=== PATIENT | female | born 1940 | race Two or more races ===

== ENCOUNTER 2018-12-12 18:49 | Inpatient (IN) | payer OTHER ==
[~2018-12-12] VITALS: Ht 165.1 cm; Wt 77.6 kg
--- NOTE | 2018-12-12 18:52 | NUR ---
ED Nurse Note: Pt BIBA from home due to dyspnea since this morning. Pt was placed in a cipap by EMS. Arrived in the ER sating at 100% on RA. Pt denies pain. Pt is arousable and able to communicate. Pt noted to have bilateral lower leg edema. Skin warm to touch.
[2018-12-12 18:54] VITALS: BP 161/107
--- NOTE | 2018-12-12 19:03 | NUR ---
HAND-OFF: Report given to ADRYAN Davis.
[2018-12-12 19:26] LABS: HEMATOCRIT 22.1 % (37.0-47.0); HEMOGLOBIN 7.5 G/DL (12.0-16.0); MEAN CORPUSCULAR VOLUME 91 FL (80-99); PLATELET COUNT 257 K/UL (150-450); RED BLOOD COUNT 2.43 M/UL (4.20-5.40); WHITE BLOOD COUNT 10.1 K/UL (4.8-10.8)
[2018-12-12] MEDS ORDERED: LORATADINE10 M2 PO (19:33)
[2018-12-12] MEDS ORDERED: NIFEDIPINE ER60 M2 ORAL (19:33)
[2018-12-12] MEDS ORDERED: CARVEDILOL12.5 MG ORAL (19:33)
[2018-12-12] MEDS ORDERED: SYNTHROID25 MCG ORAL (19:33)
[2018-12-12] MEDS ORDERED: POTASSIUM CHLO10 ME3 ORAL (19:33)
[2018-12-12] MEDS ORDERED: FUROSEMIDE40 MG ORAL (19:33)
[2018-12-12] MEDS ORDERED: CLOPIDOGREL75 MG ORAL (19:33)
[2018-12-12] MEDS ORDERED: OMEPRAZOLE20 M2 ORAL (19:33)
[2018-12-12 19:50] LABS: ANION GAP 8 mmol/L (5-15); BLOOD UREA NITROGEN 33 mg/dL (7-18); CALCIUM 8.5 MG/DL (8.5-10.1); CARBON DIOXIDE 24 MMOL/L (21-32); CHLORIDE 94 MMOL/L (98-107); CREATININE 1.7 MG/DL (0.55-1.30); SODIUM 126 MMOL/L (136-145)
[2018-12-12] MEDS ORDERED: FAMOTIDINE20 MG ORAL (19:57)
[2018-12-12] MEDS ORDERED: NOVOLIN 70100 UNIT/2 SQ (19:57)
[2018-12-12] MEDS ORDERED: LOSARTAN POTASS50 MG ORAL (19:57)
[2018-12-12] MEDS ORDERED: ATORVASTATIN CA20 MG ORAL (19:57)
[2018-12-12] MEDS ORDERED: DIPHENHYDRAMINE25 M1 ORAL (19:57)
[2018-12-12 20:05] LABS: ALANINE AMINOTRANSFERASE 19 U/L (12-78); ALBUMIN 3.2 G/DL (3.4-5.0); ALBUMIN/GLOBULIN RATIO 0.9 (1.0-2.7); ALKALINE PHOSPHATASE 116 U/L (46-116); ASPARTATE AMINO TRANSFERASE 17 U/L (15-37); BILIRUBIN,TOTAL 0.4 MG/DL (0.2-1.0); CKMB 1.9 NG/ML (0.0-3.6); CREATINE KINASE 99 U/L (26-308)
--- NOTE | 2018-12-12 20:41 | Emergency Room Report ---
History of Present Illness General Chief Complaint: Dyspnea/Respdistress Source: Patient Present Illness HPI This patient presents with difficulty breathing. The patient was recently admitted to [facility] for congestive heart failure, hyponatremia and anemia. This patient presents today because she has had shortness of breath all day today. She denies cough or congestion. She denies fever or chills. She denies nausea or vomiting. She denies chest pain or abdominal pain. She has no other complaints. Allergies: Coded Allergies: No Known Allergies (Unverified , 12/12/18) Patient History Past Medical History: see triage record, DM, HTN, CAD, CHF Social History: Denies: smoking, alcohol use, drug use Reviewed Nursing Documentation: PMH: Agreed; PSxH: Agreed Nursing Documentation-PMH Hx Cardiac Problems: Yes - chf Hx Hypertension: Yes Hx Diabetes: Yes Review of Systems All Other Systems: negative except mentioned in HPI Physical Exam Vital Signs Date Time Temp Pulse Resp B/P (MAP) Pulse Ox O2 Delivery O2 Flow Rate FiO2 12/12/18 18:42 97.3 80 24 177/67 100 Bi-pap 12/12/18 18:54 100 Sp02 EP Interpretation: reviewed, normal General Appearance: no apparent distress, alert, GCS 15, non-toxic, other - On CPAP Head: normocephalic, atraumatic Eyes: bilateral eye normal inspection, bilateral eye PERRL ENT: hearing grossly normal, normal pharynx, no angioedema, normal voice Neck: full range of motion, supple/symm/no masses Respiratory: chest non-tender, lungs clear, normal breath sounds, no respiratory distress, no retraction, no accessory muscle use Cardiovascular #1: regular rate, rhythm, no edema Gastrointestinal: normal bowel sounds, non tender, soft, non-distended, no guarding, no rebound Rectal: deferred Musculoskeletal: back normal, gait/station normal, normal range of motion, non- tender Neurologic: alert, oriented x3, responsive, motor strength/tone normal, sensory intact, speech normal Psychiatric: judgement/insight normal, memory normal, mood/affect normal, no suicidal/homicidal ideation Skin: normal color, no rash, warm/dry, well hydrated Medical Decision Making Diagnostic Impression: Primary Impression: CHF exacerbation Additional Impressions: Anemia Hyponatremia Dyspnea ER Course This patient presented with dyspnea. When she was brought in by EMS she was on Cipro. Her SPO2 was 100%. He took the patient off BiPAP and she was maintaining her O2 saturation in the high 90s to 100% on room air and nasal cannula. The patient's laboratory workup was pertinent for hyponatremia and anemia. I'm unsure of the patient's baseline labs. Apparently, the patient has undergone evaluation for her anemia to include colonoscopy. She also has had profound itching all over her body that bothers her intensely. She has had this previously and was diagnosed with a dermatitis by a skilled nursing facility counselor about 3 years ago. I did go ahead and treat her with permethrin cream as a precaution. This patient will be admitted for her CHF, hyponatremia and anemia. Laboratory Tests Test 12/12/18 19:00 White Blood Count 10.1 K/UL (4.8-10.8) Red Blood Count 2.43 M/UL (4.20-5.40) L Hemoglobin 7.5 G/DL (12.0-16.0) L Hematocrit 22.1 % (37.0-47.0) L Mean Corpuscular Volume 91 FL (80-99) Mean Corpuscular Hemoglobin 30.7 PG (27.0-31.0) Mean Corpuscular Hemoglobin Concent 33.7 G/DL (32.0-36.0) Red Cell Distribution Width 12.0 % (11.6-14.8) Platelet Count 257 K/UL (150-450) Mean Platelet Volume 5.9 FL (6.5-10.1) L Neutrophils (%) (Auto) % (45.0-75.0) Lymphocytes (%) (Auto) % (20.0-45.0) Monocytes (%) (Auto) % (1.0-10.0) Eosinophils (%) (Auto) % (0.0-3.0) Basophils (%) (Auto) % (0.0-2.0) Differential Total Cells Counted 100 Neutrophils % (Manual) 83 % (45-75) H Lymphocytes % (Manual) 8 % (20-45) L Monocytes % (Manual) 3 % (1-10) Eosinophils % (Manual) 6 % (0-3) H Basophils % (Manual) 0 % (0-2) Band Neutrophils 0 % (0-8) Platelet Estimate Adequate Platelet Morphology Normal Red Blood Cell Morphology Normal Sodium Level 126 MMOL/L (136-145) L Potassium Level 4.0 MMOL/L (3.5-5.1) Chloride Level 94 MMOL/L (98-107) L Carbon Dioxide Level 24 MMOL/L (21-32) Anion Gap 8 mmol/L (5-15) Blood Urea Nitrogen 33 mg/dL (7-18) H Creatinine 1.7 MG/DL (0.55-1.30) H Estimate Glomerular Filtration Rate mL/min (>60) Glucose Level 84 MG/DL (74-106) Calcium Level 8.5 MG/DL (8.5-10.1) Total Bilirubin 0.4 MG/DL (0.2-1.0) Aspartate Amino Transferase (AST) 17 U/L (15-37) Alanine Aminotransferase (ALT) 19 U/L (12-78) Alkaline Phosphatase 116 U/L (46-116) Total Creatine Kinase 99 U/L (26-308) Creatine Kinase MB 1.9 NG/ML (0.0-3.6) Creatine Kinase MB Relative Index 1.9 Troponin I 0.000 ng/mL (0.000-0.056) Pro-B-Type Natriuretic Peptide 2133 pg/mL (0-125) H Total Protein 6.8 G/DL (6.4-8.2) Albumin 3.2 G/DL (3.4-5.0) L Globulin 3.6 g/dL Albumin/Globulin Ratio 0.9 (1.0-2.7) L Microbiology Date/Time Source Procedure Growth Status 12/12/18 20:20 Nasal Nares Influenza Types A,B Antigen (CLAU) - Final Complete EKG Diagnostic Results Rate: normal Rhythm: NSR ST Segments: no acute changes Rhythm Strip Diag. Results EP Interpretation: yes Rate: 70's Rhythm: NSR, no PVC's, no ectopy Chest X-Ray Diagnostic Results Chest X-Ray Diagnostic Results : Chest X-Ray Ordered: Yes # of Views/Limited/Complete: 1 View Indication: Shortness of Breath Interpretation: no consolidation, no pneumothorax, other - cardiomegaly, diffusely patchy opacities, bilateral small pleural effusions Last Vital Signs Date Time Temp Pulse Resp B/P (MAP) Pulse Ox O2 Delivery O2 Flow Rate FiO2 12/12/18 20:31 170/50 12/12/18 18:54 80 27 Room Air 100 12/12/18 18:54 97.3 100 Disposition: ADMITTED INPATIENT Condition: Serious Referrals: [facility],REFERRING (PCP) Jacki Troy DO Dec 12, 2018 20:41
[2018-12-12 21:01] VITALS: BP 160/62
--- NOTE | 2018-12-12 21:02 | NUR ---
ER Nurse Note: Pt a&ox4, VSS, no signs of distress. ERMD aware of blood pressure; meds ordered and given. BS checked, 73, juice given, pt stated she feels better and will recheck BS. Family at bedside; will continue to montior.
[2018-12-12 22:06] VITALS: BP 134/71
[2018-12-12] MEDS ORDERED: Miralax 17gm pkt ORAL PRN (22:15)
[2018-12-12 23:05] VITALS: BP 151/51
--- NOTE | 2018-12-12 23:05 | NUR ---
ER Nurse Note: Report given to ADRYAN Dick in tele for continuity of care. Pt a&ox4, VSS, no signs of distress. All orders completed per ERMD orders. All belongings taken with pt and family.
[2018-12-12 23:09] LABS: APPEARANCE,URINE CLEAR; BILIRUBIN, URINE NEGATIVE (NEGATIVE); COLOR,URINE PALE YELLOW; GLUCOSE, URINE (UA) NEGATIVE (NEGATIVE); KETONES,URINE NEGATIVE (NEGATIVE); LEUKOCYTE ESTERASE ,URINE 2+ (NEGATIVE); NITRITE,URINE NEGATIVE (NEGATIVE); PH,URINE 6 (4.5-8.0); PROTEIN,URINE 3+ (NEGATIVE); UROBILINOGEN,URINE NORMAL MG/DL (0.0-1.0)
[2018-12-12 23:15] VITALS: BP 156/60
--- NOTE | 2018-12-12 23:15 | NUR ---
NURSE NOTES: Received pt from ED via gurney. Pt is awake, AOx4. Pt is being admitted for CHF exacerbation. VS stable. Placed on quality assurance monitor chassis showing NSR. Oriented pt to room and unit. Admission orders noted and carried out. Bed in lowest position. Call light within reach.
[2018-12-12 23:30] VITALS: BP 156/60
[2018-12-13] MEDS: Albuterol/Ipratropium 3ml neb HHN PRN (01:33)
[2018-12-13 05:00] VITALS: BP 167/63
[2018-12-13 06:22] LABS: HEMATOCRIT 20.3 % (37.0-47.0); MEAN CORPUSCULAR VOLUME 92 FL (80-99); PLATELET COUNT 230 K/UL (150-450); RED BLOOD COUNT 2.21 M/UL (4.20-5.40); WHITE BLOOD COUNT 8.6 K/UL (4.8-10.8)
[2018-12-13] MEDS: NovoLOG Insulin Flexpen SUBQ SCH ×4 (06:25→22:10)
[2018-12-13] MEDS ORDERED: Levothyroxine 25mcg tab ORAL SCH (06:30)
[2018-12-13 06:37] LABS: HEMOGLOBIN 6.7 G/DL (12.0-16.0)
--- NOTE | 2018-12-13 06:52 | NUR ---
CASE MANAGEMENT:REVIEW 78YR OLD FEMALE BIBA FROM HOME CC: WORSENING SOB SI: CHF EXACERBATION. ANEMIA. HYPONATREMIA 97.4 80 24 177/67 100% ON BIPAP H/H-7.5/22.1 NA-126 BUN+33 CR+1.7 IS: ALBUTEROL HHN IN FIELD IV HYDRALAZINE CHEST XRAY : TO TELEMETRY IS: IV LASIX Q8HRS INTERQUAL CRITERIA MET
[2018-12-13 07:01] LABS: ANION GAP 10 mmol/L (5-15); BLOOD UREA NITROGEN 30 mg/dL (7-18); CALCIUM 8.3 MG/DL (8.5-10.1); CARBON DIOXIDE 23 MMOL/L (21-32); CHLORIDE 94 MMOL/L (98-107); CREATININE 1.6 MG/DL (0.55-1.30); POTASSIUM 3.9 MMOL/L (3.5-5.1); SODIUM 127 MMOL/L (136-145)
[2018-12-13] MEDS ORDERED: DiphenhydrAMINE 50mg/ml Inj IVP PRN (07:15)
--- NOTE | 2018-12-13 07:45 | NUR ---
HAND-OFF: Report given to ADRYAN Gomes.
[2018-12-13 08:00] VITALS: BP 165/59
--- NOTE | 2018-12-13 08:10 | NUR ---
NURSE NOTES: Received report from ADRYAN Liu. Pt is sitting up in bed. Bed is in lowest position, side rails up X2 and call light is within reach. Will continue to monitor.
--- NOTE | 2018-12-13 08:12 | NUR ---
NURSE NOTES: Consent for transfusion is not signed. Pt and family would like to explore other options as they do not feel comfortable performing blood transfusion as her age. THey would like to speak with the MD. WIll notify MD
--- NOTE | 2018-12-13 08:19 | NUR ---
NURSE NOTES: notified Dr. Cordova of pts concerns regarding blood transfusion.
[2018-12-13] MEDS: Heparin 5000 units/ml inj SUBQ SCH ×2 (09:00→21:00)
[2018-12-13] MEDS: Carvedilol 12.5mg tab ORAL SCH ×2 (09:11→22:06)
[2018-12-13] MEDS ORDERED: Promethazine/Codeine 5ml UD ORAL PRN (10:15)
--- NOTE | 2018-12-13 10:26 | Consultation ---
History of Present Illness General Date patient seen: Dec 13, 2018 Chief Complaint: Dyspnea/Respdistress Present Illness HPI 78 year old female with hx of DM, HTN, CAD, CHF presented to ER with CC of difficulty breathing. The patient was recently admitted to [facility] for congestive heart failure, hyponatremia and anemia. She denies cough or congestion. She denies fever or chills. She denies nausea or vomiting. She denies chest pain or abdominal pain. She was found to be severely anemic and with severe hyponatremia and admitted for further work up. Allergies: Coded Allergies: No Known Allergies (Unverified , 12/12/18) Medication History Scheduled Atorvastatin Calcium* (Atorvastatin Calcium*), 20 MG ORAL BEDTIME, (Reported) Carvedilol* (Carvedilol*), 12.5 MG ORAL EVERY 12 HOURS, (Reported) Clopidogrel* (Clopidogrel*), 75 MG ORAL DAILY, (Reported) Famotidine (Famotidine), 20 MG ORAL DAILY, (Reported) Furosemide* (Lasix*), 40 MG ORAL DAILY, (Reported) Insulin NPH Hum/Reg Insulin Hm (Novolin 70-30 Flexpen), 15 UNIT SQ ACBREAKFAST, (Reported) Levothyroxine Sodium* (Synthroid*), 25 MCG ORAL DAILY, (Reported) Losartan Potassium* (Losartan Potassium*), 100 MG ORAL DAILY, (Reported) Nifedipine* (Nifedipine Er*), 60 MG ORAL DAILY, (Reported) Omeprazole (Omeprazole), 20 MG ORAL DAILY, (Reported) Potassium Chloride (Potassium Chloride), 10 MEQ ORAL TWICE A DAY, (Reported) Scheduled PRN Diphenhydramine Hcl* (Diphenhydramine Hcl*), 25 MG ORAL Q6H PRN for Itching, ( Reported) Loratadine (Loratadine), 10 MG PO DAILY PRN for ALLERGIES, (Reported) Patient History Healthcare decision maker Resuscitation status Full Code Advanced Directive on File Past Medical/Surgical History Past Medical/Surgical History: (1) Hypothyroidism (2) Diabetes mellitus (3) CHF (congestive heart failure) Review of Systems Respiratory: Reports: shortness of breath Cardiovascular: Reports: no symptoms Gastrointestinal: Reports: no symptoms Physical Exam General Appearance: WD/WN Lines, tubes and drains: peripheral HEENT: normocephalic, atraumatic Neck: non-tender, normal alignment Respiratory/Chest: chest wall non-tender, lungs clear, decreased breath sounds - at left Cardiovascular/Chest: normal peripheral pulses, normal rate Abdomen: non tender, no organomegaly Genitourinary/Rectal: normal genital exam Last 24 Hour Vital Signs Date Time Temp Pulse Resp B/P (MAP) Pulse Ox O2 Delivery O2 Flow Rate FiO2 12/13/18 09:12 74 165/59 12/13/18 09:11 74 138/67 12/13/18 08:00 98.8 74 20 165/59 (94) 98 12/13/18 07:46 74 15 Nasal Cannula 2.0 28 12/13/18 07:46 Nasal Cannula 2.0 28 12/13/18 07:46 98 Nasal Cannula 2.0 28 12/13/18 05:00 99.1 71 18 167/63 (97) 98 12/13/18 04:00 71 12/13/18 01:39 Nasal Cannula 2.0 28 12/13/18 01:39 98 Nasal Cannula 2.0 12/13/18 01:38 88 18 Nasal Cannula 2.0 12/13/18 01:36 88 18 99 Nasal Cannula 2.0 28 12/13/18 01:25 84 18 98 Nasal Cannula 2.0 28 12/12/18 23:43 82 12/12/18 23:30 Nasal Cannula 2.0 12/12/18 23:15 98.3 82 17 156/60 (92) 97 12/12/18 23:05 98.1 72 18 151/51 98 Nasal Cannula 12/12/18 23:05 98.2 72 18 151/51 98 Nasal Cannula 12/12/18 22:06 97.6 108 22 134/71 100 Nasal Cannula 3.0 12/12/18 21:01 97.4 78 20 160/62 100 Room Air 100 12/12/18 20:31 170/50 12/12/18 18:54 80 27 Room Air 100 12/12/18 18:54 97.3 80 27 161/107 100 Room Air 12/12/18 18:42 97.3 80 24 177/67 100 Bi-pap Intake and Output 12/12/18 12/13/18 19:00 07:00 Intake Total 180 ml Balance 180 ml Intake Other 180 ml # Voids 4 # Bowel Movements 1 Laboratory Tests Test 12/12/18 19:00 12/12/18 22:45 12/13/18 05:05 White Blood Count 10.1 K/UL (4.8-10.8) 8.6 K/UL (4.8-10.8) Red Blood Count 2.43 M/UL (4.20-5.40) L 2.21 M/UL (4.20-5.40) L Hemoglobin 7.5 G/DL (12.0-16.0) L 6.7 G/DL (12.0-16.0) *L Hematocrit 22.1 % (37.0-47.0) L 20.3 % (37.0-47.0) L Mean Corpuscular Volume 91 FL (80-99) 92 FL (80-99) Mean Corpuscular Hemoglobin 30.7 PG (27.0-31.0) 30.3 PG (27.0-31.0) Mean Corpuscular Hemoglobin Concent 33.7 G/DL (32.0-36.0) 32.8 G/DL (32.0-36.0) Red Cell Distribution Width 12.0 % (11.6-14.8) 12.0 % (11.6-14.8) Platelet Count 257 K/UL (150-450) 230 K/UL (150-450) Mean Platelet Volume 5.9 FL (6.5-10.1) L 5.9 FL (6.5-10.1) L Neutrophils (%) (Auto) % (45.0-75.0) % (45.0-75.0) Lymphocytes (%) (Auto) % (20.0-45.0) % (20.0-45.0) Monocytes (%) (Auto) % (1.0-10.0) % (1.0-10.0) Eosinophils (%) (Auto) % (0.0-3.0) % (0.0-3.0) Basophils (%) (Auto) % (0.0-2.0) % (0.0-2.0) Differential Total Cells Counted 100 100 Neutrophils % (Manual) 83 % (45-75) H 83 % (45-75) H Lymphocytes % (Manual) 8 % (20-45) L 10 % (20-45) L Monocytes % (Manual) 3 % (1-10) 3 % (1-10) Eosinophils % (Manual) 6 % (0-3) H 3 % (0-3) Basophils % (Manual) 0 % (0-2) 0 % (0-2) Band Neutrophils 0 % (0-8) 1 % (0-8) Platelet Estimate Adequate Adequate Platelet Morphology Normal Normal Red Blood Cell Morphology Normal Sodium Level 126 MMOL/L (136-145) L 127 MMOL/L (136-145) L Potassium Level 4.0 MMOL/L (3.5-5.1) 3.9 MMOL/L (3.5-5.1) Chloride Level 94 MMOL/L (98-107) L 94 MMOL/L (98-107) L Carbon Dioxide Level 24 MMOL/L (21-32) 23 MMOL/L (21-32) Anion Gap 8 mmol/L (5-15) 10 mmol/L (5-15) Blood Urea Nitrogen 33 mg/dL (7-18) H 30 mg/dL (7-18) H Creatinine 1.7 MG/DL (0.55-1.30) H 1.6 MG/DL (0.55-1.30) H Estimat Glomerular Filtration Rate mL/min (>60) mL/min (>60) Glucose Level 84 MG/DL (74-106) 133 MG/DL (74-106) H Calcium Level 8.5 MG/DL (8.5-10.1) 8.3 MG/DL (8.5-10.1) L Total Bilirubin 0.4 MG/DL (0.2-1.0) Aspartate Amino Transf (AST/SGOT) 17 U/L (15-37) Alanine Aminotransferase (ALT/SGPT) 19 U/L (12-78) Alkaline Phosphatase 116 U/L (46-116) Total Creatine Kinase 99 U/L (26-308) Creatine Kinase MB 1.9 NG/ML (0.0-3.6) Creatine Kinase MB Relative Index 1.9 Troponin I 0.000 ng/mL (0.000-0.056) 0.013 ng/mL (0.000-0.056) Pro-B-Type Natriuretic Peptide 2133 pg/mL (0-125) H Total Protein 6.8 G/DL (6.4-8.2) Albumin 3.2 G/DL (3.4-5.0) L Globulin 3.6 g/dL Albumin/Globulin Ratio 0.9 (1.0-2.7) L Urine Color Pale yellow Urine Appearance Clear Urine pH 6 (4.5-8.0) Urine Specific [place] 1.005 (1.005-1.035) Urine Protein 3+ (NEGATIVE) H Urine Glucose (UA) Negative (NEGATIVE) Urine Ketones Negative (NEGATIVE) Urine Blood Negative (NEGATIVE) Urine Nitrite Negative (NEGATIVE) Urine Bilirubin Negative (NEGATIVE) Urine Urobilinogen Normal MG/DL (0.0-1.0) Urine Leukocyte Esterase 2+ (NEGATIVE) H Urine RBC 0-2 /HPF (0 - 2) Urine WBC 2-4 /HPF (0 - 2) Urine Squamous Epithelial Cells Few /LPF (NONE/OCC) Urine Bacteria Few /HPF (NONE) Hypochromasia 1+ Iron Level Pending Unsaturated Iron Binding Pending Lactate Dehydrogenase Pending Carcinoembryonic Antigen Pending Vitamin B12 Level Pending Folate Pending Microbiology Date/Time Source Procedure Growth Status 12/12/18 20:20 Nasal Nares Influenza Types A,B Antigen (CLAU) - Final Complete Height (Feet): 5 Height (Inches): 2.00 Weight (Pounds): 172 Medications Current Medications Medications (Trade) Dose Ordered Sig/Bipin Route PRN Reason Start Time Stop Time Status Last Admin Dose Admin Acetaminophen (Tylenol) 650 mg Q4H PRN ORAL Fever 12/12/18 22:15 01/11/19 22:14 Albuterol/ Ipratropium (Albuterol/ Ipratropium) 3 ml EVERY 4 HOURS PRN HHN Shortness of Breath 12/12/18 22:15 12/17/18 22:14 12/13/18 01:33 Atorvastatin Calcium (Lipitor) 20 mg BEDTIME ORAL 12/13/18 21:00 01/12/19 20:59 Carvedilol (Coreg) 12.5 mg EVERY 12 HOURS ORAL 12/13/18 09:00 01/12/19 08:59 12/13/18 09:11 Clopidogrel Bisulfate (Plavix) 75 mg DAILY ORAL 12/13/18 09:00 01/12/19 08:59 12/13/18 09:10 Dextrose (Dextrose 50%) 25 ml Q30M PRN IV Hypoglycemia 12/12/18 22:15 01/11/19 22:14 Dextrose (Dextrose 50%) 50 ml Q30M PRN IV Hypoglycemia 12/12/18 22:15 01/11/19 22:14 Diphenhydramine HCl (Benadryl) 25 mg Q6H PRN IVP Itching 12/13/18 07:15 01/12/19 07:14 Furosemide (Lasix) 40 mg EVERY 8 HOURS IV 12/13/18 06:00 01/12/19 05:59 12/13/18 06:26 Heparin Sodium (Porcine) (Heparin 5000 units/ml) 5,000 units EVERY 12 HOURS SUBQ 12/13/18 09:00 01/12/19 08:59 Insulin Aspart (NovoLOG) BEFORE MEALS AND HS SUBQ 12/13/18 06:30 01/12/19 06:29 12/13/18 06:25 Levothyroxine Sodium (Synthroid) 25 mcg ACBREAKFAST ORAL 12/13/18 06:30 01/12/19 06:29 12/13/18 06:26 Nifedipine (Procardia XL) 60 mg DAILY ORAL 12/13/18 09:00 01/12/19 08:59 12/13/18 09:12 Ondansetron HCl (Zofran) 4 mg Q6H PRN IVP Nausea & Vomiting 12/12/18 22:15 01/11/19 22:14 Polyethylene Glycol (Miralax) 17 gm DAILYPRN PRN ORAL Constipation 12/12/18 22:15 01/11/19 22:14 Promethazine HCl/ Codeine (Phenergan with Codeine) 5 ml Q4H PRN ORAL For Cough 12/13/18 10:15 01/12/19 10:14 Temazepam (Restoril) 15 mg HSPRN PRN ORAL Insomnia 12/12/18 22:15 12/19/18 22:14 Assessment/Plan Problem List: (1) Collapse of left lung ICD Codes: J98.11 - Atelectasis SNOMED: 69858908 (2) Symptomatic anemia ICD Codes: D64.9 - Anemia, unspecified SNOMED: 806765903 (3) ATN (acute tubular necrosis) ICD Codes: N17.0 - Acute kidney failure with tubular necrosis SNOMED: 88859440 (4) Anemia ICD Codes: D64.9 - Anemia, unspecified SNOMED: 137380245 (5) Hyponatremia ICD Codes: E87.1 - Hypo-osmolality and hyponatremia SNOMED: 61239393 (6) Diabetes mellitus ICD Codes: E11.9 - Type 2 diabetes mellitus without complications SNOMED: 81427538 (7) Hypothyroidism ICD Codes: E03.9 - Hypothyroidism, unspecified SNOMED: 16477288 Assessment/Plan chest PT, respiratory treatment, incentive spirometry check TSh, t3, t4 echo, cardiac w/u renal w/u hyponatremia w/u. anemia w/u PRBC prn Velma Cordova MD Dec 13, 2018 10:26
[2018-12-13 10:45] LABS: LACTATE DEHYDROGENASE 276 U/L (81-234)
[2018-12-13 10:47] LABS: CREATINE KINASE 98 U/L (26-308)
[2018-12-13 11:13] LABS: % IRON SATURATION 8 % (15-50); IRON 20 ug/dL (50-175); TOTAL IRON BINDING CAPACITY 254 ug/dL (250-450)
--- NOTE | 2018-12-13 11:15 | Diagnostic Imaging Report ---
Indication: Dyspnea Technique: One view of the chest Comparison: 12/12/2018 Findings: Interim complete opacification of the left hemithorax. Right lung and pleural space remain clear except for minimal interstitial congestion which appears similar to the previous exam. Impression: Complete opacification of the left hemithorax, presumably on the basis of complete left lung atelectasis Dr. Cordova notified at the time of interpretation
--- NOTE | 2018-12-13 11:44 | Diagnostic Imaging Report ---
Indication: Shortness of breath Technique: One view of the chest Comparison: none Findings: The heart is enlarged. There is bilateral interstitial edema. There are small bilateral pleural effusions. Impression: Cardiomegaly, without evidence of congestive heart failure and bilateral pleural effusion
--- NOTE | 2018-12-13 11:55 | Diagnostic Imaging Report ---
APPROVED REPORT CPT Code: 35344 Present Symptoms Shortness of breath BILATERAL: Imaging reveals a patent deep venous system bilaterally. There is no evidence of thrombus within the common femoral, superficial femoral, popliteal or tibial segments. The greater saphenous veins are within normal limits. Doppler indicates normal spontaneous flow within these segments.
[2018-12-13 12:00] VITALS: BP 174/71
--- NOTE | 2018-12-13 14:20 | NUR ---
*-* INSURANCE *-* CLINICALS, REVIEWS AND INTERQUAL HAVE BEEN FAXED TO: [facility] BYRD:TITA P;[phone] F:[phone]
--- NOTE | 2018-12-13 15:52 | GI Initial Consult Note ---
History of Present Illness General Date patient seen: Dec 13, 2018 Time patient seen: 15:46 Reason for Hospitalization: Dyspnea/Respdistress Referring physician: DARLEEN PETERSON Reason for Consultation: ANEMIA Present Illness HPI This patient presents with difficulty breathing. The patient was recently admitted to [facility] for congestive heart failure, hyponatremia and anemia. This patient presents today because she has had shortness of breath all day today. She denies cough or congestion. She denies fever or chills. She denies nausea or vomiting. She denies chest pain or abdominal pain. She has no other complaints. GI consulted for severe anemia. Patient seen, awake alert oriented x4 no apparent distress, ambulatory, no active signs or symptoms of nausea vomiting or diarrhea. The patient presents due to shortness of breath, bilateral lower extremity trace edema. Patient is noted to have a history of congestive heart failure, currently on Plavix. She states her last endoscopic colonoscopy was greater than 6 years ago. The patient reports occasional melena. labs reviewed ; hemoglobin 6.7, no leukocytosis, no transaminitis, noted iron deficiency. Home Meds Reported Medications Insulin NPH Hum/Reg Insulin Hm (Novolin 70-30 Flexpen) 100 Unit/1 Ml Insuln.pen , 15 UNIT SQ ACBREAKFAST 12/12/18 Atorvastatin Calcium* (ATORVASTATIN CALCIUM*) 20 Mg Tablet, 20 MG ORAL BEDTIME 12/12/18 Diphenhydramine Hcl* (DIPHENHYDRAMINE HCL*) 25 Mg Capsule, 25 MG ORAL Q6H PRN for Itching 12/12/18 Famotidine (FAMOTIDINE) 20 Mg Tablet, 20 MG ORAL DAILY 12/12/18 Losartan Potassium* (LOSARTAN POTASSIUM*) 50 Mg Tablet, 100 MG ORAL DAILY 12/12/18 Potassium Chloride (POTASSIUM CHLORIDE) 10 Meq Tablet.er, 10 MEQ ORAL TWICE A DAY 12/12/18 Omeprazole (OMEPRAZOLE) 20 Mg Capsule.dr, 20 MG ORAL DAILY 12/12/18 Nifedipine* (NIFEDIPINE ER*) 60 Mg Tablet.er, 60 MG ORAL DAILY 12/12/18 Loratadine (LORATADINE) 10 Mg Tablet, 10 MG PO DAILY PRN for ALLERGIES 12/12/18 Levothyroxine Sodium* (SYNTHROID*) 25 Mcg Tablet, 25 MCG ORAL DAILY Take in the morning on an empty stomach, at least 30 minutes before food. 12/12/18 Furosemide* (LASIX*) 40 Mg Tablet, 40 MG ORAL DAILY 12/12/18 Clopidogrel* (CLOPIDOGREL*) 75 Mg Tablet, 75 MG ORAL DAILY 12/12/18 Carvedilol* (CARVEDILOL*) 12.5 Mg Tablet, 12.5 MG ORAL EVERY 12 HOURS 12/12/18 Med list reviewed/reconciled: Yes Allergies: Coded Allergies: No Known Allergies (Unverified , 12/12/18) Patient History History Provided By: Patient, Medical Record PMH Narrative Past Medical History: see triage record, DM, HTN, CAD, CHF Social History: Denies: smoking, alcohol use, drug use Reviewed Nursing Documentation: PMH: Agreed; PSxH: Agreed Nursing Documentation-PMH Hx Cardiac Problems: Yes - chf Hx Hypertension: Yes Hx Diabetes: Yes Social History: Denies: smoking, alcohol use, drug use, other Review of Systems All Other Systems: negative except mentioned in HPI Physical Exam Vital Signs Date Time Temp Pulse Resp B/P (MAP) Pulse Ox O2 Delivery O2 Flow Rate FiO2 12/12/18 18:42 97.3 80 24 177/67 100 Bi-pap 12/12/18 18:54 100 12/12/18 22:06 3.0 Sp02 EP Interpretation: reviewed, normal Labs Laboratory Tests Test 12/12/18 19:00 12/12/18 22:45 12/13/18 05:05 12/13/18 10:30 White Blood Count 10.1 K/UL (4.8-10.8) 8.6 K/UL (4.8-10.8) Red Blood Count 2.43 M/UL (4.20-5.40) L 2.21 M/UL (4.20-5.40) L Hemoglobin 7.5 G/DL (12.0-16.0) L 6.7 G/DL (12.0-16.0) *L Hematocrit 22.1 % (37.0-47.0) L 20.3 % (37.0-47.0) L Mean Corpuscular Volume 91 FL (80-99) 92 FL (80-99) Mean Corpuscular Hemoglobin 30.7 PG (27.0-31.0) 30.3 PG (27.0-31.0) Mean Corpuscular Hemoglobin Concent 33.7 G/DL (32.0-36.0) 32.8 G/DL (32.0-36.0) Red Cell Distribution Width 12.0 % (11.6-14.8) 12.0 % (11.6-14.8) Platelet Count 257 K/UL (150-450) 230 K/UL (150-450) Mean Platelet Volume 5.9 FL (6.5-10.1) L 5.9 FL (6.5-10.1) L Neutrophils (%) (Auto) % (45.0-75.0) % (45.0-75.0) Lymphocytes (%) (Auto) % (20.0-45.0) % (20.0-45.0) Monocytes (%) (Auto) % (1.0-10.0) % (1.0-10.0) Eosinophils (%) (Auto) % (0.0-3.0) % (0.0-3.0) Basophils (%) (Auto) % (0.0-2.0) % (0.0-2.0) Differential Total Cells Counted 100 100 Neutrophils % (Manual) 83 % (45-75) H 83 % (45-75) H Lymphocytes % (Manual) 8 % (20-45) L 10 % (20-45) L Monocytes % (Manual) 3 % (1-10) 3 % (1-10) Eosinophils % (Manual) 6 % (0-3) H 3 % (0-3) Basophils % (Manual) 0 % (0-2) 0 % (0-2) Band Neutrophils 0 % (0-8) 1 % (0-8) Platelet Estimate Adequate Adequate Platelet Morphology Normal Normal Red Blood Cell Morphology Normal Sodium Level 126 MMOL/L (136-145) L 127 MMOL/L (136-145) L Potassium Level 4.0 MMOL/L (3.5-5.1) 3.9 MMOL/L (3.5-5.1) Chloride Level 94 MMOL/L (98-107) L 94 MMOL/L (98-107) L Carbon Dioxide Level 24 MMOL/L (21-32) 23 MMOL/L (21-32) Anion Gap 8 mmol/L (5-15) 10 mmol/L (5-15) Blood Urea Nitrogen 33 mg/dL (7-18) H 30 mg/dL (7-18) H Creatinine 1.7 MG/DL (0.55-1.30) H 1.6 MG/DL (0.55-1.30) H Estimat Glomerular Filtration Rate mL/min (>60) mL/min (>60) Glucose Level 84 MG/DL (74-106) 133 MG/DL (74-106) H Calcium Level 8.5 MG/DL (8.5-10.1) 8.3 MG/DL (8.5-10.1) L Total Bilirubin 0.4 MG/DL (0.2-1.0) Aspartate Amino Transf (AST/SGOT) 17 U/L (15-37) Alanine Aminotransferase (ALT/SGPT) 19 U/L (12-78) Alkaline Phosphatase 116 U/L (46-116) Total Creatine Kinase 99 U/L (26-308) 98 U/L (26-308) Creatine Kinase MB 1.9 NG/ML (0.0-3.6) Creatine Kinase MB Relative Index 1.9 Troponin I 0.000 ng/mL (0.000-0.056) 0.013 ng/mL (0.000-0.056) Pro-B-Type Natriuretic Peptide 2133 pg/mL (0-125) H Total Protein 6.8 G/DL (6.4-8.2) Albumin 3.2 G/DL (3.4-5.0) L Globulin 3.6 g/dL Albumin/Globulin Ratio 0.9 (1.0-2.7) L Urine Color Pale yellow Urine Appearance Clear Urine pH 6 (4.5-8.0) Urine Specific [place] 1.005 (1.005-1.035) Urine Protein 3+ (NEGATIVE) H Urine Glucose (UA) Negative (NEGATIVE) Urine Ketones Negative (NEGATIVE) Urine Blood Negative (NEGATIVE) Urine Nitrite Negative (NEGATIVE) Urine Bilirubin Negative (NEGATIVE) Urine Urobilinogen Normal MG/DL (0.0-1.0) Urine Leukocyte Esterase 2+ (NEGATIVE) H Urine RBC 0-2 /HPF (0 - 2) Urine WBC 2-4 /HPF (0 - 2) Urine Squamous Epithelial Cells Few /LPF (NONE/OCC) Urine Bacteria Few /HPF (NONE) Hypochromasia 1+ Osmolality 267 mOsm/kg (297-317) L Uric Acid 5.2 MG/DL (2.6-7.2) Iron Level 20 ug/dL (50-175) L Total Iron Binding Capacity 254 ug/dL (250-450) Percent Iron Saturation 8 % (15-50) L Unsaturated Iron Binding 234 ug/dL (112-346) Lactate Dehydrogenase 276 U/L (81-234) H Carcinoembryonic Antigen Pending Vitamin B12 Level 672 PG/ML (193-986) Folate 24.4 NG/ML (8.6-58.9) Thyroid Stimulating Hormone (TSH) 5.560 uiU/mL (0.358-3.740) Free Thyroxine 1.13 NG/DL (0.76-1.46) Free Triiodothyronine 2.2 pg/mL (2.3-4.2) L Cortisol Pending Erythrocyte Sedimentation Rate 103 MM/HR (0-30) H Reticulocyte Count 1.0 % (0.0-2.0) Prothrombin Time 10.5 SEC (9.30-11.50) Prothromb Time International Ratio 1.0 (0.9-1.1) Activated Partial Thromboplast Time 29 SEC (23-33) General Appearance: well appearing, no apparent distress, alert Head: normocephalic EENT: PERRL/EOMI, normal ENT inspection Neck: supple Respiratory: normal breath sounds, no respiratory distress Cardiovascular: normal rate Gastrointestinal: normal inspection, non tender, soft, normal bowel sounds, non -distended Rectal: deferred Genitourinary: no CVA tenderness Musculoskeletal: normal inspection, back normal Neurologic: normal inspection, alert, oriented x3, responsive Psychiatric: normal inspection, judgement/insight normal, memory normal Skin: normal inspection, normal color, no rash, warm/dry, palpation normal, well hydrated Lymphatic: normal inspection, no adenopathy Current Medications Current Medications Medications (Trade) Dose Ordered Sig/Bipin Route PRN Reason Start Time Stop Time Status Last Admin Dose Admin Acetaminophen (Tylenol) 650 mg Q4H PRN ORAL Fever 12/12/18 22:15 01/11/19 22:14 Albuterol/ Ipratropium (Albuterol/ Ipratropium) 3 ml EVERY 4 HOURS PRN HHN Shortness of Breath 2/27/19 22:15 12/17/18 22:14 12/13/18 01:33 Atorvastatin Calcium (Lipitor) 20 mg BEDTIME ORAL 12/13/18 21:00 01/12/19 20:59 Carvedilol (Coreg) 12.5 mg EVERY 12 HOURS ORAL 12/13/18 09:00 01/12/19 08:59 12/13/18 09:11 Clopidogrel Bisulfate (Plavix) 75 mg DAILY ORAL 12/13/18 09:00 01/12/19 08:59 12/13/18 09:10 Dextrose (Dextrose 50%) 25 ml Q30M PRN IV Hypoglycemia 12/12/18 22:15 01/11/19 22:14 Dextrose (Dextrose 50%) 50 ml Q30M PRN IV Hypoglycemia 12/12/18 22:15 01/11/19 22:14 Diphenhydramine HCl (Benadryl) 25 mg Q6H PRN IVP Itching 12/13/18 07:15 01/12/19 07:14 Heparin Sodium (Porcine) (Heparin 5000 units/ml) 5,000 units EVERY 12 HOURS SUBQ 12/13/18 09:00 01/12/19 08:59 Insulin Aspart (NovoLOG) BEFORE MEALS AND HS SUBQ 12/13/18 06:30 01/12/19 06:29 12/13/18 06:25 Levothyroxine Sodium (Synthroid) 25 mcg ACBREAKFAST ORAL 12/13/18 06:30 01/12/19 06:29 12/13/18 06:26 Nifedipine (Procardia XL) 60 mg DAILY ORAL 12/13/18 09:00 01/12/19 08:59 12/13/18 09:12 Ondansetron HCl (Zofran) 4 mg Q6H PRN IVP Nausea & Vomiting 12/12/18 22:15 01/11/19 22:14 Polyethylene Glycol (Miralax) 17 gm DAILYPRN PRN ORAL Constipation 12/12/18 22:15 01/11/19 22:14 Promethazine HCl/ Codeine (Phenergan with Codeine) 5 ml Q4H PRN ORAL For Cough 12/13/18 10:15 01/12/19 10:14 Temazepam (Restoril) 15 mg HSPRN PRN ORAL Insomnia 12/12/18 22:15 12/19/18 22:14 GI: Plan Problems: (1) PUD (peptic ulcer disease) (2) Gastritis (3) Anemia (4) Diabetes mellitus (5) CHF (congestive heart failure) Plan EGD scheduled for tomorrow. -Regular diet, n.p.o. at midnight. -Hold Plavix Monitor H&H, PRN transfusions PPI twice daily venofer Follow labs We will follow with additional recommendations post procedure Will consider colonoscopy Discussed with Dr. Hernandez. Thank you for this patient referral, we will follow. The patient was seen and examined at bedside and all new and available data was reviewed in the patients chart. I agree with the above findings, impression and plan. (Patient seen earlier today. Signature stamp does not reflect patient encounter time.). - MD Nuvia BabbAbrazo Central CampusBrendon YEE Dec 13, 2018 15:52
[2018-12-13 16:00] VITALS: BP 116/64
--- NOTE | 2018-12-13 16:36 | Consultation ---
History of Present Illness General Date patient seen: Dec 13, 2018 Chief Complaint: Dyspnea/Respdistress Referring physician: DARLEEN PETERSON Reason for Consultation: ANEMIA Present Illness HPI 78 y/o F with hx of DM2, HTN, CAD, CHF presents to ED on 12/12 with SOB. She was found to have severe anemia and hyponatremia. Of note she was recently admitted to [facility] for CHF, hyponatremia and anemia. Denied cough, congestion, f/c, n/v, CP, abd pain. Allergies: Coded Allergies: No Known Allergies (Unverified , 12/12/18) Medication History Scheduled Atorvastatin Calcium* (Atorvastatin Calcium*), 20 MG ORAL BEDTIME, (Reported) Carvedilol* (Carvedilol*), 12.5 MG ORAL EVERY 12 HOURS, (Reported) Clopidogrel* (Clopidogrel*), 75 MG ORAL DAILY, (Reported) Famotidine (Famotidine), 20 MG ORAL DAILY, (Reported) Furosemide* (Lasix*), 40 MG ORAL DAILY, (Reported) Insulin NPH Hum/Reg Insulin Hm (Novolin 70-30 Flexpen), 15 UNIT SQ ACBREAKFAST, (Reported) Levothyroxine Sodium* (Synthroid*), 25 MCG ORAL DAILY, (Reported) Losartan Potassium* (Losartan Potassium*), 100 MG ORAL DAILY, (Reported) Nifedipine* (Nifedipine Er*), 60 MG ORAL DAILY, (Reported) Omeprazole (Omeprazole), 20 MG ORAL DAILY, (Reported) Potassium Chloride (Potassium Chloride), 10 MEQ ORAL TWICE A DAY, (Reported) Scheduled PRN Diphenhydramine Hcl* (Diphenhydramine Hcl*), 25 MG ORAL Q6H PRN for Itching, ( Reported) Loratadine (Loratadine), 10 MG PO DAILY PRN for ALLERGIES, (Reported) Patient History Healthcare decision maker Resuscitation status Full Code Advanced Directive on File Patient History Narrative Pmhx: as above Shx: Denies: smoking, alcohol use, drug use Fhx: non contributory Review of Systems All Other Systems: negative except mentioned in HPI Physical Exam Physical Exam Narrative General Appearance: WD/WN Lines, tubes and drains: peripheral HEENT: normocephalic, atraumatic Neck: non-tender, normal alignment Respiratory/Chest: chest wall non-tender, lungs clear, decreased breath sounds - at left Cardiovascular/Chest: normal peripheral pulses, normal rate Abdomen: non tender, no organomegaly Genitourinary/Rectal: normal genital exam Last 24 Hour Vital Signs Date Time Temp Pulse Resp B/P (MAP) Pulse Ox O2 Delivery O2 Flow Rate FiO2 12/13/18 15:24 76 19 100 Nasal Cannula 2.0 28 12/13/18 15:20 72 18 99 Nasal Cannula 2.0 28 12/13/18 12:00 69 12/13/18 12:00 98.4 69 21 174/71 (105) 98 12/13/18 11:28 68 18 100 Nasal Cannula 2.0 12/13/18 11:25 67 19 99 Nasal Cannula 2.0 28 12/13/18 09:12 74 165/59 12/13/18 09:11 74 138/67 12/13/18 09:00 Nasal Cannula 2.0 12/13/18 08:00 98.8 74 20 165/59 (94) 98 12/13/18 08:00 73 12/13/18 07:46 74 15 Nasal Cannula 2.0 12/13/18 07:46 Nasal Cannula 2.0 28 12/13/18 07:46 98 Nasal Cannula 2.0 28 12/13/18 05:00 99.1 71 18 167/63 (97) 98 12/13/18 04:00 71 12/13/18 01:39 Nasal Cannula 2.0 12/13/18 01:39 98 Nasal Cannula 2.0 12/13/18 01:38 88 18 Nasal Cannula 2.0 12/13/18 01:36 88 18 99 Nasal Cannula 2.0 12/13/18 01:25 84 18 98 Nasal Cannula 2.0 28 12/12/18 23:43 82 12/12/18 23:30 Nasal Cannula 2.0 12/12/18 23:15 98.3 82 17 156/60 (92) 97 12/12/18 23:05 98.1 72 18 151/51 98 Nasal Cannula 12/12/18 23:05 98.2 72 18 151/51 98 Nasal Cannula 12/12/18 22:06 97.6 108 22 134/71 100 Nasal Cannula 3.0 12/12/18 21:01 97.4 78 20 160/62 100 Room Air 100 2/27/19 20:31 170/50 12/12/18 18:54 80 27 Room Air 100 12/12/18 18:54 97.3 80 27 161/107 100 Room Air 12/12/18 18:42 97.3 80 24 177/67 100 Bi-pap Intake and Output 12/12/18 12/13/18 19:00 07:00 Intake Total 180 ml Balance 180 ml Intake Other 180 ml # Voids 4 # Bowel Movements 1 Laboratory Tests Test 12/12/18 19:00 12/12/18 22:45 12/13/18 05:05 12/13/18 10:30 White Blood Count 10.1 K/UL (4.8-10.8) 8.6 K/UL (4.8-10.8) Red Blood Count 2.43 M/UL (4.20-5.40) L 2.21 M/UL (4.20-5.40) L Hemoglobin 7.5 G/DL (12.0-16.0) L 6.7 G/DL (12.0-16.0) *L Hematocrit 22.1 % (37.0-47.0) L 20.3 % (37.0-47.0) L Mean Corpuscular Volume 91 FL (80-99) 92 FL (80-99) Mean Corpuscular Hemoglobin 30.7 PG (27.0-31.0) 30.3 PG (27.0-31.0) Mean Corpuscular Hemoglobin Concent 33.7 G/DL (32.0-36.0) 32.8 G/DL (32.0-36.0) Red Cell Distribution Width 12.0 % (11.6-14.8) 12.0 % (11.6-14.8) Platelet Count 257 K/UL (150-450) 230 K/UL (150-450) Mean Platelet Volume 5.9 FL (6.5-10.1) L 5.9 FL (6.5-10.1) L Neutrophils (%) (Auto) % (45.0-75.0) % (45.0-75.0) Lymphocytes (%) (Auto) % (20.0-45.0) % (20.0-45.0) Monocytes (%) (Auto) % (1.0-10.0) % (1.0-10.0) Eosinophils (%) (Auto) % (0.0-3.0) % (0.0-3.0) Basophils (%) (Auto) % (0.0-2.0) % (0.0-2.0) Differential Total Cells Counted 100 100 Neutrophils % (Manual) 83 % (45-75) H 83 % (45-75) H Lymphocytes % (Manual) 8 % (20-45) L 10 % (20-45) L Monocytes % (Manual) 3 % (1-10) 3 % (1-10) Eosinophils % (Manual) 6 % (0-3) H 3 % (0-3) Basophils % (Manual) 0 % (0-2) 0 % (0-2) Band Neutrophils 0 % (0-8) 1 % (0-8) Platelet Estimate Adequate Adequate Platelet Morphology Normal Normal Red Blood Cell Morphology Normal Sodium Level 126 MMOL/L (136-145) L 127 MMOL/L (136-145) L Potassium Level 4.0 MMOL/L (3.5-5.1) 3.9 MMOL/L (3.5-5.1) Chloride Level 94 MMOL/L (98-107) L 94 MMOL/L (98-107) L Carbon Dioxide Level 24 MMOL/L (21-32) 23 MMOL/L (21-32) Anion Gap 8 mmol/L (5-15) 10 mmol/L (5-15) Blood Urea Nitrogen 33 mg/dL (7-18) H 30 mg/dL (7-18) H Creatinine 1.7 MG/DL (0.55-1.30) H 1.6 MG/DL (0.55-1.30) H Estimat Glomerular Filtration Rate mL/min (>60) mL/min (>60) Glucose Level 84 MG/DL (74-106) 133 MG/DL (74-106) H Calcium Level 8.5 MG/DL (8.5-10.1) 8.3 MG/DL (8.5-10.1) L Total Bilirubin 0.4 MG/DL (0.2-1.0) Aspartate Amino Transf (AST/SGOT) 17 U/L (15-37) Alanine Aminotransferase (ALT/SGPT) 19 U/L (12-78) Alkaline Phosphatase 116 U/L (46-116) Total Creatine Kinase 99 U/L (26-308) 98 U/L (26-308) Creatine Kinase MB 1.9 NG/ML (0.0-3.6) Creatine Kinase MB Relative Index 1.9 Troponin I 0.000 ng/mL (0.000-0.056) 0.013 ng/mL (0.000-0.056) Pro-B-Type Natriuretic Peptide 2133 pg/mL (0-125) H Total Protein 6.8 G/DL (6.4-8.2) Albumin 3.2 G/DL (3.4-5.0) L Globulin 3.6 g/dL Albumin/Globulin Ratio 0.9 (1.0-2.7) L Urine Color Pale yellow Urine Appearance Clear Urine pH 6 (4.5-8.0) Urine Specific [place] 1.005 (1.005-1.035) Urine Protein 3+ (NEGATIVE) H Urine Glucose (UA) Negative (NEGATIVE) Urine Ketones Negative (NEGATIVE) Urine Blood Negative (NEGATIVE) Urine Nitrite Negative (NEGATIVE) Urine Bilirubin Negative (NEGATIVE) Urine Urobilinogen Normal MG/DL (0.0-1.0) Urine Leukocyte Esterase 2+ (NEGATIVE) H Urine RBC 0-2 /HPF (0 - 2) Urine WBC 2-4 /HPF (0 - 2) Urine Squamous Epithelial Cells Few /LPF (NONE/OCC) Urine Bacteria Few /HPF (NONE) Hypochromasia 1+ Osmolality 267 mOsm/kg (297-317) L Uric Acid 5.2 MG/DL (2.6-7.2) Iron Level 20 ug/dL (50-175) L Total Iron Binding Capacity 254 ug/dL (250-450) Percent Iron Saturation 8 % (15-50) L Unsaturated Iron Binding 234 ug/dL (112-346) Lactate Dehydrogenase 276 U/L (81-234) H Carcinoembryonic Antigen Pending Vitamin B12 Level 672 PG/ML (193-986) Folate 24.4 NG/ML (8.6-58.9) Thyroid Stimulating Hormone (TSH) 5.560 uiU/mL (0.358-3.740) Free Thyroxine 1.13 NG/DL (0.76-1.46) Free Triiodothyronine 2.2 pg/mL (2.3-4.2) L Cortisol Pending Erythrocyte Sedimentation Rate 103 MM/HR (0-30) H Reticulocyte Count 1.0 % (0.0-2.0) Prothrombin Time 10.5 SEC (9.30-11.50) Prothromb Time International Ratio 1.0 (0.9-1.1) Activated Partial Thromboplast Time 29 SEC (23-33) Microbiology Date/Time Source Procedure Growth Status 12/12/18 20:20 Nasal Nares Influenza Types A,B Antigen (CLAU) - Final Complete Height (Feet): 5 Height (Inches): 2.00 Weight (Pounds): 172 Medications Current Medications Medications (Trade) Dose Ordered Sig/Bipin Route PRN Reason Start Time Stop Time Status Last Admin Dose Admin Acetaminophen (Tylenol) 650 mg Q4H PRN ORAL Fever 12/12/18 22:15 01/11/19 22:14 Albuterol/ Ipratropium (Albuterol/ Ipratropium) 3 ml EVERY 4 HOURS PRN HHN Shortness of Breath 12/12/18 22:15 12/17/18 22:14 12/13/18 01:33 Atorvastatin Calcium (Lipitor) 20 mg BEDTIME ORAL 12/13/18 21:00 01/12/19 20:59 Carvedilol (Coreg) 12.5 mg EVERY 12 HOURS ORAL 12/13/18 09:00 01/12/19 08:59 12/13/18 09:11 Clopidogrel Bisulfate (Plavix) 75 mg DAILY ORAL 12/13/18 09:00 01/12/19 08:59 12/13/18 09:10 Dextrose (Dextrose 50%) 25 ml Q30M PRN IV Hypoglycemia 12/12/18 22:15 01/11/19 22:14 Dextrose (Dextrose 50%) 50 ml Q30M PRN IV Hypoglycemia 12/12/18 22:15 01/11/19 22:14 Diphenhydramine HCl (Benadryl) 25 mg Q6H PRN IVP Itching 12/13/18 07:15 01/12/19 07:14 Heparin Sodium (Porcine) (Heparin 5000 units/ml) 5,000 units EVERY 12 HOURS SUBQ 12/13/18 09:00 01/12/19 08:59 Insulin Aspart (NovoLOG) BEFORE MEALS AND HS SUBQ 12/13/18 06:30 01/12/19 06:29 12/13/18 06:25 Iron Sucrose 100 mg/Sodium Chloride 60 ml @ 240 mls/hr BEDTIME IV 12/13/18 21:00 12/15/18 21:14 Levothyroxine Sodium (Synthroid) 25 mcg ACBREAKFAST ORAL 12/13/18 06:30 01/12/19 06:29 12/13/18 06:26 Nifedipine (Procardia XL) 60 mg DAILY ORAL 12/13/18 09:00 01/12/19 08:59 12/13/18 09:12 Ondansetron HCl (Zofran) 4 mg Q6H PRN IVP Nausea & Vomiting 12/12/18 22:15 01/11/19 22:14 Polyethylene Glycol (Miralax) 17 gm DAILYPRN PRN ORAL Constipation 12/12/18 22:15 01/11/19 22:14 Promethazine HCl/ Codeine (Phenergan with Codeine) 5 ml Q4H PRN ORAL For Cough 12/13/18 10:15 01/12/19 10:14 Temazepam (Restoril) 15 mg HSPRN PRN ORAL Insomnia 12/12/18 22:15 12/19/18 22:14 Assessment/Plan Assessment/Plan Abx: None Assessment: Dyspnea- no obvious PNA on CXR -CXR: Complete opacification of the left hemithorax, presumably on the basis of complete left lung atelectasis Afebrile No leukocytosis -u.a no pyuria L lung collapse Anemia Hyponatremia DM2 HTN CAD CHF Plan: -Continue to monitor off abx unless febrile, leukocytosis and/or evidence of pNA on CXR -f/u cx -Monitor CBC/CMP, temperatures -aspiration precautions -pulm f/u -GI f/u: EGD tomorrow -CXR am Thank you for this consultation. Will continue to follow along with you. Discussed with Yadira Fragoso M.D. Dec 13, 2018 16:36
--- NOTE | 2018-12-13 17:05 | Cardiac Electrophysiology PN ---
Subjective Subjective [id number] Objective Last 24 Hour Vital Signs Date Time Temp Pulse Resp B/P (MAP) Pulse Ox O2 Delivery O2 Flow Rate FiO2 12/13/18 15:24 76 19 100 Nasal Cannula 2.0 12/13/18 15:20 72 18 99 Nasal Cannula 2.0 28 12/13/18 12:00 69 12/13/18 12:00 98.4 69 21 174/71 (105) 98 12/13/18 11:28 68 18 100 Nasal Cannula 2.0 12/13/18 11:25 67 19 99 Nasal Cannula 2.0 28 12/13/18 09:12 74 165/59 12/13/18 09:11 74 138/67 12/13/18 09:00 Nasal Cannula 2.0 12/13/18 08:00 98.8 74 20 165/59 (94) 98 12/13/18 08:00 73 12/13/18 07:46 74 15 Nasal Cannula 2.0 12/13/18 07:46 Nasal Cannula 2.0 12/13/18 07:46 98 Nasal Cannula 2.0 12/13/18 05:00 99.1 71 18 167/63 (97) 98 12/13/18 04:00 71 12/13/18 01:39 Nasal Cannula 2.0 12/13/18 01:39 98 Nasal Cannula 2.0 12/13/18 01:38 88 18 Nasal Cannula 2.0 12/13/18 01:36 88 18 99 Nasal Cannula 2.0 12/13/18 01:25 84 18 98 Nasal Cannula 2.0 12/12/18 23:43 82 12/12/18 23:30 Nasal Cannula 2.0 12/12/18 23:15 98.3 82 17 156/60 (92) 97 12/12/18 23:05 98.1 72 18 151/51 98 Nasal Cannula 12/12/18 23:05 98.2 72 18 151/51 98 Nasal Cannula 12/12/18 22:06 97.6 108 22 134/71 100 Nasal Cannula 3.0 12/12/18 21:01 97.4 78 20 160/62 100 Room Air 100 12/12/18 20:31 170/50 12/12/18 18:54 80 27 Room Air 100 12/12/18 18:54 97.3 80 27 161/107 100 Room Air 12/12/18 18:42 97.3 80 24 177/67 100 Bi-pap Intake and Output 12/12/18 12/13/18 19:00 07:00 Intake Total 180 ml Balance 180 ml Intake Other 180 ml # Voids 4 # Bowel Movements 1 Laboratory Tests Test 12/12/18 19:00 12/12/18 22:45 12/13/18 05:05 12/13/18 10:30 White Blood Count 10.1 K/UL (4.8-10.8) 8.6 K/UL (4.8-10.8) Red Blood Count 2.43 M/UL (4.20-5.40) L 2.21 M/UL (4.20-5.40) L Hemoglobin 7.5 G/DL (12.0-16.0) L 6.7 G/DL (12.0-16.0) *L Hematocrit 22.1 % (37.0-47.0) L 20.3 % (37.0-47.0) L Mean Corpuscular Volume 91 FL (80-99) 92 FL (80-99) Mean Corpuscular Hemoglobin 30.7 PG (27.0-31.0) 30.3 PG (27.0-31.0) Mean Corpuscular Hemoglobin Concent 33.7 G/DL (32.0-36.0) 32.8 G/DL (32.0-36.0) Red Cell Distribution Width 12.0 % (11.6-14.8) 12.0 % (11.6-14.8) Platelet Count 257 K/UL (150-450) 230 K/UL (150-450) Mean Platelet Volume 5.9 FL (6.5-10.1) L 5.9 FL (6.5-10.1) L Neutrophils (%) (Auto) % (45.0-75.0) % (45.0-75.0) Lymphocytes (%) (Auto) % (20.0-45.0) % (20.0-45.0) Monocytes (%) (Auto) % (1.0-10.0) % (1.0-10.0) Eosinophils (%) (Auto) % (0.0-3.0) % (0.0-3.0) Basophils (%) (Auto) % (0.0-2.0) % (0.0-2.0) Differential Total Cells Counted 100 100 Neutrophils % (Manual) 83 % (45-75) H 83 % (45-75) H Lymphocytes % (Manual) 8 % (20-45) L 10 % (20-45) L Monocytes % (Manual) 3 % (1-10) 3 % (1-10) Eosinophils % (Manual) 6 % (0-3) H 3 % (0-3) Basophils % (Manual) 0 % (0-2) 0 % (0-2) Band Neutrophils 0 % (0-8) 1 % (0-8) Platelet Estimate Adequate Adequate Platelet Morphology Normal Normal Red Blood Cell Morphology Normal Sodium Level 126 MMOL/L (136-145) L 127 MMOL/L (136-145) L Potassium Level 4.0 MMOL/L (3.5-5.1) 3.9 MMOL/L (3.5-5.1) Chloride Level 94 MMOL/L (98-107) L 94 MMOL/L (98-107) L Carbon Dioxide Level 24 MMOL/L (21-32) 23 MMOL/L (21-32) Anion Gap 8 mmol/L (5-15) 10 mmol/L (5-15) Blood Urea Nitrogen 33 mg/dL (7-18) H 30 mg/dL (7-18) H Creatinine 1.7 MG/DL (0.55-1.30) H 1.6 MG/DL (0.55-1.30) H Estimat Glomerular Filtration Rate mL/min (>60) mL/min (>60) Glucose Level 84 MG/DL (74-106) 133 MG/DL (74-106) H Calcium Level 8.5 MG/DL (8.5-10.1) 8.3 MG/DL (8.5-10.1) L Total Bilirubin 0.4 MG/DL (0.2-1.0) Aspartate Amino Transf (AST/SGOT) 17 U/L (15-37) Alanine Aminotransferase (ALT/SGPT) 19 U/L (12-78) Alkaline Phosphatase 116 U/L (46-116) Total Creatine Kinase 99 U/L (26-308) 98 U/L (26-308) Creatine Kinase MB 1.9 NG/ML (0.0-3.6) Creatine Kinase MB Relative Index 1.9 Troponin I 0.000 ng/mL (0.000-0.056) 0.013 ng/mL (0.000-0.056) Pro-B-Type Natriuretic Peptide 2133 pg/mL (0-125) H Total Protein 6.8 G/DL (6.4-8.2) Albumin 3.2 G/DL (3.4-5.0) L Globulin 3.6 g/dL Albumin/Globulin Ratio 0.9 (1.0-2.7) L Urine Color Pale yellow Urine Appearance Clear Urine pH 6 (4.5-8.0) Urine Specific [place] 1.005 (1.005-1.035) Urine Protein 3+ (NEGATIVE) H Urine Glucose (UA) Negative (NEGATIVE) Urine Ketones Negative (NEGATIVE) Urine Blood Negative (NEGATIVE) Urine Nitrite Negative (NEGATIVE) Urine Bilirubin Negative (NEGATIVE) Urine Urobilinogen Normal MG/DL (0.0-1.0) Urine Leukocyte Esterase 2+ (NEGATIVE) H Urine RBC 0-2 /HPF (0 - 2) Urine WBC 2-4 /HPF (0 - 2) Urine Squamous Epithelial Cells Few /LPF (NONE/OCC) Urine Bacteria Few /HPF (NONE) Hypochromasia 1+ Osmolality 267 mOsm/kg (297-317) L Uric Acid 5.2 MG/DL (2.6-7.2) Iron Level 20 ug/dL (50-175) L Total Iron Binding Capacity 254 ug/dL (250-450) Percent Iron Saturation 8 % (15-50) L Unsaturated Iron Binding 234 ug/dL (112-346) Lactate Dehydrogenase 276 U/L (81-234) H Carcinoembryonic Antigen Pending Vitamin B12 Level 672 PG/ML (193-986) Folate 24.4 NG/ML (8.6-58.9) Thyroid Stimulating Hormone (TSH) 5.560 uiU/mL (0.358-3.740) Free Thyroxine 1.13 NG/DL (0.76-1.46) Free Triiodothyronine 2.2 pg/mL (2.3-4.2) L Cortisol Pending Erythrocyte Sedimentation Rate 103 MM/HR (0-30) H Reticulocyte Count 1.0 % (0.0-2.0) Prothrombin Time 10.5 SEC (9.30-11.50) Prothromb Time International Ratio 1.0 (0.9-1.1) Activated Partial Thromboplast Time 29 SEC (23-33) Microbiology Date/Time Source Procedure Growth Status 12/12/18 20:20 Nasal Nares Influenza Types A,B Antigen (CLAU) - Final Complete Oscar Rivera MD Dec 13, 2018 17:05
--- NOTE | 2018-12-13 18:00 | History and Physical Report ---
DATE OF ADMISSION: 12/12/2018 TIME SEEN: On 12/13/2018 on 2 p.m. CONSULTANTS: 1. Oscar Rivera M.D. 2. Velma Cordova M.D. 3. Elio Gillespie M.D. CHIEF COMPLAINT: Shortness of breath, CHF, hyponatremia, and anemia. BRIEF HISTORY: This is an 78-year-old female, who lives at home, presented with increased shortness of breath for about a week now to a point where she was unable to catch her breath. She came to [place], diagnosed with CHF exacerbation and shortness of breath, and admitted to telemetry for further care. Currently, O2 NC, slight short of breath in bed. No complaint. REVIEW OF SYSTEMS: No chest pain. Slight short of breath. No nausea, vomiting, or diarrhea. PAST MEDICAL HISTORY: Includes CHF, anemia, diabetes, and hypertension. PAST SURGICAL HISTORY: None. ALLERGIES: Denies. MEDICATION: Include Lipitor, Phenergan With Codeine, Coreg, Plavix, Procardia, Benadryl, NovoLog, temazepam, Zofran, albuterol, and dextrose. SOCIAL HISTORY: No smoking. No alcohol. No intravenous drug abuse. FAMILY HISTORY: Noncontributory. PHYSICAL EXAMINATION: GENERAL: Calm in bed. Oriented x3, in slight short of breath. VITAL SIGNS: Temperature is not given, pulse 69, respiratory rate 18, and blood pressure 165/59. CARDIOVASCULAR: No murmur. LUNGS: Distant and clear. ABDOMEN: Bowel sounds positive. Nontender. Nondistended. EXTREMITIES: No cyanosis, clubbing, or edema. NEUROLOGIC: The patient moves all extremities, slightly weak. LABORATORY AND DIAGNOSTIC DATA: Hemoglobin initial 7.5, now 6.7, otherwise CBC is normal. BMP shows glucose 267 and TSH is 5.56, otherwise they are pending. INR 1.0. PTT is 29. Urinalysis, 2+ leukocyte esterase. ASSESSMENT: 1. CHF exacerbation. 2. Hyponatremia. 3. UTI. 4. Anemia. 5. Diabetes. 6. Hypertension. 7. Hypothyroidism. PLAN: 1. Antibiotics per Infectious Disease. 2. O2 and pulmonary treatment. 3. Blood pressure and blood sugar control. 4. Dietary followup. 5. Transfuse p.r.n. 6. We will add Hematology, GI, Endocrinology, and ID to follow. 7. We will continue to follow the patient. Andrei Campuzano D.O. DR: GERBER JOB#: [id number] CC:
--- NOTE | 2018-12-13 19:03 | NUR ---
NURSE NOTES: NURSE NOTES: Signed consent for procedure is in patients chart.
--- NOTE | 2018-12-13 19:30 | NUR ---
NURSE NOTES: Report received from Mireya CORNELIUS. Pt is resting in bed in stable condition. Pt is awake, alert, and oriented x4. Pt is on room air and breathing is even and unlabored. No acute distress noted. IV site is asymptomatic, patent, and intact. 1st unit of PRBCs is running. No s/sx of adverse reactions noted. Afebrile, VSS. Bed placed in lowest position with brake engaged and side rails up x2. Call light and side table placed within reach. Family is at bedside. Will continue to monitor.
--- NOTE | 2018-12-13 19:42 | NUR ---
HAND-OFF: Report given to ADRYAN Cabrera. Plan of care endorsed.+
[2018-12-13 20:00] VITALS: BP 139/56
--- NOTE | 2018-12-13 20:15 | NUR ---
NURSE NOTES: 1st unit PRBCs out of 2 units finished transfusing. Pt is in stable condition. No s/sx of adverse reaction noted. VSS. Temp: 99.6F, P: 69, Resp: 20, BPO: 139/56, O2 sat: 99%. Blood bag and tubing transferred to biohazard bag per protocol for transport to lab. Blood bank called to request 2nd unit of PRBCs be ready for pickup.
[2018-12-13] MEDS ORDERED: Iron Sucrose 100 MG in NS 55 ML IV SCH (21:00)
--- NOTE | 2018-12-13 21:15 | Consultation ---
DATE OF CONSULTATION: 12/13/2018 CARDIOLOGY CONSULTATION CONSULTING PHYSICIAN: Oscar Rivera M.D. REFERRING PHYSICIAN: Andrei Campuzano D.O. REASON FOR CONSULTATION: Management of hypertension and congestive heart failure. HISTORY OF PRESENT ILLNESS: The patient is an 78-year-old lady with history of hypertension, type 2 diabetes, coronary artery disease, and congestive heart failure, who presented to the emergency room at [facility] for increasing shortness of breath. The patient was also found to have severe anemia and hyponatremia. The patient was recently admitted to the [facility] for hyponatremia, congestive heart failure, and anemia as well. The patient underwent an echocardiogram, which showed ejection fraction 55% to 60%. Her lower extremity duplex showed no evidence of DVT. EKG showed normal sinus rhythm with poor R-wave progression, but no acute ST-T wave abnormalities. REVIEW OF SYSTEMS: Negative other than what was mentioned in the history of present illness. PAST MEDICAL HISTORY: As mentioned above. FAMILY HISTORY: Noncontributory. MEDICATIONS: Include Plavix, Coreg, Lipitor, Lasix, insulin, losartan, nifedipine, potassium, Coreg, and omeprazole. PHYSICAL EXAMINATION: VITAL SIGNS: Blood pressure 174/71, pulse 70, respirations 18, and temperature 98.4. HEAD AND NECK: Showed no JVD. LUNGS: Clear. CARDIOVASCULAR: Shows regular S1 and S2 with no gallop. ABDOMEN: Soft. EXTREMITIES: 1+ pitting edema. LABORATORY DATA: White count 8.3, hemoglobin 6.7, hematocrit 20, and platelet count 230. Sodium is 127, potassium 3.9, BUN 30, and creatinine 1.6. Glucose 132. Troponin negative x2. ASSESSMENT AND PLAN: 1. Congestive heart failure. BNP is more than 2100. This is likely due to combination of diastolic dysfunction with ejection fraction of 55% to 60% as well as severe anemia. Put the patient on Lasix 40 mg IV daily and follow the patient clinically. 2. Coronary artery disease with history of prior stent placement. Etiology is not very clear, but the patient remains on Coreg 12.5 mg twice a day, Plavix 75 mg daily, and Lipitor 20 mg at bedtime. 3. Hypertension. We will increase the Coreg to 25 mg twice a day. The patient is also on Procardia XL 60 mg daily. 4. Hypothyroidism, on Synthroid. 5. Severe anemia with hemoglobin around 6. The patient was evaluated by Dr. Hernandez. May need esophagogastroduodenoscopy and colonoscopy further evaluation. Plavix will also be on hold. Thank you very much for allowing me to participate in the care of this patient. Please do not hesitate to contact me for any questions regarding my evaluation. Oscar Rivera M.D. DR: FABIO JOB#: [id number] CC:
--- NOTE | 2018-12-13 21:17 | NUR ---
NURSE NOTES: 2nd unit PRBCs picked up from blood bank. Blood verified with Jose De Jesus garcia upon pickup.
--- NOTE | 2018-12-13 21:23 | NUR ---
NURSE NOTES: Pre-transfusion VSS. Temp: 98.4F, P: 69, BP: 143/54. Blood verified at bedside with Candie Rose RN. Blood hung and started. RN to remain with patient for 15 minutes to monitor.
--- NOTE | 2018-12-13 21:45 | NUR ---
NURSE NOTES: 15 minutes after starting 2nd unit PRBC. No s/sx of adverse reactions noted. Afebrile, VSS. Temp: 99.1F, P: 68, BP: 147/53. Rate increased to infuse over 4 hours. Will continue to monitor patient. Family at bedside.
[2018-12-14] VITALS (10 sets, daily range): BP systolic 140–154; BP diastolic 51–76
--- NOTE | 2018-12-14 01:05 | NUR ---
NURSE NOTES: 2nd unit PRBCs complete. No s/sx of adverse reaction noted or reported by patient. VSS at this time. T: 98.6, P: 60, O2 sat: 98%, BP: 146/52. Blood bag and tubing placed in biohazard bag and taken to lab per protocol.
[2018-12-14] MEDS: Albuterol/Ipratropium 3ml neb HHN PRN (04:53)
[2018-12-14] MEDS: NovoLOG Insulin Flexpen SUBQ SCH ×4 (06:30→21:34)
--- NOTE | 2018-12-14 07:20 | NUR ---
HAND-OFF: Report given to Mireya CORNELIUS. Pt is resting in bed in stable condition. No acute distress noted. Endorsed plan of care.
[2018-12-14 07:25] LABS: BASOPHILS % (AUTO) 1.1 % (0.0-2.0); HEMATOCRIT 28.9 % (37.0-47.0); HEMOGLOBIN 9.5 G/DL (12.0-16.0); LYMPHOCYTES % (AUTO) 14.7 % (20.0-45.0); MEAN CORPUSCULAR VOLUME 91 FL (80-99); MONOCYTES % (AUTO) 10.2 % (1.0-10.0); NEUTROPHILS % (AUTO) 62.9 % (45.0-75.0); PLATELET COUNT 254 K/UL (150-450); RED BLOOD COUNT 3.18 M/UL (4.20-5.40); RED CELL DISTRIBUTION WIDTH 12.8 % (11.6-14.8); WHITE BLOOD COUNT 6.6 K/UL (4.8-10.8)
--- NOTE | 2018-12-14 07:31 | NUR ---
NURSE NOTES: Received report from ADRYAN Cabrrea. Bed is in lowest position, side rails up X2, and call light is within reach. Will continue to monitor.
[2018-12-14 07:34] LABS: ALANINE AMINOTRANSFERASE 19 U/L (12-78); ALBUMIN 3.1 G/DL (3.4-5.0); ALBUMIN/GLOBULIN RATIO 0.7 (1.0-2.7); ALKALINE PHOSPHATASE 100 U/L (46-116); ANION GAP 11 mmol/L (5-15); ASPARTATE AMINO TRANSFERASE 17 U/L (15-37); BILIRUBIN,TOTAL 0.7 MG/DL (0.2-1.0); BLOOD UREA NITROGEN 26 mg/dL (7-18); CALCIUM 8.7 MG/DL (8.5-10.1); CARBON DIOXIDE 22 MMOL/L (21-32); CHLORIDE 96 MMOL/L (98-107); CREATININE 1.7 MG/DL (0.55-1.30); PHOSPHORUS 4.5 MG/DL (2.5-4.9); POTASSIUM 3.7 MMOL/L (3.5-5.1); SODIUM 129 MMOL/L (136-145)
[2018-12-14 08:06] LABS: LACTATE DEHYDROGENASE 279 U/L (81-234)
[2018-12-14] MEDS: Carvedilol 12.5mg tab ORAL SCH ×2 (08:15→21:29)
[2018-12-14] MEDS: Heparin 5000 units/ml inj SUBQ SCH ×2 (08:15→21:36)
[2018-12-14 08:55] LABS: % IRON SATURATION 44 % (15-50); IRON 118 ug/dL (50-175); TOTAL IRON BINDING CAPACITY 269 ug/dL (250-450)
[2018-12-14 10:15] LABS: APPEARANCE,URINE CLEAR; BILIRUBIN, URINE NEGATIVE (NEGATIVE); COLOR,URINE PALE YELLOW; GLUCOSE, URINE (UA) NEGATIVE (NEGATIVE); KETONES,URINE NEGATIVE (NEGATIVE); LEUKOCYTE ESTERASE ,URINE 1+ (NEGATIVE); NITRITE,URINE NEGATIVE (NEGATIVE); PH,URINE 5 (4.5-8.0); PROTEIN,URINE 3+ (NEGATIVE); UROBILINOGEN,URINE NORMAL MG/DL (0.0-1.0)
--- NOTE | 2018-12-14 11:31 | NUR ---
P.T Note: late entry 0935 P.T evaluation completed and treatment initiated. Please refer to P. T evaluation for current functional status. . Grandchildren present during P.T evaluation. Pt is alert, O x 4 , pleasant and cooperative, no c/o pain. Pt presented with generalized weakness and decreased activity tolerance as evidenced by SOB with exertion. O2 sat 90-94 % at room air. Pt currently require SBA x 1 for bed mobility , transfers and gait/ambulation activities using her SPC. Pt would benefit from skilled P.T service to improve strength and activity tolerance to increase safety and independence in functional mobilities during stay. Thank you for this referral.
--- NOTE | 2018-12-14 11:41 | NUR ---
CASE MANAGEMENT:REVIEW 12/14/18 SI: CHF. HYPONATREMIA. ANEMIA. UTI 98.2 66 23 154/53 97% ON 2L/NC H/H-9.5/28.9 NA-129 BUN+26 CR+1.7 BNP+3543 IS: SYNTHROID PO QAM IV VENOFER QHS LIPITOR PO QHS COREG PO Q12 PLAVIX PO QD HEPARIN SQ Q12 : TELEMETRY STATUS DCP: PATIENT IS FROM HOME
--- NOTE | 2018-12-14 11:51 | NUR ---
POSSIBLE TRANSFER RECEIVED CALL FROM [facility] STATING THIS MEMBER IS OUT OF NETWORK. PROVIDED DR PETERSON'S NUMBER FOR MD TO MD BAEZA
[2018-12-14] MEDS ORDERED: fentaNYL 100 mcg/2 mL IV ONE (12:40)
[2018-12-14] MEDS ORDERED: Propofol 200mg/20ml IV ONE (12:40)
[2018-12-14] MEDS ORDERED: NS 500ML IVPB ONE (12:40)
--- NOTE | 2018-12-14 12:45 | Pre-Procedure Note/Attestation ---
Pre-Procedure Note/Attestation Complete Prior to Procedure Planned Procedure: not applicable Procedure Narrative: egd Indications for Procedure Pre-Operative Diagnosis: anemia Attestation I attest that I discussed the nature of the procedure; its benefits; risks and complications; and alternatives (and the risks and benefits of such alternatives ), prior to the procedure, with the patient (or the patient's legal life assurance representative). I attest that, if there was a reasonable possibility of needing a blood transfusion, the patient (or the patient's legal life assurance representative) was given the [facility] standardized written summary, pursuant to the Dex Candel[employer] [place] Blood Safety Act ([place] Health and Safety Code # 1645, as amended). I attest that I re-evaluated the patient just prior to the surgery and that there has been no change in the patient's H&P, except as documented below: Bernardo Hernandez MD Dec 14, 2018 12:45
--- NOTE | 2018-12-14 12:47 | GI Progress Note ---
Assessment/Plan Problems: (1) CHF (congestive heart failure) ICD Codes: I50.9 - Heart failure, unspecified SNOMED: 40573672 (2) Diabetes mellitus ICD Codes: E11.9 - Type 2 diabetes mellitus without complications SNOMED: 10326578 (3) Hypothyroidism ICD Codes: E03.9 - Hypothyroidism, unspecified SNOMED: 32790450 (4) Anemia ICD Codes: D64.9 - Anemia, unspecified SNOMED: 305431977 (5) PUD (peptic ulcer disease) ICD Codes: K27.9 - Peptic ulcer, site unspecified, unspecified as acute or chronic, without hemorrhage or perforation SNOMED: 36364097 (6) Gastritis ICD Codes: K29.70 - Gastritis, unspecified, without bleeding SNOMED: 1706141 Assessment/Plan plan EGD for today Subjective Gastrointestinal/Abdominal: Reports: abdominal pain Objective Last 24 Hour Vital Signs Date Time Temp Pulse Resp B/P (MAP) Pulse Ox O2 Delivery O2 Flow Rate FiO2 12/14/18 11:32 57 20 97 Nasal Cannula 2.0 28 12/14/18 11:32 59 20 97 Nasal Cannula 2.0 28 12/14/18 11:31 Nasal Cannula 2.0 28 12/14/18 11:31 97 Nasal Cannula 2.0 28 12/14/18 09:00 Nasal Cannula 2.0 12/14/18 08:15 66 154/53 12/14/18 08:15 66 154/53 12/14/18 08:05 98.2 66 23 154/53 (86) 99 12/14/18 04:39 65 20 100 Nasal Cannula 2.0 28 12/14/18 04:38 65 20 100 Nasal Cannula 2.0 28 12/14/18 04:35 67 20 98 Nasal Cannula 2.0 28 12/14/18 04:34 67 20 98 Nasal Cannula 2.0 28 12/14/18 04:00 64 12/14/18 04:00 98.6 78 20 150/76 (100) 95 12/14/18 00:00 98.6 63 20 147/52 (83) 99 12/14/18 00:00 61 12/13/18 23:50 70 20 99 Nasal Cannula 2.0 28 12/13/18 23:50 71 20 99 Nasal Cannula 2.0 28 12/13/18 22:06 69 143/54 12/13/18 21:00 Nasal Cannula 2.0 12/13/18 20:28 62 20 99 Nasal Cannula 2.0 28 12/13/18 20:21 69 20 99 Nasal Cannula 2.0 28 12/13/18 20:21 99 Nasal Cannula 2.0 28 12/13/18 20:21 Nasal Cannula 2.0 28 12/13/18 20:00 99.6 69 20 139/56 (83) 99 12/13/18 20:00 69 12/13/18 16:00 79 12/13/18 16:00 99.9 102 22 116/64 (81) 98 12/13/18 15:24 76 19 100 Nasal Cannula 2.0 28 12/13/18 15:20 72 18 99 Nasal Cannula 2.0 28 Intake and Output 12/13/18 12/14/18 19:00 07:00 Intake Total 240 ml Balance 240 ml Intake Oral 240 ml # Voids 2 # Bowel Movements 1 Laboratory Tests Test 12/14/18 05:10 12/14/18 06:45 12/14/18 07:00 White Blood Count 6.6 K/UL (4.8-10.8) Red Blood Count 3.18 M/UL (4.20-5.40) L Hemoglobin 9.5 G/DL (12.0-16.0) #L Hematocrit 28.9 % (37.0-47.0) #L Mean Corpuscular Volume 91 FL (80-99) Mean Corpuscular Hemoglobin 29.9 PG (27.0-31.0) Mean Corpuscular Hemoglobin Concent 33.0 G/DL (32.0-36.0) Red Cell Distribution Width 12.8 % (11.6-14.8) Platelet Count 254 K/UL (150-450) Mean Platelet Volume 6.3 FL (6.5-10.1) L Neutrophils (%) (Auto) 62.9 % (45.0-75.0) Lymphocytes (%) (Auto) 14.7 % (20.0-45.0) L Monocytes (%) (Auto) 10.2 % (1.0-10.0) H Eosinophils (%) (Auto) 11.0 % (0.0-3.0) H Basophils (%) (Auto) 1.1 % (0.0-2.0) Differential Total Cells Counted 100 Neutrophils % (Manual) 62 % (45-75) Lymphocytes % (Manual) 16 % (20-45) L Monocytes % (Manual) 7 % (1-10) Eosinophils % (Manual) 15 % (0-3) H Basophils % (Manual) 0 % (0-2) Band Neutrophils 0 % (0-8) Platelet Estimate Adequate Platelet Morphology Normal Hypochromasia 1+ Erythrocyte Sedimentation Rate 80 MM/HR (0-30) H Reticulocyte Count 0.8 % (0.0-2.0) Prothrombin Time 10.7 SEC (9.30-11.50) Prothromb Time International Ratio 1.0 (0.9-1.1) Activated Partial Thromboplast Time 29 SEC (23-33) Sodium Level 129 MMOL/L (136-145) L Potassium Level 3.7 MMOL/L (3.5-5.1) Chloride Level 96 MMOL/L (98-107) L Carbon Dioxide Level 22 MMOL/L (21-32) Anion Gap 11 mmol/L (5-15) Blood Urea Nitrogen 26 mg/dL (7-18) H Creatinine 1.7 MG/DL (0.55-1.30) H Estimat Glomerular Filtration Rate mL/min (>60) Glucose Level 123 MG/DL (74-106) H Calcium Level 8.7 MG/DL (8.5-10.1) Phosphorus Level 4.5 MG/DL (2.5-4.9) Magnesium Level 1.9 MG/DL (1.8-2.4) Iron Level 118 ug/dL (50-175) Total Iron Binding Capacity 269 ug/dL (250-450) Percent Iron Saturation 44 % (15-50) Unsaturated Iron Binding 151 ug/dL (112-346) Total Bilirubin 0.7 MG/DL (0.2-1.0) Aspartate Amino Transf (AST/SGOT) 17 U/L (15-37) Alanine Aminotransferase (ALT/SGPT) 19 U/L (12-78) Alkaline Phosphatase 100 U/L (46-116) Lactate Dehydrogenase 279 U/L (81-234) H C-Reactive Protein, Quantitative 5.6 mg/dL (0.00-0.90) H Pro-B-Type Natriuretic Peptide 3543 pg/mL (0-125) H Total Protein 7.3 G/DL (6.4-8.2) Albumin 3.1 G/DL (3.4-5.0) L Globulin 4.2 g/dL Albumin/Globulin Ratio 0.7 (1.0-2.7) L Carcinoembryonic Antigen Pending Vitamin B12 Level 731 PG/ML (193-986) Folate 24.1 NG/ML (8.6-58.9) Urine Color Pale yellow Urine Appearance Clear Urine pH 5 (4.5-8.0) Urine Specific [place] 1.015 (1.005-1.035) Urine Protein 3+ (NEGATIVE) H Urine Glucose (UA) Negative (NEGATIVE) Urine Ketones Negative (NEGATIVE) Urine Blood Negative (NEGATIVE) Urine Nitrite Negative (NEGATIVE) Urine Bilirubin Negative (NEGATIVE) Urine Urobilinogen Normal MG/DL (0.0-1.0) Urine Leukocyte Esterase 1+ (NEGATIVE) H Urine RBC 0-2 /HPF (0 - 2) Urine WBC 2-4 /HPF (0 - 2) Urine Squamous Epithelial Cells Few /LPF (NONE/OCC) Urine Bacteria Few /HPF (NONE) Urine Eosinophils None seen (NONE SEEN) Urine Osmolality 264 mOsm/kg (429-449) L Urine Random Sodium 21 mmol/L (20-110) Urine Potassium Timed 17 mmol/L (12-62) Troponin I 0.000 ng/mL (0.000-0.056) Height (Feet): 5 Height (Inches): 2.00 Weight (Pounds): 165 General Appearance: alert Cardiovascular: normal rate Respiratory/Chest: lungs clear Abdominal Exam: normal bowel sounds, non tender, soft Extremities: non-tender Bernardo Hernandez MD Dec 14, 2018 12:47
--- NOTE | 2018-12-14 12:57 | Endoscopy Procedure Note ---
Endoscopy Procedure Note General Indication for Procedure: anemia Procedures Performed: EGD Operative Findings/Diagnosis: gastritis Specimen: yes Pt Tolerated Procedure Well: Yes Estimated Blood Loss: none Anesthesia Anesthesiologist: ramirez Anesthesia: MAC Inserted Devices Implant(s) used?: No GI Core Measures 50 yrs or older w/o bx or poly: Not Applicable 10yrs. F/U not recommended: Not Applicable Bernardo Hernandez MD Dec 14, 2018 12:57
--- NOTE | 2018-12-14 13:07 | Immediate Post-Op Evaluation ---
Immediate Post-Op Evalulation Immediate Post-Op Evalulation Procedure: EGD with Bx Date of Evaluation: Dec 14, 2018 Time of Evaluation: 13:06 IV Fluids: 300 Blood Products: none Estimated Blood Loss: none Urinary Output: none Blood Pressure Systolic: 145 Blood Pressure Diastolic: 84 Pulse Rate: 72 Respiratory Rate: 20 O2 Sat by Pulse Oximetry: 98 Temperature (Fahrenheit): 97.6 Pain Score (1-10): 1 Nausea: No Vomiting: No Complications none Patient Status: awake, patent, none Hydration Status: adequate Jl Juan MD Dec 14, 2018 13:07
--- NOTE | 2018-12-14 13:10 | Anethesia Preoperative Eval ---
Anesthesia Pre-op PMH/ROS General Date of Evaluation: Dec 14, 2018 Time of Evaluation: 12:39 Anesthesiologist: Jaleel ASA Score: ASA 3 Mallampati Score Class I : Soft palate, uvula, fauces, pillars visible Class II: Soft palate, uvula, fauces visible Class III: Soft palate, base of uvula visible Class IV: Only hard plate visible Mallampati Classification: Class II Surgeon: Mary Diagnosis: Anemia Surgical Procedure: EGD Anesthesia History: none Family History: no anesthesia problems Allergies: Coded Allergies: No Known Allergies (Unverified , 12/12/18) Medications: see eMAR Patient NPO?: Yes Past Medical History Cardiovascular: Reports: HTN, other - CHF; Denies: CAD, OR, valve dz, arrhythmia Pulmonary: Denies: asthma, COPD, ELLYN, other Gastrointestinal/Genitourinary: Reports: GERD, other - GI bleed; Denies: CRI, ESRD Neurologic/Psychiatric: Reports: depression/anxiety; Denies: dementia, CVA, TIA, other Endocrine: Reports: DM, hypothyroidism; Denies: steroids, other HEENT: Reports: cataract (L), cataract (R) Hematology/Immune: Reports: anemia; Denies: DVT, bleeding disorder, other Musculoskeletal/Integumentary: Reports: DJD Other: other - overweight PMH Narrative: as above PSxH Narrative: see H&P Anesthesia Pre-op Phys. Exam Physician Exam Last Vital Signs Date Time Temp Pulse Resp B/P (MAP) Pulse Ox O2 Delivery O2 Flow Rate FiO2 12/14/18 11:32 57 20 97 Nasal Cannula 2.0 28 12/14/18 08:15 154/53 12/14/18 08:05 98.2 Constitutional: NAD Neurologic: CN 2-12 intact Cardiovascular: RRR, no M/R/G Respiratory: CTA Gastrointestinal: S/NT/ND Airway Exam Mallampati Score: Class II MO: limited Neck: stiff ROM: full Teeth: missing Dentures: upper Anesthesia Pre-op A/P Labs Hematology Test 12/14/18 05:10 White Blood Count 6.6 K/UL (4.8-10.8) Red Blood Count 3.18 M/UL (4.20-5.40) L Hemoglobin 9.5 G/DL (12.0-16.0) #L Hematocrit 28.9 % (37.0-47.0) #L Mean Corpuscular Volume 91 FL (80-99) Mean Corpuscular Hemoglobin 29.9 PG (27.0-31.0) Mean Corpuscular Hemoglobin Concent 33.0 G/DL (32.0-36.0) Red Cell Distribution Width 12.8 % (11.6-14.8) Platelet Count 254 K/UL (150-450) Mean Platelet Volume 6.3 FL (6.5-10.1) L Neutrophils (%) (Auto) 62.9 % (45.0-75.0) Lymphocytes (%) (Auto) 14.7 % (20.0-45.0) L Monocytes (%) (Auto) 10.2 % (1.0-10.0) H Eosinophils (%) (Auto) 11.0 % (0.0-3.0) H Basophils (%) (Auto) 1.1 % (0.0-2.0) Differential Total Cells Counted 100 Neutrophils % (Manual) 62 % (45-75) Lymphocytes % (Manual) 16 % (20-45) L Monocytes % (Manual) 7 % (1-10) Eosinophils % (Manual) 15 % (0-3) H Basophils % (Manual) 0 % (0-2) Band Neutrophils 0 % (0-8) Platelet Estimate Adequate Platelet Morphology Normal Hypochromasia 1+ Erythrocyte Sedimentation Rate 80 MM/HR (0-30) H Reticulocyte Count 0.8 % (0.0-2.0) Coagulation Test 12/14/18 05:10 Prothrombin Time 10.7 SEC (9.30-11.50) Prothromb Time International Ratio 1.0 (0.9-1.1) Activated Partial Thromboplast Time 29 SEC (23-33) Chemistry Test 12/14/18 05:10 12/14/18 07:00 Sodium Level 129 MMOL/L (136-145) L Potassium Level 3.7 MMOL/L (3.5-5.1) Chloride Level 96 MMOL/L (98-107) L Carbon Dioxide Level 22 MMOL/L (21-32) Anion Gap 11 mmol/L (5-15) Blood Urea Nitrogen 26 mg/dL (7-18) H Creatinine 1.7 MG/DL (0.55-1.30) H Estimat Glomerular Filtration Rate mL/min (>60) Glucose Level 123 MG/DL (74-106) H Calcium Level 8.7 MG/DL (8.5-10.1) Phosphorus Level 4.5 MG/DL (2.5-4.9) Magnesium Level 1.9 MG/DL (1.8-2.4) Iron Level 118 ug/dL (50-175) Total Iron Binding Capacity 269 ug/dL (250-450) Percent Iron Saturation 44 % (15-50) Unsaturated Iron Binding 151 ug/dL (112-346) Total Bilirubin 0.7 MG/DL (0.2-1.0) Aspartate Amino Transf (AST/SGOT) 17 U/L (15-37) Alanine Aminotransferase (ALT/SGPT) 19 U/L (12-78) Alkaline Phosphatase 100 U/L (46-116) Lactate Dehydrogenase 279 U/L (81-234) H C-Reactive Protein, Quantitative 5.6 mg/dL (0.00-0.90) H Pro-B-Type Natriuretic Peptide 3543 pg/mL (0-125) H Total Protein 7.3 G/DL (6.4-8.2) Albumin 3.1 G/DL (3.4-5.0) L Globulin 4.2 g/dL Albumin/Globulin Ratio 0.7 (1.0-2.7) L Carcinoembryonic Antigen Pending Vitamin B12 Level 731 PG/ML (193-986) Folate 24.1 NG/ML (8.6-58.9) Troponin I 0.000 ng/mL (0.000-0.056) Risk Assessment & Plan Assessment: ASA 3 Plan: Jl Lizarraga MD Dec 14, 2018 13:10
--- NOTE | 2018-12-14 13:12 | Diagnostic Imaging Report ---
Indication: Reason For Exam: DYSPNEA Technique: One view of the chest Comparison: 12/13/2018 Findings: Interim reexpansion of the left lung. There is minimal interstitial congestion appears very slight bilateral costophrenic angle blunting suggests small bilateral pleural effusions. The heart is enlarged. Impression: Interim apparently complete reexpansion of previously atelectatic left lung Cardiomegaly. Suspect mild interstitial congestion and small bilateral pleural effusions
--- NOTE | 2018-12-14 13:21 | General Progress Note ---
Assessment/Plan Problem List: (1) UTI (urinary tract infection) ICD Codes: N39.0 - Urinary tract infection, site not specified SNOMED: 46112517 (2) HTN (hypertension) ICD Codes: I10 - Essential (primary) hypertension SNOMED: 53788827 (3) CHF exacerbation ICD Codes: I50.9 - Heart failure, unspecified SNOMED: 87093980 (4) Hyponatremia ICD Codes: E87.1 - Hypo-osmolality and hyponatremia SNOMED: 17465719 (5) Diabetes mellitus ICD Codes: E11.9 - Type 2 diabetes mellitus without complications SNOMED: 05938357 (6) Anemia ICD Codes: D64.9 - Anemia, unspecified SNOMED: 770547430 Status: unchanged Assessment/Plan o2 pulm tx abx pt diet transfuse prn cbc bmp am Subjective Constitutional: Reports: weakness Allergies: Coded Allergies: No Known Allergies (Unverified , 12/12/18) All Systems: reviewed and negative except above Subjective calm in bed awaiting gi lab Objective Last 24 Hour Vital Signs Date Time Temp Pulse Resp B/P (MAP) Pulse Ox O2 Delivery O2 Flow Rate FiO2 12/14/18 13:10 71 19 144/54 96 Nasal Cannula 3 12/14/18 13:07 98.3 74 20 148/71 98 Nasal Cannula 3 12/14/18 13:07 72 20 98 12/14/18 11:32 57 20 97 Nasal Cannula 2.0 28 12/14/18 11:32 59 20 97 Nasal Cannula 2.0 28 12/14/18 11:31 Nasal Cannula 2.0 28 12/14/18 11:31 97 Nasal Cannula 2.0 28 12/14/18 09:00 Nasal Cannula 2.0 12/14/18 08:15 66 154/53 12/14/18 08:15 66 154/53 12/14/18 08:05 98.2 66 23 154/53 (86) 99 12/14/18 04:39 65 20 100 Nasal Cannula 2.0 28 12/14/18 04:38 65 20 100 Nasal Cannula 2.0 28 12/14/18 04:35 67 20 98 Nasal Cannula 2.0 28 12/14/18 04:34 67 20 98 Nasal Cannula 2.0 28 12/14/18 04:00 64 12/14/18 04:00 98.6 78 20 150/76 (100) 95 12/14/18 00:00 98.6 63 20 147/52 (83) 99 12/14/18 00:00 61 12/13/18 23:50 70 20 99 Nasal Cannula 2.0 28 12/13/18 23:50 71 20 99 Nasal Cannula 2.0 28 12/13/18 22:06 69 143/54 12/13/18 21:00 Nasal Cannula 2.0 12/13/18 20:28 62 20 99 Nasal Cannula 2.0 28 12/13/18 20:21 69 20 99 Nasal Cannula 2.0 28 12/13/18 20:21 99 Nasal Cannula 2.0 28 12/13/18 20:21 Nasal Cannula 2.0 28 12/13/18 20:00 99.6 69 20 139/56 (83) 99 12/13/18 20:00 69 12/13/18 16:00 79 12/13/18 16:00 99.9 102 22 116/64 (81) 98 12/13/18 15:24 76 19 100 Nasal Cannula 2.0 28 12/13/18 15:20 72 18 99 Nasal Cannula 2.0 28 Intake and Output 12/13/18 12/14/18 19:00 07:00 Intake Total 240 ml Balance 240 ml Intake Oral 240 ml # Voids 2 # Bowel Movements 1 Laboratory Tests 12/14/18 05:10: White Blood Count 6.6, Red Blood Count 3.18L, Hemoglobin 9.5#L, Hematocrit 28.9# L, Mean Corpuscular Volume 91, Mean Corpuscular Hemoglobin 29.9, Mean Corpuscular Hemoglobin Concent 33.0, Red Cell Distribution Width 12.8, Platelet Count 254, Mean Platelet Volume 6.3L, Neutrophils (%) (Auto) 62.9, Lymphocytes ( %) (Auto) 14.7L, Monocytes (%) (Auto) 10.2H, Eosinophils (%) (Auto) 11.0H, Basophils (%) (Auto) 1.1, Differential Total Cells Counted 100, Neutrophils % ( Manual) 62, Lymphocytes % (Manual) 16L, Monocytes % (Manual) 7, Eosinophils % ( Manual) 15H, Basophils % (Manual) 0, Band Neutrophils 0, Platelet Estimate Adequate, Platelet Morphology Normal, Hypochromasia 1+, Erythrocyte Sedimentation Rate 80H, Reticulocyte Count 0.8, Prothrombin Time 10.7, Prothromb Time International Ratio 1.0, Activated Partial Thromboplast Time 29, Sodium Level 129L, Potassium Level 3.7, Chloride Level 96L, Carbon Dioxide Level 22, Anion Gap 11, Blood Urea Nitrogen 26H, Creatinine 1.7H, Estimat Glomerular Filtration Rate , Glucose Level 123H, Calcium Level 8.7, Phosphorus Level 4.5, Magnesium Level 1.9, Iron Level 118, Total Iron Binding Capacity 269 , Percent Iron Saturation 44, Unsaturated Iron Binding 151, Total Bilirubin 0.7 , Aspartate Amino Transf (AST/SGOT) 17, Alanine Aminotransferase (ALT/SGPT) 19, Alkaline Phosphatase 100, Lactate Dehydrogenase 279H, C-Reactive Protein, Quantitative 5.6H, Pro-B-Type Natriuretic Peptide 3543H, Total Protein 7.3, Albumin 3.1L, Globulin 4.2, Albumin/Globulin Ratio 0.7L, Carcinoembryonic Antigen [Pending], Vitamin B12 Level 731, Folate 24.1 12/14/18 06:45: Urine Color Pale yellow, Urine Appearance Clear, Urine pH 5, Urine Specific [place] 1.015, Urine Protein 3+H, Urine Glucose (UA) Negative, Urine Ketones Negative, Urine Blood Negative, Urine Nitrite Negative, Urine Bilirubin Negative , Urine Urobilinogen Normal, Urine Leukocyte Esterase 1+H, Urine RBC 0-2, Urine WBC 2-4, Urine Squamous Epithelial Cells Few, Urine Bacteria Few, Urine Eosinophils None seen, Urine Osmolality 264L, Urine Random Sodium 21, Urine Potassium Timed 17 12/14/18 07:00: Troponin I 0.000 Height (Feet): 5 Height (Inches): 2.00 Weight (Pounds): 165 General Appearance: lethargic EENT: normal ENT inspection Neck: normal alignment Cardiovascular: normal peripheral pulses, normal rate, regular rhythm Respiratory/Chest: chest wall non-tender, lungs clear, normal breath sounds Abdomen: normal bowel sounds, non tender, soft Extremities: normal inspection Edema: no edema noted Arm (L), no edema noted Arm (R), no edema noted Leg (L), no edema noted Leg (R), no edema noted Pedal (L), no edema noted Pedal (R), no edema noted Generalized Neurologic: motor weakness Skin: normal pigmentation, warm/dry Campuzano,Andrei Chi-Sheyla DO Dec 14, 2018 13:20
--- NOTE | 2018-12-14 13:54 | Cardiac Electrophysiology PN ---
Assessment/Plan Assessment/Plan 1. Congestive heart failure with BNP is more than 2100. Likely due to combination of diastolic dysfunction with EF 55% to 60% as well as severe anemia. On Lasix 40 mg IV daily 2. Coronary artery disease with history of prior stent placement. Etiology is not very clear, on Coreg 12.5 mg twice a day and Lipitor 20 mg at bedtime. 3. Hypertension. On Coreg 12.5 mg twice a day and Procardia XL 60 mg daily. 4. Hypothyroidism, on Synthroid. 5. Severe anemia with hemoglobin around 6. S/P EGD by Dr. Hernandez. Subjective Subjective Just had EGD today. No CP or SOB Objective Last 24 Hour Vital Signs Date Time Temp Pulse Resp B/P (MAP) Pulse Ox O2 Delivery O2 Flow Rate FiO2 12/14/18 13:10 71 19 144/54 96 Nasal Cannula 3 12/14/18 13:07 98.3 74 20 148/71 98 Nasal Cannula 3 12/14/18 13:07 72 20 98 12/14/18 11:32 57 20 97 Nasal Cannula 2.0 28 12/14/18 11:32 59 20 97 Nasal Cannula 2.0 28 12/14/18 11:31 Nasal Cannula 2.0 28 12/14/18 11:31 97 Nasal Cannula 2.0 28 12/14/18 09:00 Nasal Cannula 2.0 12/14/18 08:15 66 154/53 12/14/18 08:15 66 154/53 12/14/18 08:05 98.2 66 23 154/53 (86) 99 12/14/18 04:39 65 20 100 Nasal Cannula 2.0 28 12/14/18 04:38 65 20 100 Nasal Cannula 2.0 28 12/14/18 04:35 67 20 98 Nasal Cannula 2.0 28 12/14/18 04:34 67 20 98 Nasal Cannula 2.0 28 12/14/18 04:00 64 12/14/18 04:00 98.6 78 20 150/76 (100) 95 12/14/18 00:00 98.6 63 20 147/52 (83) 99 12/14/18 00:00 61 12/13/18 23:50 70 20 99 Nasal Cannula 2.0 28 12/13/18 23:50 71 20 99 Nasal Cannula 2.0 28 12/13/18 22:06 69 143/54 12/13/18 21:00 Nasal Cannula 2.0 12/13/18 20:28 62 20 99 Nasal Cannula 2.0 28 12/13/18 20:21 69 20 99 Nasal Cannula 2.0 28 12/13/18 20:21 99 Nasal Cannula 2.0 28 12/13/18 20:21 Nasal Cannula 2.0 28 12/13/18 20:00 99.6 69 20 139/56 (83) 99 12/13/18 20:00 69 12/13/18 16:00 79 12/13/18 16:00 99.9 102 22 116/64 (81) 98 12/13/18 15:24 76 19 100 Nasal Cannula 2.0 28 12/13/18 15:20 72 18 99 Nasal Cannula 2.0 28 Intake and Output 12/13/18 12/14/18 19:00 07:00 Intake Total 240 ml Balance 240 ml Intake Oral 240 ml # Voids 2 # Bowel Movements 1 Laboratory Tests Test 12/14/18 05:10 12/14/18 06:45 12/14/18 07:00 White Blood Count 6.6 K/UL (4.8-10.8) Red Blood Count 3.18 M/UL (4.20-5.40) L Hemoglobin 9.5 G/DL (12.0-16.0) #L Hematocrit 28.9 % (37.0-47.0) #L Mean Corpuscular Volume 91 FL (80-99) Mean Corpuscular Hemoglobin 29.9 PG (27.0-31.0) Mean Corpuscular Hemoglobin Concent 33.0 G/DL (32.0-36.0) Red Cell Distribution Width 12.8 % (11.6-14.8) Platelet Count 254 K/UL (150-450) Mean Platelet Volume 6.3 FL (6.5-10.1) L Neutrophils (%) (Auto) 62.9 % (45.0-75.0) Lymphocytes (%) (Auto) 14.7 % (20.0-45.0) L Monocytes (%) (Auto) 10.2 % (1.0-10.0) H Eosinophils (%) (Auto) 11.0 % (0.0-3.0) H Basophils (%) (Auto) 1.1 % (0.0-2.0) Differential Total Cells Counted 100 Neutrophils % (Manual) 62 % (45-75) Lymphocytes % (Manual) 16 % (20-45) L Monocytes % (Manual) 7 % (1-10) Eosinophils % (Manual) 15 % (0-3) H Basophils % (Manual) 0 % (0-2) Band Neutrophils 0 % (0-8) Platelet Estimate Adequate Platelet Morphology Normal Hypochromasia 1+ Erythrocyte Sedimentation Rate 80 MM/HR (0-30) H Reticulocyte Count 0.8 % (0.0-2.0) Prothrombin Time 10.7 SEC (9.30-11.50) Prothromb Time International Ratio 1.0 (0.9-1.1) Activated Partial Thromboplast Time 29 SEC (23-33) Sodium Level 129 MMOL/L (136-145) L Potassium Level 3.7 MMOL/L (3.5-5.1) Chloride Level 96 MMOL/L (98-107) L Carbon Dioxide Level 22 MMOL/L (21-32) Anion Gap 11 mmol/L (5-15) Blood Urea Nitrogen 26 mg/dL (7-18) H Creatinine 1.7 MG/DL (0.55-1.30) H Estimat Glomerular Filtration Rate mL/min (>60) Glucose Level 123 MG/DL (74-106) H Calcium Level 8.7 MG/DL (8.5-10.1) Phosphorus Level 4.5 MG/DL (2.5-4.9) Magnesium Level 1.9 MG/DL (1.8-2.4) Iron Level 118 ug/dL (50-175) Total Iron Binding Capacity 269 ug/dL (250-450) Percent Iron Saturation 44 % (15-50) Unsaturated Iron Binding 151 ug/dL (112-346) Total Bilirubin 0.7 MG/DL (0.2-1.0) Aspartate Amino Transf (AST/SGOT) 17 U/L (15-37) Alanine Aminotransferase (ALT/SGPT) 19 U/L (12-78) Alkaline Phosphatase 100 U/L (46-116) Lactate Dehydrogenase 279 U/L (81-234) H C-Reactive Protein, Quantitative 5.6 mg/dL (0.00-0.90) H Pro-B-Type Natriuretic Peptide 3543 pg/mL (0-125) H Total Protein 7.3 G/DL (6.4-8.2) Albumin 3.1 G/DL (3.4-5.0) L Globulin 4.2 g/dL Albumin/Globulin Ratio 0.7 (1.0-2.7) L Carcinoembryonic Antigen Pending Vitamin B12 Level 731 PG/ML (193-986) Folate 24.1 NG/ML (8.6-58.9) Urine Color Pale yellow Urine Appearance Clear Urine pH 5 (4.5-8.0) Urine Specific [place] 1.015 (1.005-1.035) Urine Protein 3+ (NEGATIVE) H Urine Glucose (UA) Negative (NEGATIVE) Urine Ketones Negative (NEGATIVE) Urine Blood Negative (NEGATIVE) Urine Nitrite Negative (NEGATIVE) Urine Bilirubin Negative (NEGATIVE) Urine Urobilinogen Normal MG/DL (0.0-1.0) Urine Leukocyte Esterase 1+ (NEGATIVE) H Urine RBC 0-2 /HPF (0 - 2) Urine WBC 2-4 /HPF (0 - 2) Urine Squamous Epithelial Cells Few /LPF (NONE/OCC) Urine Bacteria Few /HPF (NONE) Urine Eosinophils None seen (NONE SEEN) Urine Osmolality 264 mOsm/kg (429-449) L Urine Random Sodium 21 mmol/L (20-110) Urine Potassium Timed 17 mmol/L (12-62) Troponin I 0.000 ng/mL (0.000-0.056) Microbiology Date/Time Source Procedure Growth Status 12/12/18 20:20 Nasal Nares Influenza Types A,B Antigen (CLAU) - Final Complete Objective HEAD AND NECK: No JVD. LUNGS: Clear. CARDIOVASCULAR: Regular S1 and S2 with no gallop. ABDOMEN: Soft. EXTREMITIES: 1+ pitting edema. Oscar Rivera MD Dec 14, 2018 13:54
--- NOTE | 2018-12-14 14:17 | Pulmonology Progress Note ---
Assessment/Plan Problems: (1) Collapse of left lung (2) Symptomatic anemia (3) ATN (acute tubular necrosis) (4) Anemia (5) Hyponatremia (6) Diabetes mellitus (7) Hypothyroidism Assessment/Plan left lung opened up continue diuretics EGD done anemia w/u in progress f/u electrolytes Subjective Interval Events: feeling better Allergies: Coded Allergies: No Known Allergies (Unverified , 12/12/18) Objective Last 24 Hour Vital Signs Date Time Temp Pulse Resp B/P (MAP) Pulse Ox O2 Delivery O2 Flow Rate FiO2 12/14/18 13:35 98.0 71 16 144/55 98 Nasal Cannula 3 12/14/18 13:30 70 17 140/53 97 Nasal Cannula 3 12/14/18 13:15 72 18 143/57 97 Nasal Cannula 3 12/14/18 13:10 71 19 144/54 96 Nasal Cannula 3 12/14/18 13:07 98.3 74 20 148/71 98 Nasal Cannula 3 12/14/18 13:07 72 20 98 12/14/18 11:32 57 20 97 Nasal Cannula 2.0 28 12/14/18 11:32 59 20 97 Nasal Cannula 2.0 28 12/14/18 11:31 Nasal Cannula 2.0 28 12/14/18 11:31 97 Nasal Cannula 2.0 28 12/14/18 09:00 Nasal Cannula 2.0 12/14/18 08:15 66 154/53 12/14/18 08:15 66 154/53 12/14/18 08:05 98.2 66 23 154/53 (86) 99 12/14/18 04:39 65 20 100 Nasal Cannula 2.0 28 12/14/18 04:38 65 20 100 Nasal Cannula 2.0 28 12/14/18 04:35 67 20 98 Nasal Cannula 2.0 28 12/14/18 04:34 67 20 98 Nasal Cannula 2.0 28 12/14/18 04:00 64 12/14/18 04:00 98.6 78 20 150/76 (100) 95 12/14/18 00:00 98.6 63 20 147/52 (83) 99 12/14/18 00:00 61 12/13/18 23:50 70 20 99 Nasal Cannula 2.0 28 12/13/18 23:50 71 20 99 Nasal Cannula 2.0 28 12/13/18 22:06 69 143/54 12/13/18 21:00 Nasal Cannula 2.0 12/13/18 20:28 62 20 99 Nasal Cannula 2.0 28 12/13/18 20:21 69 20 99 Nasal Cannula 2.0 28 12/13/18 20:21 99 Nasal Cannula 2.0 28 12/13/18 20:21 Nasal Cannula 2.0 28 12/13/18 20:00 99.6 69 20 139/56 (83) 99 12/13/18 20:00 69 12/13/18 16:00 79 12/13/18 16:00 99.9 102 22 116/64 (81) 98 12/13/18 15:24 76 19 100 Nasal Cannula 2.0 28 12/13/18 15:20 72 18 99 Nasal Cannula 2.0 Intake and Output 12/13/18 12/14/18 19:00 07:00 Intake Total 240 ml Balance 240 ml Intake Oral 240 ml # Voids 2 # Bowel Movements 1 General Appearance: WD/WN HEENT: normocephalic, atraumatic Respiratory/Chest: chest wall non-tender, lungs clear Breasts: no masses Cardiovascular: normal rate Abdomen: normal bowel sounds, soft, non tender Neurologic/Psychiatric: senior oracle dba II-XII grossly normal Microbiology Date/Time Source Procedure Growth Status 12/12/18 20:20 Nasal Nares Influenza Types A,B Antigen (CLAU) - Final Complete Laboratory Tests 12/14/18 05:10: White Blood Count 6.6, Red Blood Count 3.18L, Hemoglobin 9.5#L, Hematocrit 28.9# L, Mean Corpuscular Volume 91, Mean Corpuscular Hemoglobin 29.9, Mean Corpuscular Hemoglobin Concent 33.0, Red Cell Distribution Width 12.8, Platelet Count 254, Mean Platelet Volume 6.3L, Neutrophils (%) (Auto) 62.9, Lymphocytes ( %) (Auto) 14.7L, Monocytes (%) (Auto) 10.2H, Eosinophils (%) (Auto) 11.0H, Basophils (%) (Auto) 1.1, Differential Total Cells Counted 100, Neutrophils % ( Manual) 62, Lymphocytes % (Manual) 16L, Monocytes % (Manual) 7, Eosinophils % ( Manual) 15H, Basophils % (Manual) 0, Band Neutrophils 0, Platelet Estimate Adequate, Platelet Morphology Normal, Hypochromasia 1+, Erythrocyte Sedimentation Rate 80H, Reticulocyte Count 0.8, Prothrombin Time 10.7, Prothromb Time International Ratio 1.0, Activated Partial Thromboplast Time 29, Sodium Level 129L, Potassium Level 3.7, Chloride Level 96L, Carbon Dioxide Level 22, Anion Gap 11, Blood Urea Nitrogen 26H, Creatinine 1.7H, Estimat Glomerular Filtration Rate , Glucose Level 123H, Calcium Level 8.7, Phosphorus Level 4.5, Magnesium Level 1.9, Iron Level 118, Total Iron Binding Capacity 269 , Percent Iron Saturation 44, Unsaturated Iron Binding 151, Total Bilirubin 0.7 , Aspartate Amino Transf (AST/SGOT) 17, Alanine Aminotransferase (ALT/SGPT) 19, Alkaline Phosphatase 100, Lactate Dehydrogenase 279H, C-Reactive Protein, Quantitative 5.6H, Pro-B-Type Natriuretic Peptide 3543H, Total Protein 7.3, Albumin 3.1L, Globulin 4.2, Albumin/Globulin Ratio 0.7L, Carcinoembryonic Antigen [Pending], Vitamin B12 Level 731, Folate 24.1 12/14/18 06:45: Urine Color Pale yellow, Urine Appearance Clear, Urine pH 5, Urine Specific [place] 1.015, Urine Protein 3+H, Urine Glucose (UA) Negative, Urine Ketones Negative, Urine Blood Negative, Urine Nitrite Negative, Urine Bilirubin Negative , Urine Urobilinogen Normal, Urine Leukocyte Esterase 1+H, Urine RBC 0-2, Urine WBC 2-4, Urine Squamous Epithelial Cells Few, Urine Bacteria Few, Urine Eosinophils None seen, Urine Osmolality 264L, Urine Random Sodium 21, Urine Potassium Timed 17 12/14/18 07:00: Troponin I 0.000 Current Medications Medications (Trade) Dose Ordered Sig/Bipin Route PRN Reason Start Time Stop Time Status Last Admin Dose Admin Acetaminophen (Tylenol) 650 mg Q4H PRN ORAL Fever 12/12/18 22:15 01/11/19 22:14 Albuterol/ Ipratropium (Albuterol/ Ipratropium) 3 ml EVERY 4 HOURS PRN HHN Shortness of Breath 12/12/18 22:15 12/17/18 22:14 12/14/18 04:53 Atorvastatin Calcium (Lipitor) 20 mg BEDTIME ORAL 12/13/18 21:00 01/12/19 20:59 12/13/18 22:05 Carvedilol (Coreg) 12.5 mg EVERY 12 HOURS ORAL 12/13/18 09:00 01/12/19 08:59 12/14/18 08:15 Clopidogrel Bisulfate (Plavix) 75 mg DAILY ORAL 12/13/18 09:00 01/12/19 08:59 12/13/18 09:10 Dextrose (Dextrose 50%) 25 ml Q30M PRN IV Hypoglycemia 12/12/18 22:15 01/11/19 22:14 Dextrose (Dextrose 50%) 50 ml Q30M PRN IV Hypoglycemia 12/12/18 22:15 01/11/19 22:14 Diphenhydramine HCl (Benadryl) 25 mg Q6H PRN IVP Itching 12/13/18 07:15 01/12/19 07:14 Heparin Sodium (Porcine) (Heparin 5000 units/ml) 5,000 units EVERY 12 HOURS SUBQ 12/13/18 09:00 01/12/19 08:59 Insulin Aspart (NovoLOG) BEFORE MEALS AND HS SUBQ 12/13/18 06:30 01/12/19 06:29 12/13/18 22:10 Iron Sucrose 100 mg/Sodium Chloride 60 ml @ 240 mls/hr BEDTIME IV 12/14/18 21:00 12/16/18 21:14 Levothyroxine Sodium (Synthroid) 50 mcg ACBREAKFAST ORAL 12/15/18 06:30 01/14/19 06:29 Nifedipine (Procardia XL) 60 mg DAILY ORAL 12/13/18 09:00 01/12/19 08:59 12/14/18 08:15 Ondansetron HCl (Zofran) 4 mg Q6H PRN IVP Nausea & Vomiting 12/12/18 22:15 01/11/19 22:14 Polyethylene Glycol (Miralax) 17 gm DAILYPRN PRN ORAL Constipation 12/12/18 22:15 01/11/19 22:14 Promethazine HCl/ Codeine (Phenergan with Codeine) 5 ml Q4H PRN ORAL For Cough 12/13/18 10:15 01/12/19 10:14 Temazepam (Restoril) 15 mg HSPRN PRN ORAL Insomnia 12/12/18 22:15 12/19/18 22:14 Velma Cordova MD Dec 14, 2018 14:17
--- NOTE | 2018-12-14 14:17 | 48 Hour Post Anesthesia Eval ---
Post Anesthesia Evaluation Procedure: EGD with Bx Date of Evaluation: Dec 14, 2018 Time of Evaluation: 14:16 Blood Pressure Systolic: 148 0: 72 Pulse Rate: 82 Respiratory Rate: 20 Temperature (Fahrenheit): 97.5 O2 Sat by Pulse Oximetry: 98 Airway: patent Nausea: No Vomiting: No Pain Intensity: 1 Hydration Status: adequate Cardiopulmonary Status: stable Mental Status/LOC: patient returned to baseline Follow-up Care/Observations: n/a Post-Anesthesia Complications: none Follow-up care needed: N/A Jl Juan MD Dec 14, 2018 14:17
--- NOTE | 2018-12-14 14:44 | Infectious Diseases Prog Note ---
Assessment/Plan Assessment/Plan Abx: None Assessment: Dyspnea- no obvious PNA on CXR -CXR: Complete opacification of the left hemithorax, presumably on the basis of complete left lung atelectasis Afebrile No leukocytosis -u.a no pyuria L lung collapse; SP -12/14 CXR: Interim apparently complete reexpansion of previously atelectatic left lung. Cardiomegaly. Suspect mild interstitial congestion and small bilateral pleural effusion Anemia -12/14 SP EGD: gastritis Hyponatremia DM2 HTN CAD CHF Plan: -Continue to monitor off abx unless febrile, leukocytosis and/or evidence of pNA on CXR -f/u cx -Monitor CBC/CMP, temperatures -aspiration precautions -pulm f/u -GI f/u: Thank you for this consultation. Will continue to follow along with you. Discussed with RN. Subjective Allergies: Coded Allergies: No Known Allergies (Unverified , 12/12/18) Subjective afebrile no leukocytosis off abx Objective Vital Signs Last 24 Hour Vital Signs Date Time Temp Pulse Resp B/P (MAP) Pulse Ox O2 Delivery O2 Flow Rate FiO2 12/14/18 14:17 82 20 98 12/14/18 13:35 98.0 71 16 144/55 98 Nasal Cannula 3 12/14/18 13:30 70 17 140/53 97 Nasal Cannula 3 12/14/18 13:15 72 18 143/57 97 Nasal Cannula 3 12/14/18 13:10 71 19 144/54 96 Nasal Cannula 3 12/14/18 13:07 98.3 74 20 148/71 98 Nasal Cannula 3 12/14/18 13:07 72 20 98 12/14/18 11:32 57 20 97 Nasal Cannula 2.0 28 12/14/18 11:32 59 20 97 Nasal Cannula 2.0 28 12/14/18 11:31 Nasal Cannula 2.0 28 12/14/18 11:31 97 Nasal Cannula 2.0 28 12/14/18 09:00 Nasal Cannula 2.0 12/14/18 08:15 66 154/53 12/14/18 08:15 66 154/53 12/14/18 08:05 98.2 66 23 154/53 (86) 99 12/14/18 04:39 65 20 100 Nasal Cannula 2.0 28 12/14/18 04:38 65 20 100 Nasal Cannula 2.0 28 12/14/18 04:35 67 20 98 Nasal Cannula 2.0 28 12/14/18 04:34 67 20 98 Nasal Cannula 2.0 28 12/14/18 04:00 64 12/14/18 04:00 98.6 78 20 150/76 (100) 95 12/14/18 00:00 98.6 63 20 147/52 (83) 99 12/14/18 00:00 61 12/13/18 23:50 70 20 99 Nasal Cannula 2.0 28 12/13/18 23:50 71 20 99 Nasal Cannula 2.0 28 12/13/18 22:06 69 143/54 12/13/18 21:00 Nasal Cannula 2.0 12/13/18 20:28 62 20 99 Nasal Cannula 2.0 28 12/13/18 20:21 69 20 99 Nasal Cannula 2.0 28 12/13/18 20:21 99 Nasal Cannula 2.0 28 12/13/18 20:21 Nasal Cannula 2.0 28 12/13/18 20:00 99.6 69 20 139/56 (83) 99 12/13/18 20:00 69 12/13/18 16:00 79 12/13/18 16:00 99.9 102 22 116/64 (81) 98 12/13/18 15:24 76 19 100 Nasal Cannula 2.0 28 12/13/18 15:20 72 18 99 Nasal Cannula 2.0 28 Height (Feet): 5 Height (Inches): 2.00 Weight (Pounds): 165 Objective General Appearance: WD/WN Lines, tubes and drains: peripheral HEENT: normocephalic, atraumatic Neck: non-tender, normal alignment Respiratory/Chest: chest wall non-tender, lungs clear, decreased breath sounds - at left Cardiovascular/Chest: normal peripheral pulses, normal rate Abdomen: non tender, no organomegaly Genitourinary/Rectal: normal genital exam Microbiology Date/Time Source Procedure Growth Status 12/12/18 20:20 Nasal Nares Influenza Types A,B Antigen (CLAU) - Final Complete Laboratory Tests Test 12/14/18 05:10 12/14/18 06:45 12/14/18 07:00 White Blood Count 6.6 K/UL (4.8-10.8) Red Blood Count 3.18 M/UL (4.20-5.40) L Hemoglobin 9.5 G/DL (12.0-16.0) #L Hematocrit 28.9 % (37.0-47.0) #L Mean Corpuscular Volume 91 FL (80-99) Mean Corpuscular Hemoglobin 29.9 PG (27.0-31.0) Mean Corpuscular Hemoglobin Concent 33.0 G/DL (32.0-36.0) Red Cell Distribution Width 12.8 % (11.6-14.8) Platelet Count 254 K/UL (150-450) Mean Platelet Volume 6.3 FL (6.5-10.1) L Neutrophils (%) (Auto) 62.9 % (45.0-75.0) Lymphocytes (%) (Auto) 14.7 % (20.0-45.0) L Monocytes (%) (Auto) 10.2 % (1.0-10.0) H Eosinophils (%) (Auto) 11.0 % (0.0-3.0) H Basophils (%) (Auto) 1.1 % (0.0-2.0) Differential Total Cells Counted 100 Neutrophils % (Manual) 62 % (45-75) Lymphocytes % (Manual) 16 % (20-45) L Monocytes % (Manual) 7 % (1-10) Eosinophils % (Manual) 15 % (0-3) H Basophils % (Manual) 0 % (0-2) Band Neutrophils 0 % (0-8) Platelet Estimate Adequate Platelet Morphology Normal Hypochromasia 1+ Erythrocyte Sedimentation Rate 80 MM/HR (0-30) H Reticulocyte Count 0.8 % (0.0-2.0) Prothrombin Time 10.7 SEC (9.30-11.50) Prothromb Time International Ratio 1.0 (0.9-1.1) Activated Partial Thromboplast Time 29 SEC (23-33) Sodium Level 129 MMOL/L (136-145) L Potassium Level 3.7 MMOL/L (3.5-5.1) Chloride Level 96 MMOL/L (98-107) L Carbon Dioxide Level 22 MMOL/L (21-32) Anion Gap 11 mmol/L (5-15) Blood Urea Nitrogen 26 mg/dL (7-18) H Creatinine 1.7 MG/DL (0.55-1.30) H Estimat Glomerular Filtration Rate mL/min (>60) Glucose Level 123 MG/DL (74-106) H Calcium Level 8.7 MG/DL (8.5-10.1) Phosphorus Level 4.5 MG/DL (2.5-4.9) Magnesium Level 1.9 MG/DL (1.8-2.4) Iron Level 118 ug/dL (50-175) Total Iron Binding Capacity 269 ug/dL (250-450) Percent Iron Saturation 44 % (15-50) Unsaturated Iron Binding 151 ug/dL (112-346) Total Bilirubin 0.7 MG/DL (0.2-1.0) Aspartate Amino Transf (AST/SGOT) 17 U/L (15-37) Alanine Aminotransferase (ALT/SGPT) 19 U/L (12-78) Alkaline Phosphatase 100 U/L (46-116) Lactate Dehydrogenase 279 U/L (81-234) H C-Reactive Protein, Quantitative 5.6 mg/dL (0.00-0.90) H Pro-B-Type Natriuretic Peptide 3543 pg/mL (0-125) H Total Protein 7.3 G/DL (6.4-8.2) Albumin 3.1 G/DL (3.4-5.0) L Globulin 4.2 g/dL Albumin/Globulin Ratio 0.7 (1.0-2.7) L Carcinoembryonic Antigen Pending Vitamin B12 Level 731 PG/ML (193-986) Folate 24.1 NG/ML (8.6-58.9) Urine Color Pale yellow Urine Appearance Clear Urine pH 5 (4.5-8.0) Urine Specific [place] 1.015 (1.005-1.035) Urine Protein 3+ (NEGATIVE) H Urine Glucose (UA) Negative (NEGATIVE) Urine Ketones Negative (NEGATIVE) Urine Blood Negative (NEGATIVE) Urine Nitrite Negative (NEGATIVE) Urine Bilirubin Negative (NEGATIVE) Urine Urobilinogen Normal MG/DL (0.0-1.0) Urine Leukocyte Esterase 1+ (NEGATIVE) H Urine RBC 0-2 /HPF (0 - 2) Urine WBC 2-4 /HPF (0 - 2) Urine Squamous Epithelial Cells Few /LPF (NONE/OCC) Urine Bacteria Few /HPF (NONE) Urine Eosinophils None seen (NONE SEEN) Urine Osmolality 264 mOsm/kg (429-449) L Urine Random Sodium 21 mmol/L (20-110) Urine Potassium Timed 17 mmol/L (12-62) Troponin I 0.000 ng/mL (0.000-0.056) Current Medications Medications (Trade) Dose Ordered Sig/Bipin Route PRN Reason Start Time Stop Time Status Last Admin Dose Admin Acetaminophen (Tylenol) 650 mg Q4H PRN ORAL Fever 12/12/18 22:15 01/11/19 22:14 Albuterol/ Ipratropium (Albuterol/ Ipratropium) 3 ml EVERY 4 HOURS PRN HHN Shortness of Breath 12/12/18 22:15 12/17/18 22:14 12/14/18 04:53 Atorvastatin Calcium (Lipitor) 20 mg BEDTIME ORAL 12/13/18 21:00 01/12/19 20:59 12/13/18 22:05 Carvedilol (Coreg) 12.5 mg EVERY 12 HOURS ORAL 12/13/18 09:00 01/12/19 08:59 12/14/18 08:15 Clopidogrel Bisulfate (Plavix) 75 mg DAILY ORAL 12/13/18 09:00 01/12/19 08:59 12/13/18 09:10 Dextrose (Dextrose 50%) 25 ml Q30M PRN IV Hypoglycemia 12/12/18 22:15 01/11/19 22:14 Dextrose (Dextrose 50%) 50 ml Q30M PRN IV Hypoglycemia 12/12/18 22:15 01/11/19 22:14 Diphenhydramine HCl (Benadryl) 25 mg Q6H PRN IVP Itching 12/13/18 07:15 01/12/19 07:14 Heparin Sodium (Porcine) (Heparin 5000 units/ml) 5,000 units EVERY 12 HOURS SUBQ 12/13/18 09:00 01/12/19 08:59 Insulin Aspart (NovoLOG) BEFORE MEALS AND HS SUBQ 12/13/18 06:30 01/12/19 06:29 12/13/18 22:10 Iron Sucrose 100 mg/Sodium Chloride 60 ml @ 240 mls/hr BEDTIME IV 12/14/18 21:00 12/16/18 21:14 Levothyroxine Sodium (Synthroid) 50 mcg ACBREAKFAST ORAL 3/2/19 06:30 01/14/19 06:29 Nifedipine (Procardia XL) 60 mg DAILY ORAL 12/13/18 09:00 01/12/19 08:59 12/14/18 08:15 Ondansetron HCl (Zofran) 4 mg Q6H PRN IVP Nausea & Vomiting 12/12/18 22:15 01/11/19 22:14 Polyethylene Glycol (Miralax) 17 gm DAILYPRN PRN ORAL Constipation 12/12/18 22:15 01/11/19 22:14 Promethazine HCl/ Codeine (Phenergan with Codeine) 5 ml Q4H PRN ORAL For Cough 12/13/18 10:15 01/12/19 10:14 Temazepam (Restoril) 15 mg HSPRN PRN ORAL Insomnia 12/12/18 22:15 12/19/18 22:14 Yadira Brunson M.D. Dec 14, 2018 14:44
--- NOTE | 2018-12-14 15:02 | Consultation ---
History of Present Illness General Chief Complaint: Dyspnea/Respdistress Referring physician: DARLEEN PETERSON Reason for Consultation: ANEMIA Present Illness Allergies: Coded Allergies: No Known Allergies (Unverified , 12/12/18) Medication History Scheduled Atorvastatin Calcium* (Atorvastatin Calcium*), 20 MG ORAL BEDTIME, (Reported) Carvedilol* (Carvedilol*), 12.5 MG ORAL EVERY 12 HOURS, (Reported) Clopidogrel* (Clopidogrel*), 75 MG ORAL DAILY, (Reported) Famotidine (Famotidine), 20 MG ORAL DAILY, (Reported) Furosemide* (Lasix*), 40 MG ORAL DAILY, (Reported) Insulin NPH Hum/Reg Insulin Hm (Novolin 70-30 Flexpen), 15 UNIT SQ ACBREAKFAST, (Reported) Levothyroxine Sodium* (Synthroid*), 25 MCG ORAL DAILY, (Reported) Losartan Potassium* (Losartan Potassium*), 100 MG ORAL DAILY, (Reported) Nifedipine* (Nifedipine Er*), 60 MG ORAL DAILY, (Reported) Omeprazole (Omeprazole), 20 MG ORAL DAILY, (Reported) Potassium Chloride (Potassium Chloride), 10 MEQ ORAL TWICE A DAY, (Reported) Scheduled PRN Diphenhydramine Hcl* (Diphenhydramine Hcl*), 25 MG ORAL Q6H PRN for Itching, ( Reported) Loratadine (Loratadine), 10 MG PO DAILY PRN for ALLERGIES, (Reported) Patient History Healthcare decision maker Resuscitation status Full Code Advanced Directive on File Physical Exam Last 24 Hour Vital Signs Date Time Temp Pulse Resp B/P (MAP) Pulse Ox O2 Delivery O2 Flow Rate FiO2 12/14/18 14:17 82 20 98 12/14/18 13:35 98.0 71 16 144/55 98 Nasal Cannula 3 12/14/18 13:30 70 17 140/53 97 Nasal Cannula 3 12/14/18 13:15 72 18 143/57 97 Nasal Cannula 3 12/14/18 13:10 71 19 144/54 96 Nasal Cannula 3 12/14/18 13:07 98.3 74 20 148/71 98 Nasal Cannula 3 12/14/18 13:07 72 20 98 12/14/18 12:00 64 12/14/18 11:32 57 20 97 Nasal Cannula 2.0 28 12/14/18 11:32 59 20 97 Nasal Cannula 2.0 28 12/14/18 11:31 Nasal Cannula 2.0 28 12/14/18 11:31 97 Nasal Cannula 2.0 28 12/14/18 09:00 Nasal Cannula 2.0 12/14/18 08:15 66 154/53 12/14/18 08:15 66 154/53 12/14/18 08:05 98.2 66 23 154/53 (86) 99 12/14/18 08:00 67 12/14/18 04:39 65 20 100 Nasal Cannula 2.0 28 12/14/18 04:38 65 20 100 Nasal Cannula 2.0 28 12/14/18 04:35 67 20 98 Nasal Cannula 2.0 28 12/14/18 04:34 67 20 98 Nasal Cannula 2.0 28 12/14/18 04:00 64 12/14/18 04:00 98.6 78 20 150/76 (100) 95 12/14/18 00:00 98.6 63 20 147/52 (83) 99 12/14/18 00:00 61 12/13/18 23:50 70 20 99 Nasal Cannula 2.0 28 12/13/18 23:50 71 20 99 Nasal Cannula 2.0 28 12/13/18 22:06 69 143/54 12/13/18 21:00 Nasal Cannula 2.0 12/13/18 20:28 62 20 99 Nasal Cannula 2.0 28 12/13/18 20:21 69 20 99 Nasal Cannula 2.0 28 12/13/18 20:21 99 Nasal Cannula 2.0 28 12/13/18 20:21 Nasal Cannula 2.0 28 12/13/18 20:00 99.6 69 20 139/56 (83) 99 12/13/18 20:00 69 12/13/18 16:00 79 12/13/18 16:00 99.9 102 22 116/64 (81) 98 12/13/18 15:24 76 19 100 Nasal Cannula 2.0 28 12/13/18 15:20 72 18 99 Nasal Cannula 2.0 28 Intake and Output 12/13/18 12/14/18 19:00 07:00 Intake Total 240 ml Balance 240 ml Intake Oral 240 ml # Voids 2 # Bowel Movements 1 Laboratory Tests Test 12/14/18 05:10 12/14/18 06:45 12/14/18 07:00 White Blood Count 6.6 K/UL (4.8-10.8) Red Blood Count 3.18 M/UL (4.20-5.40) L Hemoglobin 9.5 G/DL (12.0-16.0) #L Hematocrit 28.9 % (37.0-47.0) #L Mean Corpuscular Volume 91 FL (80-99) Mean Corpuscular Hemoglobin 29.9 PG (27.0-31.0) Mean Corpuscular Hemoglobin Concent 33.0 G/DL (32.0-36.0) Red Cell Distribution Width 12.8 % (11.6-14.8) Platelet Count 254 K/UL (150-450) Mean Platelet Volume 6.3 FL (6.5-10.1) L Neutrophils (%) (Auto) 62.9 % (45.0-75.0) Lymphocytes (%) (Auto) 14.7 % (20.0-45.0) L Monocytes (%) (Auto) 10.2 % (1.0-10.0) H Eosinophils (%) (Auto) 11.0 % (0.0-3.0) H Basophils (%) (Auto) 1.1 % (0.0-2.0) Differential Total Cells Counted 100 Neutrophils % (Manual) 62 % (45-75) Lymphocytes % (Manual) 16 % (20-45) L Monocytes % (Manual) 7 % (1-10) Eosinophils % (Manual) 15 % (0-3) H Basophils % (Manual) 0 % (0-2) Band Neutrophils 0 % (0-8) Platelet Estimate Adequate Platelet Morphology Normal Hypochromasia 1+ Erythrocyte Sedimentation Rate 80 MM/HR (0-30) H Reticulocyte Count 0.8 % (0.0-2.0) Prothrombin Time 10.7 SEC (9.30-11.50) Prothromb Time International Ratio 1.0 (0.9-1.1) Activated Partial Thromboplast Time 29 SEC (23-33) Sodium Level 129 MMOL/L (136-145) L Potassium Level 3.7 MMOL/L (3.5-5.1) Chloride Level 96 MMOL/L (98-107) L Carbon Dioxide Level 22 MMOL/L (21-32) Anion Gap 11 mmol/L (5-15) Blood Urea Nitrogen 26 mg/dL (7-18) H Creatinine 1.7 MG/DL (0.55-1.30) H Estimat Glomerular Filtration Rate mL/min (>60) Glucose Level 123 MG/DL (74-106) H Calcium Level 8.7 MG/DL (8.5-10.1) Phosphorus Level 4.5 MG/DL (2.5-4.9) Magnesium Level 1.9 MG/DL (1.8-2.4) Iron Level 118 ug/dL (50-175) Total Iron Binding Capacity 269 ug/dL (250-450) Percent Iron Saturation 44 % (15-50) Unsaturated Iron Binding 151 ug/dL (112-346) Total Bilirubin 0.7 MG/DL (0.2-1.0) Aspartate Amino Transf (AST/SGOT) 17 U/L (15-37) Alanine Aminotransferase (ALT/SGPT) 19 U/L (12-78) Alkaline Phosphatase 100 U/L (46-116) Lactate Dehydrogenase 279 U/L (81-234) H C-Reactive Protein, Quantitative 5.6 mg/dL (0.00-0.90) H Pro-B-Type Natriuretic Peptide 3543 pg/mL (0-125) H Total Protein 7.3 G/DL (6.4-8.2) Albumin 3.1 G/DL (3.4-5.0) L Globulin 4.2 g/dL Albumin/Globulin Ratio 0.7 (1.0-2.7) L Carcinoembryonic Antigen Pending Vitamin B12 Level 731 PG/ML (193-986) Folate 24.1 NG/ML (8.6-58.9) Urine Color Pale yellow Urine Appearance Clear Urine pH 5 (4.5-8.0) Urine Specific Home 1.015 (1.005-1.035) Urine Protein 3+ (NEGATIVE) H Urine Glucose (UA) Negative (NEGATIVE) Urine Ketones Negative (NEGATIVE) Urine Blood Negative (NEGATIVE) Urine Nitrite Negative (NEGATIVE) Urine Bilirubin Negative (NEGATIVE) Urine Urobilinogen Normal MG/DL (0.0-1.0) Urine Leukocyte Esterase 1+ (NEGATIVE) H Urine RBC 0-2 /HPF (0 - 2) Urine WBC 2-4 /HPF (0 - 2) Urine Squamous Epithelial Cells Few /LPF (NONE/OCC) Urine Bacteria Few /HPF (NONE) Urine Eosinophils None seen (NONE SEEN) Urine Osmolality 264 mOsm/kg (429-449) L Urine Random Sodium 21 mmol/L (20-110) Urine Potassium Timed 17 mmol/L (12-62) Troponin I 0.000 ng/mL (0.000-0.056) Height (Feet): 5 Height (Inches): 2.00 Weight (Pounds): 165 Medications Current Medications Medications (Trade) Dose Ordered Sig/Bipin Route PRN Reason Start Time Stop Time Status Last Admin Dose Admin Acetaminophen (Tylenol) 650 mg Q4H PRN ORAL Fever 12/12/18 22:15 01/11/19 22:14 Albuterol/ Ipratropium (Albuterol/ Ipratropium) 3 ml EVERY 4 HOURS PRN HHN Shortness of Breath 12/12/18 22:15 12/17/18 22:14 12/14/18 04:53 Atorvastatin Calcium (Lipitor) 20 mg BEDTIME ORAL 12/13/18 21:00 01/12/19 20:59 12/13/18 22:05 Carvedilol (Coreg) 12.5 mg EVERY 12 HOURS ORAL 12/13/18 09:00 01/12/19 08:59 12/14/18 08:15 Clopidogrel Bisulfate (Plavix) 75 mg DAILY ORAL 12/13/18 09:00 01/12/19 08:59 12/13/18 09:10 Dextrose (Dextrose 50%) 25 ml Q30M PRN IV Hypoglycemia 12/12/18 22:15 01/11/19 22:14 Dextrose (Dextrose 50%) 50 ml Q30M PRN IV Hypoglycemia 12/12/18 22:15 01/11/19 22:14 Diphenhydramine HCl (Benadryl) 25 mg Q6H PRN IVP Itching 12/13/18 07:15 01/12/19 07:14 Heparin Sodium (Porcine) (Heparin 5000 units/ml) 5,000 units EVERY 12 HOURS SUBQ 12/13/18 09:00 01/12/19 08:59 Insulin Aspart (NovoLOG) BEFORE MEALS AND HS SUBQ 12/13/18 06:30 01/12/19 06:29 12/13/18 22:10 Iron Sucrose 100 mg/Sodium Chloride 60 ml @ 240 mls/hr BEDTIME IV 12/14/18 21:00 12/16/18 21:14 Levothyroxine Sodium (Synthroid) 50 mcg ACBREAKFAST ORAL 12/15/18 06:30 01/14/19 06:29 Nifedipine (Procardia XL) 60 mg DAILY ORAL 12/13/18 09:00 01/12/19 08:59 12/14/18 08:15 Ondansetron HCl (Zofran) 4 mg Q6H PRN IVP Nausea & Vomiting 12/12/18 22:15 01/11/19 22:14 Polyethylene Glycol (Miralax) 17 gm DAILYPRN PRN ORAL Constipation 12/12/18 22:15 01/11/19 22:14 Promethazine HCl/ Codeine (Phenergan with Codeine) 5 ml Q4H PRN ORAL For Cough 12/13/18 10:15 01/12/19 10:14 Temazepam (Restoril) 15 mg HSPRN PRN ORAL Insomnia 12/12/18 22:15 12/19/18 22:14 Assessment/Plan Assessment/Plan Hematology Consultation Date patient seen: 12/14/18 Chief Complaint: Dyspnea/Respdistress Referring physician: DARLEEN PETERSON Reason for Consultation: ANEMIA Present Illness HPI 78 y/o F with hx of DM2, HTN, CAD, CHF presents to ED on 12/12 with SOB. She was found to have severe anemia and hyponatremia. Of note she was recently admitted to [facility] for CHF, hyponatremia and anemia. Denied cough, congestion, f/c, n/v, CP, abd pain. Allergies: Coded Allergies: No Known Allergies (Unverified , 12/12/18) Medication History Scheduled Atorvastatin Calcium* (Atorvastatin Calcium*), 20 MG ORAL BEDTIME, (Reported) Carvedilol* (Carvedilol*), 12.5 MG ORAL EVERY 12 HOURS, (Reported) Clopidogrel* (Clopidogrel*), 75 MG ORAL DAILY, (Reported) Famotidine (Famotidine), 20 MG ORAL DAILY, (Reported) Furosemide* (Lasix*), 40 MG ORAL DAILY, (Reported) Insulin NPH Hum/Reg Insulin Hm (Novolin 70-30 Flexpen), 15 UNIT SQ ACBREAKFAST, (Reported) Levothyroxine Sodium* (Synthroid*), 25 MCG ORAL DAILY, (Reported) Losartan Potassium* (Losartan Potassium*), 100 MG ORAL DAILY, (Reported) Nifedipine* (Nifedipine Er*), 60 MG ORAL DAILY, (Reported) Omeprazole (Omeprazole), 20 MG ORAL DAILY, (Reported) Potassium Chloride (Potassium Chloride), 10 MEQ ORAL TWICE A DAY, (Reported) Scheduled PRN Diphenhydramine Hcl* (Diphenhydramine Hcl*), 25 MG ORAL Q6H PRN for Itching, ( Reported) Loratadine (Loratadine), 10 MG PO DAILY PRN for ALLERGIES, (Reported) Patient History Healthcare decision maker Resuscitation status Full Code Advanced Directive on File Patient History Narrative Pmhx: as above Shx: Denies: smoking, alcohol use, drug use Fhx: non contributory Review of Systems All Other Systems: negative except mentioned in HPI Physical Exam Physical Exam Narrative General Appearance: WD/WN Lines, tubes and drains: peripheral HEENT: normocephalic, atraumatic Neck: non-tender, normal alignment Respiratory/Chest: chest wall non-tender, lungs clear, decreased breath sounds - at left Cardiovascular/Chest: normal peripheral pulses, normal rate Abdomen: non tender, no organomegaly Genitourinary/Rectal: normal genital exam Last 24 Hour Vital Signs Date Time Temp Pulse Resp B/P (MAP) Pulse Ox O2 Delivery O2 Flow Rate FiO2 12/13/18 15:24 76 19 100 Nasal Cannula 2.0 12/13/18 15:20 72 18 99 Nasal Cannula 2.0 12/13/18 12:00 69 12/13/18 12:00 98.4 69 21 174/71 (105) 98 12/13/18 11:28 68 18 100 Nasal Cannula 2.0 28 12/13/18 11:25 67 19 99 Nasal Cannula 2.0 28 12/13/18 09:12 74 165/59 12/13/18 09:11 74 138/67 12/13/18 09:00 Nasal Cannula 2.0 12/13/18 08:00 98.8 74 20 165/59 (94) 98 12/13/18 08:00 73 12/13/18 07:46 74 15 Nasal Cannula 2.0 28 12/13/18 07:46 Nasal Cannula 2.0 28 12/13/18 07:46 98 Nasal Cannula 2.0 28 12/13/18 05:00 99.1 71 18 167/63 (97) 98 12/13/18 04:00 71 12/13/18 01:39 Nasal Cannula 2.0 28 12/13/18 01:39 98 Nasal Cannula 2.0 28 12/13/18 01:38 88 18 Nasal Cannula 2.0 28 12/13/18 01:36 88 18 99 Nasal Cannula 2.0 28 12/13/18 01:25 84 18 98 Nasal Cannula 2.0 28 12/12/18 23:43 82 12/12/18 23:30 Nasal Cannula 2.0 12/12/18 23:15 98.3 82 17 156/60 (92) 97 12/12/18 23:05 98.1 72 18 151/51 98 Nasal Cannula 12/12/18 23:05 98.2 72 18 151/51 98 Nasal Cannula 12/12/18 22:06 97.6 108 22 134/71 100 Nasal Cannula 3.0 12/12/18 21:01 97.4 78 20 160/62 100 Room Air 100 12/12/18 20:31 170/50 12/12/18 18:54 80 27 Room Air 100 12/12/18 18:54 97.3 80 27 161/107 100 Room Air 12/12/18 18:42 97.3 80 24 177/67 100 Bi-pap Intake and Output 12/12/18 12/13/18 19:00 07:00 Intake Total 180 ml Balance 180 ml Intake Other 180 ml # Voids 4 # Bowel Movements 1 Laboratory Tests Test 12/12/18 19:00 12/12/18 22:45 12/13/18 05:05 12/13/18 10:30 White Blood Count 10.1 K/UL (4.8-10.8) 8.6 K/UL (4.8-10.8) Red Blood Count 2.43 M/UL (4.20-5.40) L 2.21 M/UL (4.20-5.40) L Hemoglobin 7.5 G/DL (12.0-16.0) L 6.7 G/DL (12.0-16.0) *L Hematocrit 22.1 % (37.0-47.0) L 20.3 % (37.0-47.0) L Mean Corpuscular Volume 91 FL (80-99) 92 FL (80-99) Mean Corpuscular Hemoglobin 30.7 PG (27.0-31.0) 30.3 PG (27.0-31.0) Mean Corpuscular Hemoglobin Concent 33.7 G/DL (32.0-36.0) 32.8 G/DL (32.0-36.0) Red Cell Distribution Width 12.0 % (11.6-14.8) 12.0 % (11.6-14.8) Platelet Count 257 K/UL (150-450) 230 K/UL (150-450) Mean Platelet Volume 5.9 FL (6.5-10.1) L 5.9 FL (6.5-10.1) L Neutrophils (%) (Auto) % (45.0-75.0) % (45.0-75.0) Lymphocytes (%) (Auto) % (20.0-45.0) % (20.0-45.0) Monocytes (%) (Auto) % (1.0-10.0) % (1.0-10.0) Eosinophils (%) (Auto) % (0.0-3.0) % (0.0-3.0) Basophils (%) (Auto) % (0.0-2.0) % (0.0-2.0) Differential Total Cells Counted 100 100 Neutrophils % (Manual) 83 % (45-75) H 83 % (45-75) H Lymphocytes % (Manual) 8 % (20-45) L 10 % (20-45) L Monocytes % (Manual) 3 % (1-10) 3 % (1-10) Eosinophils % (Manual) 6 % (0-3) H 3 % (0-3) Basophils % (Manual) 0 % (0-2) 0 % (0-2) Band Neutrophils 0 % (0-8) 1 % (0-8) Platelet Estimate Adequate Adequate Platelet Morphology Normal Normal Red Blood Cell Morphology Normal Sodium Level 126 MMOL/L (136-145) L 127 MMOL/L (136-145) L Potassium Level 4.0 MMOL/L (3.5-5.1) 3.9 MMOL/L (3.5-5.1) Chloride Level 94 MMOL/L (98-107) L 94 MMOL/L (98-107) L Carbon Dioxide Level 24 MMOL/L (21-32) 23 MMOL/L (21-32) Anion Gap 8 mmol/L (5-15) 10 mmol/L (5-15) Blood Urea Nitrogen 33 mg/dL (7-18) H 30 mg/dL (7-18) H Creatinine 1.7 MG/DL (0.55-1.30) H 1.6 MG/DL (0.55-1.30) H Estimat Glomerular Filtration Rate mL/min (>60) mL/min (>60) Glucose Level 84 MG/DL (74-106) 133 MG/DL (74-106) H Calcium Level 8.5 MG/DL (8.5-10.1) 8.3 MG/DL (8.5-10.1) L Total Bilirubin 0.4 MG/DL (0.2-1.0) Aspartate Amino Transf (AST/SGOT) 17 U/L (15-37) Alanine Aminotransferase (ALT/SGPT) 19 U/L (12-78) Alkaline Phosphatase 116 U/L (46-116) Total Creatine Kinase 99 U/L (26-308) 98 U/L (26-308) Creatine Kinase MB 1.9 NG/ML (0.0-3.6) Creatine Kinase MB Relative Index 1.9 Troponin I 0.000 ng/mL (0.000-0.056) 0.013 ng/mL (0.000-0.056) Pro-B-Type Natriuretic Peptide 2133 pg/mL (0-125) H Total Protein 6.8 G/DL (6.4-8.2) Albumin 3.2 G/DL (3.4-5.0) L Globulin 3.6 g/dL Albumin/Globulin Ratio 0.9 (1.0-2.7) L Urine Color Pale yellow Urine Appearance Clear Urine pH 6 (4.5-8.0) Urine Specific Home 1.005 (1.005-1.035) Urine Protein 3+ (NEGATIVE) H Urine Glucose (UA) Negative (NEGATIVE) Urine Ketones Negative (NEGATIVE) Urine Blood Negative (NEGATIVE) Urine Nitrite Negative (NEGATIVE) Urine Bilirubin Negative (NEGATIVE) Urine Urobilinogen Normal MG/DL (0.0-1.0) Urine Leukocyte Esterase 2+ (NEGATIVE) H Urine RBC 0-2 /HPF (0 - 2) Urine WBC 2-4 /HPF (0 - 2) Urine Squamous Epithelial Cells Few /LPF (NONE/OCC) Urine Bacteria Few /HPF (NONE) Hypochromasia 1+ Osmolality 267 mOsm/kg (297-317) L Uric Acid 5.2 MG/DL (2.6-7.2) Iron Level 20 ug/dL (50-175) L Total Iron Binding Capacity 254 ug/dL (250-450) Percent Iron Saturation 8 % (15-50) L Unsaturated Iron Binding 234 ug/dL (112-346) Lactate Dehydrogenase 276 U/L (81-234) H Carcinoembryonic Antigen Pending Vitamin B12 Level 672 PG/ML (193-986) Folate 24.4 NG/ML (8.6-58.9) Thyroid Stimulating Hormone (TSH) 5.560 uiU/mL (0.358-3.740) Free Thyroxine 1.13 NG/DL (0.76-1.46) Free Triiodothyronine 2.2 pg/mL (2.3-4.2) L Cortisol Pending Erythrocyte Sedimentation Rate 103 MM/HR (0-30) H Reticulocyte Count 1.0 % (0.0-2.0) Prothrombin Time 10.5 SEC (9.30-11.50) Prothromb Time International Ratio 1.0 (0.9-1.1) Activated Partial Thromboplast Time 29 SEC (23-33) Microbiology Date/Time Source Procedure Growth Status 12/12/18 20:20 Nasal Nares Influenza Types A,B Antigen (CLAU) - Final Complete Height (Feet): 5 Height (Inches): 2.00 Weight (Pounds): 172 Medications Current Medications Medications (Trade) Dose Ordered Sig/Bipin Route PRN Reason Start Time Stop Time Status Last Admin Dose Admin Acetaminophen (Tylenol) 650 mg Q4H PRN ORAL Fever 12/12/18 22:15 01/11/19 22:14 Albuterol/ Ipratropium (Albuterol/ Ipratropium) 3 ml EVERY 4 HOURS PRN HHN Shortness of Breath 12/12/18 22:15 12/17/18 22:14 12/13/18 01:33 Atorvastatin Calcium (Lipitor) 20 mg BEDTIME ORAL 12/13/18 21:00 01/12/19 20:59 Carvedilol (Coreg) 12.5 mg EVERY 12 HOURS ORAL 12/13/18 09:00 01/12/19 08:59 12/13/18 09:11 Clopidogrel Bisulfate (Plavix) 75 mg DAILY ORAL 12/13/18 09:00 01/12/19 08:59 12/13/18 09:10 Dextrose (Dextrose 50%) 25 ml Q30M PRN IV Hypoglycemia 12/12/18 22:15 01/11/19 22:14 Dextrose (Dextrose 50%) 50 ml Q30M PRN IV Hypoglycemia 12/12/18 22:15 01/11/19 22:14 Diphenhydramine HCl (Benadryl) 25 mg Q6H PRN IVP Itching 12/13/18 07:15 01/12/19 07:14 Heparin Sodium (Porcine) (Heparin 5000 units/ml) 5,000 units EVERY 12 HOURS SUBQ 12/13/18 09:00 01/12/19 08:59 Insulin Aspart (NovoLOG) BEFORE MEALS AND HS SUBQ 12/13/18 06:30 01/12/19 06:29 12/13/18 06:25 Iron Sucrose 100 mg/Sodium Chloride 60 ml @ 240 mls/hr BEDTIME IV 12/13/18 21:00 12/15/18 21:14 Levothyroxine Sodium (Synthroid) 25 mcg ACBREAKFAST ORAL 12/13/18 06:30 01/12/19 06:29 12/13/18 06:26 Nifedipine (Procardia XL) 60 mg DAILY ORAL 12/13/18 09:00 01/12/19 08:59 12/13/18 09:12 Ondansetron HCl (Zofran) 4 mg Q6H PRN IVP Nausea & Vomiting 12/12/18 22:15 01/11/19 22:14 Polyethylene Glycol (Miralax) 17 gm DAILYPRN PRN ORAL Constipation 12/12/18 22:15 01/11/19 22:14 Promethazine HCl/ Codeine (Phenergan with Codeine) 5 ml Q4H PRN ORAL For Cough 12/13/18 10:15 01/12/19 10:14 Temazepam (Restoril) 15 mg HSPRN PRN ORAL Insomnia 12/12/18 22:15 12/19/18 22:14 Assessment/Plan # Anemia of iron deficiency due to potential gastritis as noted on egd and/or gi bleed --> Anemia workup has been ordered/reviewed --> No evidence of hemolysis is noted, peripheral smear has been reviewed. --> Hgb goal >7. Transfuse prn. --> IRON x 5 days iv started --> Medications have been reviewed --> egd reviewed, final report pending # Dyspnea- no obvious PNA on CXR --> CXR: Complete opacification of the left hemithorax, presumably on the basis of complete left lung atelectasis # Lung collapse --> per pulm # Hyponatremia # DM2 # HTN # CAD # CHF as per Dr. Miguel rubio The timing of this note does not necessarily reflect the time of the patient was seen. Greatly appreciate consultation! Clyde Christine MD Dec 14, 2018 15:02
--- NOTE | 2018-12-14 18:00 | Consultation ---
DATE OF CONSULTATION: 12/14/2018 ENDOCRINOLOGY CONSULTATION CONSULTING PHYSICIAN: Shaji Garcia M.D. REFERRING PHYSICIAN: Andrei Campuzano D.O. REASON FOR CONSULTATION: Hypothyroidism and diabetes. HISTORY OF PRESENT ILLNESS: The patient is an 78-year-old lady with past medical history of hypertension, diabetes, hypothyroidism, CHF, and coronary artery disease, presented to the emergency department at [facility] for increased shortness of breath. Also, she was found to be profoundly anemic and hyponatremic. The DVT was ruled out. Ejection fraction by the echocardiogram was 55% to 60%. Endocrinology was consulted. REVIEW OF SYSTEMS: A 12-point review of systems was performed and the pertinent positive and negative are mentioned in the present illness. PAST MEDICAL HISTORY: 1. Diabetes. 2. Hypertension. 3. Coronary artery disease. 4. CHF. 5. Hypothyroidism. FAMILY HISTORY: Noncontributory. MEDICATIONS: As an outpatient reviewed and reconciled. SOCIAL HISTORY: No smoking, alcohol, or drug use. ALLERGIES TO MEDICATIONS: None. LABORATORY VALUES: Sodium 127, potassium 3.9, chloride 94, bicarb 22, BUN 30, creatinine 1.6, glucose 133. BNP of 1244. TSH of 5.5, free T4 1.1, free T3 PHYSICAL EXAMINATION: VITAL SIGNS: Blood pressure 156/100, respiratory rate of 20, temperature of 98.6, and pulse of 44. HEENT: Pupils are equal and reactive to light. Sclerae anicteric. NECK: No JVD. HEART: Regular. LUNGS: Crackles. ABDOMEN: Positive bowel sounds. EXTREMITIES: Trace edema. DIAGNOSES: 1. CHF. 2. Hyponatremia. 3. Diabetes, out of control. 4. Hypothyroidism. PLAN: 1. Increase levothyroxine to 50 mcg daily. 2. NovoLog sliding scale before meals and at bedtime. 3. We add basal bolus insulin regimen once glucose started to rise. Thank you, Dr. Campuzano, for the courtesy of this consultation. Shaji Garcia M.D. DR: ADRYAN/KRISTEN JOB#: [id number] CC: MEGAN
--- NOTE | 2018-12-14 18:15 | Procedure Note ---
DATE OF PROCEDURE: 12/14/2018 SURGEON: Bernardo Hernandez M.D. PROCEDURE: Upper endoscopy with biopsy. ANESTHESIA: Per Dr. Juan. INSTRUMENT: Olympus adult flexible upper endoscope. INDICATION: Anemia. REASON FOR PROCEDURE: The procedure, risks, benefits, and possible consequences, including hemorrhage, aspiration, perforation and infection, and alternative treatments, were explained to the patient/legal guardian by Dr. Bernardo Hernandez and the patient/legal guardian understood and accepted these risks. PROCEDURE IN DETAIL: After informed consent was obtained and the patient was adequately sedated, Olympus upper endoscope was advanced from the mouth into the second portion of duodenum and retroflexion was performed in the stomach. The patient has multiple polyps in the stomach, most probably fundic gland polyps, one of them was biopsied for diagnosis. The patient also has evidence of diffuse gastritis. Random biopsy from antrum was obtained to rule out H. pylori infection. Otherwise, the rest of the upper endoscopic examination was grossly within normal limits. The patient tolerated the procedure very well without any complication. SUMMARY OF FINDINGS: 1. Gastritis. 2. Multiple gastric polyps. RECOMMENDATIONS: 1. Follow up biopsy results and treat accordingly. 2. The patient most probably will benefit from colonoscopy to evaluate for source of anemia, possibly on Monday. 3. The patient as an outpatient. I want to thank, Dr. Andrei Campuzano for this kind referral. Bernardo Hernandez M.D. DR: REBECA JOB#: [id number] CC: Andrei Campuzano D.O.
--- NOTE | 2018-12-14 19:30 | NUR ---
NURSE NOTES: Report received from Mireya CORNELIUS. Pt is resting in bed in stable condition. Pt is awake, alert, and oriented x4. Pt is on 2L O2 via nasal cannula and breathing is even and unlabored. No acute distress noted. IV site noted to be asymptomatic, patent and intact. Bed placed in lowest position with brake engaged, side rails up x2. Family is at bedside. Will continue to monitor.
--- NOTE | 2018-12-14 19:46 | NUR ---
HAND-OFF: Report given to Evin Cabrera. Plan of care endorsed.
--- NOTE | 2018-12-14 20:30 | NUR ---
NURSE NOTES: Communicated with MD Rivera regarding restarting patient on lasix as previous order was discontinued. Per MD Rivera, order Lasix 40mg IVP DAILY. Orders noted and carried out.
[2018-12-14] MEDS ORDERED: Iron Sucrose 100 MG in NS 55 ML IV SCH (21:00)
[2018-12-15] VITALS: BP 145/54
[2018-12-15 04:00] VITALS: BP 154/53
[2018-12-15] MEDS: NovoLOG Insulin Flexpen SUBQ SCH ×4 (06:13→21:33)
--- NOTE | 2018-12-15 07:29 | NUR ---
HAND-OFF: Report given to Ty Pearson RN. Pt is resting in bed in stable condition. No acute distress noted. Endorsed plan of care. Family is at bedside.
--- NOTE | 2018-12-15 07:32 | General Progress Note ---
Assessment/Plan Problem List: (1) CHF (congestive heart failure) ICD Codes: I50.9 - Heart failure, unspecified SNOMED: 37821442 (2) Diabetes mellitus ICD Codes: E11.9 - Type 2 diabetes mellitus without complications SNOMED: 59982930 (3) Hypothyroidism ICD Codes: E03.9 - Hypothyroidism, unspecified SNOMED: 36071096 (4) Anemia ICD Codes: D64.9 - Anemia, unspecified SNOMED: 472820729 (5) PUD (peptic ulcer disease) ICD Codes: K27.9 - Peptic ulcer, site unspecified, unspecified as acute or chronic, without hemorrhage or perforation SNOMED: 29924321 (6) Gastritis ICD Codes: K29.70 - Gastritis, unspecified, without bleeding SNOMED: 7109372 Assessment/Plan neg EGD yesterday for source of GIB last colonoscopy per patient over 10 years plan hold plavix and do colonoscopy on Monday patient and family agreed fu stool ob fu cbc iv iron Subjective ROS Limited/Unobtainable: Yes Allergies: Coded Allergies: No Known Allergies (Unverified , 12/12/18) Subjective no event over night Objective Last 24 Hour Vital Signs Date Time Temp Pulse Resp B/P (MAP) Pulse Ox O2 Delivery O2 Flow Rate FiO2 12/15/18 04:00 98.8 65 20 154/53 (86) 98 12/15/18 04:00 59 12/15/18 02:50 Nasal Cannula 1.0 24 12/15/18 02:50 Nasal Cannula 1.0 24 12/15/18 00:00 61 12/15/18 00:00 98.7 61 20 145/54 (84) 97 12/14/18 22:55 61 20 98 Nasal Cannula 1.0 24 12/14/18 22:55 62 18 99 Nasal Cannula 1.0 24 12/14/18 21:29 67 147/51 12/14/18 21:00 Nasal Cannula 2.0 12/14/18 20:30 99.1 67 20 147/51 (83) 99 12/14/18 20:00 64 12/14/18 19:42 65 18 99 Nasal Cannula 2.0 28 12/14/18 19:39 Nasal Cannula 2.0 28 12/14/18 19:39 99 Nasal Cannula 2.0 28 12/14/18 19:39 63 20 99 Nasal Cannula 2.0 28 12/14/18 16:00 97.5 70 19 154/61 (92) 100 12/14/18 16:00 68 12/14/18 15:00 Nasal Cannula 2.0 28 12/14/18 15:00 Nasal Cannula 2.0 28 12/14/18 14:17 82 20 98 12/14/18 13:35 98.0 71 16 144/55 98 Nasal Cannula 3 12/14/18 13:30 70 17 140/53 97 Nasal Cannula 3 12/14/18 13:15 72 18 143/57 97 Nasal Cannula 3 12/14/18 13:10 71 19 144/54 96 Nasal Cannula 3 12/14/18 13:07 98.3 74 20 148/71 98 Nasal Cannula 3 12/14/18 13:07 72 20 98 12/14/18 12:00 64 12/14/18 11:32 57 20 97 Nasal Cannula 2.0 28 12/14/18 11:32 59 20 97 Nasal Cannula 2.0 28 12/14/18 11:31 Nasal Cannula 2.0 28 12/14/18 11:31 97 Nasal Cannula 2.0 28 12/14/18 09:00 Nasal Cannula 2.0 12/14/18 08:15 66 154/53 12/14/18 08:15 66 154/53 12/14/18 08:05 98.2 66 23 154/53 (86) 99 12/14/18 08:00 67 Intake and Output 12/14/18 12/15/18 18:59 06:59 Intake Total 250 ml 240 ml Output Total 0 ml Balance 250 ml 240 ml Intake Oral 240 ml IV Total 250 ml Output Estimated Blood Loss 0 ml # Voids 2 Laboratory Tests 12/14/18 21:51: Troponin I 0.004 Height (Feet): 5 Height (Inches): 2.00 Weight (Pounds): 168 General Appearance: alert EENT: normal ENT inspection Neck: supple Cardiovascular: normal peripheral pulses Respiratory/Chest: lungs clear Abdomen: normal bowel sounds, non tender, soft Extremities: non-tender Bernardo Hernandez MD Dec 15, 2018 07:32
[2018-12-15 08:00] VITALS: BP 159/57
--- NOTE | 2018-12-15 08:02 | General Progress Note ---
Assessment/Plan Problem List: (1) Diabetes mellitus ICD Codes: E11.9 - Type 2 diabetes mellitus without complications SNOMED: 12119363 (2) Hypothyroidism ICD Codes: E03.9 - Hypothyroidism, unspecified SNOMED: 44389894 (3) CHF exacerbation ICD Codes: I50.9 - Heart failure, unspecified SNOMED: 82288920 Assessment/Plan add Starlix 60 mg ac tid continue NISS ac / hs continue LT4 50 mcg daily Subjective Allergies: Coded Allergies: No Known Allergies (Unverified , 12/12/18) All Systems: reviewed and negative except above Subjective events noted Item Value Date Time Bedside Blood Glucose 185 mg/dl H 12/15/18 0630 Bedside Blood Glucose 198 mg/dl H 12/14/18 2134 Bedside Blood Glucose 288 mg/dl H 12/14/18 1717 Objective Last 24 Hour Vital Signs Date Time Temp Pulse Resp B/P (MAP) Pulse Ox O2 Delivery O2 Flow Rate FiO2 12/15/18 07:40 74 18 94 Room Air 12/15/18 07:39 75 20 94 Room Air 21 12/15/18 07:30 94 Room Air 21 12/15/18 07:30 Room Air 21 12/15/18 04:00 98.8 65 20 154/53 (86) 98 12/15/18 04:00 59 12/15/18 02:50 Nasal Cannula 1.0 24 12/15/18 02:50 Nasal Cannula 1.0 24 12/15/18 00:00 61 12/15/18 00:00 98.7 61 20 145/54 (84) 97 12/14/18 22:55 61 20 98 Nasal Cannula 1.0 24 12/14/18 22:55 62 18 99 Nasal Cannula 1.0 24 12/14/18 21:29 67 147/51 12/14/18 21:00 Nasal Cannula 2.0 12/14/18 20:30 99.1 67 20 147/51 (83) 99 12/14/18 20:00 64 12/14/18 19:42 65 18 99 Nasal Cannula 2.0 28 12/14/18 19:39 Nasal Cannula 2.0 28 12/14/18 19:39 99 Nasal Cannula 2.0 28 12/14/18 19:39 63 20 99 Nasal Cannula 2.0 28 12/14/18 16:00 97.5 70 19 154/61 (92) 100 12/14/18 16:00 68 12/14/18 15:00 Nasal Cannula 2.0 28 12/14/18 15:00 Nasal Cannula 2.0 28 12/14/18 14:17 82 20 98 12/14/18 13:35 98.0 71 16 144/55 98 Nasal Cannula 3 12/14/18 13:30 70 17 140/53 97 Nasal Cannula 3 12/14/18 13:15 72 18 143/57 97 Nasal Cannula 3 12/14/18 13:10 71 19 144/54 96 Nasal Cannula 3 12/14/18 13:07 98.3 74 20 148/71 98 Nasal Cannula 3 12/14/18 13:07 72 20 98 12/14/18 12:00 64 12/14/18 11:32 57 20 97 Nasal Cannula 2.0 28 12/14/18 11:32 59 20 97 Nasal Cannula 2.0 28 12/14/18 11:31 Nasal Cannula 2.0 28 12/14/18 11:31 97 Nasal Cannula 2.0 28 12/14/18 09:00 Nasal Cannula 2.0 12/14/18 08:15 66 154/53 12/14/18 08:15 66 154/53 12/14/18 08:05 98.2 66 23 154/53 (86) 99 Intake and Output 12/14/18 12/15/18 18:59 06:59 Intake Total 250 ml 240 ml Output Total 0 ml Balance 250 ml 240 ml Intake Oral 240 ml IV Total 250 ml Output Estimated Blood Loss 0 ml # Voids 2 Laboratory Tests 12/14/18 21:51: Troponin I 0.004 Height (Feet): 5 Height (Inches): 2.00 Weight (Pounds): 168 Neck: normal alignment Cardiovascular: normal rate Respiratory/Chest: lungs clear Objective Current Medications Medications (Trade) Dose Ordered Sig/Bipin Route PRN Reason Start Time Stop Time Status Last Admin Dose Admin Acetaminophen (Tylenol) 650 mg Q4H PRN ORAL Fever 12/12/18 22:15 01/11/19 22:14 Albuterol/ Ipratropium (Albuterol/ Ipratropium) 3 ml EVERY 4 HOURS PRN HHN Shortness of Breath 12/12/18 22:15 12/17/18 22:14 12/14/18 04:53 Atorvastatin Calcium (Lipitor) 20 mg BEDTIME ORAL 12/13/18 21:00 01/12/19 20:59 12/14/18 21:29 Carvedilol (Coreg) 12.5 mg EVERY 12 HOURS ORAL 12/13/18 09:00 01/12/19 08:59 12/14/18 21:29 Dextrose (Dextrose 50%) 25 ml Q30M PRN IV Hypoglycemia 12/12/18 22:15 01/11/19 22:14 Dextrose (Dextrose 50%) 50 ml Q30M PRN IV Hypoglycemia 12/12/18 22:15 01/11/19 22:14 Diphenhydramine HCl (Benadryl) 25 mg Q6H PRN IVP Itching 12/13/18 07:15 01/12/19 07:14 Furosemide (Lasix) 40 mg DAILY IV 12/15/18 09:00 01/14/19 08:59 Heparin Sodium (Porcine) (Heparin 5000 units/ml) 5,000 units EVERY 12 HOURS SUBQ 12/13/18 09:00 01/12/19 08:59 12/14/18 21:36 Insulin Aspart (NovoLOG) BEFORE MEALS AND HS SUBQ 12/13/18 06:30 01/12/19 06:29 12/15/18 06:13 Iron Sucrose 100 mg/Sodium Chloride 60 ml @ 240 mls/hr BEDTIME IV 12/14/18 21:00 12/16/18 21:14 12/14/18 22:18 Levothyroxine Sodium (Synthroid) 50 mcg ACBREAKFAST ORAL 12/15/18 06:30 01/14/19 06:29 12/15/18 06:12 Nifedipine (Procardia XL) 60 mg DAILY ORAL 12/13/18 09:00 01/12/19 08:59 12/14/18 08:15 Ondansetron HCl (Zofran) 4 mg Q6H PRN IVP Nausea & Vomiting 12/12/18 22:15 01/11/19 22:14 Polyethylene Glycol (Miralax) 17 gm DAILYPRN PRN ORAL Constipation 12/12/18 22:15 01/11/19 22:14 Promethazine HCl/ Codeine (Phenergan with Codeine) 5 ml Q4H PRN ORAL For Cough 12/13/18 10:15 01/12/19 10:14 Temazepam (Restoril) 15 mg HSPRN PRN ORAL Insomnia 12/12/18 22:15 12/19/18 22:14 Shaji Garcia MD Dec 15, 2018 08:02
--- NOTE | 2018-12-15 08:09 | NUR ---
NURSE NOTES: Patient sitting up in bed, awake and alert, on 2 liters nasal cannula, bed in lowest position, call light within reach, in no apparent distress, granddaughter at bedside.
[2018-12-15 08:35] LABS: BASOPHILS % (AUTO) 1.2 % (0.0-2.0); HEMATOCRIT 27.7 % (37.0-47.0); LYMPHOCYTES % (AUTO) 12.2 % (20.0-45.0); MEAN CORPUSCULAR VOLUME 91 FL (80-99); MONOCYTES % (AUTO) 10.7 % (1.0-10.0); NEUTROPHILS % (AUTO) 65.9 % (45.0-75.0); PLATELET COUNT 242 K/UL (150-450); RED BLOOD COUNT 3.03 M/UL (4.20-5.40); RED CELL DISTRIBUTION WIDTH 13.1 % (11.6-14.8); WHITE BLOOD COUNT 7.2 K/UL (4.8-10.8)
[2018-12-15 09:05] LABS: ANION GAP 12 mmol/L (5-15); BLOOD UREA NITROGEN 30 mg/dL (7-18); CALCIUM 8.9 MG/DL (8.5-10.1); CARBON DIOXIDE 21 MMOL/L (21-32); CHLORIDE 99 MMOL/L (98-107); CREATININE 1.7 MG/DL (0.55-1.30); POTASSIUM 3.9 MMOL/L (3.5-5.1); SODIUM 132 MMOL/L (136-145)
[2018-12-15] MEDS: Carvedilol 12.5mg tab ORAL SCH ×2 (09:14→21:31)
[2018-12-15] MEDS: Heparin 5000 units/ml inj SUBQ SCH ×2 (09:15→21:34)
--- NOTE | 2018-12-15 09:15 | General Progress Note ---
Assessment/Plan Problem List: (1) UTI (urinary tract infection) ICD Codes: N39.0 - Urinary tract infection, site not specified SNOMED: 70235187 (2) HTN (hypertension) ICD Codes: I10 - Essential (primary) hypertension SNOMED: 71971389 (3) CHF exacerbation ICD Codes: I50.9 - Heart failure, unspecified SNOMED: 27032104 (4) Hyponatremia ICD Codes: E87.1 - Hypo-osmolality and hyponatremia SNOMED: 28939880 (5) Diabetes mellitus ICD Codes: E11.9 - Type 2 diabetes mellitus without complications SNOMED: 44817999 (6) Anemia ICD Codes: D64.9 - Anemia, unspecified SNOMED: 883402418 Status: unchanged Assessment/Plan o2 pulm tx abx pt diet transfuse prn cbc bmp am Subjective Constitutional: Reports: weakness Allergies: Coded Allergies: No Known Allergies (Unverified , 12/12/18) All Systems: reviewed and negative except above Subjective o2nc sl sob Objective Last 24 Hour Vital Signs Date Time Temp Pulse Resp B/P (MAP) Pulse Ox O2 Delivery O2 Flow Rate FiO2 12/15/18 08:00 97.8 71 18 159/57 (91) 95 12/15/18 07:40 74 18 94 Room Air 21 12/15/18 07:39 75 20 94 Room Air 21 12/15/18 07:30 94 Room Air 21 12/15/18 07:30 Room Air 21 12/15/18 04:00 98.8 65 20 154/53 (86) 98 12/15/18 04:00 59 12/15/18 02:50 Nasal Cannula 1.0 12/15/18 02:50 Nasal Cannula 1.0 24 12/15/18 00:00 61 12/15/18 00:00 98.7 61 20 145/54 (84) 97 12/14/18 22:55 61 20 98 Nasal Cannula 1.0 24 12/14/18 22:55 62 18 99 Nasal Cannula 1.0 24 12/14/18 21:29 67 147/51 12/14/18 21:00 Nasal Cannula 2.0 12/14/18 20:30 99.1 67 20 147/51 (83) 99 12/14/18 20:00 64 12/14/18 19:42 65 18 99 Nasal Cannula 2.0 28 12/14/18 19:39 Nasal Cannula 2.0 28 12/14/18 19:39 99 Nasal Cannula 2.0 28 12/14/18 19:39 63 20 99 Nasal Cannula 2.0 28 12/14/18 16:00 97.5 70 19 154/61 (92) 100 12/14/18 16:00 68 12/14/18 15:00 Nasal Cannula 2.0 28 12/14/18 15:00 Nasal Cannula 2.0 28 12/14/18 14:17 82 20 98 12/14/18 13:35 98.0 71 16 144/55 98 Nasal Cannula 3 12/14/18 13:30 70 17 140/53 97 Nasal Cannula 3 12/14/18 13:15 72 18 143/57 97 Nasal Cannula 3 12/14/18 13:10 71 19 144/54 96 Nasal Cannula 3 12/14/18 13:07 98.3 74 20 148/71 98 Nasal Cannula 3 12/14/18 13:07 72 20 98 12/14/18 12:00 64 12/14/18 11:32 57 20 97 Nasal Cannula 2.0 28 12/14/18 11:32 59 20 97 Nasal Cannula 2.0 28 12/14/18 11:31 Nasal Cannula 2.0 28 12/14/18 11:31 97 Nasal Cannula 2.0 28 Intake and Output 12/14/18 12/15/18 19:00 07:00 Intake Total 250 ml 240 ml Output Total 0 ml Balance 250 ml 240 ml Intake Oral 240 ml IV Total 250 ml Output Estimated Blood Loss 0 ml # Voids 2 Laboratory Tests 12/14/18 21:51: Troponin I 0.004 12/15/18 06:31: White Blood Count 7.2, Red Blood Count 3.03L, Hemoglobin 9.0L, Hematocrit 27.7L , Mean Corpuscular Volume 91, Mean Corpuscular Hemoglobin 29.7, Mean Corpuscular Hemoglobin Concent 32.6, Red Cell Distribution Width 13.1, Platelet Count 242, Mean Platelet Volume 6.4L, Neutrophils (%) (Auto) 65.9, Lymphocytes ( %) (Auto) 12.2L, Monocytes (%) (Auto) 10.7H, Eosinophils (%) (Auto) 10.0H, Basophils (%) (Auto) 1.2, Sodium Level 132L, Potassium Level 3.9, Chloride Level 99, Carbon Dioxide Level 21, Anion Gap 12, Blood Urea Nitrogen 30H, Creatinine 1.7H, Estimat Glomerular Filtration Rate , Glucose Level 142H, Calcium Level 8.9 Height (Feet): 5 Height (Inches): 2.00 Weight (Pounds): 168 General Appearance: lethargic EENT: normal ENT inspection Neck: normal alignment Cardiovascular: normal peripheral pulses, normal rate, regular rhythm Respiratory/Chest: chest wall non-tender, lungs clear, decreased breath sounds Abdomen: normal bowel sounds, non tender, soft Extremities: normal inspection Edema: no edema noted Arm (L), no edema noted Arm (R), no edema noted Leg (L), no edema noted Leg (R), no edema noted Pedal (L), no edema noted Pedal (R), no edema noted Generalized Neurologic: responsive, motor weakness Skin: normal pigmentation, warm/dry Andrei Campuzano DO Dec 15, 2018 09:15
--- NOTE | 2018-12-15 10:10 | Infectious Diseases Prog Note ---
Assessment/Plan Assessment/Plan Assessment: Dyspnea- no obvious PNA on CXR -CXR: Complete opacification of the left hemithorax, presumably on the basis of complete left lung atelectasis Afebrile No leukocytosis -u.a no pyuria L lung collapse; SP -12/14 CXR: Interim apparently complete reexpansion of previously atelectatic left lung. Cardiomegaly. Suspect mild interstitial congestion and small bilateral pleural effusion Negatives : Flu Sc , C Diff Anemia -12/14 SP EGD: gastritis Hyponatremia DM2 HTN CAD CHF Plan:\ -Continue to monitor off abx unless febrile, leukocytosis and/or evidence of pNA on CXR -f/u cx -Monitor CBC/CMP, temperatures -aspiration precautions -pulm f/u -GI f/u: Subjective Allergies: Coded Allergies: No Known Allergies (Unverified , 12/12/18) Subjective comfortable Objective Vital Signs Last 24 Hour Vital Signs Date Time Temp Pulse Resp B/P (MAP) Pulse Ox O2 Delivery O2 Flow Rate FiO2 12/15/18 09:14 71 159/57 12/15/18 09:14 71 159/57 12/15/18 08:00 97.8 71 18 159/57 (91) 95 12/15/18 07:40 74 18 94 Room Air 21 12/15/18 07:39 75 20 94 Room Air 21 12/15/18 07:30 94 Room Air 21 12/15/18 07:30 Room Air 21 12/15/18 04:00 98.8 65 20 154/53 (86) 98 12/15/18 04:00 59 12/15/18 02:50 Nasal Cannula 1.0 24 12/15/18 02:50 Nasal Cannula 1.0 24 12/15/18 00:00 61 12/15/18 00:00 98.7 61 20 145/54 (84) 97 12/14/18 22:55 61 20 98 Nasal Cannula 1.0 24 12/14/18 22:55 62 18 99 Nasal Cannula 1.0 24 12/14/18 21:29 67 147/51 12/14/18 21:00 Nasal Cannula 2.0 12/14/18 20:30 99.1 67 20 147/51 (83) 99 12/14/18 20:00 64 12/14/18 19:42 65 18 99 Nasal Cannula 2.0 28 12/14/18 19:39 Nasal Cannula 2.0 28 12/14/18 19:39 99 Nasal Cannula 2.0 28 12/14/18 19:39 63 20 99 Nasal Cannula 2.0 28 12/14/18 16:00 97.5 70 19 154/61 (92) 100 12/14/18 16:00 68 12/14/18 15:00 Nasal Cannula 2.0 28 12/14/18 15:00 Nasal Cannula 2.0 28 12/14/18 14:17 82 20 98 12/14/18 13:35 98.0 71 16 144/55 98 Nasal Cannula 3 12/14/18 13:30 70 17 140/53 97 Nasal Cannula 3 12/14/18 13:15 72 18 143/57 97 Nasal Cannula 3 12/14/18 13:10 71 19 144/54 96 Nasal Cannula 3 12/14/18 13:07 98.3 74 20 148/71 98 Nasal Cannula 3 12/14/18 13:07 72 20 98 12/14/18 12:00 64 12/14/18 11:32 57 20 97 Nasal Cannula 2.0 28 12/14/18 11:32 59 20 97 Nasal Cannula 2.0 28 12/14/18 11:31 Nasal Cannula 2.0 28 12/14/18 11:31 97 Nasal Cannula 2.0 28 Height (Feet): 5 Height (Inches): 2.00 Weight (Pounds): 168 HEENT: anicteric Respiratory/Chest: normal breath sounds Cardiovascular: normal rate Abdomen: soft, non tender, no organomegaly Microbiology Date/Time Source Procedure Growth Status 12/12/18 20:20 Nasal Nares Influenza Types A,B Antigen (CLAU) - Final Complete 12/13/18 05:50 Stool Clostridium difficile Toxin Assay - Final Complete Laboratory Tests Test 12/14/18 21:51 12/15/18 06:31 Troponin I 0.004 ng/mL (0.000-0.056) White Blood Count 7.2 K/UL (4.8-10.8) Red Blood Count 3.03 M/UL (4.20-5.40) L Hemoglobin 9.0 G/DL (12.0-16.0) L Hematocrit 27.7 % (37.0-47.0) L Mean Corpuscular Volume 91 FL (80-99) Mean Corpuscular Hemoglobin 29.7 PG (27.0-31.0) Mean Corpuscular Hemoglobin Concent 32.6 G/DL (32.0-36.0) Red Cell Distribution Width 13.1 % (11.6-14.8) Platelet Count 242 K/UL (150-450) Mean Platelet Volume 6.4 FL (6.5-10.1) L Neutrophils (%) (Auto) 65.9 % (45.0-75.0) Lymphocytes (%) (Auto) 12.2 % (20.0-45.0) L Monocytes (%) (Auto) 10.7 % (1.0-10.0) H Eosinophils (%) (Auto) 10.0 % (0.0-3.0) H Basophils (%) (Auto) 1.2 % (0.0-2.0) Sodium Level 132 MMOL/L (136-145) L Potassium Level 3.9 MMOL/L (3.5-5.1) Chloride Level 99 MMOL/L (98-107) Carbon Dioxide Level 21 MMOL/L (21-32) Anion Gap 12 mmol/L (5-15) Blood Urea Nitrogen 30 mg/dL (7-18) H Creatinine 1.7 MG/DL (0.55-1.30) H Estimat Glomerular Filtration Rate mL/min (>60) Glucose Level 142 MG/DL (74-106) H Calcium Level 8.9 MG/DL (8.5-10.1) Current Medications Medications (Trade) Dose Ordered Sig/Bipin Route PRN Reason Start Time Stop Time Status Last Admin Dose Admin Acetaminophen (Tylenol) 650 mg Q4H PRN ORAL Fever 12/12/18 22:15 01/11/19 22:14 Albuterol/ Ipratropium (Albuterol/ Ipratropium) 3 ml EVERY 4 HOURS PRN HHN Shortness of Breath 12/12/18 22:15 12/17/18 22:14 12/14/18 04:53 Atorvastatin Calcium (Lipitor) 20 mg BEDTIME ORAL 12/13/18 21:00 01/12/19 20:59 12/14/18 21:29 Carvedilol (Coreg) 12.5 mg EVERY 12 HOURS ORAL 12/13/18 09:00 01/12/19 08:59 12/15/18 09:14 Dextrose (Dextrose 50%) 25 ml Q30M PRN IV Hypoglycemia 12/12/18 22:15 01/11/19 22:14 Dextrose (Dextrose 50%) 50 ml Q30M PRN IV Hypoglycemia 12/12/18 22:15 01/11/19 22:14 Diphenhydramine HCl (Benadryl) 25 mg Q6H PRN IVP Itching 12/13/18 07:15 01/12/19 07:14 Furosemide (Lasix) 40 mg DAILY IV 12/15/18 09:00 01/14/19 08:59 12/15/18 09:14 Heparin Sodium (Porcine) (Heparin 5000 units/ml) 5,000 units EVERY 12 HOURS SUBQ 12/13/18 09:00 01/12/19 08:59 12/15/18 09:15 Insulin Aspart (NovoLOG) BEFORE MEALS AND HS SUBQ 12/13/18 06:30 01/12/19 06:29 12/15/18 06:13 Iron Sucrose 100 mg/Sodium Chloride 60 ml @ 240 mls/hr BEDTIME IV 12/14/18 21:00 12/16/18 21:14 12/14/18 22:18 Levothyroxine Sodium (Synthroid) 50 mcg ACBREAKFAST ORAL 12/15/18 06:30 01/14/19 06:29 12/15/18 06:12 Nifedipine (Procardia XL) 60 mg DAILY ORAL 12/13/18 09:00 01/12/19 08:59 12/15/18 09:14 Ondansetron HCl (Zofran) 4 mg Q6H PRN IVP Nausea & Vomiting 12/12/18 22:15 01/11/19 22:14 Polyethylene Glycol (Miralax) 17 gm DAILYPRN PRN ORAL Constipation 12/12/18 22:15 01/11/19 22:14 Promethazine HCl/ Codeine (Phenergan with Codeine) 5 ml Q4H PRN ORAL For Cough 12/13/18 10:15 01/12/19 10:14 Temazepam (Restoril) 15 mg HSPRN PRN ORAL Insomnia 12/12/18 22:15 12/19/18 22:14 Gerardo Ocampo MD Dec 15, 2018 10:10
--- NOTE | 2018-12-15 10:42 | Pulmonology Progress Note ---
Assessment/Plan Problems: (1) Collapse of left lung (2) Symptomatic anemia (3) ATN (acute tubular necrosis) (4) Anemia (5) Hyponatremia (6) Diabetes mellitus (7) Hypothyroidism Assessment/Plan left lung opened up on lasix QD continue diuretics output is not being measured, watch bun/creatinine EGD done, Colonoscopy on monday anemia w/u in progress f/u electrolytes Subjective ROS Limited/Unobtainable: No Interval Events: dong better Constitutional: Reports: no symptoms HEENT: Repors: no symptoms Respiratory: Reports: no symptoms Allergies: Coded Allergies: No Known Allergies (Unverified , 12/12/18) Objective Last 24 Hour Vital Signs Date Time Temp Pulse Resp B/P (MAP) Pulse Ox O2 Delivery O2 Flow Rate FiO2 12/15/18 09:14 71 159/57 12/15/18 09:14 71 159/57 12/15/18 08:00 97.8 71 18 159/57 (91) 95 12/15/18 08:00 70 12/15/18 07:40 74 18 94 Room Air 21 12/15/18 07:39 75 20 94 Room Air 21 12/15/18 07:30 94 Room Air 21 12/15/18 07:30 Room Air 21 12/15/18 04:00 98.8 65 20 154/53 (86) 98 12/15/18 04:00 59 12/15/18 02:50 Nasal Cannula 1.0 24 12/15/18 02:50 Nasal Cannula 1.0 24 12/15/18 00:00 61 12/15/18 00:00 98.7 61 20 145/54 (84) 97 12/14/18 22:55 61 20 98 Nasal Cannula 1.0 24 12/14/18 22:55 62 18 99 Nasal Cannula 1.0 24 12/14/18 21:29 67 147/51 12/14/18 21:00 Nasal Cannula 2.0 12/14/18 20:30 99.1 67 20 147/51 (83) 99 12/14/18 20:00 64 12/14/18 19:42 65 18 99 Nasal Cannula 2.0 28 12/14/18 19:39 Nasal Cannula 2.0 28 12/14/18 19:39 99 Nasal Cannula 2.0 28 12/14/18 19:39 63 20 99 Nasal Cannula 2.0 28 12/14/18 16:00 97.5 70 19 154/61 (92) 100 12/14/18 16:00 68 12/14/18 15:00 Nasal Cannula 2.0 28 12/14/18 15:00 Nasal Cannula 2.0 28 12/14/18 14:17 82 20 98 12/14/18 13:35 98.0 71 16 144/55 98 Nasal Cannula 3 12/14/18 13:30 70 17 140/53 97 Nasal Cannula 3 12/14/18 13:15 72 18 143/57 97 Nasal Cannula 3 12/14/18 13:10 71 19 144/54 96 Nasal Cannula 3 12/14/18 13:07 98.3 74 20 148/71 98 Nasal Cannula 3 12/14/18 13:07 72 20 98 12/14/18 12:00 64 12/14/18 11:32 57 20 97 Nasal Cannula 2.0 28 12/14/18 11:32 59 20 97 Nasal Cannula 2.0 28 12/14/18 11:31 Nasal Cannula 2.0 28 12/14/18 11:31 97 Nasal Cannula 2.0 28 Intake and Output 12/14/18 12/15/18 19:00 07:00 Intake Total 250 ml 240 ml Output Total 0 ml Balance 250 ml 240 ml Intake Oral 240 ml IV Total 250 ml Output Estimated Blood Loss 0 ml # Voids 2 Objective General Appearance: WD/WN HEENT: normocephalic, atraumatic Respiratory/Chest: chest wall non-tender, lungs clear Breasts: no masses Cardiovascular: normal rate Abdomen: normal bowel sounds, soft, non tender 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 Microbiology Date/Time Source Procedure Growth Status 12/12/18 20:20 Nasal Nares Influenza Types A,B Antigen (CLAU) - Final Complete 12/13/18 05:50 Stool Clostridium difficile Toxin Assay - Final Complete Laboratory Tests 12/14/18 21:51: Troponin I 0.004 12/15/18 06:31: White Blood Count 7.2, Red Blood Count 3.03L, Hemoglobin 9.0L, Hematocrit 27.7L , Mean Corpuscular Volume 91, Mean Corpuscular Hemoglobin 29.7, Mean Corpuscular Hemoglobin Concent 32.6, Red Cell Distribution Width 13.1, Platelet Count 242, Mean Platelet Volume 6.4L, Neutrophils (%) (Auto) 65.9, Lymphocytes ( %) (Auto) 12.2L, Monocytes (%) (Auto) 10.7H, Eosinophils (%) (Auto) 10.0H, Basophils (%) (Auto) 1.2, Sodium Level 132L, Potassium Level 3.9, Chloride Level 99, Carbon Dioxide Level 21, Anion Gap 12, Blood Urea Nitrogen 30H, Creatinine 1.7H, Estimat Glomerular Filtration Rate , Glucose Level 142H, Calcium Level 8.9 Current Medications Medications (Trade) Dose Ordered Sig/Bipin Route PRN Reason Start Time Stop Time Status Last Admin Dose Admin Acetaminophen (Tylenol) 650 mg Q4H PRN ORAL Fever 12/12/18 22:15 01/11/19 22:14 Albuterol/ Ipratropium (Albuterol/ Ipratropium) 3 ml EVERY 4 HOURS PRN HHN Shortness of Breath 12/12/18 22:15 12/17/18 22:14 12/14/18 04:53 Atorvastatin Calcium (Lipitor) 20 mg BEDTIME ORAL 12/13/18 21:00 01/12/19 20:59 12/14/18 21:29 Carvedilol (Coreg) 12.5 mg EVERY 12 HOURS ORAL 12/13/18 09:00 01/12/19 08:59 12/15/18 09:14 Dextrose (Dextrose 50%) 25 ml Q30M PRN IV Hypoglycemia 12/12/18 22:15 01/11/19 22:14 Dextrose (Dextrose 50%) 50 ml Q30M PRN IV Hypoglycemia 12/12/18 22:15 01/11/19 22:14 Diphenhydramine HCl (Benadryl) 25 mg Q6H PRN IVP Itching 12/13/18 07:15 01/12/19 07:14 Furosemide (Lasix) 40 mg DAILY IV 12/15/18 09:00 01/14/19 08:59 12/15/18 09:14 Heparin Sodium (Porcine) (Heparin 5000 units/ml) 5,000 units EVERY 12 HOURS SUBQ 12/13/18 09:00 01/12/19 08:59 12/15/18 09:15 Insulin Aspart (NovoLOG) BEFORE MEALS AND HS SUBQ 12/13/18 06:30 01/12/19 06:29 12/15/18 06:13 Iron Sucrose 100 mg/Sodium Chloride 60 ml @ 240 mls/hr BEDTIME IV 12/14/18 21:00 12/16/18 21:14 12/14/18 22:18 Levothyroxine Sodium (Synthroid) 50 mcg ACBREAKFAST ORAL 12/15/18 06:30 01/14/19 06:29 12/15/18 06:12 Nifedipine (Procardia XL) 60 mg DAILY ORAL 12/13/18 09:00 01/12/19 08:59 12/15/18 09:14 Ondansetron HCl (Zofran) 4 mg Q6H PRN IVP Nausea & Vomiting 12/12/18 22:15 01/11/19 22:14 Polyethylene Glycol (Miralax) 17 gm DAILYPRN PRN ORAL Constipation 12/12/18 22:15 01/11/19 22:14 Promethazine HCl/ Codeine (Phenergan with Codeine) 5 ml Q4H PRN ORAL For Cough 12/13/18 10:15 01/12/19 10:14 Temazepam (Restoril) 15 mg HSPRN PRN ORAL Insomnia 12/12/18 22:15 12/19/18 22:14 Velma Cordova MD Dec 15, 2018 10:42
[2018-12-15] MEDS ORDERED: Albuterol/Ipratropium 3ml neb HHN PRN (11:00)
[2018-12-15 12:00] VITALS: BP 142/65
--- NOTE | 2018-12-15 15:10 | Cardiac Electrophysiology PN ---
Assessment/Plan Assessment/Plan 1. Congestive heart failure with BNP is more than 2100. Likely due to combination of diastolic dysfunction with EF 55% to 60% as well as severe anemia. Change Lasix to 40 po daily 2. Coronary artery disease with history of prior stent placement. Etiology is not very clear, on Coreg 12.5 mg twice a day and Lipitor 20 mg at bedtime. 3. Hypertension. On Coreg 12.5 mg twice a day and Procardia XL 60 mg daily. 4. Hypothyroidism, on Synthroid. 5. Severe anemia with hemoglobin around 6. S/P EGD by Dr. Hernandez. DC tele. Subjective Subjective Had EGD yesterday. No CP or SOB or arrhythmias. Objective Last 24 Hour Vital Signs Date Time Temp Pulse Resp B/P (MAP) Pulse Ox O2 Delivery O2 Flow Rate FiO2 12/15/18 12:00 97.7 63 18 142/65 (90) 100 12/15/18 11:30 63 20 100 Nasal Cannula 2.0 28 12/15/18 11:17 64 18 96 Nasal Cannula 28 12/15/18 11:17 64 20 96 Nasal Cannula 2.0 28 12/15/18 11:12 64 20 96 Nasal Cannula 28 12/15/18 09:14 71 159/57 12/15/18 09:14 71 159/57 12/15/18 09:00 Nasal Cannula 2.0 12/15/18 08:00 97.8 71 18 159/57 (91) 95 12/15/18 08:00 70 12/15/18 07:40 74 18 94 Room Air 21 12/15/18 07:39 75 20 94 Room Air 21 12/15/18 07:30 94 Room Air 21 12/15/18 07:30 Room Air 21 12/15/18 04:00 98.8 65 20 154/53 (86) 98 12/15/18 04:00 59 12/15/18 02:50 Nasal Cannula 1.0 24 12/15/18 02:50 Nasal Cannula 1.0 24 12/15/18 00:00 61 12/15/18 00:00 98.7 61 20 145/54 (84) 97 12/14/18 22:55 61 20 98 Nasal Cannula 1.0 24 12/14/18 22:55 62 18 99 Nasal Cannula 1.0 24 12/14/18 21:29 67 147/51 12/14/18 21:00 Nasal Cannula 2.0 12/14/18 20:30 99.1 67 20 147/51 (83) 99 12/14/18 20:00 64 12/14/18 19:42 65 18 99 Nasal Cannula 2.0 28 12/14/18 19:39 Nasal Cannula 2.0 28 12/14/18 19:39 99 Nasal Cannula 2.0 28 12/14/18 19:39 63 20 99 Nasal Cannula 2.0 28 12/14/18 16:00 97.5 70 19 154/61 (92) 100 12/14/18 16:00 68 Intake and Output 12/14/18 12/15/18 19:00 07:00 Intake Total 250 ml 240 ml Output Total 0 ml Balance 250 ml 240 ml Intake Oral 240 ml IV Total 250 ml Output Estimated Blood Loss 0 ml # Voids 2 Laboratory Tests Test 12/14/18 21:51 12/15/18 06:31 Troponin I 0.004 ng/mL (0.000-0.056) White Blood Count 7.2 K/UL (4.8-10.8) Red Blood Count 3.03 M/UL (4.20-5.40) L Hemoglobin 9.0 G/DL (12.0-16.0) L Hematocrit 27.7 % (37.0-47.0) L Mean Corpuscular Volume 91 FL (80-99) Mean Corpuscular Hemoglobin 29.7 PG (27.0-31.0) Mean Corpuscular Hemoglobin Concent 32.6 G/DL (32.0-36.0) Red Cell Distribution Width 13.1 % (11.6-14.8) Platelet Count 242 K/UL (150-450) Mean Platelet Volume 6.4 FL (6.5-10.1) L Neutrophils (%) (Auto) 65.9 % (45.0-75.0) Lymphocytes (%) (Auto) 12.2 % (20.0-45.0) L Monocytes (%) (Auto) 10.7 % (1.0-10.0) H Eosinophils (%) (Auto) 10.0 % (0.0-3.0) H Basophils (%) (Auto) 1.2 % (0.0-2.0) Sodium Level 132 MMOL/L (136-145) L Potassium Level 3.9 MMOL/L (3.5-5.1) Chloride Level 99 MMOL/L (98-107) Carbon Dioxide Level 21 MMOL/L (21-32) Anion Gap 12 mmol/L (5-15) Blood Urea Nitrogen 30 mg/dL (7-18) H Creatinine 1.7 MG/DL (0.55-1.30) H Estimat Glomerular Filtration Rate mL/min (>60) Glucose Level 142 MG/DL (74-106) H Calcium Level 8.9 MG/DL (8.5-10.1) Microbiology Date/Time Source Procedure Growth Status 12/12/18 20:20 Nasal Nares Influenza Types A,B Antigen (CLAU) - Final Complete 12/13/18 05:50 Stool Clostridium difficile Toxin Assay - Final Complete Objective HEAD AND NECK: No JVD. LUNGS: Clear. CARDIOVASCULAR: Regular S1 and S2 with no gallop. ABDOMEN: Soft. EXTREMITIES: 1+ pitting edema. Oscar Rivera MD Dec 15, 2018 15:10
[2018-12-15 16:00] VITALS: BP 137/50
[2018-12-15] MEDS ORDERED: Miralax 17gm pkt ORAL PRN (17:30)
[2018-12-15] MEDS ORDERED: Promethazine/Codeine 5ml UD ORAL PRN (17:30)
[2018-12-15] MEDS ORDERED: DiphenhydrAMINE 50mg/ml Inj IVP PRN (17:30)
--- NOTE | 2018-12-15 18:04 | NUR ---
TRANSFER TO FLOOR: Patient transferred to [facility], per MD. Report given to Alexa Pereira RN. Belongings and medications given to Alexa Jade RN. Family and or S/O informed of transfer. Family at bedside.
--- NOTE | 2018-12-15 18:09 | NUR ---
NURSE NOTES: No belonging list found in chart. Prepared Belongings List during transfer with Alexa Pereira RN.
--- NOTE | 2018-12-15 18:10 | NUR ---
NURSE NOTES: Patient arrived on unit via hospital bed. Patient is stable with no s/s acute distress. Denies pain at this time. Patient oriented to room and call light. Skin is clean, dry, and intact. Family is at bedside. New inventory list made for patient. Patient refused blood sugar checks prior to transfer, will check blood sugar. Patient on 2L oxygen via NC. Patient in bed with call light within reach. Will continue to monitor.
--- NOTE | 2018-12-15 20:03 | NUR ---
HAND-OFF: Report given to Brandi CORNELIUS. Patient is stable.
[2018-12-15 20:19] VITALS: BP 130/55
--- NOTE | 2018-12-15 20:30 | NUR ---
NURSE NOTES: PATIENT IN BED, AWAKE, ALERT. FAMILY AT BEDSIDE. IV IN PLACE, PATENT. BED IN LOWEST POSITION, CALL LIGHT WITHIN REACH. NO S/S RESPIRATORY DISTRESS NOTED. NO COMPLAINTS OF PAIN AT THIS TIME.
[2018-12-15] MEDS ORDERED: Iron Sucrose 100 MG in NS 55 ML IV SCH (21:00)
[2018-12-15] MEDS: Atorvastatin 20mg tab ORAL SCH (21:31)
[2018-12-16] VITALS (7 sets, daily range): BP systolic 120–176; BP diastolic 48–90
--- NOTE | 2018-12-16 06:11 | NUR ---
NURSE NOTES: UNABLE TO COLLECT OB STOOL PATIENT HAS NOT HAD A BOWEL MOVEMENT, REQUESTED MIRALAX IN THE MORNING.
[2018-12-16] MEDS: NovoLOG Insulin Flexpen SUBQ SCH ×4 (06:19→20:38)
--- NOTE | 2018-12-16 07:40 | NUR ---
HAND-OFF: Report given to JASWINDER Butler RN.
[2018-12-16 07:46] LABS: BASOPHILS % (AUTO) 0.9 % (0.0-2.0); EOSINOPHILS % (AUTO) 10.3 % (0.0-3.0); HEMOGLOBIN 8.9 G/DL (12.0-16.0); LYMPHOCYTES % (AUTO) 14.8 % (20.0-45.0); MEAN CORPUSCULAR VOLUME 91 FL (80-99); PLATELET COUNT 247 K/UL (150-450); RED BLOOD COUNT 2.97 M/UL (4.20-5.40); RED CELL DISTRIBUTION WIDTH 13.2 % (11.6-14.8); WHITE BLOOD COUNT 7.7 K/UL (4.8-10.8)
--- NOTE | 2018-12-16 07:52 | NUR ---
NURSE NOTES: AWAKE/ALERT. NO C/O PAIN. IN NO DISTRESS.
[2018-12-16 08:06] LABS: ANION GAP 12 mmol/L (5-15); BLOOD UREA NITROGEN 36 mg/dL (7-18); CALCIUM 8.8 MG/DL (8.5-10.1); CARBON DIOXIDE 22 MMOL/L (21-32); CHLORIDE 100 MMOL/L (98-107); POTASSIUM 3.9 MMOL/L (3.5-5.1); SODIUM 134 MMOL/L (136-145)
--- NOTE | 2018-12-16 08:33 | General Progress Note ---
Assessment/Plan Problem List: (1) Diabetes mellitus ICD Codes: E11.9 - Type 2 diabetes mellitus without complications SNOMED: 37458165 (2) Hypothyroidism ICD Codes: E03.9 - Hypothyroidism, unspecified SNOMED: 86015927 (3) CHF exacerbation ICD Codes: I50.9 - Heart failure, unspecified SNOMED: 39473929 Assessment/Plan add Starlix 60 mg ac tid continue NISS ac / hs continue LT4 50 mcg daily Subjective Allergies: Coded Allergies: No Known Allergies (Unverified , 12/12/18) All Systems: reviewed and negative except above Subjective events noted she is feeling better Item Value Date Time Bedside Blood Glucose 177 mg/dl H 12/16/18 0622 Bedside Blood Glucose 131 mg/dl H 12/15/18 2133 Bedside Blood Glucose 270 mg/dl H 12/15/18 1826 Bedside Blood Glucose 169 mg/dl H 12/15/18 1241 Objective Last 24 Hour Vital Signs Date Time Temp Pulse Resp B/P (MAP) Pulse Ox O2 Delivery O2 Flow Rate FiO2 12/16/18 07:50 Room Air 21 12/16/18 07:50 95 Room Air 21 12/16/18 04:27 98.4 66 20 144/58 (86) 95 12/16/18 00:34 99.0 60 18 138/48 (78) 96 12/15/18 22:26 Nasal Cannula 2.0 12/15/18 21:31 64 130/55 12/15/18 20:52 96 Nasal Cannula 2.0 28 12/15/18 20:52 Nasal Cannula 2.0 28 12/15/18 20:19 98.1 64 18 130/55 (80) 97 12/15/18 16:00 98.2 59 18 137/50 (79) 97 12/15/18 15:59 63 18 98 Nasal Cannula 28 12/15/18 15:58 63 20 98 Nasal Cannula 28 12/15/18 12:00 97.7 63 18 142/65 (90) 100 12/15/18 12:00 63 12/15/18 11:30 63 20 100 Nasal Cannula 2.0 28 12/15/18 11:17 64 18 96 Nasal Cannula 28 12/15/18 11:17 64 20 96 Nasal Cannula 2.0 28 12/15/18 11:12 64 20 96 Nasal Cannula 28 12/15/18 09:14 71 159/57 12/15/18 09:14 71 159/57 12/15/18 09:00 Nasal Cannula 2.0 Intake and Output 12/15/18 12/16/18 18:59 06:59 Intake Total 480 ml 300 ml Balance 480 ml 300 ml Intake Oral 480 ml 240 ml IV Total 60 ml # Voids 4 2 Laboratory Tests 12/16/18 05:30: White Blood Count 7.7, Red Blood Count 2.97L, Hemoglobin 8.9L, Hematocrit 27.0L , Mean Corpuscular Volume 91, Mean Corpuscular Hemoglobin 29.9, Mean Corpuscular Hemoglobin Concent 32.9, Red Cell Distribution Width 13.2, Platelet Count 247, Mean Platelet Volume 6.4L, Neutrophils (%) (Auto) 64.0, Lymphocytes ( %) (Auto) 14.8L, Monocytes (%) (Auto) 10.0, Eosinophils (%) (Auto) 10.3H, Basophils (%) (Auto) 0.9, Sodium Level 134L, Potassium Level 3.9, Chloride Level 100, Carbon Dioxide Level 22, Anion Gap 12, Blood Urea Nitrogen 36H, Creatinine 2.0H, Estimat Glomerular Filtration Rate , Glucose Level 150H, Calcium Level 8.8 Height (Feet): 5 Height (Inches): 2.00 Weight (Pounds): 164 General Appearance: no apparent distress Neck: normal alignment Cardiovascular: normal rate Respiratory/Chest: normal breath sounds Abdomen: normal bowel sounds Objective Current Medications Medications (Trade) Dose Ordered Sig/Bipin Route PRN Reason Start Time Stop Time Status Last Admin Dose Admin Acetaminophen (Tylenol) 650 mg Q4H PRN ORAL Fever 12/15/18 17:30 01/11/19 17:29 Albuterol/ Ipratropium (Albuterol/ Ipratropium) 3 ml Q4H PRN HHN Shortness of Breath 12/15/18 17:30 12/20/18 17:29 Atorvastatin Calcium (Lipitor) 20 mg BEDTIME ORAL 12/15/18 21:00 01/12/19 20:59 12/15/18 21:31 Carvedilol (Coreg) 12.5 mg EVERY 12 HOURS ORAL 12/15/18 21:00 01/12/19 08:59 12/15/18 21:31 Dextrose (Dextrose 50%) 25 ml Q30M PRN IV Hypoglycemia 12/15/18 17:45 01/11/19 22:14 Dextrose (Dextrose 50%) 50 ml Q30M PRN IV Hypoglycemia 12/15/18 17:45 01/11/19 22:14 Diphenhydramine HCl (Benadryl) 25 mg Q6H PRN IVP Itching 12/15/18 17:30 01/12/19 17:29 Furosemide (Lasix) 40 mg DAILY ORAL 12/16/18 09:00 01/15/19 08:59 Heparin Sodium (Porcine) (Heparin 5000 units/ml) 5,000 units EVERY 12 HOURS SUBQ 12/15/18 21:00 01/12/19 08:59 12/15/18 21:34 Insulin Aspart (NovoLOG) BEFORE MEALS AND HS SUBQ 12/15/18 21:00 01/12/19 06:29 12/16/18 06:19 Iron Sucrose 100 mg/Sodium Chloride 60 ml @ 240 mls/hr BEDTIME IV 12/15/18 21:00 12/16/18 21:14 12/15/18 21:57 Levothyroxine Sodium (Synthroid) 50 mcg ACBREAKFAST ORAL 12/16/18 06:30 01/14/19 06:29 12/16/18 06:18 Nifedipine (Procardia XL) 60 mg DAILY ORAL 12/16/18 09:00 01/12/19 08:59 Ondansetron HCl (Zofran) 4 mg Q6H PRN IVP Nausea & Vomiting 12/15/18 17:30 01/11/19 17:29 Polyethylene Glycol (Miralax) 17 gm DAILYPRN PRN ORAL Constipation 12/15/18 17:30 01/11/19 17:29 Promethazine HCl/ Codeine (Phenergan with Codeine) 5 ml Q4H PRN ORAL For Cough 12/15/18 17:30 01/12/19 17:29 Temazepam (Restoril) 15 mg HSPRN PRN ORAL Insomnia 12/15/18 17:30 12/19/18 17:29 Shaji Garcia MD Dec 16, 2018 08:33
--- NOTE | 2018-12-16 08:45 | General Progress Note ---
Assessment/Plan Problem List: (1) UTI (urinary tract infection) ICD Codes: N39.0 - Urinary tract infection, site not specified SNOMED: 40436302 (2) HTN (hypertension) ICD Codes: I10 - Essential (primary) hypertension SNOMED: 34660545 (3) CHF exacerbation ICD Codes: I50.9 - Heart failure, unspecified SNOMED: 60582635 (4) Hyponatremia ICD Codes: E87.1 - Hypo-osmolality and hyponatremia SNOMED: 23781295 (5) Diabetes mellitus ICD Codes: E11.9 - Type 2 diabetes mellitus without complications SNOMED: 13371128 (6) Anemia ICD Codes: D64.9 - Anemia, unspecified SNOMED: 749186605 Status: stable, progressing Assessment/Plan o2 pulm tx abx pt diet pending colonscopy cbc bmp am Subjective Constitutional: Reports: weakness Allergies: Coded Allergies: No Known Allergies (Unverified , 12/12/18) All Systems: reviewed and negative except above Subjective sl sob Objective Last 24 Hour Vital Signs Date Time Temp Pulse Resp B/P (MAP) Pulse Ox O2 Delivery O2 Flow Rate FiO2 12/16/18 07:50 Room Air 21 12/16/18 07:50 95 Room Air 21 12/16/18 04:27 98.4 66 20 144/58 (86) 95 12/16/18 00:34 99.0 60 18 138/48 (78) 96 12/15/18 22:26 Nasal Cannula 2.0 12/15/18 21:31 64 130/55 12/15/18 20:52 96 Nasal Cannula 2.0 28 12/15/18 20:52 Nasal Cannula 2.0 28 12/15/18 20:19 98.1 64 18 130/55 (80) 97 12/15/18 16:00 98.2 59 18 137/50 (79) 97 12/15/18 15:59 63 18 98 Nasal Cannula 28 12/15/18 15:58 63 20 98 Nasal Cannula 28 12/15/18 12:00 97.7 63 18 142/65 (90) 100 12/15/18 12:00 63 12/15/18 11:30 63 20 100 Nasal Cannula 2.0 28 12/15/18 11:17 64 18 96 Nasal Cannula 28 12/15/18 11:17 64 20 96 Nasal Cannula 2.0 28 12/15/18 11:12 64 20 96 Nasal Cannula 28 12/15/18 09:14 71 159/57 12/15/18 09:14 71 159/57 12/15/18 09:00 Nasal Cannula 2.0 Intake and Output 12/15/18 12/16/18 18:59 06:59 Intake Total 480 ml 300 ml Balance 480 ml 300 ml Intake Oral 480 ml 240 ml IV Total 60 ml # Voids 4 2 Laboratory Tests 12/16/18 05:30: White Blood Count 7.7, Red Blood Count 2.97L, Hemoglobin 8.9L, Hematocrit 27.0L , Mean Corpuscular Volume 91, Mean Corpuscular Hemoglobin 29.9, Mean Corpuscular Hemoglobin Concent 32.9, Red Cell Distribution Width 13.2, Platelet Count 247, Mean Platelet Volume 6.4L, Neutrophils (%) (Auto) 64.0, Lymphocytes ( %) (Auto) 14.8L, Monocytes (%) (Auto) 10.0, Eosinophils (%) (Auto) 10.3H, Basophils (%) (Auto) 0.9, Sodium Level 134L, Potassium Level 3.9, Chloride Level 100, Carbon Dioxide Level 22, Anion Gap 12, Blood Urea Nitrogen 36H, Creatinine 2.0H, Estimat Glomerular Filtration Rate , Glucose Level 150H, Calcium Level 8.8 Height (Feet): 5 Height (Inches): 2.00 Weight (Pounds): 164 General Appearance: lethargic EENT: normal ENT inspection Neck: normal alignment Cardiovascular: normal peripheral pulses, normal rate, regular rhythm Respiratory/Chest: chest wall non-tender, lungs clear, normal breath sounds Abdomen: normal bowel sounds, non tender, soft Extremities: normal inspection Edema: no edema noted Arm (L), no edema noted Arm (R), no edema noted Leg (L), no edema noted Leg (R), no edema noted Pedal (L), no edema noted Pedal (R), no edema noted Generalized Neurologic: responsive, motor weakness Skin: normal pigmentation, warm/dry Andrei Campuzano DO Dec 16, 2018 08:45
[2018-12-16] MEDS ORDERED: Furosemide 40mg tab ORAL SCH (09:00)
[2018-12-16] MEDS: Carvedilol 12.5mg tab ORAL SCH ×2 (09:06→22:17)
[2018-12-16] MEDS: Furosemide 40mg tab ORAL SCH (09:06)
[2018-12-16] MEDS: Heparin 5000 units/ml inj SUBQ SCH ×2 (09:11→19:48)
--- NOTE | 2018-12-16 10:08 | General Progress Note ---
Assessment/Plan Problem List: (1) CHF (congestive heart failure) ICD Codes: I50.9 - Heart failure, unspecified SNOMED: 52226683 (2) Diabetes mellitus ICD Codes: E11.9 - Type 2 diabetes mellitus without complications SNOMED: 51925726 (3) Hypothyroidism ICD Codes: E03.9 - Hypothyroidism, unspecified SNOMED: 91925998 (4) Anemia ICD Codes: D64.9 - Anemia, unspecified SNOMED: 850392551 (5) PUD (peptic ulcer disease) ICD Codes: K27.9 - Peptic ulcer, site unspecified, unspecified as acute or chronic, without hemorrhage or perforation SNOMED: 59502289 (6) Gastritis ICD Codes: K29.70 - Gastritis, unspecified, without bleeding SNOMED: 5054146 Assessment/Plan neg EGD for source of GIB last colonoscopy per patient over 10 years plan hold plavix and do colonoscopy on Monday patient and family agreed fu stool ob fu cbc iv iron Subjective ROS Limited/Unobtainable: Yes Allergies: Coded Allergies: No Known Allergies (Unverified , 12/12/18) Subjective no event over night Objective Last 24 Hour Vital Signs Date Time Temp Pulse Resp B/P (MAP) Pulse Ox O2 Delivery O2 Flow Rate FiO2 12/16/18 09:06 71 155/54 12/16/18 09:05 71 155/54 12/16/18 07:50 Room Air 21 12/16/18 07:50 95 Room Air 21 12/16/18 04:27 98.4 66 20 144/58 (86) 95 12/16/18 00:34 99.0 60 18 138/48 (78) 96 12/15/18 22:26 Nasal Cannula 2.0 12/15/18 21:31 64 130/55 12/15/18 20:52 96 Nasal Cannula 2.0 28 12/15/18 20:52 Nasal Cannula 2.0 28 12/15/18 20:19 98.1 64 18 130/55 (80) 97 12/15/18 16:00 98.2 59 18 137/50 (79) 97 12/15/18 15:59 63 18 98 Nasal Cannula 28 12/15/18 15:58 63 20 98 Nasal Cannula 28 12/15/18 12:00 97.7 63 18 142/65 (90) 100 12/15/18 12:00 63 12/15/18 11:30 63 20 100 Nasal Cannula 2.0 28 12/15/18 11:17 64 18 96 Nasal Cannula 28 12/15/18 11:17 64 20 96 Nasal Cannula 2.0 28 12/15/18 11:12 64 20 96 Nasal Cannula 28 Intake and Output 12/15/18 12/16/18 18:59 06:59 Intake Total 480 ml 300 ml Balance 480 ml 300 ml Intake Oral 480 ml 240 ml IV Total 60 ml # Voids 4 2 Laboratory Tests 12/16/18 05:30: White Blood Count 7.7, Red Blood Count 2.97L, Hemoglobin 8.9L, Hematocrit 27.0L , Mean Corpuscular Volume 91, Mean Corpuscular Hemoglobin 29.9, Mean Corpuscular Hemoglobin Concent 32.9, Red Cell Distribution Width 13.2, Platelet Count 247, Mean Platelet Volume 6.4L, Neutrophils (%) (Auto) 64.0, Lymphocytes ( %) (Auto) 14.8L, Monocytes (%) (Auto) 10.0, Eosinophils (%) (Auto) 10.3H, Basophils (%) (Auto) 0.9, Sodium Level 134L, Potassium Level 3.9, Chloride Level 100, Carbon Dioxide Level 22, Anion Gap 12, Blood Urea Nitrogen 36H, Creatinine 2.0H, Estimat Glomerular Filtration Rate , Glucose Level 150H, Calcium Level 8.8 Height (Feet): 5 Height (Inches): 2.00 Weight (Pounds): 164 General Appearance: alert EENT: normal ENT inspection Neck: supple Cardiovascular: normal rate Respiratory/Chest: lungs clear Abdomen: normal bowel sounds, non tender, soft Extremities: non-tender Bernardo Hernandez MD Dec 16, 2018 10:08
--- NOTE | 2018-12-16 10:46 | General Progress Note ---
Assessment/Plan Assessment/Plan Assessment/Plan # Anemia of iron deficiency due to potential gastritis as noted on egd and/or gi bleed --> Anemia workup has been ordered/reviewed and c/w aid --> No evidence of hemolysis is noted, peripheral smear has been reviewed --> Hgb goal >7. Transfuse prn. --> IRON x 5 days iv to continue --> Medications have been reviewed --> neg EGD for source of GIB, last colonoscopy per patient over 10 years --> plan hold plavix and do colonoscopy on Monday # Dyspnea- no obvious PNA on CXR --> CXR: complete opacification of the left hemithorax; presumably on the basis of complete left lung atelectasis # Lung collapse --> per pulm # Hyponatremia # DM2 # HTN on meds sbp goal <140 # CAD # CHF as per Dr. Miguel rubio The timing of this note does not necessarily reflect the time of the patient was seen. Greatly appreciate consultation! Subjective Constitutional: Denies: no symptoms, chills, diaphoresis, fever, malaise, weakness, other HEENT: Denies: no symptoms, eye pain, blurred vision, tearing, double vision, ear pain, ear discharge, nose pain, nose congestion, throat pain, throat swelling, mouth pain, mouth swelling, other Cardiovascular: Denies: no symptoms, chest pain, edema, irregular heart rate, lightheadedness, palpitations, syncope, other Respiratory: Denies: no symptoms, cough, orthopnea, shortness of breath, SOB with excertion, SOB at rest, sputum, stridor, wheezing, other Gastrointestinal/Abdominal: Denies: no symptoms, abdomen distended, abdominal pain, black stools, tarry stools, blood in stool, constipated, diarrhea, difficulty swallowing, nausea, poor appetite, poor fluid intake, rectal bleeding , vomiting, other Genitourinary: Denies: no symptoms, burning, discharge, frequency, flank pain, hematuria, incontinence, pain, urgency, other Neurologic/Psychiatric: Denies: no symptoms, anxiety, depressed, emotional problems, headache, numbness, paresthesia, pre-existing deficit, seizure, tingling, tremors, weakness, other Endocrine: Denies: no symptoms, excessive sweating, flushing, intolerance to cold, intolerance to heat, increased hunger, increased thirst, increased urine, unexplained weight gain, unexplained weight loss, other Hematologic/Lymphatic: Denies: no symptoms, anemia, easy bleeding, easy bruising, other Allergies: Coded Allergies: No Known Allergies (Unverified , 12/12/18) Subjective 12/16/18: colo is pending, on iv iron, hgb stable Objective Last 24 Hour Vital Signs Date Time Temp Pulse Resp B/P (MAP) Pulse Ox O2 Delivery O2 Flow Rate FiO2 12/16/18 09:06 71 155/54 12/16/18 09:05 71 155/54 12/16/18 09:00 Nasal Cannula 2.0 12/16/18 08:00 98.1 71 18 155/54 (87) 97 12/16/18 07:50 Room Air 21 12/16/18 07:50 95 Room Air 21 12/16/18 04:27 98.4 66 20 144/58 (86) 95 12/16/18 00:34 99.0 60 18 138/48 (78) 96 12/15/18 22:26 Nasal Cannula 2.0 12/15/18 21:31 64 130/55 12/15/18 20:52 96 Nasal Cannula 2.0 28 12/15/18 20:52 Nasal Cannula 2.0 28 12/15/18 20:19 98.1 64 18 130/55 (80) 97 12/15/18 16:00 98.2 59 18 137/50 (79) 97 12/15/18 15:59 63 18 98 Nasal Cannula 28 12/15/18 15:58 63 20 98 Nasal Cannula 28 12/15/18 12:00 97.7 63 18 142/65 (90) 100 12/15/18 12:00 63 12/15/18 11:30 63 20 100 Nasal Cannula 2.0 28 12/15/18 11:17 64 18 96 Nasal Cannula 28 12/15/18 11:17 64 20 96 Nasal Cannula 2.0 28 12/15/18 11:12 64 20 96 Nasal Cannula 28 Intake and Output 12/15/18 12/16/18 18:59 06:59 Intake Total 480 ml 300 ml Balance 480 ml 300 ml Intake Oral 480 ml 240 ml IV Total 60 ml # Voids 4 2 Laboratory Tests 12/16/18 05:30: White Blood Count 7.7, Red Blood Count 2.97L, Hemoglobin 8.9L, Hematocrit 27.0L , Mean Corpuscular Volume 91, Mean Corpuscular Hemoglobin 29.9, Mean Corpuscular Hemoglobin Concent 32.9, Red Cell Distribution Width 13.2, Platelet Count 247, Mean Platelet Volume 6.4L, Neutrophils (%) (Auto) 64.0, Lymphocytes ( %) (Auto) 14.8L, Monocytes (%) (Auto) 10.0, Eosinophils (%) (Auto) 10.3H, Basophils (%) (Auto) 0.9, Sodium Level 134L, Potassium Level 3.9, Chloride Level 100, Carbon Dioxide Level 22, Anion Gap 12, Blood Urea Nitrogen 36H, Creatinine 2.0H, Estimat Glomerular Filtration Rate , Glucose Level 150H, Calcium Level 8.8 Height (Feet): 5 Height (Inches): 2.00 Weight (Pounds): 164 General Appearance: alert EENT: TMs normal Neck: supple Cardiovascular: regular rhythm Respiratory/Chest: no respiratory distress Extremities: non-tender Neurologic: alert Skin: warm/dry Objective General Appearance: WD/WN Lines, tubes and drains: peripheral HEENT: normocephalic, atraumatic Neck: non-tender, normal alignment Respiratory/Chest: chest wall non-tender, lungs clear, decreased breath sounds - at left Cardiovascular/Chest: normal peripheral pulses, rrr Abdomen: non tender, no organomegaly Genitourinary/Rectal: normal genital exam Clyde Christine MD Dec 16, 2018 10:46
[2018-12-16] MEDS: Nateglinide 60mg tab ORAL SCH ×2 (11:42→16:45)
--- NOTE | 2018-12-16 13:58 | NUR ---
CASE MANAGEMENT:REVIEW 12/16/2018 SI: CHF. HYPONATREMIA. ANEMIA. UTI T 97.9 HR 95 RR 18 B/P 120/67 SATS 100% ON 2L/NC NA 134 BUN 36 CR 2 GLU 150 IS: SYNTHROID PO QAM IV VENOFER QHS LIPITOR PO QHS COREG PO Q12H PLAVIX PO QD HEPARIN SUBQ Q12H : MED/SURG STATUS DCP: PATIENT IS FROM HOME
[2018-12-16] MEDS ORDERED: Nulytely 4L ORAL ONE (14:00)
--- NOTE | 2018-12-16 15:19 | Pulmonology Progress Note ---
Assessment/Plan Problems: (1) Collapse of left lung (2) Symptomatic anemia (3) ATN (acute tubular necrosis) (4) Anemia (5) Hyponatremia (6) Diabetes mellitus (7) Hypothyroidism Assessment/Plan all reivewed all family members are at the bed site left lung opened up on lasix QD continue diuretics output is not being measured, watch bun/creatinine EGD done, Colonoscopy on monday anemia w/u in progress f/u electrolytes Subjective ROS Limited/Unobtainable: No Constitutional: Reports: no symptoms Respiratory: Reports: no symptoms Allergies: Coded Allergies: No Known Allergies (Unverified , 12/12/18) Objective Last 24 Hour Vital Signs Date Time Temp Pulse Resp B/P (MAP) Pulse Ox O2 Delivery O2 Flow Rate FiO2 12/16/18 12:00 97.9 95 18 120/67 (84) 100 12/16/18 09:06 71 155/54 12/16/18 09:05 71 155/54 12/16/18 09:00 Nasal Cannula 2.0 12/16/18 08:00 98.1 71 18 155/54 (87) 97 12/16/18 07:50 Room Air 21 12/16/18 07:50 95 Room Air 21 12/16/18 04:27 98.4 66 20 144/58 (86) 95 12/16/18 00:34 99.0 60 18 138/48 (78) 96 12/15/18 22:26 Nasal Cannula 2.0 12/15/18 21:31 64 130/55 12/15/18 20:52 96 Nasal Cannula 2.0 28 12/15/18 20:52 Nasal Cannula 2.0 28 12/15/18 20:19 98.1 64 18 130/55 (80) 97 12/15/18 16:00 98.2 59 18 137/50 (79) 97 12/15/18 15:59 63 18 98 Nasal Cannula 28 12/15/18 15:58 63 20 98 Nasal Cannula 28 Intake and Output 12/15/18 12/16/18 19:00 07:00 Intake Total 480 ml 300 ml Balance 480 ml 300 ml Intake Oral 480 ml 240 ml IV Total 60 ml # Voids 4 2 Objective General Appearance: WD/WN HEENT: normocephalic, atraumatic Respiratory/Chest: chest wall non-tender, lungs clear Breasts: no masses Cardiovascular: normal rate Abdomen: normal bowel sounds, soft, non tender Neurologic/Psychiatric: 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 II-XII grossly normal Laboratory Tests 12/16/18 05:30: White Blood Count 7.7, Red Blood Count 2.97L, Hemoglobin 8.9L, Hematocrit 27.0L , Mean Corpuscular Volume 91, Mean Corpuscular Hemoglobin 29.9, Mean Corpuscular Hemoglobin Concent 32.9, Red Cell Distribution Width 13.2, Platelet Count 247, Mean Platelet Volume 6.4L, Neutrophils (%) (Auto) 64.0, Lymphocytes ( %) (Auto) 14.8L, Monocytes (%) (Auto) 10.0, Eosinophils (%) (Auto) 10.3H, Basophils (%) (Auto) 0.9, Sodium Level 134L, Potassium Level 3.9, Chloride Level 100, Carbon Dioxide Level 22, Anion Gap 12, Blood Urea Nitrogen 36H, Creatinine 2.0H, Estimat Glomerular Filtration Rate , Glucose Level 150H, Calcium Level 8.8, Ferritin 239 Current Medications Medications (Trade) Dose Ordered Sig/Bipin Route PRN Reason Start Time Stop Time Status Last Admin Dose Admin Acetaminophen (Tylenol) 650 mg Q4H PRN ORAL Fever 12/15/18 17:30 01/11/19 17:29 Albuterol/ Ipratropium (Albuterol/ Ipratropium) 3 ml Q4H PRN HHN Shortness of Breath 12/15/18 17:30 12/20/18 17:29 Atorvastatin Calcium (Lipitor) 20 mg BEDTIME ORAL 12/15/18 21:00 01/12/19 20:59 12/15/18 21:31 Carvedilol (Coreg) 12.5 mg EVERY 12 HOURS ORAL 12/15/18 21:00 01/12/19 08:59 12/16/18 09:06 Dextrose (Dextrose 50%) 25 ml Q30M PRN IV Hypoglycemia 12/15/18 17:45 01/11/19 22:14 Dextrose (Dextrose 50%) 50 ml Q30M PRN IV Hypoglycemia 12/15/18 17:45 01/11/19 22:14 Dextrose/ Electrolytes 1,000 ml @ 75 mls/hr [id number] IV 12/16/18 16:00 01/15/19 15:59 Diphenhydramine HCl (Benadryl) 25 mg Q6H PRN IVP Itching 12/15/18 17:30 01/12/19 17:29 Furosemide (Lasix) 40 mg DAILY ORAL 12/16/18 09:00 01/15/19 08:59 12/16/18 09:06 Heparin Sodium (Porcine) (Heparin 5000 units/ml) 5,000 units EVERY 12 HOURS SUBQ 12/15/18 21:00 01/12/19 08:59 12/16/18 09:11 Insulin Aspart (NovoLOG) BEFORE MEALS AND HS SUBQ 12/15/18 21:00 01/12/19 06:29 12/16/18 11:37 Iron Sucrose 100 mg/Sodium Chloride 60 ml @ 240 mls/hr BEDTIME IV 12/16/18 21:00 12/18/18 21:14 Levothyroxine Sodium (Synthroid) 50 mcg ACBREAKFAST ORAL 12/16/18 06:30 01/14/19 06:29 12/16/18 06:18 Nateglinide (Starlix) 60 mg TIAC ORAL 12/16/18 11:30 01/15/19 11:29 12/16/18 11:42 Nifedipine (Procardia XL) 60 mg DAILY ORAL 12/16/18 09:00 01/12/19 08:59 12/16/18 09:05 Ondansetron HCl (Zofran) 4 mg Q6H PRN IVP Nausea & Vomiting 12/15/18 17:30 01/11/19 17:29 Polyethylene Glycol (Miralax) 17 gm DAILYPRN PRN ORAL Constipation 12/15/18 17:30 01/11/19 17:29 Promethazine HCl/ Codeine (Phenergan with Codeine) 5 ml Q4H PRN ORAL For Cough 12/15/18 17:30 01/12/19 17:29 Temazepam (Restoril) 15 mg HSPRN PRN ORAL Insomnia 12/15/18 17:30 12/19/18 17:29 Velma Cordova MD Dec 16, 2018 15:19
--- NOTE | 2018-12-16 15:25 | Consultation ---
Consult Note Consult Note aske nathalyo joseluisal for rising Cr daughter in the room, translates This patient presents with difficulty breathing. The patient was recently admitted to [facility] for congestive heart failure, hyponatremia and anemia. This patient presents today because she has had shortness of breath all day today. She denies cough or congestion. She denies fever or chills. She denies nausea or vomiting. She denies chest pain or abdominal pain. She has no other complaints. No Known Allergies (Unverified , 12/12/18) Past Medical History: see triage record, DM, HTN, CAD, CHF Social History: Denies: smoking, alcohol use, drug use Reviewed Nursing Documentation: PMH: Agreed; PSxH: Agreed Hx Cardiac Problems: Yes - chf Hx Hypertension: Yes Hx Diabetes: Yes patient interviewed examined data reviewed . Assessment/Plan Acute on Chronic Renal Failure- Long h/o DM , HTN Collapse of left lung, resolved Symptomatic anemia Hyponatremia Hypothyroidism CHF, DIastolic dysfunction, bilateral pleural effusion CAD, s/p Stent Adjust BP meds 3% Saline monitor renal parameters avoid Nephrotoxics per orders Elio Gillespie MD Dec 16, 2018 15:25
[2018-12-16] MEDS ORDERED: D5 1/2NS w/KCl 20mEq 1,000 ML IV SCH (16:00)
[2018-12-16] MEDS ORDERED: NaCl 3% 500ml 500 ML IV ONE (16:00)
--- NOTE | 2018-12-16 19:00 | NUR ---
NURSE NOTES: QUIET IN BED. IN NO DISTRESS. NPO PMN FOR COLONOSCOPY IN AM.
--- NOTE | 2018-12-16 19:12 | NUR ---
HAND-OFF: Report given to Lydia BANEGAS RN.
--- NOTE | 2018-12-16 20:30 | NUR ---
NURSE NOTES: PATIENT IN BED, AWAKE AND ALERT. IV IN PLACE, PATENT. NO COMPLAINTS OF PAIN. NO S/S DISTRESS NOTED. PATIENT REQUESTED FOR BLOOD SUGAR TO BE CHECKED AND RESULT WAS 54. PATIENT WAS GIVEN 2 CUPS OF JUICE. AFTER AROUND 15 MINUTES, BLOOD SUGAR WAS RECHECKED AND RESULT WAS 143. CALLED AND LEFT MESSAGE FOR DR. SHERIDAN. FAMILY AT BEDSIDE. BED IN LOWEST POSITION, CALL LIGHT WITHIN REACH. PATIENT ALMOST DONE WITH BOWEL PREP AND AWARE OF NPO STATUS AT MIDNIGHT. WILL CONTINUE TO MONITOR.
--- NOTE | 2018-12-16 22:00 | NUR ---
NURSE NOTES: IV ACCESS ON LEFT ANTECUBITAL 18 GAUGE, PER PATIENT BECAME TENDER TO TOUCH AND A LITTLE PAINFUL. IV ACCESS WAS REMOVED. ICE PACK PUT ON SITE. NEW IV ACCESS LEFT HAND 24 GAUGE, PATENT.
[2018-12-16] MEDS: Atorvastatin 20mg tab ORAL SCH (22:18)
[2018-12-16] MEDS: Iron Sucrose 100 MG in NS 55 ML IV SCH (22:50)
--- NOTE | 2018-12-16 23:00 | NUR ---
NURSE NOTES: PATIENT FINISHED BOWEL PREP - NULYTELY BOTTLE.
[2018-12-16] MEDS: HydrALAZINE 25mg tab ORAL SCH (23:42)
[2018-12-17] VITALS (10 sets, daily range): BP systolic 132–186; BP diastolic 52–71
[2018-12-17] MEDS: Nateglinide 60mg tab ORAL SCH ×3 (06:30→17:00)
[2018-12-17] MEDS: HydrALAZINE 25mg tab ORAL SCH ×3 (06:37→21:39)
[2018-12-17] MEDS: NovoLOG Insulin Flexpen SUBQ SCH ×4 (06:38→21:42)
--- NOTE | 2018-12-17 06:44 | General Progress Note ---
Assessment/Plan Problem List: (1) Diabetes mellitus ICD Codes: E11.9 - Type 2 diabetes mellitus without complications SNOMED: 36318607 (2) Hypothyroidism ICD Codes: E03.9 - Hypothyroidism, unspecified SNOMED: 07507073 (3) CHF exacerbation ICD Codes: I50.9 - Heart failure, unspecified SNOMED: 36970615 Assessment/Plan add Levemir 8 units qhs continue Starlix 60 mg ac tid continue NISS ac / hs continue LT4 50 mcg daily Subjective Allergies: Coded Allergies: No Known Allergies (Unverified , 12/12/18) All Systems: reviewed and negative except above Subjective events noted NPO for colonoscopy today am glucose is elevated Item Value Date Time Bedside Blood Glucose 310 mg/dl H 12/17/18 0638 Bedside Blood Glucose 143 mg/dl H 12/16/18 1953 Bedside Blood Glucose 127 mg/dl H 12/16/18 1649 Bedside Blood Glucose 254 mg/dl H 12/16/18 1137 Bedside Blood Glucose 177 mg/dl H 12/16/18 0622 Objective Last 24 Hour Vital Signs Date Time Temp Pulse Resp B/P (MAP) Pulse Ox O2 Delivery O2 Flow Rate FiO2 12/17/18 06:37 158/56 12/17/18 04:00 98.7 75 18 165/63 (97) 94 12/16/18 23:42 130/56 12/16/18 23:42 97.9 65 18 130/56 (80) 99 12/16/18 22:17 64 153/90 12/16/18 21:00 Nasal Cannula 2.0 12/16/18 20:35 98.0 64 18 153/90 (111) 97 12/16/18 20:32 Nasal Cannula 2.0 28 12/16/18 20:31 94 Nasal Cannula 2.0 28 12/16/18 16:00 97.4 97 18 176/70 (105) 12/16/18 12:00 97.9 95 18 120/67 (84) 100 12/16/18 09:06 71 155/54 12/16/18 09:05 71 155/54 12/16/18 09:00 Nasal Cannula 2.0 12/16/18 08:00 98.1 71 18 155/54 (87) 97 12/16/18 07:50 Room Air 21 12/16/18 07:50 95 Room Air 21 Intake and Output 12/16/18 12/17/18 19:00 07:00 Intake Total 90 ml 840 ml Balance 90 ml 840 ml Intake Oral 600 ml IV Total 90 ml 240 ml # Voids 6 # Bowel Movements 4 1 Laboratory Tests 12/16/18 16:35: Stool Occult Blood [Pending] Height (Feet): 5 Height (Inches): 5.00 Weight (Pounds): 164 General Appearance: no apparent distress Neck: normal alignment Cardiovascular: normal rate Respiratory/Chest: lungs clear Abdomen: normal bowel sounds Objective Current Medications Medications (Trade) Dose Ordered Sig/Bipin Route PRN Reason Start Time Stop Time Status Last Admin Dose Admin Acetaminophen (Tylenol) 650 mg Q4H PRN ORAL Fever 12/15/18 17:30 01/11/19 17:29 Albuterol/ Ipratropium (Albuterol/ Ipratropium) 3 ml Q4H PRN HHN Shortness of Breath 12/15/18 17:30 12/20/18 17:29 Amlodipine Besylate (Norvasc) 10 mg DAILY ORAL 12/17/18 09:00 01/16/19 08:59 Atorvastatin Calcium (Lipitor) 20 mg BEDTIME ORAL 12/15/18 21:00 01/12/19 20:59 12/16/18 22:18 Carvedilol (Coreg) 12.5 mg EVERY 12 HOURS ORAL 12/15/18 21:00 01/12/19 08:59 12/16/18 22:17 Dextrose (Dextrose 50%) 25 ml Q30M PRN IV Hypoglycemia 12/15/18 17:45 01/11/19 22:14 Dextrose (Dextrose 50%) 50 ml Q30M PRN IV Hypoglycemia 12/15/18 17:45 01/11/19 22:14 Diphenhydramine HCl (Benadryl) 25 mg Q6H PRN IVP Itching 12/15/18 17:30 01/12/19 17:29 Furosemide (Lasix) 40 mg DAILY ORAL 12/16/18 09:00 01/15/19 08:59 12/16/18 09:06 Heparin Sodium (Porcine) (Heparin 5000 units/ml) 5,000 units EVERY 12 HOURS SUBQ 12/15/18 21:00 01/12/19 08:59 12/16/18 09:11 Hydralazine HCl (Apresoline) 12.5 mg Q8HR ORAL 12/16/18 22:00 01/15/19 21:59 12/17/18 06:37 Insulin Aspart (NovoLOG) BEFORE MEALS AND HS SUBQ 12/15/18 21:00 01/12/19 06:29 12/17/18 06:38 Iron Sucrose 100 mg/Sodium Chloride 60 ml @ 240 mls/hr BEDTIME IV 12/16/18 21:00 12/18/18 21:14 12/16/18 22:50 Levothyroxine Sodium (Synthroid) 50 mcg ACBREAKFAST ORAL 12/16/18 06:30 01/14/19 06:29 12/17/18 06:36 Nateglinide (Starlix) 60 mg TIAC ORAL 12/16/18 11:30 01/15/19 11:29 12/16/18 16:45 Ondansetron HCl (Zofran) 4 mg Q6H PRN IVP Nausea & Vomiting 12/15/18 17:30 01/11/19 17:29 Pantoprazole (Protonix) 40 mg EVERY 12 HOURS ORAL 12/16/18 21:00 01/15/19 20:59 12/16/18 22:18 Polyethylene Glycol (Miralax) 17 gm DAILYPRN PRN ORAL Constipation 12/15/18 17:30 01/11/19 17:29 Promethazine HCl/ Codeine (Phenergan with Codeine) 5 ml Q4H PRN ORAL For Cough 12/15/18 17:30 01/12/19 17:29 Sodium Chloride 500 ml @ 30 mls/hr ONCE ONCE IV 12/16/18 16:00 12/17/18 08:39 12/16/18 15:53 Temazepam (Restoril) 15 mg HSPRN PRN ORAL Insomnia 12/15/18 17:30 12/19/18 17:29 Shaji Garcia MD Dec 17, 2018 06:44
--- NOTE | 2018-12-17 06:53 | NUR ---
NURSE NOTES: PATIENT'S BLOOD SUGAR WAS 310. CALLED AND NOTIFIED DR. SHERIDAN THAT PATIENT HAS BEEN NPO FOR COLONOSCOPY AND CLARIFIED STARLIX. DR. SHERIDAN SAID OKAY TO GIVE NOVOLOG COVERAGE AND TO HOLD STARLIX MEDICATION. CHARGE NURSE AWARE.
[2018-12-17 07:21] LABS: BASOPHILS % (AUTO) 1.1 % (0.0-2.0); EOSINOPHILS % (AUTO) 4.5 % (0.0-3.0); HEMOGLOBIN 8.6 G/DL (12.0-16.0); LYMPHOCYTES % (AUTO) 8.6 % (20.0-45.0); MEAN CORPUSCULAR VOLUME 93 FL (80-99); MONOCYTES % (AUTO) 8.1 % (1.0-10.0); NEUTROPHILS % (AUTO) 77.7 % (45.0-75.0); PLATELET COUNT 243 K/UL (150-450); RED BLOOD COUNT 2.89 M/UL (4.20-5.40); RED CELL DISTRIBUTION WIDTH 13.5 % (11.6-14.8); WHITE BLOOD COUNT 7.3 K/UL (4.8-10.8)
--- NOTE | 2018-12-17 07:29 | NUR ---
HAND-OFF: Report given to LISA TUCKER RN. ENDORSED TO AM NURSE THAT PATIENT HAD CLEAR BOWEL UNTIL SHE WENT TO THE BATHROOM AT AROUND 0630 AND PATIENT STATED THAT HER BOWEL WAS A RED COLOR AND SHE THINKS IT WAS THE JELLO SHE HAD EATEN BEFORE. WHEN THE NURSE ASKED TO SEE, PATIENT STATED THAT SHE FLUSHED THE TOILET. NURSE REPEATED THAT NEXT TIME PATIENT HAS A BOWEL MOVEMENT TO NOTIFY THE NURSE, PATIENT VERBALIZED UNDERSTADING.
[2018-12-17 07:45] LABS: ALANINE AMINOTRANSFERASE 15 U/L (12-78); ALBUMIN/GLOBULIN RATIO 0.8 (1.0-2.7); ALKALINE PHOSPHATASE 96 U/L (46-116); ANION GAP 14 mmol/L (5-15); ASPARTATE AMINO TRANSFERASE 18 U/L (15-37); BILIRUBIN,TOTAL 0.4 MG/DL (0.2-1.0); BLOOD UREA NITROGEN 38 mg/dL (7-18); CALCIUM 8.8 MG/DL (8.5-10.1); CARBON DIOXIDE 19 MMOL/L (21-32); CHLORIDE 103 MMOL/L (98-107); CHOLESTEROL 185 MG/DL (< 200); CREATININE 1.9 MG/DL (0.55-1.30); HDL CHOLESTEROL 80 MG/DL (40-60); SODIUM 136 MMOL/L (136-145); TRIGLYCERIDES 54 MG/DL (30-150)
[2018-12-17 08:00] LABS: CREATINE KINASE 143 U/L (26-308); GAMMA GLUTAMYL TRANSPEPTIDASE 21 U/L (5-85)
[2018-12-17 08:02] LABS: PHOSPHORUS 4.3 MG/DL (2.5-4.9)
--- NOTE | 2018-12-17 08:09 | NUR ---
NURSE NOTES: Patient is alert and oriented X4. Patient is NPO for procedure today. Patient has no reports of discomfort at the moment. Daughter is at bedside. Patient is resting in bed. Side rails are up X2, bed is locked, in lowest position, and call light is within reach. Will continue to monitor.
[2018-12-17] MEDS: Heparin 5000 units/ml inj SUBQ SCH ×2 (09:00→21:43)
[2018-12-17] MEDS: Carvedilol 12.5mg tab ORAL SCH ×2 (09:00→21:38)
[2018-12-17] MEDS: Furosemide 40mg tab ORAL SCH (09:00)
--- NOTE | 2018-12-17 09:02 | NUR ---
NURSE NOTES: GI REGISTERED OCCUPATIONAL THERAPIST contacted to inquire whether to give AM PO medications. Per REGISTERED OCCUPATIONAL THERAPIST no PO medications 2 hours prior to procedure. Will hold medications.
[2018-12-17] MEDS ORDERED: Propofol 200mg/20ml IV ONE (11:00)
[2018-12-17] MEDS ORDERED: fentaNYL 100 mcg/2 mL IV ONE (11:00)
--- NOTE | 2018-12-17 11:12 | Pre-Procedure Note/Attestation ---
Pre-Procedure Note/Attestation Complete Prior to Procedure Planned Procedure: not applicable Procedure Narrative: colonoscopy Indications for Procedure Pre-Operative Diagnosis: anemia Attestation I attest that I discussed the nature of the procedure; its benefits; risks and complications; and alternatives (and the risks and benefits of such alternatives ), prior to the procedure, with the patient (or the patient's legal labor representative). I attest that, if there was a reasonable possibility of needing a blood transfusion, the patient (or the patient's legal labor representative) was given the [facility] standardized written summary, pursuant to the Dex Ninfa Blood Safety Act ([place] Health and Safety Code # 1645, as amended). I attest that I re-evaluated the patient just prior to the surgery and that there has been no change in the patient's H&P, except as documented below: Bernardo Hernandez MD Dec 17, 2018 11:12
[2018-12-17] MEDS ORDERED: NS 500ML IVPB ONE (11:15)
--- NOTE | 2018-12-17 11:50 | Endoscopy Procedure Note ---
Endoscopy Procedure Note General Indication for Procedure: anemia Procedures Performed: colonoscopy Operative Findings/Diagnosis: 5 polyps Specimen: yes Pt Tolerated Procedure Well: Yes Estimated Blood Loss: none Anesthesia Anesthesiologist: ramirez Anesthesia: MAC Inserted Devices Implant(s) used?: No GI Core Measures 50 yrs or older w/o bx or poly: Not Applicable 10yrs. F/U not recommended: Not Applicable Bernardo Hernandez MD Dec 17, 2018 11:50
--- NOTE | 2018-12-17 11:54 | Immediate Post-Op Evaluation ---
Immediate Post-Op Evalulation Immediate Post-Op Evalulation Procedure: Colonoscopy Date of Evaluation: Dec 17, 2018 Time of Evaluation: 11:53 IV Fluids: 300 Blood Products: none Estimated Blood Loss: none Urinary Output: none Blood Pressure Systolic: 165 Blood Pressure Diastolic: 72 Pulse Rate: 74 Respiratory Rate: 20 O2 Sat by Pulse Oximetry: 98 Temperature (Fahrenheit): 98.3 Pain Score (1-10): 1 Nausea: No Vomiting: No Complications none Patient Status: reacts, patent, none Hydration Status: adequate Jl Juan MD Dec 17, 2018 11:54
--- NOTE | 2018-12-17 13:23 | NUR ---
NURSE NOTES: Patient returned to unit s/p procedure. No reports of pain. BP elevated scheduled BP medication given. Will continue to monitor.
--- NOTE | 2018-12-17 13:31 | General Progress Note ---
Assessment/Plan Problem List: (1) UTI (urinary tract infection) ICD Codes: N39.0 - Urinary tract infection, site not specified SNOMED: 63041940 (2) HTN (hypertension) ICD Codes: I10 - Essential (primary) hypertension SNOMED: 70911582 (3) CHF exacerbation ICD Codes: I50.9 - Heart failure, unspecified SNOMED: 81307522 (4) Hyponatremia ICD Codes: E87.1 - Hypo-osmolality and hyponatremia SNOMED: 84123423 (5) Diabetes mellitus ICD Codes: E11.9 - Type 2 diabetes mellitus without complications SNOMED: 24107570 (6) Anemia ICD Codes: D64.9 - Anemia, unspecified SNOMED: 552131851 Status: unchanged Assessment/Plan o2 pulm tx abx pt diet cbc bmp am dc plan if clear Subjective Allergies: Coded Allergies: No Known Allergies (Unverified , 12/12/18) All Systems: reviewed and negative except above Subjective sl sob Objective Last 24 Hour Vital Signs Date Time Temp Pulse Resp B/P (MAP) Pulse Ox O2 Delivery O2 Flow Rate FiO2 12/17/18 13:21 181/106 12/17/18 12:10 98.2 74 20 172/54 96 Nasal Cannula 3 12/17/18 12:00 74 21 166/52 97 Nasal Cannula 3 12/17/18 11:55 72 19 160/58 97 Nasal Cannula 3 12/17/18 11:54 74 20 98 12/17/18 11:51 98.6 74 22 165/58 97 Nasal Cannula 3 12/17/18 08:30 Nasal Cannula 2.0 12/17/18 08:00 98.3 83 18 132/57 (82) 99 12/17/18 06:45 96 Nasal Cannula 2.0 28 12/17/18 06:45 Nasal Cannula 2.0 28 12/17/18 06:37 158/56 12/17/18 06:30 81 158/56 (90) 12/17/18 04:00 98.7 75 18 165/63 (97) 94 12/16/18 23:42 130/56 12/16/18 23:42 97.9 65 18 130/56 (80) 99 12/16/18 22:17 64 153/90 12/16/18 21:00 Nasal Cannula 2.0 12/16/18 20:35 98.0 64 18 153/90 (111) 97 12/16/18 20:32 Nasal Cannula 2.0 28 12/16/18 20:31 94 Nasal Cannula 2.0 28 12/16/18 16:00 97.4 97 18 176/70 (105) Intake and Output 12/16/18 12/17/18 18:59 06:59 Intake Total 60 ml 960 ml Balance 60 ml 960 ml Intake Oral 600 ml IV Total 60 ml 360 ml # Voids 6 # Bowel Movements 4 1 Laboratory Tests 12/16/18 16:35: Stool Occult Blood Negative 12/17/18 05:25: White Blood Count 7.3, Red Blood Count 2.89L, Hemoglobin 8.6L, Hematocrit 27.0L , Mean Corpuscular Volume 93, Mean Corpuscular Hemoglobin 29.9, Mean Corpuscular Hemoglobin Concent 32.0, Red Cell Distribution Width 13.5, Platelet Count 243, Mean Platelet Volume 6.4L, Neutrophils (%) (Auto) 77.7H, Lymphocytes (%) (Auto) 8.6L, Monocytes (%) (Auto) 8.1, Eosinophils (%) (Auto) 4.5H, Basophils (%) (Auto) 1.1, Sodium Level 136, Potassium Level 4.0, Chloride Level 103, Carbon Dioxide Level 19L, Anion Gap 14, Blood Urea Nitrogen 38H, Creatinine 1.9H, Estimat Glomerular Filtration Rate , Glucose Level 285#H, Hemoglobin A1c 7.7H, Uric Acid 7.4H, Calcium Level 8.8, Phosphorus Level 4.3, Magnesium Level 1.9, Total Bilirubin 0.4, Gamma Glutamyl Transpeptidase 21, Aspartate Amino Transf (AST/SGOT) 18, Alanine Aminotransferase (ALT/SGPT) 15, Alkaline Phosphatase 96, Total Creatine Kinase 143, C-Reactive Protein, Quantitative 3.3H, Pro-B-Type Natriuretic Peptide 3625H, Total Protein 7.0, Albumin 3.0L, Globulin 4.0, Albumin/Globulin Ratio 0.8L, Triglycerides Level 54 , Cholesterol Level 185, LDL Cholesterol 88, HDL Cholesterol 80H, Cholesterol/ HDL Ratio 2.3L Height (Feet): 5 Height (Inches): 5.00 Weight (Pounds): 165 General Appearance: lethargic EENT: normal ENT inspection Neck: normal alignment Cardiovascular: normal peripheral pulses, normal rate, regular rhythm Respiratory/Chest: chest wall non-tender, decreased breath sounds Abdomen: normal bowel sounds, non tender, soft Extremities: normal inspection Edema: no edema noted Arm (L), no edema noted Arm (R), no edema noted Leg (L), no edema noted Leg (R), no edema noted Pedal (L), no edema noted Pedal (R), no edema noted Generalized Neurologic: motor weakness Skin: normal pigmentation, warm/dry Andrei Campuzano DO Dec 17, 2018 13:31
--- NOTE | 2018-12-17 13:58 | NUR ---
RD ASSESSMENT & RECOMMENDATIONS SEE CARE ACTIVITY FOR COMPLETE ASSESSMENT DAILY ESTIMATED NEEDS: Needs based on DM, cardiac 61kg adj 25-30 kcals/kg 2385-2840 total kcals 1-1.5 g protein/kg 61-92 g total protein Fluid per MD, on lasix NUTRITION DIAGNOSIS: 1) Decreased sodium needs r/t cardiac history and clinical status as evidenced by pt w/ CHF, HTN, BL LE edema, on lasix, w/ elev BP(181/106). 2) Altered nutrition related lab values r/t diabetes as evidenced by pt w/ A1C 7.7, w/ elev BG. CURRENT DIET: Now Regular, s/p colonoscopy PO DIET RECOMMENDATIONS: LOW NA/ CCHO LOW ADDITIONAL RECOMMENDATIONS: 1) Obtain a standing weight daily 2) Add B-complex daily Monitor lytes, hydration status daily on lasix 3) Rec Diet change as above 4) monitor tolerance to diet
--- NOTE | 2018-12-17 13:59 | Pulmonology Progress Note ---
Assessment/Plan Problems: (1) Collapse of left lung (2) Symptomatic anemia (3) ATN (acute tubular necrosis) (4) Anemia (5) Hyponatremia (6) Diabetes mellitus (7) Hypothyroidism Assessment/Plan EGD done all reviewed all family members are at the bed site left lung opened up on lasix QD continue diuretics output is not being measured, watch bun/creatinine EGD done, Colonoscopy on monday anemia w/u in progress f/u electrolytes Subjective ROS Limited/Unobtainable: No Constitutional: Reports: no symptoms HEENT: Repors: no symptoms Respiratory: Reports: no symptoms Allergies: Coded Allergies: No Known Allergies (Unverified , 12/12/18) Objective Last 24 Hour Vital Signs Date Time Temp Pulse Resp B/P (MAP) Pulse Ox O2 Delivery O2 Flow Rate FiO2 12/17/18 13:21 181/106 12/17/18 12:10 98.2 74 20 172/54 96 Nasal Cannula 3 12/17/18 12:00 74 21 166/52 97 Nasal Cannula 3 12/17/18 11:55 72 19 160/58 97 Nasal Cannula 3 12/17/18 11:54 74 20 98 12/17/18 11:51 98.6 74 22 165/58 97 Nasal Cannula 3 12/17/18 08:30 Nasal Cannula 2.0 12/17/18 08:00 98.3 83 18 132/57 (82) 99 12/17/18 06:45 96 Nasal Cannula 2.0 28 12/17/18 06:45 Nasal Cannula 2.0 28 12/17/18 06:37 158/56 12/17/18 06:30 81 158/56 (90) 12/17/18 04:00 98.7 75 18 165/63 (97) 94 12/16/18 23:42 130/56 12/16/18 23:42 97.9 65 18 130/56 (80) 99 12/16/18 22:17 64 153/90 12/16/18 21:00 Nasal Cannula 2.0 12/16/18 20:35 98.0 64 18 153/90 (111) 97 12/16/18 20:32 Nasal Cannula 2.0 28 12/16/18 20:31 94 Nasal Cannula 2.0 28 12/16/18 16:00 97.4 97 18 176/70 (105) Intake and Output 12/16/18 12/17/18 18:59 06:59 Intake Total 60 ml 960 ml Balance 60 ml 960 ml Intake Oral 600 ml IV Total 60 ml 360 ml # Voids 6 # Bowel Movements 4 1 Objective General Appearance: WD/WN HEENT: normocephalic, atraumatic Respiratory/Chest: chest wall non-tender, lungs clear Breasts: no masses Cardiovascular: normal rate Abdomen: normal bowel sounds, soft, non tender Neurologic/Psychiatric: registered clinical dietitian II-XII grossly normal Laboratory Tests 12/16/18 16:35: Stool Occult Blood Negative 12/17/18 05:25: White Blood Count 7.3, Red Blood Count 2.89L, Hemoglobin 8.6L, Hematocrit 27.0L , Mean Corpuscular Volume 93, Mean Corpuscular Hemoglobin 29.9, Mean Corpuscular Hemoglobin Concent 32.0, Red Cell Distribution Width 13.5, Platelet Count 243, Mean Platelet Volume 6.4L, Neutrophils (%) (Auto) 77.7H, Lymphocytes (%) (Auto) 8.6L, Monocytes (%) (Auto) 8.1, Eosinophils (%) (Auto) 4.5H, Basophils (%) (Auto) 1.1, Sodium Level 136, Potassium Level 4.0, Chloride Level 103, Carbon Dioxide Level 19L, Anion Gap 14, Blood Urea Nitrogen 38H, Creatinine 1.9H, Estimat Glomerular Filtration Rate , Glucose Level 285#H, Hemoglobin A1c 7.7H, Uric Acid 7.4H, Calcium Level 8.8, Phosphorus Level 4.3, Magnesium Level 1.9, Total Bilirubin 0.4, Gamma Glutamyl Transpeptidase 21, Aspartate Amino Transf (AST/SGOT) 18, Alanine Aminotransferase (ALT/SGPT) 15, Alkaline Phosphatase 96, Total Creatine Kinase 143, C-Reactive Protein, Quantitative 3.3H, Pro-B-Type Natriuretic Peptide 3625H, Total Protein 7.0, Albumin 3.0L, Globulin 4.0, Albumin/Globulin Ratio 0.8L, Triglycerides Level 54 , Cholesterol Level 185, LDL Cholesterol 88, HDL Cholesterol 80H, Cholesterol/ HDL Ratio 2.3L Current Medications Medications (Trade) Dose Ordered Sig/Bipin Route PRN Reason Start Time Stop Time Status Last Admin Dose Admin Acetaminophen (Tylenol) 650 mg Q4H PRN ORAL Fever 12/15/18 17:30 3/29/19 17:29 Albuterol/ Ipratropium (Albuterol/ Ipratropium) 3 ml Q4H PRN HHN Shortness of Breath 12/15/18 17:30 12/20/18 17:29 Amlodipine Besylate (Norvasc) 10 mg DAILY ORAL 12/17/18 09:00 01/16/19 08:59 Atorvastatin Calcium (Lipitor) 20 mg BEDTIME ORAL 12/15/18 21:00 01/12/19 20:59 12/16/18 22:18 Carvedilol (Coreg) 12.5 mg EVERY 12 HOURS ORAL 12/15/18 21:00 01/12/19 08:59 12/16/18 22:17 Dextrose (Dextrose 50%) 25 ml Q30M PRN IV Hypoglycemia 12/17/18 06:45 01/16/19 06:44 Dextrose (Dextrose 50%) 50 ml Q30M PRN IV Hypoglycemia 12/17/18 06:45 01/16/19 06:44 Diphenhydramine HCl (Benadryl) 25 mg Q6H PRN IVP Itching 12/15/18 17:30 01/12/19 17:29 Furosemide (Lasix) 40 mg DAILY ORAL 12/16/18 09:00 01/15/19 08:59 12/16/18 09:06 Heparin Sodium (Porcine) (Heparin 5000 units/ml) 5,000 units EVERY 12 HOURS SUBQ 12/15/18 21:00 01/12/19 08:59 12/16/18 09:11 Hydralazine HCl (Apresoline) 12.5 mg Q8HR ORAL 12/16/18 22:00 01/15/19 21:59 12/17/18 13:21 Insulin Aspart (NovoLOG) BEFORE MEALS AND HS SUBQ 12/15/18 21:00 01/12/19 06:29 12/17/18 06:38 Insulin Detemir (Levemir) 8 units BEDTIME SUBQ 12/17/18 21:00 01/16/19 20:59 Iron Sucrose 100 mg/Sodium Chloride 60 ml @ 240 mls/hr BEDTIME IV 12/16/18 21:00 12/18/18 21:14 12/16/18 22:50 Levothyroxine Sodium (Synthroid) 50 mcg ACBREAKFAST ORAL 12/16/18 06:30 01/14/19 06:29 12/17/18 06:36 Nateglinide (Starlix) 60 mg TIAC ORAL 12/16/18 11:30 01/15/19 11:29 12/16/18 16:45 Ondansetron HCl (Zofran) 4 mg Q6H PRN IVP Nausea & Vomiting 12/15/18 17:30 01/11/19 17:29 Pantoprazole (Protonix) 40 mg EVERY 12 HOURS ORAL 12/16/18 21:00 01/15/19 20:59 12/16/18 22:18 Polyethylene Glycol (Miralax) 17 gm DAILYPRN PRN ORAL Constipation 12/15/18 17:30 01/11/19 17:29 Promethazine HCl/ Codeine (Phenergan with Codeine) 5 ml Q4H PRN ORAL For Cough 12/15/18 17:30 01/12/19 17:29 Temazepam (Restoril) 15 mg HSPRN PRN ORAL Insomnia 12/15/18 17:30 12/19/18 17:29 Velma Cordova MD Dec 17, 2018 13:59
--- NOTE | 2018-12-17 14:53 | NUR ---
DISCHARGE PLANNING PLAN IS TO DISCHARGE HOME IF CLEARED BY [employer] AND [employer] SENIOR INSTRUMENTATION ENGINEER FAXED REFERRAL TO [facility] T: [phone] F: [phone]
--- NOTE | 2018-12-17 15:17 | Infectious Diseases Prog Note ---
Assessment/Plan Assessment/Plan Assessment: Dyspnea- no obvious PNA on CXR -CXR: Complete opacification of the left hemithorax, presumably on the basis of complete left lung atelectasis Afebrile No leukocytosis -u.a no pyuria L lung collapse; SP -12/14 CXR: Interim apparently complete reexpansion of previously atelectatic left lung. Cardiomegaly. Suspect mild interstitial congestion and small bilateral pleural effusion Negatives : Flu Sc , C Diff Anemia -12/14 SP EGD: gastritis Hyponatremia DM2 HTN CAD CHF Plan:\ -Continue to monitor off abx unless febrile, leukocytosis -Monitor CBC/CMP, temperatures -aspiration precautions -pulm f/u -GI f/u: Subjective Allergies: Coded Allergies: No Known Allergies (Unverified , 12/12/18) Subjective afebrile no leukocytosis off abx Objective Vital Signs Last 24 Hour Vital Signs Date Time Temp Pulse Resp B/P (MAP) Pulse Ox O2 Delivery O2 Flow Rate FiO2 12/17/18 13:21 181/106 12/17/18 12:10 98.2 74 20 172/54 96 Nasal Cannula 3 12/17/18 12:00 74 21 166/52 97 Nasal Cannula 3 12/17/18 11:55 72 19 160/58 97 Nasal Cannula 3 12/17/18 11:54 74 20 98 12/17/18 11:51 98.6 74 22 165/58 97 Nasal Cannula 3 12/17/18 08:30 Nasal Cannula 2.0 12/17/18 08:00 98.3 83 18 132/57 (82) 99 12/17/18 06:45 96 Nasal Cannula 2.0 28 12/17/18 06:45 Nasal Cannula 2.0 28 12/17/18 06:37 158/56 12/17/18 06:30 81 158/56 (90) 12/17/18 04:00 98.7 75 18 165/63 (97) 94 12/16/18 23:42 130/56 12/16/18 23:42 97.9 65 18 130/56 (80) 99 12/16/18 22:17 64 153/90 12/16/18 21:00 Nasal Cannula 2.0 12/16/18 20:35 98.0 64 18 153/90 (111) 97 12/16/18 20:32 Nasal Cannula 2.0 28 12/16/18 20:31 94 Nasal Cannula 2.0 28 12/16/18 16:00 97.4 97 18 176/70 (105) Height (Feet): 5 Height (Inches): 5.00 Weight (Pounds): 165 Objective General Appearance: WD/WN Lines, tubes and drains: peripheral HEENT: normocephalic, atraumatic Neck: non-tender, normal alignment Respiratory/Chest: chest wall non-tender, lungs clear, decreased breath sounds - at left Cardiovascular/Chest: normal peripheral pulses, normal rate Abdomen: non tender, no organomegaly Genitourinary/Rectal: normal genital exam Laboratory Tests Test 12/16/18 16:35 12/17/18 05:25 Stool Occult Blood Negative (NEGATIVE) White Blood Count 7.3 K/UL (4.8-10.8) Red Blood Count 2.89 M/UL (4.20-5.40) L Hemoglobin 8.6 G/DL (12.0-16.0) L Hematocrit 27.0 % (37.0-47.0) L Mean Corpuscular Volume 93 FL (80-99) Mean Corpuscular Hemoglobin 29.9 PG (27.0-31.0) Mean Corpuscular Hemoglobin Concent 32.0 G/DL (32.0-36.0) Red Cell Distribution Width 13.5 % (11.6-14.8) Platelet Count 243 K/UL (150-450) Mean Platelet Volume 6.4 FL (6.5-10.1) L Neutrophils (%) (Auto) 77.7 % (45.0-75.0) H Lymphocytes (%) (Auto) 8.6 % (20.0-45.0) L Monocytes (%) (Auto) 8.1 % (1.0-10.0) Eosinophils (%) (Auto) 4.5 % (0.0-3.0) H Basophils (%) (Auto) 1.1 % (0.0-2.0) Sodium Level 136 MMOL/L (136-145) Potassium Level 4.0 MMOL/L (3.5-5.1) Chloride Level 103 MMOL/L (98-107) Carbon Dioxide Level 19 MMOL/L (21-32) L Anion Gap 14 mmol/L (5-15) Blood Urea Nitrogen 38 mg/dL (7-18) H Creatinine 1.9 MG/DL (0.55-1.30) H Estimat Glomerular Filtration Rate mL/min (>60) Glucose Level 285 MG/DL (74-106) #H Hemoglobin A1c 7.7 % (4.3-6.0) H Uric Acid 7.4 MG/DL (2.6-7.2) H Calcium Level 8.8 MG/DL (8.5-10.1) Phosphorus Level 4.3 MG/DL (2.5-4.9) Magnesium Level 1.9 MG/DL (1.8-2.4) Total Bilirubin 0.4 MG/DL (0.2-1.0) Gamma Glutamyl Transpeptidase 21 U/L (5-85) Aspartate Amino Transf (AST/SGOT) 18 U/L (15-37) Alanine Aminotransferase (ALT/SGPT) 15 U/L (12-78) Alkaline Phosphatase 96 U/L (46-116) Total Creatine Kinase 143 U/L (26-308) C-Reactive Protein, Quantitative 3.3 mg/dL (0.00-0.90) H Pro-B-Type Natriuretic Peptide 3625 pg/mL (0-125) H Total Protein 7.0 G/DL (6.4-8.2) Albumin 3.0 G/DL (3.4-5.0) L Globulin 4.0 g/dL Albumin/Globulin Ratio 0.8 (1.0-2.7) L Triglycerides Level 54 MG/DL (30-150) Cholesterol Level 185 MG/DL (< 200) LDL Cholesterol 88 mg/dL (<100) HDL Cholesterol 80 MG/DL (40-60) H Cholesterol/HDL Ratio 2.3 (3.3-4.4) L Current Medications Medications (Trade) Dose Ordered Sig/Bipin Route PRN Reason Start Time Stop Time Status Last Admin Dose Admin Acetaminophen (Tylenol) 650 mg Q4H PRN ORAL Fever 12/15/18 17:30 01/11/19 17:29 Albuterol/ Ipratropium (Albuterol/ Ipratropium) 3 ml Q4H PRN HHN Shortness of Breath 12/15/18 17:30 12/20/18 17:29 Amlodipine Besylate (Norvasc) 10 mg DAILY ORAL 12/17/18 09:00 01/16/19 08:59 Atorvastatin Calcium (Lipitor) 20 mg BEDTIME ORAL 12/15/18 21:00 01/12/19 20:59 12/16/18 22:18 Carvedilol (Coreg) 12.5 mg EVERY 12 HOURS ORAL 12/15/18 21:00 01/12/19 08:59 12/16/18 22:17 Dextrose (Dextrose 50%) 25 ml Q30M PRN IV Hypoglycemia 12/17/18 06:45 01/16/19 06:44 Dextrose (Dextrose 50%) 50 ml Q30M PRN IV Hypoglycemia 12/17/18 06:45 01/16/19 06:44 Diphenhydramine HCl (Benadryl) 25 mg Q6H PRN IVP Itching 12/15/18 17:30 01/12/19 17:29 Furosemide (Lasix) 40 mg DAILY ORAL 12/16/18 09:00 01/15/19 08:59 12/16/18 09:06 Heparin Sodium (Porcine) (Heparin 5000 units/ml) 5,000 units EVERY 12 HOURS SUBQ 12/15/18 21:00 01/12/19 08:59 12/16/18 09:11 Hydralazine HCl (Apresoline) 12.5 mg Q8HR ORAL 12/16/18 22:00 01/15/19 21:59 12/17/18 13:21 Insulin Aspart (NovoLOG) BEFORE MEALS AND HS SUBQ 12/15/18 21:00 01/12/19 06:29 12/17/18 06:38 Insulin Detemir (Levemir) 8 units BEDTIME SUBQ 12/17/18 21:00 01/16/19 20:59 Iron Sucrose 100 mg/Sodium Chloride 60 ml @ 240 mls/hr BEDTIME IV 12/16/18 21:00 12/18/18 21:14 12/16/18 22:50 Levothyroxine Sodium (Synthroid) 50 mcg ACBREAKFAST ORAL 12/16/18 06:30 01/14/19 06:29 12/17/18 06:36 Nateglinide (Starlix) 60 mg TIAC ORAL 12/16/18 11:30 01/15/19 11:29 12/16/18 16:45 Ondansetron HCl (Zofran) 4 mg Q6H PRN IVP Nausea & Vomiting 12/15/18 17:30 01/11/19 17:29 Pantoprazole (Protonix) 40 mg EVERY 12 HOURS ORAL 12/16/18 21:00 01/15/19 20:59 12/16/18 22:18 Polyethylene Glycol (Miralax) 17 gm DAILYPRN PRN ORAL Constipation 12/15/18 17:30 01/11/19 17:29 Promethazine HCl/ Codeine (Phenergan with Codeine) 5 ml Q4H PRN ORAL For Cough 12/15/18 17:30 01/12/19 17:29 Temazepam (Restoril) 15 mg HSPRN PRN ORAL Insomnia 12/15/18 17:30 12/19/18 17:29 Yadira Brunson M.D. Dec 17, 2018 15:17
--- NOTE | 2018-12-17 15:36 | Nephrology Progress Note ---
Assessment/Plan Problem List: (1) Acute on chronic renal failure (2) Collapse of left lung (3) Diabetes mellitus (4) HTN (hypertension) (5) Hypothyroidism Assessment Acute on Chronic Renal Failure- Long h/o DM , HTN Collapse of left lung, resolved Symptomatic anemia Hyponatremia Hypothyroidism CHF, DIastolic dysfunction, bilateral pleural effusion CAD, s/p Stent Plan Adjust BP meds 3% Saline given once monitor renal parameters avoid Nephrotoxics per orders Subjective ROS Limited/Unobtainable: No Constitutional: Reports: malaise Objective Objective Last 24 Hour Vital Signs Date Time Temp Pulse Resp B/P (MAP) Pulse Ox O2 Delivery O2 Flow Rate FiO2 12/17/18 13:21 181/106 12/17/18 12:10 98.2 74 20 172/54 96 Nasal Cannula 3 12/17/18 12:00 74 21 166/52 97 Nasal Cannula 3 12/17/18 11:55 72 19 160/58 97 Nasal Cannula 3 12/17/18 11:54 74 20 98 12/17/18 11:51 98.6 74 22 165/58 97 Nasal Cannula 3 12/17/18 08:30 Nasal Cannula 2.0 12/17/18 08:00 98.3 83 18 132/57 (82) 99 12/17/18 06:45 96 Nasal Cannula 2.0 28 12/17/18 06:45 Nasal Cannula 2.0 28 12/17/18 06:37 158/56 12/17/18 06:30 81 158/56 (90) 12/17/18 04:00 98.7 75 18 165/63 (97) 94 12/16/18 23:42 130/56 12/16/18 23:42 97.9 65 18 130/56 (80) 99 12/16/18 22:17 64 153/90 12/16/18 21:00 Nasal Cannula 2.0 12/16/18 20:35 98.0 64 18 153/90 (111) 97 12/16/18 20:32 Nasal Cannula 2.0 28 12/16/18 20:31 94 Nasal Cannula 2.0 28 12/16/18 16:00 97.4 97 18 176/70 (105) Intake and Output 12/16/18 12/17/18 19:00 07:00 Intake Total 90 ml 930 ml Balance 90 ml 930 ml Intake Oral 600 ml IV Total 90 ml 330 ml # Voids 6 # Bowel Movements 4 1 Laboratory Tests 12/16/18 16:35: Stool Occult Blood Negative 12/17/18 05:25: White Blood Count 7.3, Red Blood Count 2.89L, Hemoglobin 8.6L, Hematocrit 27.0L , Mean Corpuscular Volume 93, Mean Corpuscular Hemoglobin 29.9, Mean Corpuscular Hemoglobin Concent 32.0, Red Cell Distribution Width 13.5, Platelet Count 243, Mean Platelet Volume 6.4L, Neutrophils (%) (Auto) 77.7H, Lymphocytes (%) (Auto) 8.6L, Monocytes (%) (Auto) 8.1, Eosinophils (%) (Auto) 4.5H, Basophils (%) (Auto) 1.1, Sodium Level 136, Potassium Level 4.0, Chloride Level 103, Carbon Dioxide Level 19L, Anion Gap 14, Blood Urea Nitrogen 38H, Creatinine 1.9H, Estimat Glomerular Filtration Rate , Glucose Level 285#H, Hemoglobin A1c 7.7H, Uric Acid 7.4H, Calcium Level 8.8, Phosphorus Level 4.3, Magnesium Level 1.9, Total Bilirubin 0.4, Gamma Glutamyl Transpeptidase 21, Aspartate Amino Transf (AST/SGOT) 18, Alanine Aminotransferase (ALT/SGPT) 15, Alkaline Phosphatase 96, Total Creatine Kinase 143, C-Reactive Protein, Quantitative 3.3H, Pro-B-Type Natriuretic Peptide 3625H, Total Protein 7.0, Albumin 3.0L, Globulin 4.0, Albumin/Globulin Ratio 0.8L, Triglycerides Level 54 , Cholesterol Level 185, LDL Cholesterol 88, HDL Cholesterol 80H, Cholesterol/ HDL Ratio 2.3L Height (Feet): 5 Height (Inches): 5.00 Weight (Pounds): 165 General Appearance: no apparent distress, lethargic Cardiovascular: normal rate Respiratory/Chest: decreased breath sounds Abdomen: soft Elio Gillespie MD Dec 17, 2018 15:36
--- NOTE | 2018-12-17 16:00 | Procedure Note ---
DATE OF PROCEDURE: 12/17/2018 SURGEON: Bernardo Hernandez M.D. PROCEDURE: Colonoscopy with biopsy. ANESTHESIA: Per Dr. Juan. INSTRUMENT: Olympus adult flexible colonoscope. INDICATION: Anemia. REASON FOR PROCEDURE: The procedure, risks, benefits, and possible consequences, including hemorrhage, aspiration, perforation and infection, and alternative treatments, were explained to the patient/legal guardian by Dr. Bernardo Hernandez and the patient/legal guardian understood and accepted these risks. DESCRIPTION OF PROCEDURE: After informed consent was obtained and the patient was adequately sedated, first rectal exam was performed, which was normal. Then, the scope was advanced from rectum into the cecum, documented by the appendix orifice, ileocecal valve, and right upper quadrant palpation. Quality of prep was fair. The patient had some red color food that she took yesterday, most probably red Jell-O that makes the examination very difficult because there was a lot of red color fluid in the cecum and in ascending colon. Examination of this area was very limited. The patient has evidence of diffuse melanosis coli. The patient had total of 5 polyps removed, 2 from ascending, 3 from transverse, all these polyps were small, maybe about 4 to 5 mm. All removed with the cold biopsy forceps technique. The patient had some scattered diverticulosis in the left colon. Retroflexion of the rectum showed evidence of internal hemorrhoids. SUMMARY OF FINDINGS: 1. Limited exam given the red color Jell-O material in the cecum and transverse colon. 2. Melanosis coli. 3. Five colonic polyps removed, see above for details. 4. Internal hemorrhoids. 5. Diverticulosis. RECOMMENDATIONS: 1. Follow up pathology. 2. We recommend repeat colonoscopy in three years. I want to thank, Dr. Andrei Campuzano for this kind referral. Bernardo Hernandez M.D. DR: REBECA JOB#: [id number] CC: Andrei Campuzano D.O.
--- NOTE | 2018-12-17 16:21 | NUR ---
NURSE NOTES: Patient BP has been elevated 181/66, 171/79. Dr. Cordova notified. New order received.
--- NOTE | 2018-12-17 17:03 | Cardiac Electrophysiology PN ---
Assessment/Plan Assessment/Plan 1. Congestive heart failure with BNP is more than 2100. Likely due to combination of diastolic dysfunction with EF 55% to 60% as well as severe anemia. On Lasix 40 po daily 2. Coronary artery disease with history of prior stent placement.On Coreg 12.5 mg bid and Lipitor 20 mg at bedtime. 3. Hypertension. On Coreg 12.5 mb bid, Norvasc 10 and Hydralazine 12.5 tid. Will increase to 25 tid daily. 4. Hypothyroidism, on Synthroid. 5. Severe anemia with hemoglobin around 6. S/P EGD by Dr. Hernandez. D WRN Subjective Subjective No CP or SOB or arrhythmias.BP running high. RN at bedside Objective Last 24 Hour Vital Signs Date Time Temp Pulse Resp B/P (MAP) Pulse Ox O2 Delivery O2 Flow Rate FiO2 12/17/18 16:14 186/71 12/17/18 16:00 98.7 85 19 186/71 (109) 93 12/17/18 13:21 181/106 12/17/18 12:10 98.2 74 20 172/54 96 Nasal Cannula 3 12/17/18 12:00 74 21 166/52 97 Nasal Cannula 3 12/17/18 11:55 72 19 160/58 97 Nasal Cannula 3 12/17/18 11:54 74 20 98 12/17/18 11:51 98.6 74 22 165/58 97 Nasal Cannula 3 12/17/18 08:30 Nasal Cannula 2.0 12/17/18 08:00 98.3 83 18 132/57 (82) 99 12/17/18 06:45 96 Nasal Cannula 2.0 28 12/17/18 06:45 Nasal Cannula 2.0 28 12/17/18 06:37 158/56 12/17/18 06:30 81 158/56 (90) 12/17/18 04:00 98.7 75 18 165/63 (97) 94 12/16/18 23:42 130/56 12/16/18 23:42 97.9 65 18 130/56 (80) 99 12/16/18 22:17 64 153/90 12/16/18 21:00 Nasal Cannula 2.0 12/16/18 20:35 98.0 64 18 153/90 (111) 97 12/16/18 20:32 Nasal Cannula 2.0 28 12/16/18 20:31 94 Nasal Cannula 2.0 28 Intake and Output 12/16/18 12/17/18 19:00 07:00 Intake Total 90 ml 930 ml Balance 90 ml 930 ml Intake Oral 600 ml IV Total 90 ml 330 ml # Voids 6 # Bowel Movements 4 1 Laboratory Tests Test 12/17/18 05:25 White Blood Count 7.3 K/UL (4.8-10.8) Red Blood Count 2.89 M/UL (4.20-5.40) L Hemoglobin 8.6 G/DL (12.0-16.0) L Hematocrit 27.0 % (37.0-47.0) L Mean Corpuscular Volume 93 FL (80-99) Mean Corpuscular Hemoglobin 29.9 PG (27.0-31.0) Mean Corpuscular Hemoglobin Concent 32.0 G/DL (32.0-36.0) Red Cell Distribution Width 13.5 % (11.6-14.8) Platelet Count 243 K/UL (150-450) Mean Platelet Volume 6.4 FL (6.5-10.1) L Neutrophils (%) (Auto) 77.7 % (45.0-75.0) H Lymphocytes (%) (Auto) 8.6 % (20.0-45.0) L Monocytes (%) (Auto) 8.1 % (1.0-10.0) Eosinophils (%) (Auto) 4.5 % (0.0-3.0) H Basophils (%) (Auto) 1.1 % (0.0-2.0) Sodium Level 136 MMOL/L (136-145) Potassium Level 4.0 MMOL/L (3.5-5.1) Chloride Level 103 MMOL/L (98-107) Carbon Dioxide Level 19 MMOL/L (21-32) L Anion Gap 14 mmol/L (5-15) Blood Urea Nitrogen 38 mg/dL (7-18) H Creatinine 1.9 MG/DL (0.55-1.30) H Estimat Glomerular Filtration Rate mL/min (>60) Glucose Level 285 MG/DL (74-106) #H Hemoglobin A1c 7.7 % (4.3-6.0) H Uric Acid 7.4 MG/DL (2.6-7.2) H Calcium Level 8.8 MG/DL (8.5-10.1) Phosphorus Level 4.3 MG/DL (2.5-4.9) Magnesium Level 1.9 MG/DL (1.8-2.4) Total Bilirubin 0.4 MG/DL (0.2-1.0) Gamma Glutamyl Transpeptidase 21 U/L (5-85) Aspartate Amino Transf (AST/SGOT) 18 U/L (15-37) Alanine Aminotransferase (ALT/SGPT) 15 U/L (12-78) Alkaline Phosphatase 96 U/L (46-116) Total Creatine Kinase 143 U/L (26-308) C-Reactive Protein, Quantitative 3.3 mg/dL (0.00-0.90) H Pro-B-Type Natriuretic Peptide 3625 pg/mL (0-125) H Total Protein 7.0 G/DL (6.4-8.2) Albumin 3.0 G/DL (3.4-5.0) L Globulin 4.0 g/dL Albumin/Globulin Ratio 0.8 (1.0-2.7) L Triglycerides Level 54 MG/DL (30-150) Cholesterol Level 185 MG/DL (< 200) LDL Cholesterol 88 mg/dL (<100) HDL Cholesterol 80 MG/DL (40-60) H Cholesterol/HDL Ratio 2.3 (3.3-4.4) L Objective HEAD AND NECK: No JVD. LUNGS: Clear. CARDIOVASCULAR: Regular S1 and S2 with no gallop. ABDOMEN: Soft. EXTREMITIES: 1+ pitting edema. Oscar Rivera MD Dec 17, 2018 17:03
--- NOTE | 2018-12-17 19:24 | NUR ---
HAND-OFF: Report given to ADRYAN Brunson.
--- NOTE | 2018-12-17 20:04 | NUR ---
CASE MANAGEMENT: REVIEW SI: COPD EXACERBATION T 98.7 HR 85 RR 19 BP 186/71 SAT 93% NC/3L H/H 8.6/27.0 BUN 38 CR 1.9 BNP 3625 IS: CLONIDINE PO Q8HR PRN NORVASC PO QD VENOFER IV QHS LASIX PO QD COREG PO Q12HR MED/SURG STATUS DCP: PATIENT IS FROM HOME
[2018-12-17] MEDS: Albuterol/Ipratropium 3ml neb HHN PRN (20:10)
--- NOTE | 2018-12-17 20:10 | NUR ---
NURSE NOTES: recvd pt. Pt is awake and alert lying comfortable in bed. AOX4. Pt is NC @ 2L with labored breathing while pt is at rest. Son is at bedside. Bed in lowest position, call light within reach, siderails x2, will continue with plan of care
[2018-12-17] MEDS ORDERED: Levemir Flexpen SUBQ SCH (21:00)
[2018-12-17] MEDS: Atorvastatin 20mg tab ORAL SCH (21:39)
[2018-12-17] MEDS: Iron Sucrose 100 MG in NS 55 ML IV SCH (21:44)
--- NOTE | 2018-12-17 23:41 | General Progress Note ---
Assessment/Plan Assessment/Plan Assessment/Plan # Anemia of iron deficiency due to potential gastritis as noted on egd and/or gi bleed --> Anemia workup has been ordered/reviewed and c/w aid --> No evidence of hemolysis is noted, peripheral smear has been reviewed --> Hgb goal >7. Transfuse prn. --> IRON x 5 days iv to continue --> Medications have been reviewed --> neg EGD for source of GIB, last colonoscopy per patient over 10 years --> plan hold plavix and do colonoscopy on Monday # Dyspnea- no obvious PNA on CXR --> CXR: complete opacification of the left hemithorax; presumably on the basis of complete left lung atelectasis # Lung collapse --> per pulm # Hyponatremia # DM2 # HTN on meds sbp goal <140 # CAD # CHF as per Dr. Miguel rubio The timing of this note does not necessarily reflect the time of the patient was seen. Greatly appreciate consultation! Subjective Allergies: Coded Allergies: No Known Allergies (Unverified , 12/12/18) Subjective 12/16/18: colo is pending, on iv iron, hgb stable 12/17: s/p colonoscopy, tolerated well, no events Objective Last 24 Hour Vital Signs Date Time Temp Pulse Resp B/P (MAP) Pulse Ox O2 Delivery O2 Flow Rate FiO2 12/17/18 21:39 163/55 12/17/18 21:38 77 163/55 12/17/18 21:00 Nasal Cannula 2.0 12/17/18 20:20 77 22 100 Nasal Cannula 2.0 28 12/17/18 20:13 Nasal Cannula 2.0 28 12/17/18 20:13 98 Nasal Cannula 2.0 28 12/17/18 20:10 65 22 98 Nasal Cannula 2.0 28 12/17/18 20:00 98.9 69 22 163/55 (91) 96 12/17/18 17:27 140/65 (90) 12/17/18 16:14 186/71 12/17/18 16:00 98.7 85 19 186/71 (109) 93 12/17/18 13:21 181/106 12/17/18 12:10 98.2 74 20 172/54 96 Nasal Cannula 3 12/17/18 12:00 74 21 166/52 97 Nasal Cannula 3 12/17/18 11:55 72 19 160/58 97 Nasal Cannula 3 12/17/18 11:54 74 20 98 12/17/18 11:51 98.6 74 22 165/58 97 Nasal Cannula 3 12/17/18 08:30 Nasal Cannula 2.0 12/17/18 08:00 98.3 83 18 132/57 (82) 99 12/17/18 06:45 96 Nasal Cannula 2.0 28 12/17/18 06:45 Nasal Cannula 2.0 28 12/17/18 06:37 158/56 12/17/18 06:30 81 158/56 (90) 12/17/18 04:00 98.7 75 18 165/63 (97) 94 12/16/18 23:42 130/56 12/16/18 23:42 97.9 65 18 130/56 (80) 99 Intake and Output 12/16/18 12/17/18 19:00 07:00 Intake Total 90 ml 930 ml Balance 90 ml 930 ml Intake Oral 600 ml IV Total 90 ml 330 ml # Voids 6 # Bowel Movements 4 1 Laboratory Tests 12/17/18 05:25: White Blood Count 7.3, Red Blood Count 2.89L, Hemoglobin 8.6L, Hematocrit 27.0L , Mean Corpuscular Volume 93, Mean Corpuscular Hemoglobin 29.9, Mean Corpuscular Hemoglobin Concent 32.0, Red Cell Distribution Width 13.5, Platelet Count 243, Mean Platelet Volume 6.4L, Neutrophils (%) (Auto) 77.7H, Lymphocytes (%) (Auto) 8.6L, Monocytes (%) (Auto) 8.1, Eosinophils (%) (Auto) 4.5H, Basophils (%) (Auto) 1.1, Sodium Level 136, Potassium Level 4.0, Chloride Level 103, Carbon Dioxide Level 19L, Anion Gap 14, Blood Urea Nitrogen 38H, Creatinine 1.9H, Estimat Glomerular Filtration Rate , Glucose Level 285#H, Hemoglobin A1c 7.7H, Uric Acid 7.4H, Calcium Level 8.8, Phosphorus Level 4.3, Magnesium Level 1.9, Total Bilirubin 0.4, Gamma Glutamyl Transpeptidase 21, Aspartate Amino Transf (AST/SGOT) 18, Alanine Aminotransferase (ALT/SGPT) 15, Alkaline Phosphatase 96, Total Creatine Kinase 143, C-Reactive Protein, Quantitative 3.3H, Pro-B-Type Natriuretic Peptide 3625H, Total Protein 7.0, Albumin 3.0L, Globulin 4.0, Albumin/Globulin Ratio 0.8L, Triglycerides Level 54 , Cholesterol Level 185, LDL Cholesterol 88, HDL Cholesterol 80H, Cholesterol/ HDL Ratio 2.3L Height (Feet): 5 Height (Inches): 5.00 Weight (Pounds): 165 Objective General Appearance: WD/WN Lines, tubes and drains: peripheral HEENT: normocephalic, atraumatic Neck: non-tender, normal alignment Respiratory/Chest: chest wall non-tender, lungs clear, decreased breath sounds - at left Cardiovascular/Chest: normal peripheral pulses, rrr Abdomen: non tender, no organomegaly Genitourinary/Rectal: normal genital exam Clyde Christine MD Dec 17, 2018 23:41
[2018-12-18] VITALS (8 sets, daily range): BP systolic 140–183; BP diastolic 45–65
[2018-12-18] MEDS: Nateglinide 60mg tab ORAL SCH ×3 (05:38→18:01)
[2018-12-18] MEDS: HydrALAZINE 25mg tab ORAL SCH ×2 (05:42→21:12)
[2018-12-18] MEDS: NovoLOG Insulin Flexpen SUBQ SCH ×4 (05:44→21:18)
--- NOTE | 2018-12-18 06:40 | General Progress Note ---
Assessment/Plan Problem List: (1) Diabetes mellitus ICD Codes: E11.9 - Type 2 diabetes mellitus without complications SNOMED: 57153411 (2) Hypothyroidism ICD Codes: E03.9 - Hypothyroidism, unspecified SNOMED: 04610059 (3) CHF exacerbation ICD Codes: I50.9 - Heart failure, unspecified SNOMED: 66101745 Assessment/Plan increase Levemir to 8 units bid increase Starlix to 120 mg ac tid continue NISS ac / hs continue LT4 50 mcg daily Subjective Allergies: Coded Allergies: No Known Allergies (Unverified , 12/12/18) All Systems: reviewed and negative except above Subjective events noted glucose values are elevated Item Value Date Time Bedside Blood Glucose 296 mg/dl H 12/18/18 0544 Bedside Blood Glucose 215 mg/dl H 12/17/18 2142 Bedside Blood Glucose 298 mg/dl H 12/17/18 1701 Bedside Blood Glucose 153 mg/dl H 12/17/18 1130 Bedside Blood Glucose 310 mg/dl H 12/17/18 0638 Objective Last 24 Hour Vital Signs Date Time Temp Pulse Resp B/P (MAP) Pulse Ox O2 Delivery O2 Flow Rate FiO2 12/18/18 05:49 183/64 12/18/18 05:42 183/65 12/18/18 01:35 76 18 Nasal Cannula 2.0 28 12/18/18 00:00 98.7 71 21 148/61 (90) 96 12/17/18 21:39 163/55 12/17/18 21:38 77 163/55 12/17/18 21:00 Nasal Cannula 2.0 12/17/18 20:20 77 22 100 Nasal Cannula 2.0 28 12/17/18 20:13 Nasal Cannula 2.0 28 12/17/18 20:13 98 Nasal Cannula 2.0 28 12/17/18 20:10 65 22 98 Nasal Cannula 2.0 28 12/17/18 20:00 98.9 69 22 163/55 (91) 96 12/17/18 17:27 140/65 (90) 12/17/18 16:14 186/71 12/17/18 16:00 98.7 85 19 186/71 (109) 93 12/17/18 13:21 181/106 12/17/18 12:10 98.2 74 20 172/54 96 Nasal Cannula 3 12/17/18 12:00 74 21 166/52 97 Nasal Cannula 3 12/17/18 11:55 72 19 160/58 97 Nasal Cannula 3 12/17/18 11:54 74 20 98 12/17/18 11:51 98.6 74 22 165/58 97 Nasal Cannula 3 12/17/18 08:30 Nasal Cannula 2.0 12/17/18 08:00 98.3 83 18 132/57 (82) 99 12/17/18 06:45 96 Nasal Cannula 2.0 28 12/17/18 06:45 Nasal Cannula 2.0 28 Intake and Output 12/17/18 12/18/18 19:00 07:00 Intake Total 2350 ml Output Total 0 ml Balance 2350 ml Intake Oral 2000 ml IV Total 350 ml Output Estimated Blood Loss 0 ml # Voids 5 Height (Feet): 5 Height (Inches): 5.00 Weight (Pounds): 165 General Appearance: no apparent distress Neck: normal alignment Cardiovascular: normal rate Respiratory/Chest: lungs clear Abdomen: normal bowel sounds Objective Current Medications Medications (Trade) Dose Ordered Sig/Bipin Route PRN Reason Start Time Stop Time Status Last Admin Dose Admin Acetaminophen (Tylenol) 650 mg Q4H PRN ORAL Fever 12/15/18 17:30 01/11/19 17:29 12/18/18 06:37 Albuterol/ Ipratropium (Albuterol/ Ipratropium) 3 ml Q4H PRN HHN Shortness of Breath 12/15/18 17:30 12/20/18 17:29 12/17/18 20:10 Amlodipine Besylate (Norvasc) 10 mg DAILY ORAL 12/17/18 09:00 01/16/19 08:59 Atorvastatin Calcium (Lipitor) 20 mg BEDTIME ORAL 12/15/18 21:00 01/12/19 20:59 12/17/18 21:39 Carvedilol (Coreg) 12.5 mg EVERY 12 HOURS ORAL 12/15/18 21:00 01/12/19 08:59 12/17/18 21:38 Clonidine HCl (Catapres Tab) 0.1 mg Q8H PRN ORAL For High Blood Pressure 12/17/18 15:45 01/16/19 15:44 12/18/18 05:49 Dextrose (Dextrose 50%) 25 ml Q30M PRN IV Hypoglycemia 12/17/18 06:45 01/16/19 06:44 Dextrose (Dextrose 50%) 50 ml Q30M PRN IV Hypoglycemia 12/17/18 06:45 01/16/19 06:44 Diphenhydramine HCl (Benadryl) 25 mg Q6H PRN IVP Itching 12/15/18 17:30 01/12/19 17:29 Furosemide (Lasix) 40 mg DAILY ORAL 12/16/18 09:00 01/15/19 08:59 12/16/18 09:06 Heparin Sodium (Porcine) (Heparin 5000 units/ml) 5,000 units EVERY 12 HOURS SUBQ 12/15/18 21:00 01/12/19 08:59 12/17/18 21:43 Hydralazine HCl (Apresoline) 12.5 mg Q8HR ORAL 12/16/18 22:00 01/15/19 21:59 12/18/18 05:42 Insulin Aspart (NovoLOG) BEFORE MEALS AND HS SUBQ 12/15/18 21:00 01/12/19 06:29 12/18/18 05:44 Insulin Detemir (Levemir) 8 units BEDTIME SUBQ 12/17/18 21:00 01/16/19 20:59 12/17/18 21:42 Iron Sucrose 100 mg/Sodium Chloride 60 ml @ 240 mls/hr BEDTIME IV 12/16/18 21:00 12/18/18 21:14 12/17/18 21:44 Levothyroxine Sodium (Synthroid) 50 mcg ACBREAKFAST ORAL 12/16/18 06:30 01/14/19 06:29 12/18/18 05:38 Nateglinide (Starlix) 60 mg TIAC ORAL 12/16/18 11:30 01/15/19 11:29 12/18/18 05:38 Ondansetron HCl (Zofran) 4 mg Q6H PRN IVP Nausea & Vomiting 12/15/18 17:30 01/11/19 17:29 Pantoprazole (Protonix) 40 mg EVERY 12 HOURS ORAL 12/16/18 21:00 01/15/19 20:59 12/17/18 21:38 Polyethylene Glycol (Miralax) 17 gm DAILYPRN PRN ORAL Constipation 12/15/18 17:30 01/11/19 17:29 Promethazine HCl/ Codeine (Phenergan with Codeine) 5 ml Q4H PRN ORAL For Cough 12/15/18 17:30 01/12/19 17:29 Temazepam (Restoril) 15 mg HSPRN PRN ORAL Insomnia 12/15/18 17:30 12/19/18 17:29 Shaji Garcia MD Dec 18, 2018 06:40
--- NOTE | 2018-12-18 07:46 | 48 Hour Post Anesthesia Eval ---
Post Anesthesia Evaluation Procedure: Colonoscopy Date of Evaluation: Dec 18, 2018 Time of Evaluation: 07:45 Blood Pressure Systolic: 167 0: 78 Pulse Rate: 72 Respiratory Rate: 22 Temperature (Fahrenheit): 97.6 O2 Sat by Pulse Oximetry: 98 Airway: patent Nausea: No Vomiting: No Pain Intensity: 2 Hydration Status: adequate Cardiopulmonary Status: stable Mental Status/LOC: patient returned to baseline Follow-up Care/Observations: n/a Post-Anesthesia Complications: none Follow-up care needed: N/A Jl Juan MD Dec 18, 2018 07:46
[2018-12-18 07:50] LABS: BASOPHILS % (AUTO) 1.2 % (0.0-2.0); EOSINOPHILS % (AUTO) 2.3 % (0.0-3.0); HEMATOCRIT 27.9 % (37.0-47.0); HEMOGLOBIN 8.8 G/DL (12.0-16.0); LYMPHOCYTES % (AUTO) 8.3 % (20.0-45.0); MEAN CORPUSCULAR VOLUME 94 FL (80-99); MONOCYTES % (AUTO) 8.1 % (1.0-10.0); NEUTROPHILS % (AUTO) 80.1 % (45.0-75.0); PLATELET COUNT 233 K/UL (150-450); RED BLOOD COUNT 2.95 M/UL (4.20-5.40); RED CELL DISTRIBUTION WIDTH 14.1 % (11.6-14.8); WHITE BLOOD COUNT 7.6 K/UL (4.8-10.8)
[2018-12-18 08:19] LABS: ANION GAP 14 mmol/L (5-15); BLOOD UREA NITROGEN 33 mg/dL (7-18); CALCIUM 8.7 MG/DL (8.5-10.1); CARBON DIOXIDE 18 MMOL/L (21-32); CHLORIDE 104 MMOL/L (98-107); POTASSIUM 3.9 MMOL/L (3.5-5.1); SODIUM 136 MMOL/L (136-145)
[2018-12-18] MEDS: Carvedilol 12.5mg tab ORAL SCH ×2 (09:14→21:12)
[2018-12-18] MEDS: Furosemide 40mg tab ORAL SCH (09:14)
[2018-12-18] MEDS: Heparin 5000 units/ml inj SUBQ SCH ×2 (09:17→21:25)
[2018-12-18] MEDS: Levemir Flexpen SUBQ SCH ×2 (09:39→18:04)
--- NOTE | 2018-12-18 10:30 | NUR ---
NURSE NOTES: Czech speaking patient with bilingual family at bedside. Per family members, patient denies any pain and they are aware of diagnosis and reason for hospitalization. Ambulated to bathroom with family assist, and tolerated well
--- NOTE | 2018-12-18 11:19 | NUR ---
P.T NOTE: PATIENT DECLINED TO PARTICIPATE IN P.T. PATIENT STATED SHE TOO FATIGUE TO PARTICIPATE DUE TO LACK OF SLEEP FROM LAST NIGHT. P.T WILL REATTEMPT THIS PM.
--- NOTE | 2018-12-18 12:27 | Infectious Diseases Prog Note ---
Assessment/Plan Assessment/Plan Assessment: Dyspnea- no obvious PNA on CXR -12/14 CXR: Interim apparently complete reexpansion of previously atelectatic left lung. Cardiomegaly.Suspect mild interstitial congestion and small bilateral pleural effusions -CXR: Complete opacification of the left hemithorax, presumably on the basis of complete left lung atelectasis Afebrile No leukocytosis -u.a no pyuria L lung collapse; SP -12/14 CXR: Interim apparently complete reexpansion of previously atelectatic left lung. Cardiomegaly. Suspect mild interstitial congestion and small bilateral pleural effusion Negatives : Flu Sc , C Diff Anemia -12/14 SP EGD: gastritis Hyponatremia DM2 HTN CAD CHF Plan: -Continue to monitor off abx unless febrile, leukocytosis -Monitor CBC/CMP, temperatures -aspiration precautions -pulm f/u -GI f/u: Subjective Allergies: Coded Allergies: No Known Allergies (Unverified , 12/12/18) Subjective afebrile no leukocytosis off abx Objective Vital Signs Last 24 Hour Vital Signs Date Time Temp Pulse Resp B/P (MAP) Pulse Ox O2 Delivery O2 Flow Rate FiO2 12/18/18 09:30 98.8 68 21 163/65 (97) 96 12/18/18 09:15 64 163/65 12/18/18 09:14 64 163/65 12/18/18 08:00 98.8 68 21 140/45 (76) 96 12/18/18 07:46 72 22 98 12/18/18 07:07 98.8 12/18/18 06:55 Nasal Cannula 2.0 28 12/18/18 06:55 97 Nasal Cannula 2.0 28 12/18/18 06:50 163/53 (89) 12/18/18 06:00 183/65 (104) 12/18/18 05:49 183/64 12/18/18 05:42 183/65 12/18/18 01:35 76 18 Nasal Cannula 2.0 28 12/18/18 00:00 98.7 71 21 148/61 (90) 96 12/17/18 21:39 163/55 12/17/18 21:38 77 163/55 12/17/18 21:00 Nasal Cannula 2.0 12/17/18 20:20 77 22 100 Nasal Cannula 2.0 28 12/17/18 20:13 Nasal Cannula 2.0 28 12/17/18 20:13 98 Nasal Cannula 2.0 28 12/17/18 20:10 65 22 98 Nasal Cannula 2.0 28 12/17/18 20:00 98.9 69 22 163/55 (91) 96 12/17/18 17:27 140/65 (90) 12/17/18 16:14 186/71 12/17/18 16:00 98.7 85 19 186/71 (109) 93 12/17/18 13:21 181/106 Height (Feet): 5 Height (Inches): 5.00 Weight (Pounds): 166 Objective General Appearance: WD/WN Lines, tubes and drains: peripheral HEENT: normocephalic, atraumatic Neck: non-tender, normal alignment Respiratory/Chest: chest wall non-tender, lungs clear, decreased breath sounds - at left Cardiovascular/Chest: normal peripheral pulses, normal rate Abdomen: non tender, no organomegaly Genitourinary/Rectal: normal genital exam Laboratory Tests Test 12/18/18 06:30 White Blood Count 7.6 K/UL (4.8-10.8) Red Blood Count 2.95 M/UL (4.20-5.40) L Hemoglobin 8.8 G/DL (12.0-16.0) L Hematocrit 27.9 % (37.0-47.0) L Mean Corpuscular Volume 94 FL (80-99) Mean Corpuscular Hemoglobin 29.9 PG (27.0-31.0) Mean Corpuscular Hemoglobin Concent 31.7 G/DL (32.0-36.0) L Red Cell Distribution Width 14.1 % (11.6-14.8) Platelet Count 233 K/UL (150-450) Mean Platelet Volume 6.5 FL (6.5-10.1) Neutrophils (%) (Auto) 80.1 % (45.0-75.0) H Lymphocytes (%) (Auto) 8.3 % (20.0-45.0) L Monocytes (%) (Auto) 8.1 % (1.0-10.0) Eosinophils (%) (Auto) 2.3 % (0.0-3.0) Basophils (%) (Auto) 1.2 % (0.0-2.0) Sodium Level 136 MMOL/L (136-145) Potassium Level 3.9 MMOL/L (3.5-5.1) Chloride Level 104 MMOL/L (98-107) Carbon Dioxide Level 18 MMOL/L (21-32) L Anion Gap 14 mmol/L (5-15) Blood Urea Nitrogen 33 mg/dL (7-18) H Creatinine 2.0 MG/DL (0.55-1.30) H Estimat Glomerular Filtration Rate mL/min (>60) Glucose Level 284 MG/DL (74-106) H Calcium Level 8.7 MG/DL (8.5-10.1) Current Medications Medications (Trade) Dose Ordered Sig/Bipin Route PRN Reason Start Time Stop Time Status Last Admin Dose Admin Acetaminophen (Tylenol) 650 mg Q4H PRN ORAL Fever 12/15/18 17:30 01/11/19 17:29 12/18/18 06:37 Albuterol/ Ipratropium (Albuterol/ Ipratropium) 3 ml Q4H PRN HHN Shortness of Breath 12/15/18 17:30 12/20/18 17:29 12/17/18 20:10 Amlodipine Besylate (Norvasc) 10 mg DAILY ORAL 12/17/18 09:00 01/16/19 08:59 12/18/18 09:15 Atorvastatin Calcium (Lipitor) 20 mg BEDTIME ORAL 12/15/18 21:00 01/12/19 20:59 12/17/18 21:39 Carvedilol (Coreg) 12.5 mg EVERY 12 HOURS ORAL 12/15/18 21:00 01/12/19 08:59 12/18/18 09:14 Clonidine HCl (Catapres Tab) 0.1 mg Q8H PRN ORAL For High Blood Pressure 12/17/18 15:45 01/16/19 15:44 12/18/18 05:49 Dextrose (Dextrose 50%) 25 ml Q30M PRN IV Hypoglycemia 12/17/18 06:45 01/16/19 06:44 Dextrose (Dextrose 50%) 50 ml Q30M PRN IV Hypoglycemia 12/17/18 06:45 01/16/19 06:44 Diphenhydramine HCl (Benadryl) 25 mg Q6H PRN IVP Itching 12/15/18 17:30 01/12/19 17:29 Furosemide (Lasix) 40 mg DAILY ORAL 12/16/18 09:00 01/15/19 08:59 12/18/18 09:14 Heparin Sodium (Porcine) (Heparin 5000 units/ml) 5,000 units EVERY 12 HOURS SUBQ 12/15/18 21:00 01/12/19 08:59 12/18/18 09:17 Hydralazine HCl (Apresoline) 12.5 mg Q8HR ORAL 12/16/18 22:00 01/15/19 21:59 12/18/18 05:42 Insulin Aspart (NovoLOG) BEFORE MEALS AND HS SUBQ 12/15/18 21:00 01/12/19 06:29 12/18/18 05:44 Insulin Detemir (Levemir) 8 units BID SUBQ 12/18/18 09:00 01/16/19 20:59 12/18/18 09:39 Iron Sucrose 100 mg/Sodium Chloride 60 ml @ 240 mls/hr BEDTIME IV 12/16/18 21:00 12/18/18 21:14 12/17/18 21:44 Levothyroxine Sodium (Synthroid) 50 mcg ACBREAKFAST ORAL 12/16/18 06:30 01/14/19 06:29 12/18/18 05:38 Nateglinide (Starlix) 120 mg TIAC ORAL 12/18/18 11:30 01/15/19 11:29 Ondansetron HCl (Zofran) 4 mg Q6H PRN IVP Nausea & Vomiting 12/15/18 17:30 01/11/19 17:29 Pantoprazole (Protonix) 40 mg EVERY 12 HOURS ORAL 12/16/18 21:00 01/15/19 20:59 12/18/18 09:14 Polyethylene Glycol (Miralax) 17 gm DAILYPRN PRN ORAL Constipation 12/15/18 17:30 01/11/19 17:29 Promethazine HCl/ Codeine (Phenergan with Codeine) 5 ml Q4H PRN ORAL For Cough 12/15/18 17:30 01/12/19 17:29 Temazepam (Restoril) 15 mg HSPRN PRN ORAL Insomnia 12/15/18 17:30 12/19/18 17:29 Yadira Brunson M.D. Dec 18, 2018 12:27
--- NOTE | 2018-12-18 12:28 | GI Progress Note ---
Assessment/Plan Problems: (1) CHF (congestive heart failure) ICD Codes: I50.9 - Heart failure, unspecified SNOMED: 00110420 (2) Anemia ICD Codes: D64.9 - Anemia, unspecified SNOMED: 892566693 (3) Gastritis ICD Codes: K29.70 - Gastritis, unspecified, without bleeding SNOMED: 9345688 Status: stable Status Narrative Discussed with Dr. Hernandez Assessment/Plan SUMMARY OF FINDINGS: 1. Limited exam given the red color Jell-O material in the cecum and transverse colon. 2. Melanosis coli. 3. Five colonic polyps removed. 4. Internal hemorrhoids. 5. Diverticulosis. OB stool negative RECOMMENDATIONS: Follow up pathology. >> Focal chronic gastritis. Negative for H. pylori. We recommend repeat colonoscopy in three years. Advance diet Follow-up CT PRN transfusions PPI Follow labs The patient was seen and examined at bedside and all new and available data was reviewed in the patients chart. I agree with the above findings, impression and plan. (Patient seen earlier today. Signature stamp does not reflect patient encounter time.). - Bernardo Hernandez MD Subjective Gastrointestinal/Abdominal: Reports: no symptoms Objective Last 24 Hour Vital Signs Date Time Temp Pulse Resp B/P (MAP) Pulse Ox O2 Delivery O2 Flow Rate FiO2 12/18/18 09:30 98.8 68 21 163/65 (97) 96 12/18/18 09:15 64 163/65 12/18/18 09:14 64 163/65 12/18/18 08:00 98.8 68 21 140/45 (76) 96 12/18/18 07:46 72 22 98 12/18/18 07:07 98.8 12/18/18 06:55 Nasal Cannula 2.0 28 12/18/18 06:55 97 Nasal Cannula 2.0 28 12/18/18 06:50 163/53 (89) 12/18/18 06:00 183/65 (104) 12/18/18 05:49 183/64 12/18/18 05:42 183/65 12/18/18 01:35 76 18 Nasal Cannula 2.0 28 12/18/18 00:00 98.7 71 21 148/61 (90) 96 12/17/18 21:39 163/55 12/17/18 21:38 77 163/55 12/17/18 21:00 Nasal Cannula 2.0 12/17/18 20:20 77 22 100 Nasal Cannula 2.0 28 12/17/18 20:13 Nasal Cannula 2.0 28 12/17/18 20:13 98 Nasal Cannula 2.0 28 12/17/18 20:10 65 22 98 Nasal Cannula 2.0 28 12/17/18 20:00 98.9 69 22 163/55 (91) 96 12/17/18 17:27 140/65 (90) 12/17/18 16:14 186/71 12/17/18 16:00 98.7 85 19 186/71 (109) 93 12/17/18 13:21 181/106 Intake and Output 12/17/18 12/18/18 18:59 06:59 Intake Total 2350 ml 360 ml Output Total 0 ml Balance 2350 ml 360 ml Intake Oral 2000 ml 360 ml IV Total 350 ml Output Estimated Blood Loss 0 ml # Voids 5 2 Laboratory Tests Test 12/18/18 06:30 White Blood Count 7.6 K/UL (4.8-10.8) Red Blood Count 2.95 M/UL (4.20-5.40) L Hemoglobin 8.8 G/DL (12.0-16.0) L Hematocrit 27.9 % (37.0-47.0) L Mean Corpuscular Volume 94 FL (80-99) Mean Corpuscular Hemoglobin 29.9 PG (27.0-31.0) Mean Corpuscular Hemoglobin Concent 31.7 G/DL (32.0-36.0) L Red Cell Distribution Width 14.1 % (11.6-14.8) Platelet Count 233 K/UL (150-450) Mean Platelet Volume 6.5 FL (6.5-10.1) Neutrophils (%) (Auto) 80.1 % (45.0-75.0) H Lymphocytes (%) (Auto) 8.3 % (20.0-45.0) L Monocytes (%) (Auto) 8.1 % (1.0-10.0) Eosinophils (%) (Auto) 2.3 % (0.0-3.0) Basophils (%) (Auto) 1.2 % (0.0-2.0) Sodium Level 136 MMOL/L (136-145) Potassium Level 3.9 MMOL/L (3.5-5.1) Chloride Level 104 MMOL/L (98-107) Carbon Dioxide Level 18 MMOL/L (21-32) L Anion Gap 14 mmol/L (5-15) Blood Urea Nitrogen 33 mg/dL (7-18) H Creatinine 2.0 MG/DL (0.55-1.30) H Estimat Glomerular Filtration Rate mL/min (>60) Glucose Level 284 MG/DL (74-106) H Calcium Level 8.7 MG/DL (8.5-10.1) Height (Feet): 5 Height (Inches): 5.00 Weight (Pounds): 166 General Appearance: WD/WN, no apparent distress, alert Cardiovascular: normal rate Respiratory/Chest: normal breath sounds, no respiratory distress Abdominal Exam: normal bowel sounds, non tender, soft Extremities: normal range of motion, non-tender Parish Pedersen NP Dec 18, 2018 12:28
--- NOTE | 2018-12-18 13:01 | NUR ---
INSURANCE FAXED TO [facility] T: [phone] F: [phone]
--- NOTE | 2018-12-18 13:17 | Pulmonology Progress Note ---
Assessment/Plan Problems: (1) Collapse of left lung (2) Symptomatic anemia (3) ATN (acute tubular necrosis) (4) Anemia (5) Hyponatremia (6) Diabetes mellitus (7) Hypothyroidism Assessment/Plan EGD done showing gastritis, biopsy reviewed, no H pylori all reviewed all family members are at the bed site left lung opened up on lasix QD continue diuretics, on PO lasix anemia w/u in progress f/u electrolytes Subjective ROS Limited/Unobtainable: No Interval Events: doing better, eating, family at bed site. Allergies: Coded Allergies: No Known Allergies (Unverified , 12/12/18) Objective Last 24 Hour Vital Signs Date Time Temp Pulse Resp B/P (MAP) Pulse Ox O2 Delivery O2 Flow Rate FiO2 12/18/18 09:30 98.8 68 21 163/65 (97) 96 12/18/18 09:15 64 163/65 12/18/18 09:14 64 163/65 12/18/18 08:00 98.8 68 21 140/45 (76) 96 12/18/18 07:46 72 22 98 12/18/18 07:07 98.8 12/18/18 06:55 Nasal Cannula 2.0 28 12/18/18 06:55 97 Nasal Cannula 2.0 28 12/18/18 06:50 163/53 (89) 12/18/18 06:00 183/65 (104) 12/18/18 05:49 183/64 12/18/18 05:42 183/65 12/18/18 01:35 76 18 Nasal Cannula 2.0 28 12/18/18 00:00 98.7 71 21 148/61 (90) 96 12/17/18 21:39 163/55 12/17/18 21:38 77 163/55 12/17/18 21:00 Nasal Cannula 2.0 12/17/18 20:20 77 22 100 Nasal Cannula 2.0 28 12/17/18 20:13 Nasal Cannula 2.0 28 12/17/18 20:13 98 Nasal Cannula 2.0 28 12/17/18 20:10 65 22 98 Nasal Cannula 2.0 28 12/17/18 20:00 98.9 69 22 163/55 (91) 96 12/17/18 17:27 140/65 (90) 12/17/18 16:14 186/71 12/17/18 16:00 98.7 85 19 186/71 (109) 93 12/17/18 13:21 181/106 Intake and Output 12/17/18 12/18/18 18:59 06:59 Intake Total 2350 ml 360 ml Output Total 0 ml Balance 2350 ml 360 ml Intake Oral 2000 ml 360 ml IV Total 350 ml Output Estimated Blood Loss 0 ml # Voids 5 2 Objective General Appearance: WD/WN HEENT: normocephalic, atraumatic Respiratory/Chest: chest wall non-tender, lungs clear Breasts: no masses Cardiovascular: normal rate Abdomen: normal bowel sounds, soft, non tender 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 Laboratory Tests 12/18/18 06:30: White Blood Count 7.6, Red Blood Count 2.95L, Hemoglobin 8.8L, Hematocrit 27.9L , Mean Corpuscular Volume 94, Mean Corpuscular Hemoglobin 29.9, Mean Corpuscular Hemoglobin Concent 31.7L, Red Cell Distribution Width 14.1, Platelet Count 233, Mean Platelet Volume 6.5, Neutrophils (%) (Auto) 80.1H, Lymphocytes (%) (Auto) 8.3L, Monocytes (%) (Auto) 8.1, Eosinophils (%) (Auto) 2.3, Basophils (%) (Auto) 1.2, Sodium Level 136, Potassium Level 3.9, Chloride Level 104, Carbon Dioxide Level 18L, Anion Gap 14, Blood Urea Nitrogen 33H, Creatinine 2.0H, Estimat Glomerular Filtration Rate , Glucose Level 284H, Calcium Level 8.7 Current Medications Medications (Trade) Dose Ordered Sig/Bipin Route PRN Reason Start Time Stop Time Status Last Admin Dose Admin Acetaminophen (Tylenol) 650 mg Q4H PRN ORAL Fever 12/15/18 17:30 01/11/19 17:29 12/18/18 06:37 Albuterol/ Ipratropium (Albuterol/ Ipratropium) 3 ml Q4H PRN HHN Shortness of Breath 12/15/18 17:30 12/20/18 17:29 12/17/18 20:10 Amlodipine Besylate (Norvasc) 10 mg DAILY ORAL 12/17/18 09:00 01/16/19 08:59 12/18/18 09:15 Atorvastatin Calcium (Lipitor) 20 mg BEDTIME ORAL 12/15/18 21:00 01/12/19 20:59 12/17/18 21:39 Carvedilol (Coreg) 12.5 mg EVERY 12 HOURS ORAL 12/15/18 21:00 01/12/19 08:59 12/18/18 09:14 Clonidine HCl (Catapres Tab) 0.1 mg Q8H PRN ORAL For High Blood Pressure 12/17/18 15:45 01/16/19 15:44 12/18/18 05:49 Dextrose (Dextrose 50%) 25 ml Q30M PRN IV Hypoglycemia 12/17/18 06:45 01/16/19 06:44 Dextrose (Dextrose 50%) 50 ml Q30M PRN IV Hypoglycemia 12/17/18 06:45 01/16/19 06:44 Diphenhydramine HCl (Benadryl) 25 mg Q6H PRN IVP Itching 12/15/18 17:30 01/12/19 17:29 Furosemide (Lasix) 40 mg DAILY ORAL 12/16/18 09:00 01/15/19 08:59 12/18/18 09:14 Heparin Sodium (Porcine) (Heparin 5000 units/ml) 5,000 units EVERY 12 HOURS SUBQ 12/15/18 21:00 01/12/19 08:59 12/18/18 09:17 Hydralazine HCl (Apresoline) 12.5 mg Q8HR ORAL 12/16/18 22:00 01/15/19 21:59 12/18/18 05:42 Insulin Aspart (NovoLOG) BEFORE MEALS AND HS SUBQ 12/15/18 21:00 01/12/19 06:29 12/18/18 12:42 Insulin Detemir (Levemir) 8 units BID SUBQ 12/18/18 09:00 01/16/19 20:59 12/18/18 09:39 Iron Sucrose 100 mg/Sodium Chloride 60 ml @ 240 mls/hr BEDTIME IV 12/16/18 21:00 12/18/18 21:14 12/17/18 21:44 Levothyroxine Sodium (Synthroid) 50 mcg ACBREAKFAST ORAL 12/16/18 06:30 01/14/19 06:29 12/18/18 05:38 Nateglinide (Starlix) 120 mg TIAC ORAL 12/18/18 11:30 01/15/19 11:29 12/18/18 12:40 Ondansetron HCl (Zofran) 4 mg Q6H PRN IVP Nausea & Vomiting 12/15/18 17:30 01/11/19 17:29 Pantoprazole (Protonix) 40 mg EVERY 12 HOURS ORAL 12/16/18 21:00 01/15/19 20:59 12/18/18 09:14 Polyethylene Glycol (Miralax) 17 gm DAILYPRN PRN ORAL Constipation 12/15/18 17:30 01/11/19 17:29 Promethazine HCl/ Codeine (Phenergan with Codeine) 5 ml Q4H PRN ORAL For Cough 12/15/18 17:30 01/12/19 17:29 Temazepam (Restoril) 15 mg HSPRN PRN ORAL Insomnia 12/15/18 17:30 12/19/18 17:29 Velma Cordova MD Dec 18, 2018 13:17
--- NOTE | 2018-12-18 14:00 | General Progress Note ---
Assessment/Plan Problem List: (1) UTI (urinary tract infection) ICD Codes: N39.0 - Urinary tract infection, site not specified SNOMED: 03518315 (2) HTN (hypertension) ICD Codes: I10 - Essential (primary) hypertension SNOMED: 61315136 (3) CHF exacerbation ICD Codes: I50.9 - Heart failure, unspecified SNOMED: 84695058 (4) Hyponatremia ICD Codes: E87.1 - Hypo-osmolality and hyponatremia SNOMED: 30418842 (5) Diabetes mellitus ICD Codes: E11.9 - Type 2 diabetes mellitus without complications SNOMED: 50130826 (6) Anemia ICD Codes: D64.9 - Anemia, unspecified SNOMED: 851650521 Status: unchanged Assessment/Plan o2 pulm tx abx pt diet cbc bmp am duplex transfer pt Subjective Constitutional: Reports: weakness Allergies: Coded Allergies: No Known Allergies (Unverified , 12/12/18) All Systems: reviewed and negative except above Subjective sl sob and leg swelling Objective Last 24 Hour Vital Signs Date Time Temp Pulse Resp B/P (MAP) Pulse Ox O2 Delivery O2 Flow Rate FiO2 12/18/18 09:30 98.8 68 21 163/65 (97) 96 12/18/18 09:15 64 163/65 12/18/18 09:14 64 163/65 12/18/18 08:00 98.8 68 21 140/45 (76) 96 12/18/18 07:46 72 22 98 12/18/18 07:07 98.8 12/18/18 06:55 Nasal Cannula 2.0 28 12/18/18 06:55 97 Nasal Cannula 2.0 28 12/18/18 06:50 163/53 (89) 12/18/18 06:00 183/65 (104) 12/18/18 05:49 183/64 12/18/18 05:42 183/65 12/18/18 01:35 76 18 Nasal Cannula 2.0 28 12/18/18 00:00 98.7 71 21 148/61 (90) 96 12/17/18 21:39 163/55 12/17/18 21:38 77 163/55 12/17/18 21:00 Nasal Cannula 2.0 12/17/18 20:20 77 22 100 Nasal Cannula 2.0 28 12/17/18 20:13 Nasal Cannula 2.0 28 12/17/18 20:13 98 Nasal Cannula 2.0 28 12/17/18 20:10 65 22 98 Nasal Cannula 2.0 28 12/17/18 20:00 98.9 69 22 163/55 (91) 96 12/17/18 17:27 140/65 (90) 12/17/18 16:14 186/71 12/17/18 16:00 98.7 85 19 186/71 (109) 93 Intake and Output 12/17/18 12/18/18 18:59 06:59 Intake Total 2350 ml 360 ml Output Total 0 ml Balance 2350 ml 360 ml Intake Oral 2000 ml 360 ml IV Total 350 ml Output Estimated Blood Loss 0 ml # Voids 5 2 Laboratory Tests 12/18/18 06:30: White Blood Count 7.6, Red Blood Count 2.95L, Hemoglobin 8.8L, Hematocrit 27.9L , Mean Corpuscular Volume 94, Mean Corpuscular Hemoglobin 29.9, Mean Corpuscular Hemoglobin Concent 31.7L, Red Cell Distribution Width 14.1, Platelet Count 233, Mean Platelet Volume 6.5, Neutrophils (%) (Auto) 80.1H, Lymphocytes (%) (Auto) 8.3L, Monocytes (%) (Auto) 8.1, Eosinophils (%) (Auto) 2.3, Basophils (%) (Auto) 1.2, Sodium Level 136, Potassium Level 3.9, Chloride Level 104, Carbon Dioxide Level 18L, Anion Gap 14, Blood Urea Nitrogen 33H, Creatinine 2.0H, Estimat Glomerular Filtration Rate , Glucose Level 284H, Calcium Level 8.7 Height (Feet): 5 Height (Inches): 5.00 Weight (Pounds): 166 General Appearance: lethargic EENT: normal ENT inspection Neck: normal alignment Cardiovascular: normal peripheral pulses, normal rate, regular rhythm Respiratory/Chest: chest wall non-tender, lungs clear, normal breath sounds Abdomen: normal bowel sounds, non tender, soft Extremities: normal inspection Edema: 1+ Arm (L), 1+ Arm (R), 1+ Leg (L), 1+ Leg (R), 1+ Pedal (L), 1+ Pedal ( R), 1+ Generalized Neurologic: motor weakness Skin: normal pigmentation, warm/dry Campuzano,Andrei Chi-Sheyla DO Dec 18, 2018 14:00
--- NOTE | 2018-12-18 14:41 | Nephrology Progress Note ---
Assessment/Plan Problem List: (1) Acute on chronic renal failure (2) Collapse of left lung (3) Diabetes mellitus (4) HTN (hypertension) (5) Hypothyroidism Assessment Acute on Chronic Renal Failure- Long h/o DM , HTN Collapse of left lung, resolved Symptomatic anemia Hyponatremia Hypothyroidism CHF, DIastolic dysfunction, bilateral pleural effusion CAD, s/p Stent Plan up on hydralazine dose Adjust BP meds 3% Saline given once monitor renal parameters avoid Nephrotoxics per orders Subjective ROS Limited/Unobtainable: No Constitutional: Reports: malaise Objective Objective Last 24 Hour Vital Signs Date Time Temp Pulse Resp B/P (MAP) Pulse Ox O2 Delivery O2 Flow Rate FiO2 12/18/18 09:30 98.8 68 21 163/65 (97) 96 12/18/18 09:15 64 163/65 12/18/18 09:14 64 163/65 12/18/18 09:00 Nasal Cannula 2.0 12/18/18 08:00 98.8 68 21 140/45 (76) 96 12/18/18 07:46 72 22 98 12/18/18 07:07 98.8 12/18/18 06:55 Nasal Cannula 2.0 28 12/18/18 06:55 97 Nasal Cannula 2.0 28 12/18/18 06:50 163/53 (89) 12/18/18 06:00 183/65 (104) 12/18/18 05:49 183/64 12/18/18 05:42 183/65 12/18/18 01:35 76 18 Nasal Cannula 2.0 28 12/18/18 00:00 98.7 71 21 148/61 (90) 96 12/17/18 21:39 163/55 12/17/18 21:38 77 163/55 12/17/18 21:00 Nasal Cannula 2.0 12/17/18 20:20 77 22 100 Nasal Cannula 2.0 28 12/17/18 20:13 Nasal Cannula 2.0 28 12/17/18 20:13 98 Nasal Cannula 2.0 28 12/17/18 20:10 65 22 98 Nasal Cannula 2.0 28 12/17/18 20:00 98.9 69 22 163/55 (91) 96 12/17/18 17:27 140/65 (90) 12/17/18 16:14 186/71 12/17/18 16:00 98.7 85 19 186/71 (109) 93 Intake and Output 12/17/18 12/18/18 18:59 06:59 Intake Total 2350 ml 360 ml Output Total 0 ml Balance 2350 ml 360 ml Intake Oral 2000 ml 360 ml IV Total 350 ml Output Estimated Blood Loss 0 ml # Voids 5 2 Laboratory Tests 12/18/18 06:30: White Blood Count 7.6, Red Blood Count 2.95L, Hemoglobin 8.8L, Hematocrit 27.9L , Mean Corpuscular Volume 94, Mean Corpuscular Hemoglobin 29.9, Mean Corpuscular Hemoglobin Concent 31.7L, Red Cell Distribution Width 14.1, Platelet Count 233, Mean Platelet Volume 6.5, Neutrophils (%) (Auto) 80.1H, Lymphocytes (%) (Auto) 8.3L, Monocytes (%) (Auto) 8.1, Eosinophils (%) (Auto) 2.3, Basophils (%) (Auto) 1.2, Sodium Level 136, Potassium Level 3.9, Chloride Level 104, Carbon Dioxide Level 18L, Anion Gap 14, Blood Urea Nitrogen 33H, Creatinine 2.0H, Estimat Glomerular Filtration Rate , Glucose Level 284H, Calcium Level 8.7 Height (Feet): 5 Height (Inches): 5.00 Weight (Pounds): 166 General Appearance: no apparent distress Cardiovascular: normal rate Respiratory/Chest: decreased breath sounds Abdomen: soft Elio Gillespie MD Dec 18, 2018 14:40
--- NOTE | 2018-12-18 17:30 | NUR ---
NURSE NOTES: RN tried to taper off pt for O2 but pt is desaturating to 89-92% on RA. RN notify CM that pt's need O2 for home use.
--- NOTE | 2018-12-18 18:13 | General Progress Note ---
Assessment/Plan Assessment/Plan Assessment/Plan # Anemia of iron deficiency due to potential gastritis as noted on egd and/or gi bleed --> Anemia workup has been ordered/reviewed and c/w aid --> No evidence of hemolysis is noted, peripheral smear has been reviewed --> Hgb goal >7. Transfuse prn. --> IRON x 5 days iv to continue --> Medications have been reviewed --> neg EGD for source of GIB, last colonoscopy per patient over 10 years --> plan hold plavix and do colonoscopy on Monday # Dyspnea- no obvious PNA on CXR --> CXR: complete opacification of the left hemithorax; presumably on the basis of complete left lung atelectasis # Lung collapse --> per pulm # Hyponatremia # DM2 # HTN on meds sbp goal <140 # CAD # CHF as per Dr. Miguel rubio The timing of this note does not necessarily reflect the time of the patient was seen. Greatly appreciate consultation! Subjective ROS Limited/Unobtainable: Yes Allergies: Coded Allergies: No Known Allergies (Unverified , 12/12/18) Subjective 12/16/18: colo is pending, on iv iron, hgb stable 12/17: s/p colonoscopy, tolerated well, no events 12/18: EGD done showing gastritis, biopsy reviewed, family members are at the bed site, no events Objective Last 24 Hour Vital Signs Date Time Temp Pulse Resp B/P (MAP) Pulse Ox O2 Delivery O2 Flow Rate FiO2 12/18/18 16:00 100.0 65 18 166/61 (96) 93 12/18/18 12:00 98.0 67 18 157/51 (86) 99 12/18/18 09:30 98.8 68 21 163/65 (97) 96 12/18/18 09:15 64 163/65 12/18/18 09:14 64 163/65 12/18/18 09:00 Nasal Cannula 2.0 12/18/18 08:00 98.8 68 21 140/45 (76) 96 12/18/18 07:46 72 22 98 12/18/18 07:07 98.8 12/18/18 06:55 Nasal Cannula 2.0 28 12/18/18 06:55 97 Nasal Cannula 2.0 28 12/18/18 06:50 163/53 (89) 3/5/19 06:00 183/65 (104) 12/18/18 05:49 183/64 12/18/18 05:42 183/65 12/18/18 01:35 76 18 Nasal Cannula 2.0 28 12/18/18 00:00 98.7 71 21 148/61 (90) 96 12/17/18 21:39 163/55 12/17/18 21:38 77 163/55 12/17/18 21:00 Nasal Cannula 2.0 12/17/18 20:20 77 22 100 Nasal Cannula 2.0 28 12/17/18 20:13 Nasal Cannula 2.0 28 12/17/18 20:13 98 Nasal Cannula 2.0 28 12/17/18 20:10 65 22 98 Nasal Cannula 2.0 28 12/17/18 20:00 98.9 69 22 163/55 (91) 96 Intake and Output 12/17/18 12/18/18 18:59 06:59 Intake Total 2350 ml 360 ml Output Total 0 ml Balance 2350 ml 360 ml Intake Oral 2000 ml 360 ml IV Total 350 ml Output Estimated Blood Loss 0 ml # Voids 5 2 Laboratory Tests 12/18/18 06:30: White Blood Count 7.6, Red Blood Count 2.95L, Hemoglobin 8.8L, Hematocrit 27.9L , Mean Corpuscular Volume 94, Mean Corpuscular Hemoglobin 29.9, Mean Corpuscular Hemoglobin Concent 31.7L, Red Cell Distribution Width 14.1, Platelet Count 233, Mean Platelet Volume 6.5, Neutrophils (%) (Auto) 80.1H, Lymphocytes (%) (Auto) 8.3L, Monocytes (%) (Auto) 8.1, Eosinophils (%) (Auto) 2.3, Basophils (%) (Auto) 1.2, Sodium Level 136, Potassium Level 3.9, Chloride Level 104, Carbon Dioxide Level 18L, Anion Gap 14, Blood Urea Nitrogen 33H, Creatinine 2.0H, Estimat Glomerular Filtration Rate , Glucose Level 284H, Calcium Level 8.7 Height (Feet): 5 Height (Inches): 5.00 Weight (Pounds): 166 Objective General Appearance: WD/WN Lines, tubes and drains: peripheral HEENT: normocephalic, atraumatic Neck: non-tender, normal alignment Respiratory/Chest: chest wall non-tender, lungs clear, decreased breath sounds - at left Cardiovascular/Chest: normal peripheral pulses, rrr Abdomen: non tender, no organomegaly Genitourinary/Rectal: normal genital exam Clyde Christine MD Dec 18, 2018 18:13
--- NOTE | 2018-12-18 18:44 | Cardiac Electrophysiology PN ---
Assessment/Plan Assessment/Plan 1. Congestive heart failure with BNP is more than 2100. Likely due to combination of diastolic dysfunction with EF 55% to 60% as well as severe anemia. On Lasix 40 po daily 2. Coronary artery disease with history of prior stent placement.On Coreg 12.5 mg bid and Lipitor 20 mg at bedtime. 3. Hypertension. On Coreg 12.5 mb bid, Norvasc 10, Lasix 40 mg daily and Hydralazine 25 tid 4. Hypothyroidism, on Synthroid. 5. Severe anemia with hemoglobin around 6. S/P EGD by Dr. Hernandez. ESTEPHANIA RN Subjective Subjective No CP or SOB off tele. Family at bedside Objective Last 24 Hour Vital Signs Date Time Temp Pulse Resp B/P (MAP) Pulse Ox O2 Delivery O2 Flow Rate FiO2 12/18/18 16:00 100.0 65 18 166/61 (96) 93 12/18/18 12:00 98.0 67 18 157/51 (86) 99 12/18/18 09:30 98.8 68 21 163/65 (97) 96 12/18/18 09:15 64 163/65 12/18/18 09:14 64 163/65 12/18/18 09:00 Nasal Cannula 2.0 12/18/18 08:00 98.8 68 21 140/45 (76) 96 12/18/18 07:46 72 22 98 12/18/18 07:07 98.8 12/18/18 06:55 Nasal Cannula 2.0 28 12/18/18 06:55 97 Nasal Cannula 2.0 28 12/18/18 06:50 163/53 (89) 12/18/18 06:00 183/65 (104) 12/18/18 05:49 183/64 12/18/18 05:42 183/65 12/18/18 01:35 76 18 Nasal Cannula 2.0 28 12/18/18 00:00 98.7 71 21 148/61 (90) 96 12/17/18 21:39 163/55 12/17/18 21:38 77 163/55 12/17/18 21:00 Nasal Cannula 2.0 12/17/18 20:20 77 22 100 Nasal Cannula 2.0 28 12/17/18 20:13 Nasal Cannula 2.0 28 12/17/18 20:13 98 Nasal Cannula 2.0 28 12/17/18 20:10 65 22 98 Nasal Cannula 2.0 28 12/17/18 20:00 98.9 69 22 163/55 (91) 96 Intake and Output 12/17/18 12/18/18 18:59 06:59 Intake Total 2350 ml 360 ml Output Total 0 ml Balance 2350 ml 360 ml Intake Oral 2000 ml 360 ml IV Total 350 ml Output Estimated Blood Loss 0 ml # Voids 5 2 Laboratory Tests Test 12/18/18 06:30 White Blood Count 7.6 K/UL (4.8-10.8) Red Blood Count 2.95 M/UL (4.20-5.40) L Hemoglobin 8.8 G/DL (12.0-16.0) L Hematocrit 27.9 % (37.0-47.0) L Mean Corpuscular Volume 94 FL (80-99) Mean Corpuscular Hemoglobin 29.9 PG (27.0-31.0) Mean Corpuscular Hemoglobin Concent 31.7 G/DL (32.0-36.0) L Red Cell Distribution Width 14.1 % (11.6-14.8) Platelet Count 233 K/UL (150-450) Mean Platelet Volume 6.5 FL (6.5-10.1) Neutrophils (%) (Auto) 80.1 % (45.0-75.0) H Lymphocytes (%) (Auto) 8.3 % (20.0-45.0) L Monocytes (%) (Auto) 8.1 % (1.0-10.0) Eosinophils (%) (Auto) 2.3 % (0.0-3.0) Basophils (%) (Auto) 1.2 % (0.0-2.0) Sodium Level 136 MMOL/L (136-145) Potassium Level 3.9 MMOL/L (3.5-5.1) Chloride Level 104 MMOL/L (98-107) Carbon Dioxide Level 18 MMOL/L (21-32) L Anion Gap 14 mmol/L (5-15) Blood Urea Nitrogen 33 mg/dL (7-18) H Creatinine 2.0 MG/DL (0.55-1.30) H Estimat Glomerular Filtration Rate mL/min (>60) Glucose Level 284 MG/DL (74-106) H Calcium Level 8.7 MG/DL (8.5-10.1) Objective HEAD AND NECK: No JVD. LUNGS: Clear. CARDIOVASCULAR: Regular S1 and S2 with no gallop. ABDOMEN: Soft. EXTREMITIES: 1+ pitting edema. Oscar Rivera MD Dec 18, 2018 18:44
--- NOTE | 2018-12-18 19:30 | NUR ---
NURSE NOTES: RN called for multiples times to the Vascular team for schedule venous duplex but unable to get hold of anyone. RN Endorsed to incoming nurse Kylee to please f/u tomorrow morning. I will f/u as needed.
--- NOTE | 2018-12-18 20:31 | NUR ---
NURSE NOTES: patient received. patient in no acute distress at this time. patient complains of no pain at this time. patient alert and oriented x4. IV intact and asymptomatic. Left arm were IV had been taken out of on Monday is still swollen and red and family reports that it looks more swollen. Venous duplex was ordered. they had not come day shift. I called Dr. Cordova and he said its okay for it to be done tomorrow morning. will endorse to morning shift nurse. bed in lowest position and locked. call light within reach. will continue to monitor.
--- NOTE | 2018-12-18 20:31 | NUR ---
HAND-OFF: Report given to Kylee CORNELIUS, pt in stable condition.
[2018-12-18] MEDS: Atorvastatin 20mg tab ORAL SCH (21:12)
[2018-12-18] MEDS: Iron Sucrose 100 MG in NS 55 ML IV SCH (21:13)
[2018-12-19] VITALS: BP 153/50
[2018-12-19] MEDS: HydrALAZINE 25mg tab ORAL SCH ×3 (06:02→21:10)
[2018-12-19] MEDS: Nateglinide 60mg tab ORAL SCH ×3 (06:02→17:56)
[2018-12-19] MEDS: NovoLOG Insulin Flexpen SUBQ SCH ×4 (06:04→21:00)
--- NOTE | 2018-12-19 06:27 | General Progress Note ---
Assessment/Plan Problem List: (1) Diabetes mellitus ICD Codes: E11.9 - Type 2 diabetes mellitus without complications SNOMED: 13372925 (2) Hypothyroidism ICD Codes: E03.9 - Hypothyroidism, unspecified SNOMED: 32185613 (3) CHF exacerbation ICD Codes: I50.9 - Heart failure, unspecified SNOMED: 07030060 Assessment/Plan continue Levemr 8 units bid continue Starlix 120 mg ac tid continue NISS ac / hs continue LT4 50 mcg daily Subjective Allergies: Coded Allergies: No Known Allergies (Unverified , 12/12/18) All Systems: reviewed and negative except above Subjective events noted glucose values are improving Item Value Date Time Bedside Blood Glucose 173 mg/dl H 12/19/18 0604 Bedside Blood Glucose 166 mg/dl H 12/18/18 2118 Bedside Blood Glucose 168 mg/dl H 12/18/18 1804 Bedside Blood Glucose 270 mg/dl H 12/18/18 1242 Bedside Blood Glucose 296 mg/dl H 12/18/18 0939 Bedside Blood Glucose 296 mg/dl H 12/18/18 0544 Objective Last 24 Hour Vital Signs Date Time Temp Pulse Resp B/P (MAP) Pulse Ox O2 Delivery O2 Flow Rate FiO2 12/19/18 06:02 153/50 12/19/18 00:00 99.4 67 18 153/50 (84) 99 12/18/18 21:12 166/61 12/18/18 21:12 65 166/61 12/18/18 21:00 Nasal Cannula 2.0 12/18/18 20:00 Nasal Cannula 2.0 28 12/18/18 20:00 100.0 67 18 154/50 (84) 99 12/18/18 20:00 98 Nasal Cannula 2.0 28 12/18/18 16:00 100.0 65 18 166/61 (96) 93 12/18/18 12:00 98.0 67 18 157/51 (86) 99 12/18/18 09:30 98.8 68 21 163/65 (97) 96 12/18/18 09:15 64 163/65 12/18/18 09:14 64 163/65 12/18/18 09:00 Nasal Cannula 2.0 12/18/18 08:00 98.8 68 21 140/45 (76) 96 12/18/18 07:46 72 22 98 12/18/18 07:07 98.8 12/18/18 06:55 Nasal Cannula 2.0 28 12/18/18 06:55 97 Nasal Cannula 2.0 28 12/18/18 06:50 163/53 (89) Intake and Output 12/18/18 12/19/18 19:00 07:00 Intake Total 400 ml Balance 400 ml Intake Oral 400 ml Laboratory Tests 12/18/18 06:30: White Blood Count 7.6, Red Blood Count 2.95L, Hemoglobin 8.8L, Hematocrit 27.9L , Mean Corpuscular Volume 94, Mean Corpuscular Hemoglobin 29.9, Mean Corpuscular Hemoglobin Concent 31.7L, Red Cell Distribution Width 14.1, Platelet Count 233, Mean Platelet Volume 6.5, Neutrophils (%) (Auto) 80.1H, Lymphocytes (%) (Auto) 8.3L, Monocytes (%) (Auto) 8.1, Eosinophils (%) (Auto) 2.3, Basophils (%) (Auto) 1.2, Sodium Level 136, Potassium Level 3.9, Chloride Level 104, Carbon Dioxide Level 18L, Anion Gap 14, Blood Urea Nitrogen 33H, Creatinine 2.0H, Estimat Glomerular Filtration Rate , Glucose Level 284H, Calcium Level 8.7 Height (Feet): 5 Height (Inches): 5.00 Weight (Pounds): 166 General Appearance: no apparent distress Neck: normal alignment Cardiovascular: normal rate Respiratory/Chest: lungs clear Abdomen: normal bowel sounds Objective Current Medications Medications (Trade) Dose Ordered Sig/Bipin Route PRN Reason Start Time Stop Time Status Last Admin Dose Admin Acetaminophen (Tylenol) 650 mg Q4H PRN ORAL Fever 12/15/18 17:30 01/11/19 17:29 12/18/18 06:37 Albuterol/ Ipratropium (Albuterol/ Ipratropium) 3 ml Q4H PRN HHN Shortness of Breath 12/15/18 17:30 12/20/18 17:29 12/17/18 20:10 Amlodipine Besylate (Norvasc) 10 mg DAILY ORAL 12/17/18 09:00 01/16/19 08:59 12/18/18 09:15 Atorvastatin Calcium (Lipitor) 20 mg BEDTIME ORAL 12/15/18 21:00 01/12/19 20:59 12/18/18 21:12 Carvedilol (Coreg) 12.5 mg EVERY 12 HOURS ORAL 12/15/18 21:00 01/12/19 08:59 12/18/18 21:12 Clonidine HCl (Catapres Tab) 0.1 mg Q8H PRN ORAL For High Blood Pressure 12/17/18 15:45 01/16/19 15:44 12/18/18 05:49 Dextrose (Dextrose 50%) 25 ml Q30M PRN IV Hypoglycemia 12/17/18 06:45 01/16/19 06:44 Dextrose (Dextrose 50%) 50 ml Q30M PRN IV Hypoglycemia 12/17/18 06:45 01/16/19 06:44 Diphenhydramine HCl (Benadryl) 25 mg Q6H PRN IVP Itching 12/15/18 17:30 01/12/19 17:29 Furosemide (Lasix) 40 mg DAILY ORAL 12/16/18 09:00 01/15/19 08:59 12/18/18 09:14 Heparin Sodium (Porcine) (Heparin 5000 units/ml) 5,000 units EVERY 12 HOURS SUBQ 12/15/18 21:00 01/12/19 08:59 12/18/18 21:25 Hydralazine HCl (Apresoline) 25 mg Q8HR ORAL 12/18/18 22:00 01/15/19 21:59 12/19/18 06:02 Insulin Aspart (NovoLOG) BEFORE MEALS AND HS SUBQ 12/15/18 21:00 01/12/19 06:29 12/19/18 06:04 Insulin Detemir (Levemir) 8 units BID SUBQ 12/18/18 09:00 01/16/19 20:59 12/18/18 18:04 Levothyroxine Sodium (Synthroid) 50 mcg ACBREAKFAST ORAL 12/16/18 06:30 01/14/19 06:29 12/19/18 06:02 Nateglinide (Starlix) 120 mg TIAC ORAL 12/18/18 11:30 01/15/19 11:29 12/19/18 06:02 Ondansetron HCl (Zofran) 4 mg Q6H PRN IVP Nausea & Vomiting 12/15/18 17:30 01/11/19 17:29 Pantoprazole (Protonix) 40 mg EVERY 12 HOURS ORAL 12/16/18 21:00 01/15/19 20:59 12/18/18 21:33 Polyethylene Glycol (Miralax) 17 gm DAILYPRN PRN ORAL Constipation 12/15/18 17:30 01/11/19 17:29 Promethazine HCl/ Codeine (Phenergan with Codeine) 5 ml Q4H PRN ORAL For Cough 12/15/18 17:30 01/12/19 17:29 Temazepam (Restoril) 15 mg HSPRN PRN ORAL Insomnia 12/15/18 17:30 12/19/18 17:29 Shaji Garcia MD Dec 19, 2018 06:27
--- NOTE | 2018-12-19 07:04 | NUR ---
HAND-OFF: Report given to demond dominique.
[2018-12-19 07:09] LABS: HEMATOCRIT 23.8 % (37.0-47.0); HEMOGLOBIN 7.8 G/DL (12.0-16.0); MEAN CORPUSCULAR VOLUME 93 FL (80-99); PLATELET COUNT 224 K/UL (150-450); RED BLOOD COUNT 2.57 M/UL (4.20-5.40); RED CELL DISTRIBUTION WIDTH 14.1 % (11.6-14.8); WHITE BLOOD COUNT 7.8 K/UL (4.8-10.8)
--- NOTE | 2018-12-19 07:24 | NUR ---
NURSE NOTES: Received patient from Christine CORNELIUS, patient is resting in bed up and eating breakfast, no distress noted, bed is locked and in lowest position, call light within reach, will continue to monitor.
[2018-12-19 07:25] LABS: ANION GAP 11 mmol/L (5-15); BLOOD UREA NITROGEN 29 mg/dL (7-18); CALCIUM 8.3 MG/DL (8.5-10.1); CARBON DIOXIDE 21 MMOL/L (21-32); CHLORIDE 102 MMOL/L (98-107); CREATININE 2.1 MG/DL (0.55-1.30); POTASSIUM 3.6 MMOL/L (3.5-5.1); SODIUM 134 MMOL/L (136-145)
[2018-12-19 08:00] VITALS: BP 126/40
[2018-12-19] MEDS: Furosemide 40mg tab ORAL SCH (09:00)
[2018-12-19] MEDS: Carvedilol 12.5mg tab ORAL SCH ×2 (09:00→21:08)
[2018-12-19] MEDS: Heparin 5000 units/ml inj SUBQ SCH (10:21)
[2018-12-19] MEDS: Levemir Flexpen SUBQ SCH ×2 (10:22→17:57)
--- NOTE | 2018-12-19 11:15 | Cardiology Report ---
APPROVED REPORT EXAM: Two-dimensional and M-mode echocardiogram with Doppler and color Doppler. M-Mode DIMENSIONS IVSd0.9 (0.7-1.1cm)Left Atrium (MM)3.7 (1.6-4.0cm) LVDd5.7 (3.5-5.6cm)Aortic Root2.0 (2.0-3.7cm) PWd1.0 (0.7-1.1cm)Aortic Cusp Exc.1.5 (1.5-2.0cm) IVSs1.5 cm LVDs3.5 (2.5-4.0cm) PWs1.4 cm Normal left ventricular chamber size, systolic function and wall motion. Left ventricular ejection fraction estimated to be 55-60%. No evidence of left ventricular hypertrophy. No evidence of pericardial fat or effusion. All other cardiac chamber sizes are within normal limits. Mild aortic valve sclerosis with adequate cusp excursion. Moderately thickened mitral valve leaflets with normal excursion. Mild mitral annulus and aortic root calcification. Pulmonic valve not well visualized. IVC at normal size with physiologic collapse . A color flow and spectral Doppler study was performed and revealed: Moderate aortic insufficiency . Normal left ventricular diastolic function . Mild to moderate mitral regurgitation. Mild tricuspid regurgitation. Tricuspid systolic velocities suggests peak right ventricular systolic pressure of 41mmHg,consistent with mild pulmonary hypertension . Mild pulmonic regurgitation .
--- NOTE | 2018-12-19 11:22 | GI Progress Note ---
Assessment/Plan Problems: (1) CHF (congestive heart failure) ICD Codes: I50.9 - Heart failure, unspecified SNOMED: 63897092 (2) Anemia ICD Codes: D64.9 - Anemia, unspecified SNOMED: 773948949 (3) Gastritis ICD Codes: K29.70 - Gastritis, unspecified, without bleeding SNOMED: 5209995 Status: stable Status Narrative Discussed with Dr. Hernandez Assessment/Plan SUMMARY OF FINDINGS: 1. Limited exam given the red color Jell-O material in the cecum and transverse colon. 2. Melanosis coli. 3. Five colonic polyps removed. 4. Internal hemorrhoids. 5. Diverticulosis. OB stool negative RECOMMENDATIONS: Follow up pathology. >> Focal chronic gastritis. Negative for H. pylori. We recommend repeat colonoscopy in three years. Advance diet Follow-up CT PRN transfusions PPI Follow labs The patient was seen and examined at bedside and all new and available data was reviewed in the patients chart. I agree with the above findings, impression and plan. (Patient seen earlier today. Signature stamp does not reflect patient encounter time.). - Bernardo Hernandez MD Subjective Gastrointestinal/Abdominal: Reports: no symptoms Objective Last 24 Hour Vital Signs Date Time Temp Pulse Resp B/P (MAP) Pulse Ox O2 Delivery O2 Flow Rate FiO2 12/19/18 09:00 Nasal Cannula 2.0 12/19/18 08:00 98.8 71 18 126/40 (68) 96 12/19/18 07:18 96 Nasal Cannula 2.0 28 12/19/18 07:17 Nasal Cannula 2.0 28 12/19/18 06:02 153/50 12/19/18 00:00 99.4 67 18 153/50 (84) 99 12/18/18 21:12 166/61 12/18/18 21:12 65 166/61 12/18/18 21:00 Nasal Cannula 2.0 12/18/18 20:00 Nasal Cannula 2.0 28 12/18/18 20:00 100.0 67 18 154/50 (84) 99 12/18/18 20:00 98 Nasal Cannula 2.0 28 12/18/18 16:00 100.0 65 18 166/61 (96) 93 12/18/18 12:00 98.0 67 18 157/51 (86) 99 Intake and Output 12/18/18 12/19/18 19:00 07:00 Intake Total 400 ml 200 ml Balance 400 ml 200 ml Intake Oral 400 ml 200 ml # Voids 2 Laboratory Tests Test 12/19/18 05:20 White Blood Count 7.8 K/UL (4.8-10.8) Red Blood Count 2.57 M/UL (4.20-5.40) L Hemoglobin 7.8 G/DL (12.0-16.0) L Hematocrit 23.8 % (37.0-47.0) L Mean Corpuscular Volume 93 FL (80-99) Mean Corpuscular Hemoglobin 30.5 PG (27.0-31.0) Mean Corpuscular Hemoglobin Concent 33.0 G/DL (32.0-36.0) Red Cell Distribution Width 14.1 % (11.6-14.8) Platelet Count 224 K/UL (150-450) Mean Platelet Volume 6.4 FL (6.5-10.1) L Neutrophils (%) (Auto) % (45.0-75.0) Lymphocytes (%) (Auto) % (20.0-45.0) Monocytes (%) (Auto) % (1.0-10.0) Eosinophils (%) (Auto) % (0.0-3.0) Basophils (%) (Auto) % (0.0-2.0) Differential Total Cells Counted 100 Neutrophils % (Manual) 78 % (45-75) H Lymphocytes % (Manual) 11 % (20-45) L Monocytes % (Manual) 6 % (1-10) Eosinophils % (Manual) 4 % (0-3) H Basophils % (Manual) 0 % (0-2) Band Neutrophils 1 % (0-8) Platelet Estimate Adequate Platelet Morphology Normal Anisocytosis 1+ Sodium Level 134 MMOL/L (136-145) L Potassium Level 3.6 MMOL/L (3.5-5.1) Chloride Level 102 MMOL/L (98-107) Carbon Dioxide Level 21 MMOL/L (21-32) Anion Gap 11 mmol/L (5-15) Blood Urea Nitrogen 29 mg/dL (7-18) H Creatinine 2.1 MG/DL (0.55-1.30) H Estimat Glomerular Filtration Rate mL/min (>60) Glucose Level 161 MG/DL (74-106) #H Calcium Level 8.3 MG/DL (8.5-10.1) L Height (Feet): 5 Height (Inches): 5.00 Weight (Pounds): 176 General Appearance: WD/WN, no apparent distress, alert Cardiovascular: normal rate Respiratory/Chest: normal breath sounds, no respiratory distress Abdominal Exam: normal bowel sounds, non tender, soft Extremities: normal range of motion, non-tender Parish Pedersen NP Dec 19, 2018 11:22
--- NOTE | 2018-12-19 11:38 | NUR ---
NURSE NOTES: RN called Dr. Christine to notify him that patient has a superficial vein clot at the left cephalic vein at fossa level, left message, awaiting call back.
[2018-12-19 12:00] VITALS: BP 158/58
--- NOTE | 2018-12-19 12:35 | Pulmonology Progress Note ---
Assessment/Plan Problems: (1) Collapse of left lung (2) Symptomatic anemia (3) ATN (acute tubular necrosis) (4) Anemia (5) Hyponatremia (6) Diabetes mellitus (7) Hypothyroidism Assessment/Plan EGD done showing gastritis, biopsy reviewed, no H pylori all reviewed all family members are at the bed site left lung opened up on lasix QD continue diuretics, on PO lasix anemia w/u in progress f/u electrolytes Subjective ROS Limited/Unobtainable: No Constitutional: Reports: no symptoms HEENT: Repors: no symptoms Allergies: Coded Allergies: No Known Allergies (Unverified , 12/12/18) Objective Last 24 Hour Vital Signs Date Time Temp Pulse Resp B/P (MAP) Pulse Ox O2 Delivery O2 Flow Rate FiO2 12/19/18 09:00 Nasal Cannula 2.0 12/19/18 08:00 98.8 71 18 126/40 (68) 96 12/19/18 07:18 96 Nasal Cannula 2.0 28 12/19/18 07:17 Nasal Cannula 2.0 28 12/19/18 06:02 153/50 12/19/18 00:00 99.4 67 18 153/50 (84) 99 12/18/18 21:12 166/61 12/18/18 21:12 65 166/61 12/18/18 21:00 Nasal Cannula 2.0 12/18/18 20:00 Nasal Cannula 2.0 28 12/18/18 20:00 100.0 67 18 154/50 (84) 99 12/18/18 20:00 98 Nasal Cannula 2.0 28 12/18/18 16:00 100.0 65 18 166/61 (96) 93 Intake and Output 12/18/18 12/19/18 19:00 07:00 Intake Total 400 ml 200 ml Balance 400 ml 200 ml Intake Oral 400 ml 200 ml # Voids 2 Objective General Appearance: WD/WN HEENT: normocephalic, atraumatic Respiratory/Chest: chest wall non-tender, lungs clear Breasts: no masses Cardiovascular: normal rate Abdomen: normal bowel sounds, soft, non tender Neurologic/Psychiatric: receiving teller II-XII grossly normal Laboratory Tests 12/19/18 05:20: White Blood Count 7.8, Red Blood Count 2.57L, Hemoglobin 7.8L, Hematocrit 23.8L , Mean Corpuscular Volume 93, Mean Corpuscular Hemoglobin 30.5, Mean Corpuscular Hemoglobin Concent 33.0, Red Cell Distribution Width 14.1, Platelet Count 224, Mean Platelet Volume 6.4L, Neutrophils (%) (Auto) , Lymphocytes (%) ( Auto) , Monocytes (%) (Auto) , Eosinophils (%) (Auto) , Basophils (%) (Auto) , Differential Total Cells Counted 100, Neutrophils % (Manual) 78H, Lymphocytes % (Manual) 11L, Monocytes % (Manual) 6, Eosinophils % (Manual) 4H, Basophils % ( Manual) 0, Band Neutrophils 1, Platelet Estimate Adequate, Platelet Morphology Normal, Anisocytosis 1+, Sodium Level 134L, Potassium Level 3.6, Chloride Level 102, Carbon Dioxide Level 21, Anion Gap 11, Blood Urea Nitrogen 29H, Creatinine 2.1H, Estimat Glomerular Filtration Rate , Glucose Level 161#H, Calcium Level 8.3L Current Medications Medications (Trade) Dose Ordered Sig/Bipin Route PRN Reason Start Time Stop Time Status Last Admin Dose Admin Acetaminophen (Tylenol) 650 mg Q4H PRN ORAL Fever 12/15/18 17:30 01/11/19 17:29 12/18/18 06:37 Albuterol/ Ipratropium (Albuterol/ Ipratropium) 3 ml Q4H PRN HHN Shortness of Breath 12/15/18 17:30 12/20/18 17:29 12/17/18 20:10 Amlodipine Besylate (Norvasc) 10 mg DAILY ORAL 12/17/18 09:00 01/16/19 08:59 12/18/18 09:15 Atorvastatin Calcium (Lipitor) 20 mg BEDTIME ORAL 12/15/18 21:00 01/12/19 20:59 12/18/18 21:12 Carvedilol (Coreg) 12.5 mg EVERY 12 HOURS ORAL 12/15/18 21:00 01/12/19 08:59 12/18/18 21:12 Clonidine HCl (Catapres Tab) 0.1 mg Q8H PRN ORAL For High Blood Pressure 12/17/18 15:45 01/16/19 15:44 12/18/18 05:49 Dextrose (Dextrose 50%) 25 ml Q30M PRN IV Hypoglycemia 12/17/18 06:45 01/16/19 06:44 Dextrose (Dextrose 50%) 50 ml Q30M PRN IV Hypoglycemia 12/17/18 06:45 01/16/19 06:44 Diphenhydramine HCl (Benadryl) 25 mg Q6H PRN IVP Itching 12/15/18 17:30 01/12/19 17:29 Furosemide (Lasix) 40 mg DAILY ORAL 12/16/18 09:00 01/15/19 08:59 12/18/18 09:14 Heparin Sodium (Porcine) (Heparin 5000 units/ml) 5,000 units EVERY 12 HOURS SUBQ 12/15/18 21:00 01/12/19 08:59 12/19/18 10:21 Hydralazine HCl (Apresoline) 25 mg Q8HR ORAL 12/18/18 22:00 01/15/19 21:59 12/19/18 06:02 Insulin Aspart (NovoLOG) BEFORE MEALS AND HS SUBQ 12/15/18 21:00 01/12/19 06:29 12/19/18 12:00 Insulin Detemir (Levemir) 8 units BID SUBQ 12/18/18 09:00 01/16/19 20:59 12/19/18 10:22 Levothyroxine Sodium (Synthroid) 50 mcg ACBREAKFAST ORAL 12/16/18 06:30 01/14/19 06:29 12/19/18 06:02 Nateglinide (Starlix) 120 mg TIAC ORAL 12/18/18 11:30 01/15/19 11:29 12/19/18 11:59 Ondansetron HCl (Zofran) 4 mg Q6H PRN IVP Nausea & Vomiting 12/15/18 17:30 01/11/19 17:29 Pantoprazole (Protonix) 40 mg EVERY 12 HOURS ORAL 12/16/18 21:00 01/15/19 20:59 12/19/18 10:20 Polyethylene Glycol (Miralax) 17 gm DAILYPRN PRN ORAL Constipation 12/15/18 17:30 01/11/19 17:29 Promethazine HCl/ Codeine (Phenergan with Codeine) 5 ml Q4H PRN ORAL For Cough 12/15/18 17:30 01/12/19 17:29 Temazepam (Restoril) 15 mg HSPRN PRN ORAL Insomnia 12/15/18 17:30 12/19/18 17:29 Velma Cordova MD Dec 19, 2018 12:35
--- NOTE | 2018-12-19 13:08 | NUR ---
DISCHARGE PLANNING PATIENT WAS REFERRED TO [facility] FOR HOME OXYGEN UNFORTUNATELY [facility] IS NOT CONTRACTED WITH PATIENT;S INSURANCE THIS SUPERVISOR ADVERTISING DISPATCH CLERKS LEFT [facility] FOR [employer] SUPERVISOR ADVERTISING [employer]PATCH [employer]ER[employer] ARG T: [phone] REGARDING HOME OXYGEN NEEDS
--- NOTE | 2018-12-19 14:19 | Infectious Diseases Prog Note ---
Assessment/Plan Assessment/Plan Assessment: Dyspnea- no obvious PNA on CXR -12/14 CXR: Interim apparently complete reexpansion of previously atelectatic left lung. Cardiomegaly.Suspect mild interstitial congestion and small bilateral pleural effusions -CXR: Complete opacification of the left hemithorax, presumably on the basis of complete left lung atelectasis Afebrile No leukocytosis -u.a no pyuria L lung collapse; SP -12/14 CXR: Interim apparently complete reexpansion of previously atelectatic left lung. Cardiomegaly. Suspect mild interstitial congestion and small bilateral pleural effusion Negatives : Flu Sc , C Diff Anemia -12/14 SP EGD: gastritis Hyponatremia DM2 HTN CAD CHF Plan: -Continue to monitor off abx unless febrile, leukocytosis -Monitor CBC/CMP, temperatures -aspiration precautions -pulm f/u -GI f/u: Subjective Allergies: Coded Allergies: No Known Allergies (Unverified , 12/12/18) Subjective afebrile no leukocytosis off abx Objective Vital Signs Last 24 Hour Vital Signs Date Time Temp Pulse Resp B/P (MAP) Pulse Ox O2 Delivery O2 Flow Rate FiO2 12/19/18 12:00 98.7 75 18 158/58 (91) 97 12/19/18 09:00 Nasal Cannula 2.0 12/19/18 08:00 98.8 71 18 126/40 (68) 96 12/19/18 07:18 96 Nasal Cannula 2.0 28 12/19/18 07:17 Nasal Cannula 2.0 28 12/19/18 06:02 153/50 12/19/18 00:00 99.4 67 18 153/50 (84) 99 12/18/18 21:12 166/61 12/18/18 21:12 65 166/61 12/18/18 21:00 Nasal Cannula 2.0 12/18/18 20:00 Nasal Cannula 2.0 28 12/18/18 20:00 100.0 67 18 154/50 (84) 99 12/18/18 20:00 98 Nasal Cannula 2.0 28 12/18/18 16:00 100.0 65 18 166/61 (96) 93 Height (Feet): 5 Height (Inches): 5.00 Weight (Pounds): 176 Objective General Appearance: WD/WN Lines, tubes and drains: peripheral HEENT: normocephalic, atraumatic Neck: non-tender, normal alignment Respiratory/Chest: chest wall non-tender, lungs clear, decreased breath sounds - at left Cardiovascular/Chest: normal peripheral pulses, normal rate Abdomen: non tender, no organomegaly Genitourinary/Rectal: normal genital exam Laboratory Tests Test 12/19/18 05:20 White Blood Count 7.8 K/UL (4.8-10.8) Red Blood Count 2.57 M/UL (4.20-5.40) L Hemoglobin 7.8 G/DL (12.0-16.0) L Hematocrit 23.8 % (37.0-47.0) L Mean Corpuscular Volume 93 FL (80-99) Mean Corpuscular Hemoglobin 30.5 PG (27.0-31.0) Mean Corpuscular Hemoglobin Concent 33.0 G/DL (32.0-36.0) Red Cell Distribution Width 14.1 % (11.6-14.8) Platelet Count 224 K/UL (150-450) Mean Platelet Volume 6.4 FL (6.5-10.1) L Neutrophils (%) (Auto) % (45.0-75.0) Lymphocytes (%) (Auto) % (20.0-45.0) Monocytes (%) (Auto) % (1.0-10.0) Eosinophils (%) (Auto) % (0.0-3.0) Basophils (%) (Auto) % (0.0-2.0) Differential Total Cells Counted 100 Neutrophils % (Manual) 78 % (45-75) H Lymphocytes % (Manual) 11 % (20-45) L Monocytes % (Manual) 6 % (1-10) Eosinophils % (Manual) 4 % (0-3) H Basophils % (Manual) 0 % (0-2) Band Neutrophils 1 % (0-8) Platelet Estimate Adequate Platelet Morphology Normal Anisocytosis 1+ Sodium Level 134 MMOL/L (136-145) L Potassium Level 3.6 MMOL/L (3.5-5.1) Chloride Level 102 MMOL/L (98-107) Carbon Dioxide Level 21 MMOL/L (21-32) Anion Gap 11 mmol/L (5-15) Blood Urea Nitrogen 29 mg/dL (7-18) H Creatinine 2.1 MG/DL (0.55-1.30) H Estimat Glomerular Filtration Rate mL/min (>60) Glucose Level 161 MG/DL (74-106) #H Calcium Level 8.3 MG/DL (8.5-10.1) L Current Medications Medications (Trade) Dose Ordered Sig/Bipin Route PRN Reason Start Time Stop Time Status Last Admin Dose Admin Acetaminophen (Tylenol) 650 mg Q4H PRN ORAL Fever 12/15/18 17:30 01/11/19 17:29 12/18/18 06:37 Albuterol/ Ipratropium (Albuterol/ Ipratropium) 3 ml Q4H PRN HHN Shortness of Breath 12/15/18 17:30 12/20/18 17:29 12/17/18 20:10 Amlodipine Besylate (Norvasc) 10 mg DAILY ORAL 12/17/18 09:00 01/16/19 08:59 12/18/18 09:15 Atorvastatin Calcium (Lipitor) 20 mg BEDTIME ORAL 12/15/18 21:00 01/12/19 20:59 12/18/18 21:12 Carvedilol (Coreg) 12.5 mg EVERY 12 HOURS ORAL 12/15/18 21:00 01/12/19 08:59 12/18/18 21:12 Clonidine HCl (Catapres Tab) 0.1 mg Q8H PRN ORAL For High Blood Pressure 12/17/18 15:45 01/16/19 15:44 12/18/18 05:49 Dextrose (Dextrose 50%) 25 ml Q30M PRN IV Hypoglycemia 12/17/18 06:45 01/16/19 06:44 Dextrose (Dextrose 50%) 50 ml Q30M PRN IV Hypoglycemia 12/17/18 06:45 01/16/19 06:44 Diphenhydramine HCl (Benadryl) 25 mg Q6H PRN IVP Itching 12/15/18 17:30 01/12/19 17:29 Furosemide (Lasix) 40 mg DAILY ORAL 12/16/18 09:00 01/15/19 08:59 12/18/18 09:14 Hydralazine HCl (Apresoline) 25 mg Q8HR ORAL 12/18/18 22:00 01/15/19 21:59 12/19/18 06:02 Insulin Aspart (NovoLOG) BEFORE MEALS AND HS SUBQ 12/15/18 21:00 01/12/19 06:29 12/19/18 12:00 Insulin Detemir (Levemir) 8 units BID SUBQ 12/18/18 09:00 01/16/19 20:59 12/19/18 10:22 Levothyroxine Sodium (Synthroid) 50 mcg ACBREAKFAST ORAL 12/16/18 06:30 01/14/19 06:29 12/19/18 06:02 Nateglinide (Starlix) 120 mg TIAC ORAL 12/18/18 11:30 01/15/19 11:29 12/19/18 11:59 Ondansetron HCl (Zofran) 4 mg Q6H PRN IVP Nausea & Vomiting 12/15/18 17:30 01/11/19 17:29 Pantoprazole (Protonix) 40 mg EVERY 12 HOURS ORAL 12/16/18 21:00 01/15/19 20:59 12/19/18 10:20 Polyethylene Glycol (Miralax) 17 gm DAILYPRN PRN ORAL Constipation 12/15/18 17:30 01/11/19 17:29 Promethazine HCl/ Codeine (Phenergan with Codeine) 5 ml Q4H PRN ORAL For Cough 12/15/18 17:30 01/12/19 17:29 Temazepam (Restoril) 15 mg HSPRN PRN ORAL Insomnia 12/15/18 17:30 12/19/18 17:29 Yadira Brunson M.D. Dec 19, 2018 14:19
--- NOTE | 2018-12-19 14:43 | Nephrology Progress Note ---
Assessment/Plan Problem List: (1) Acute on chronic renal failure (2) Collapse of left lung (3) Diabetes mellitus (4) HTN (hypertension) (5) Hypothyroidism (6) Anemia Assessment: worsening Assessment Acute on Chronic Renal Failure- Long h/o DM , HTN Collapse of left lung, resolved Symptomatic anemia Hyponatremia Hypothyroidism CHF, DIastolic dysfunction, bilateral pleural effusion CAD, s/p Stent Plan consider transfusion up on hydralazine dose Adjust BP meds 3% Saline given once monitor renal parameters avoid Nephrotoxics per orders Subjective ROS Limited/Unobtainable: No Constitutional: Reports: malaise Objective Objective Last 24 Hour Vital Signs Date Time Temp Pulse Resp B/P (MAP) Pulse Ox O2 Delivery O2 Flow Rate FiO2 12/19/18 12:00 98.7 75 18 158/58 (91) 97 12/19/18 09:00 Nasal Cannula 2.0 12/19/18 08:00 98.8 71 18 126/40 (68) 96 12/19/18 07:18 96 Nasal Cannula 2.0 28 12/19/18 07:17 Nasal Cannula 2.0 28 12/19/18 06:02 153/50 12/19/18 00:00 99.4 67 18 153/50 (84) 99 12/18/18 21:12 166/61 12/18/18 21:12 65 166/61 12/18/18 21:00 Nasal Cannula 2.0 12/18/18 20:00 Nasal Cannula 2.0 28 12/18/18 20:00 100.0 67 18 154/50 (84) 99 12/18/18 20:00 98 Nasal Cannula 2.0 28 12/18/18 16:00 100.0 65 18 166/61 (96) 93 Intake and Output 12/18/18 12/19/18 19:00 07:00 Intake Total 400 ml 200 ml Balance 400 ml 200 ml Intake Oral 400 ml 200 ml # Voids 2 Laboratory Tests 12/19/18 05:20: White Blood Count 7.8, Red Blood Count 2.57L, Hemoglobin 7.8L, Hematocrit 23.8L , Mean Corpuscular Volume 93, Mean Corpuscular Hemoglobin 30.5, Mean Corpuscular Hemoglobin Concent 33.0, Red Cell Distribution Width 14.1, Platelet Count 224, Mean Platelet Volume 6.4L, Neutrophils (%) (Auto) , Lymphocytes (%) ( Auto) , Monocytes (%) (Auto) , Eosinophils (%) (Auto) , Basophils (%) (Auto) , Differential Total Cells Counted 100, Neutrophils % (Manual) 78H, Lymphocytes % (Manual) 11L, Monocytes % (Manual) 6, Eosinophils % (Manual) 4H, Basophils % ( Manual) 0, Band Neutrophils 1, Platelet Estimate Adequate, Platelet Morphology Normal, Anisocytosis 1+, Sodium Level 134L, Potassium Level 3.6, Chloride Level 102, Carbon Dioxide Level 21, Anion Gap 11, Blood Urea Nitrogen 29H, Creatinine 2.1H, Estimat Glomerular Filtration Rate , Glucose Level 161#H, Calcium Level 8.3L Height (Feet): 5 Height (Inches): 5.00 Weight (Pounds): 176 General Appearance: no apparent distress Cardiovascular: normal rate Respiratory/Chest: decreased breath sounds Abdomen: soft Elio Gillespie MD Dec 19, 2018 14:43
--- NOTE | 2018-12-19 15:22 | General Progress Note ---
Assessment/Plan Problem List: (1) UTI (urinary tract infection) ICD Codes: N39.0 - Urinary tract infection, site not specified SNOMED: 50202807 (2) HTN (hypertension) ICD Codes: I10 - Essential (primary) hypertension SNOMED: 40955089 (3) CHF exacerbation ICD Codes: I50.9 - Heart failure, unspecified SNOMED: 29790375 (4) Hyponatremia ICD Codes: E87.1 - Hypo-osmolality and hyponatremia SNOMED: 06110125 (5) Diabetes mellitus ICD Codes: E11.9 - Type 2 diabetes mellitus without complications SNOMED: 39567833 (6) Anemia ICD Codes: D64.9 - Anemia, unspecified SNOMED: 701987616 Status: unchanged Assessment/Plan o2 pulm tx abx pt diet cbc bmp am transfuse prn transfer pt Subjective Constitutional: Reports: weakness Allergies: Coded Allergies: No Known Allergies (Unverified , 12/12/18) All Systems: reviewed and negative except above Subjective sl sob Objective Last 24 Hour Vital Signs Date Time Temp Pulse Resp B/P (MAP) Pulse Ox O2 Delivery O2 Flow Rate FiO2 12/19/18 14:50 158/58 12/19/18 12:00 98.7 75 18 158/58 (91) 97 12/19/18 09:00 Nasal Cannula 2.0 12/19/18 08:00 98.8 71 18 126/40 (68) 96 12/19/18 07:18 96 Nasal Cannula 2.0 28 12/19/18 07:17 Nasal Cannula 2.0 28 12/19/18 06:02 153/50 12/19/18 00:00 99.4 67 18 153/50 (84) 99 12/18/18 21:12 166/61 12/18/18 21:12 65 166/61 12/18/18 21:00 Nasal Cannula 2.0 12/18/18 20:00 Nasal Cannula 2.0 28 12/18/18 20:00 100.0 67 18 154/50 (84) 99 12/18/18 20:00 98 Nasal Cannula 2.0 28 12/18/18 16:00 100.0 65 18 166/61 (96) 93 Intake and Output 12/18/18 12/19/18 19:00 07:00 Intake Total 400 ml 200 ml Balance 400 ml 200 ml Intake Oral 400 ml 200 ml # Voids 2 Laboratory Tests 12/19/18 05:20: White Blood Count 7.8, Red Blood Count 2.57L, Hemoglobin 7.8L, Hematocrit 23.8L , Mean Corpuscular Volume 93, Mean Corpuscular Hemoglobin 30.5, Mean Corpuscular Hemoglobin Concent 33.0, Red Cell Distribution Width 14.1, Platelet Count 224, Mean Platelet Volume 6.4L, Neutrophils (%) (Auto) , Lymphocytes (%) ( Auto) , Monocytes (%) (Auto) , Eosinophils (%) (Auto) , Basophils (%) (Auto) , Differential Total Cells Counted 100, Neutrophils % (Manual) 78H, Lymphocytes % (Manual) 11L, Monocytes % (Manual) 6, Eosinophils % (Manual) 4H, Basophils % ( Manual) 0, Band Neutrophils 1, Platelet Estimate Adequate, Platelet Morphology Normal, Anisocytosis 1+, Sodium Level 134L, Potassium Level 3.6, Chloride Level 102, Carbon Dioxide Level 21, Anion Gap 11, Blood Urea Nitrogen 29H, Creatinine 2.1H, Estimat Glomerular Filtration Rate , Glucose Level 161#H, Calcium Level 8.3L Height (Feet): 5 Height (Inches): 5.00 Weight (Pounds): 176 General Appearance: lethargic EENT: normal ENT inspection Neck: normal alignment Cardiovascular: normal peripheral pulses, normal rate, regular rhythm Respiratory/Chest: chest wall non-tender, lungs clear, normal breath sounds Abdomen: normal bowel sounds, non tender, soft Extremities: normal inspection Edema: 1+ Arm (L), 1+ Arm (R), 1+ Leg (L), 1+ Leg (R), 1+ Pedal (L), 1+ Pedal ( R), 1+ Generalized Neurologic: responsive, motor weakness Skin: normal pigmentation, warm/dry Andrei Campuzano DO Dec 19, 2018 15:22
[2018-12-19] MEDS: Albuterol/Ipratropium 3ml neb HHN PRN (15:45)
--- NOTE | 2018-12-19 15:46 | NUR ---
DISCHARGE PLANNING PER HMO PREFERRED IPA PIPE INSULATOR~ [facility] T:[phone] THEY DID NOT APPROVE [facility] AT [facility] HAS REFERRED PATIENT TO 1) [facility] T: [phone] AND 2)[facility] FOR HOME OXYGEN OXYGEN TANK MUST BE DELIVERED TO BEDSIDE BEFORE PATIENT CAN LEAVE THE HOSPITAL
[2018-12-19 16:00] VITALS: BP 157/56
--- NOTE | 2018-12-19 16:01 | NUR ---
CASE MANAGEMENT: REVIEW 12/19/2018 SI: CHF EXACERBATION T 98.7 HR 75 RR 18 B/P 158/58 SATS 97% ON 2L/NC HGB 7.8 HCT 23.8 NA 134 BUN 29 CR 2.1 GLU 161 CA 8.3 IS: CLONIDINE PO Q8HR PRN NORVASC PO QD VENOFER IV QHS LASIX PO QD COREG PO Q12HR MED/SURG STATUS DCP: PATIENT IS FROM HOME Addendum: 12/20/18 at 1412 by GEOVANI WEAVER, BLOCK OPERATOR BLOCK OPERATOR 12/19/18 TRANSFUSE 1 UNIT [facility]'S
--- NOTE | 2018-12-19 16:05 | NUR ---
INSURANCE FAXED TO [facility] T: [phone] F: [phone]
--- NOTE | 2018-12-19 16:32 | General Progress Note ---
Assessment/Plan Assessment/Plan Assessment/Plan # Anemia of iron deficiency due to potential gastritis as noted on egd and/or gi bleed --> Anemia workup has been ordered/reviewed and c/w aid --> No evidence of hemolysis is noted, peripheral smear has been reviewed --> Hgb goal >7. Transfuse prn. --> IRON x 5 days iv given --> Medications have been reviewed --> neg EGD for source of GIB, last colonoscopy per patient over 10 years --> neg colo, repeat in 3 years per gi # Dyspnea- no obvious PNA on CXR --> CXR: complete opacification of the left hemithorax; presumably on the basis of complete left lung atelectasis # Lung collapse --> per pulm # Hyponatremia # DM2 # HTN on meds sbp goal <140 # CAD # CHF as per Dr. Miguel rubio The timing of this note does not necessarily reflect the time of the patient was seen. Greatly appreciate consultation! Subjective Constitutional: Denies: no symptoms, chills, diaphoresis, fever, malaise, weakness, other HEENT: Denies: no symptoms, eye pain, blurred vision, tearing, double vision, ear pain, ear discharge, nose pain, nose congestion, throat pain, throat swelling, mouth pain, mouth swelling, other Gastrointestinal/Abdominal: Denies: no symptoms, abdomen distended, abdominal pain, black stools, tarry stools, blood in stool, constipated, diarrhea, difficulty swallowing, nausea, poor appetite, poor fluid intake, rectal bleeding , vomiting, other Allergies: Coded Allergies: No Known Allergies (Unverified , 12/12/18) Subjective 12/16/18: colo is pending, on iv iron, hgb stable 3: s/p colonoscopy, tolerated well, no events 12/18: EGD done showing gastritis, biopsy reviewed, family members are at the bed site, no events 12/19: no events, hgb slightly lower today, may consider blood transfusion Objective Last 24 Hour Vital Signs Date Time Temp Pulse Resp B/P (MAP) Pulse Ox O2 Delivery O2 Flow Rate FiO2 12/19/18 16:00 97.9 64 18 157/56 (89) 100 12/19/18 15:58 67 18 99 Nasal Cannula 2.0 28 3/6/19 15:45 67 20 98 Nasal Cannula 2.0 28 12/19/18 14:50 158/58 12/19/18 12:00 98.7 75 18 158/58 (91) 97 12/19/18 09:00 Nasal Cannula 2.0 12/19/18 08:00 98.8 71 18 126/40 (68) 96 12/19/18 07:18 96 Nasal Cannula 2.0 28 12/19/18 07:17 Nasal Cannula 2.0 28 12/19/18 06:02 153/50 12/19/18 00:00 99.4 67 18 153/50 (84) 99 12/18/18 21:12 166/61 12/18/18 21:12 65 166/61 12/18/18 21:00 Nasal Cannula 2.0 12/18/18 20:00 Nasal Cannula 2.0 28 12/18/18 20:00 100.0 67 18 154/50 (84) 99 12/18/18 20:00 98 Nasal Cannula 2.0 28 Intake and Output 12/18/18 12/19/18 18:59 06:59 Intake Total 400 ml 200 ml Balance 400 ml 200 ml Intake Oral 400 ml 200 ml # Voids 2 Laboratory Tests 12/19/18 05:20: White Blood Count 7.8, Red Blood Count 2.57L, Hemoglobin 7.8L, Hematocrit 23.8L , Mean Corpuscular Volume 93, Mean Corpuscular Hemoglobin 30.5, Mean Corpuscular Hemoglobin Concent 33.0, Red Cell Distribution Width 14.1, Platelet Count 224, Mean Platelet Volume 6.4L, Neutrophils (%) (Auto) , Lymphocytes (%) ( Auto) , Monocytes (%) (Auto) , Eosinophils (%) (Auto) , Basophils (%) (Auto) , Differential Total Cells Counted 100, Neutrophils % (Manual) 78H, Lymphocytes % (Manual) 11L, Monocytes % (Manual) 6, Eosinophils % (Manual) 4H, Basophils % ( Manual) 0, Band Neutrophils 1, Platelet Estimate Adequate, Platelet Morphology Normal, Anisocytosis 1+, Sodium Level 134L, Potassium Level 3.6, Chloride Level 102, Carbon Dioxide Level 21, Anion Gap 11, Blood Urea Nitrogen 29H, Creatinine 2.1H, Estimat Glomerular Filtration Rate , Glucose Level 161#H, Calcium Level 8.3L Height (Feet): 5 Height (Inches): 5.00 Weight (Pounds): 176 General Appearance: no apparent distress Objective General Appearance: WD/WN Lines, tubes and drains: peripheral HEENT: normocephalic, atraumatic Neck: non-tender, normal alignment Respiratory/Chest: chest wall non-tender, lungs clear, decreased breath sounds - at left Cardiovascular/Chest: normal peripheral pulses, rrr Abdomen: non tender, no organomegaly Genitourinary/Rectal: normal genital exam Clyde Christine MD Dec 19, 2018 16:32
--- NOTE | 2018-12-19 18:10 | Cardiac Electrophysiology PN ---
Assessment/Plan Assessment/Plan 1. Congestive heart failure with BNP is more than 2100. Likely due to combination of diastolic dysfunction with EF 55% to 60% as well as severe anemia. On Lasix 40 po daily 2. Coronary artery disease with history of prior stent placement.On Coreg 12.5 mg bid and Lipitor 20 mg at bedtime. 3. Hypertension. On Coreg 12.5 mb bid, Norvasc 10, Lasix 40 mg daily and Hydralazine 25 tid 4. Hypothyroidism, on Synthroid. 5. Severe anemia with hemoglobin around 6. S/P EGD by Dr. Hernandez. DW RN and Subjective Subjective No CP or SOB off tele. Family at bedside. DC to SNIF vs comfort care Objective Last 24 Hour Vital Signs Date Time Temp Pulse Resp B/P (MAP) Pulse Ox O2 Delivery O2 Flow Rate FiO2 12/19/18 16:00 97.9 64 18 157/56 (89) 100 12/19/18 15:58 67 18 99 Nasal Cannula 2.0 28 12/19/18 15:45 67 20 98 Nasal Cannula 2.0 28 12/19/18 14:50 158/58 12/19/18 12:00 98.7 75 18 158/58 (91) 97 12/19/18 09:00 Nasal Cannula 2.0 12/19/18 08:00 98.8 71 18 126/40 (68) 96 12/19/18 07:18 96 Nasal Cannula 2.0 28 12/19/18 07:17 Nasal Cannula 2.0 28 12/19/18 06:02 153/50 12/19/18 00:00 99.4 67 18 153/50 (84) 99 12/18/18 21:12 166/61 12/18/18 21:12 65 166/61 12/18/18 21:00 Nasal Cannula 2.0 12/18/18 20:00 Nasal Cannula 2.0 28 12/18/18 20:00 100.0 67 18 154/50 (84) 99 12/18/18 20:00 98 Nasal Cannula 2.0 28 Intake and Output 12/18/18 12/19/18 18:59 06:59 Intake Total 400 ml 200 ml Balance 400 ml 200 ml Intake Oral 400 ml 200 ml # Voids 2 Laboratory Tests Test 12/19/18 05:20 White Blood Count 7.8 K/UL (4.8-10.8) Red Blood Count 2.57 M/UL (4.20-5.40) L Hemoglobin 7.8 G/DL (12.0-16.0) L Hematocrit 23.8 % (37.0-47.0) L Mean Corpuscular Volume 93 FL (80-99) Mean Corpuscular Hemoglobin 30.5 PG (27.0-31.0) Mean Corpuscular Hemoglobin Concent 33.0 G/DL (32.0-36.0) Red Cell Distribution Width 14.1 % (11.6-14.8) Platelet Count 224 K/UL (150-450) Mean Platelet Volume 6.4 FL (6.5-10.1) L Neutrophils (%) (Auto) % (45.0-75.0) Lymphocytes (%) (Auto) % (20.0-45.0) Monocytes (%) (Auto) % (1.0-10.0) Eosinophils (%) (Auto) % (0.0-3.0) Basophils (%) (Auto) % (0.0-2.0) Differential Total Cells Counted 100 Neutrophils % (Manual) 78 % (45-75) H Lymphocytes % (Manual) 11 % (20-45) L Monocytes % (Manual) 6 % (1-10) Eosinophils % (Manual) 4 % (0-3) H Basophils % (Manual) 0 % (0-2) Band Neutrophils 1 % (0-8) Platelet Estimate Adequate Platelet Morphology Normal Anisocytosis 1+ Sodium Level 134 MMOL/L (136-145) L Potassium Level 3.6 MMOL/L (3.5-5.1) Chloride Level 102 MMOL/L (98-107) Carbon Dioxide Level 21 MMOL/L (21-32) Anion Gap 11 mmol/L (5-15) Blood Urea Nitrogen 29 mg/dL (7-18) H Creatinine 2.1 MG/DL (0.55-1.30) H Estimat Glomerular Filtration Rate mL/min (>60) Glucose Level 161 MG/DL (74-106) #H Calcium Level 8.3 MG/DL (8.5-10.1) L Objective HEAD AND NECK: No JVD. LUNGS: Clear. CARDIOVASCULAR: Regular S1 and S2 with no gallop. ABDOMEN: Soft. EXTREMITIES: 1+ pitting edema. Toluie,Oscar MD Dec 19, 2018 18:10
--- NOTE | 2018-12-19 18:45 | NUR ---
RN began to administer one unit of PRBC per MD order, patient tolerating well, VSS, no adverse reaction noted, patient tolerating well, will continue to monitor.
--- NOTE | 2018-12-19 19:30 | NUR ---
NURSE NOTES: Received report from ADRYAN Davis. Patient alert, oriented. Family visiting at bedside. Bed locked, in lowest position. Side rails up x2. Call light within reach. Denies pain. Blood infusing, RFA. Discussed care with patient and family. Aware of OB stool test needed. Will continue to monitor.
--- NOTE | 2018-12-19 19:53 | NUR ---
HAND-OFF: Report given to Addison CORNELIUS. Addendum: 12/19/18 at 1953 by MONTSE CAMPOS RN Endorsed blood hanging.
[2018-12-19 20:00] VITALS: BP 159/58
[2018-12-19] MEDS: Atorvastatin 20mg tab ORAL SCH (21:11)
[2018-12-19 21:15] VITALS: BP 155/71
[2018-12-20] VITALS: BP 146/53
[2018-12-20 04:00] VITALS: BP 133/43
[2018-12-20] MEDS: Albuterol/Ipratropium 3ml neb HHN PRN (04:03)
[2018-12-20] MEDS: HydrALAZINE 25mg tab ORAL SCH ×2 (06:17→13:54)
[2018-12-20] MEDS: Nateglinide 60mg tab ORAL SCH ×3 (06:22→17:04)
[2018-12-20] MEDS: NovoLOG Insulin Flexpen SUBQ SCH ×3 (06:30→17:05)
--- NOTE | 2018-12-20 06:37 | General Progress Note ---
Assessment/Plan Problem List: (1) Diabetes mellitus ICD Codes: E11.9 - Type 2 diabetes mellitus without complications SNOMED: 05174203 (2) Hypothyroidism ICD Codes: E03.9 - Hypothyroidism, unspecified SNOMED: 76788242 (3) CHF exacerbation ICD Codes: I50.9 - Heart failure, unspecified SNOMED: 22612652 Assessment/Plan continue Levemr 8 units bid continue Starlix 120 mg ac tid continue NISS ac / hs continue LT4 50 mcg daily Subjective Allergies: Coded Allergies: No Known Allergies (Unverified , 12/12/18) All Systems: reviewed and negative except above Subjective events noted Item Value Date Time Bedside Blood Glucose 97 mg/dl 12/19/18 2100 Bedside Blood Glucose 182 mg/dl H 12/19/18 1758 Bedside Blood Glucose 271 mg/dl H 12/19/18 1200 Bedside Blood Glucose 263 mg/dl H 12/19/18 1022 Bedside Blood Glucose 173 mg/dl H 12/19/18 0630 Objective Last 24 Hour Vital Signs Date Time Temp Pulse Resp B/P (MAP) Pulse Ox O2 Delivery O2 Flow Rate FiO2 12/20/18 06:17 157/57 12/20/18 04:10 65 20 100 Nasal Cannula 2.0 28 12/20/18 04:02 66 20 99 Nasal Cannula 2.0 28 12/20/18 04:00 98.0 71 19 133/43 (73) 97 12/20/18 00:00 98.8 62 20 146/53 (84) 97 12/19/18 21:15 98.9 66 20 155/71 (99) 97 12/19/18 21:10 159/58 12/19/18 21:08 65 159/58 12/19/18 21:00 Nasal Cannula 2.0 12/19/18 20:48 Nasal Cannula 2.0 28 12/19/18 20:48 97 Nasal Cannula 2.0 28 12/19/18 20:00 98.0 65 20 159/58 (91) 97 12/19/18 16:00 97.9 64 18 157/56 (89) 100 12/19/18 15:58 67 18 99 Nasal Cannula 2.0 28 12/19/18 15:45 67 20 98 Nasal Cannula 2.0 28 12/19/18 14:50 158/58 12/19/18 12:00 98.7 75 18 158/58 (91) 97 12/19/18 09:00 Nasal Cannula 2.0 12/19/18 08:00 98.8 71 18 126/40 (68) 96 12/19/18 07:18 96 Nasal Cannula 2.0 28 12/19/18 07:17 Nasal Cannula 2.0 28 Intake and Output 12/19/18 12/20/18 19:00 07:00 Intake Total 600 ml Balance 600 ml Intake Oral 600 ml # Voids 3 Height (Feet): 5 Height (Inches): 5.00 Weight (Pounds): 176 General Appearance: no apparent distress Neck: normal alignment Cardiovascular: normal rate Respiratory/Chest: normal breath sounds Abdomen: normal bowel sounds Objective Current Medications Medications (Trade) Dose Ordered Sig/Bipin Route PRN Reason Start Time Stop Time Status Last Admin Dose Admin Acetaminophen (Tylenol) 650 mg Q4H PRN ORAL Fever 12/15/18 17:30 01/11/19 17:29 12/20/18 03:34 Albuterol/ Ipratropium (Albuterol/ Ipratropium) 3 ml Q4H PRN HHN Shortness of Breath 12/15/18 17:30 12/20/18 17:29 12/20/18 04:03 Amlodipine Besylate (Norvasc) 10 mg DAILY ORAL 12/17/18 09:00 01/16/19 08:59 12/18/18 09:15 Atorvastatin Calcium (Lipitor) 20 mg BEDTIME ORAL 12/15/18 21:00 01/12/19 20:59 12/19/18 21:11 Carvedilol (Coreg) 12.5 mg EVERY 12 HOURS ORAL 12/15/18 21:00 01/12/19 08:59 12/19/18 21:08 Clonidine HCl (Catapres Tab) 0.1 mg Q8H PRN ORAL For High Blood Pressure 12/17/18 15:45 01/16/19 15:44 12/18/18 05:49 Dextrose (Dextrose 50%) 25 ml Q30M PRN IV Hypoglycemia 12/17/18 06:45 01/16/19 06:44 Dextrose (Dextrose 50%) 50 ml Q30M PRN IV Hypoglycemia 12/17/18 06:45 01/16/19 06:44 Diphenhydramine HCl (Benadryl) 25 mg Q6H PRN IVP Itching 12/15/18 17:30 01/12/19 17:29 Furosemide (Lasix) 40 mg DAILY ORAL 12/16/18 09:00 01/15/19 08:59 12/18/18 09:14 Hydralazine HCl (Apresoline) 25 mg Q8HR ORAL 12/18/18 22:00 01/15/19 21:59 12/20/18 06:17 Insulin Aspart (NovoLOG) BEFORE MEALS AND HS SUBQ 12/15/18 21:00 01/12/19 06:29 12/19/18 17:58 Insulin Detemir (Levemir) 8 units BID SUBQ 12/18/18 09:00 01/16/19 20:59 12/19/18 17:57 Levothyroxine Sodium (Synthroid) 50 mcg ACBREAKFAST ORAL 12/16/18 06:30 01/14/19 06:29 12/20/18 06:17 Nateglinide (Starlix) 120 mg TIAC ORAL 12/18/18 11:30 01/15/19 11:29 12/19/18 17:56 Ondansetron HCl (Zofran) 4 mg Q6H PRN IVP Nausea & Vomiting 12/15/18 17:30 01/11/19 17:29 Pantoprazole (Protonix) 40 mg EVERY 12 HOURS ORAL 12/16/18 21:00 01/15/19 20:59 12/19/18 21:08 Polyethylene Glycol (Miralax) 17 gm DAILYPRN PRN ORAL Constipation 12/15/18 17:30 01/11/19 17:29 12/20/18 06:29 Promethazine HCl/ Codeine (Phenergan with Codeine) 5 ml Q4H PRN ORAL For Cough 12/15/18 17:30 01/12/19 17:29 Shaji Garcia MD Dec 20, 2018 06:37
--- NOTE | 2018-12-20 07:20 | NUR ---
HAND-OFF: Report given to ADRYAN Medrano. Patient in stable condition. Daughter at bedside.
--- NOTE | 2018-12-20 07:20 | NUR ---
Received patient from Addison CORNELIUS and Maria E CORNELIUS, patient is resting in bed, up and eating breakfast, bed is locked and in lowest position, call light within reach, will continue to monitor.
[2018-12-20 07:34] LABS: BASOPHILS % (AUTO) 0.8 % (0.0-2.0); EOSINOPHILS % (AUTO) 4.5 % (0.0-3.0); HEMATOCRIT 27.8 % (37.0-47.0); HEMOGLOBIN 9.1 G/DL (12.0-16.0); LYMPHOCYTES % (AUTO) 10.1 % (20.0-45.0); MEAN CORPUSCULAR VOLUME 93 FL (80-99); MONOCYTES % (AUTO) 10.3 % (1.0-10.0); NEUTROPHILS % (AUTO) 74.3 % (45.0-75.0); PLATELET COUNT 220 K/UL (150-450); RED CELL DISTRIBUTION WIDTH 13.7 % (11.6-14.8); WHITE BLOOD COUNT 7.3 K/UL (4.8-10.8)
[2018-12-20 08:00] VITALS: BP 165/57
[2018-12-20 08:00] LABS: ANION GAP 12 mmol/L (5-15); BLOOD UREA NITROGEN 32 mg/dL (7-18); CALCIUM 8.5 MG/DL (8.5-10.1); CARBON DIOXIDE 22 MMOL/L (21-32); CHLORIDE 102 MMOL/L (98-107); CREATININE 2.2 MG/DL (0.55-1.30); POTASSIUM 3.7 MMOL/L (3.5-5.1); SODIUM 135 MMOL/L (136-145)
[2018-12-20] MEDS: Furosemide 40mg tab ORAL SCH (08:59)
[2018-12-20] MEDS: Levemir Flexpen SUBQ SCH (09:00)
[2018-12-20] MEDS: Carvedilol 12.5mg tab ORAL SCH (09:00)
--- NOTE | 2018-12-20 11:09 | GI Progress Note ---
Assessment/Plan Problems: (1) CHF (congestive heart failure) ICD Codes: I50.9 - Heart failure, unspecified SNOMED: 15882067 (2) Anemia ICD Codes: D64.9 - Anemia, unspecified SNOMED: 473454254 (3) Gastritis ICD Codes: K29.70 - Gastritis, unspecified, without bleeding SNOMED: 3823491 Status: stable Status Narrative Discussed with Dr. Hernandez Assessment/Plan SUMMARY OF FINDINGS: 1. Limited exam given the red color Jell-O material in the cecum and transverse colon. 2. Melanosis coli. 3. Five colonic polyps removed. 4. Internal hemorrhoids. 5. Diverticulosis. OB stool negative RECOMMENDATIONS: Follow-up with hematology Follow up pathology. >> Focal chronic gastritis. Negative for H. pylori. We recommend repeat colonoscopy in three years. Advance diet Follow-up CT PRN transfusions PPI Follow labs The patient was seen and examined at bedside and all new and available data was reviewed in the patients chart. I agree with the above findings, impression and plan. (Patient seen earlier today. Signature stamp does not reflect patient encounter time.). - Bernardo Hernandez MD Subjective Gastrointestinal/Abdominal: Reports: no symptoms Objective Last 24 Hour Vital Signs Date Time Temp Pulse Resp B/P (MAP) Pulse Ox O2 Delivery O2 Flow Rate FiO2 12/20/18 09:00 73 165/57 12/20/18 08:59 73 165/57 12/20/18 08:30 Nasal Cannula 2.0 12/20/18 08:00 98.9 73 18 165/57 (93) 98 12/20/18 06:17 157/57 12/20/18 04:10 65 20 100 Nasal Cannula 2.0 28 12/20/18 04:02 66 20 99 Nasal Cannula 2.0 28 12/20/18 04:00 98.0 71 19 133/43 (73) 97 12/20/18 00:00 98.8 62 20 146/53 (84) 97 12/19/18 21:15 98.9 66 20 155/71 (99) 97 12/19/18 21:10 159/58 12/19/18 21:08 65 159/58 12/19/18 21:00 Nasal Cannula 2.0 12/19/18 20:48 Nasal Cannula 2.0 28 12/19/18 20:48 97 Nasal Cannula 2.0 28 12/19/18 20:00 98.0 65 20 159/58 (91) 97 12/19/18 16:00 97.9 64 18 157/56 (89) 100 12/19/18 15:58 67 18 99 Nasal Cannula 2.0 28 12/19/18 15:45 67 20 98 Nasal Cannula 2.0 28 12/19/18 14:50 158/58 12/19/18 12:00 98.7 75 18 158/58 (91) 97 Intake and Output 12/19/18 12/20/18 19:00 07:00 Intake Total 600 ml Balance 600 ml Intake Oral 600 ml # Voids 3 2 Laboratory Tests Test 12/20/18 05:56 White Blood Count 7.3 K/UL (4.8-10.8) Red Blood Count 3.00 M/UL (4.20-5.40) L Hemoglobin 9.1 G/DL (12.0-16.0) L Hematocrit 27.8 % (37.0-47.0) L Mean Corpuscular Volume 93 FL (80-99) Mean Corpuscular Hemoglobin 30.4 PG (27.0-31.0) Mean Corpuscular Hemoglobin Concent 32.8 G/DL (32.0-36.0) Red Cell Distribution Width 13.7 % (11.6-14.8) Platelet Count 220 K/UL (150-450) Mean Platelet Volume 6.4 FL (6.5-10.1) L Neutrophils (%) (Auto) 74.3 % (45.0-75.0) Lymphocytes (%) (Auto) 10.1 % (20.0-45.0) L Monocytes (%) (Auto) 10.3 % (1.0-10.0) H Eosinophils (%) (Auto) 4.5 % (0.0-3.0) H Basophils (%) (Auto) 0.8 % (0.0-2.0) Sodium Level 135 MMOL/L (136-145) L Potassium Level 3.7 MMOL/L (3.5-5.1) Chloride Level 102 MMOL/L (98-107) Carbon Dioxide Level 22 MMOL/L (21-32) Anion Gap 12 mmol/L (5-15) Blood Urea Nitrogen 32 mg/dL (7-18) H Creatinine 2.2 MG/DL (0.55-1.30) H Estimat Glomerular Filtration Rate mL/min (>60) Glucose Level 72 MG/DL (74-106) L Calcium Level 8.5 MG/DL (8.5-10.1) Height (Feet): 5 Height (Inches): 5.00 Weight (Pounds): 171 General Appearance: WD/WN, no apparent distress, alert Cardiovascular: normal rate Respiratory/Chest: normal breath sounds, no respiratory distress Abdominal Exam: normal bowel sounds, non tender, soft Extremities: normal range of motion, non-tender Parish Pedersen NP Dec 20, 2018 11:09
[2018-12-20 12:00] VITALS: BP 155/58
[2018-12-20] MEDS ORDERED: Bisacodyl EC 5mg tab ORAL SCH (13:00)
--- NOTE | 2018-12-20 13:52 | General Progress Note ---
Assessment/Plan Problem List: (1) UTI (urinary tract infection) ICD Codes: N39.0 - Urinary tract infection, site not specified SNOMED: 24691989 (2) HTN (hypertension) ICD Codes: I10 - Essential (primary) hypertension SNOMED: 79505538 (3) CHF exacerbation ICD Codes: I50.9 - Heart failure, unspecified SNOMED: 67646754 (4) Hyponatremia ICD Codes: E87.1 - Hypo-osmolality and hyponatremia SNOMED: 52726013 (5) Diabetes mellitus ICD Codes: E11.9 - Type 2 diabetes mellitus without complications SNOMED: 38859613 (6) Anemia ICD Codes: D64.9 - Anemia, unspecified SNOMED: 305617247 Status: stable, progressing Assessment/Plan o2 pulm tx abx pt diet dc if clear Subjective Constitutional: Reports: weakness Allergies: Coded Allergies: No Known Allergies (Unverified , 12/12/18) All Systems: reviewed and negative except above Subjective sl sob o2nc Objective Last 24 Hour Vital Signs Date Time Temp Pulse Resp B/P (MAP) Pulse Ox O2 Delivery O2 Flow Rate FiO2 12/20/18 12:00 98.7 69 20 155/58 (90) 98 12/20/18 09:00 73 165/57 12/20/18 08:59 73 165/57 12/20/18 08:30 Nasal Cannula 2.0 12/20/18 08:00 98.9 73 18 165/57 (93) 98 12/20/18 06:17 157/57 12/20/18 04:10 65 20 100 Nasal Cannula 2.0 28 12/20/18 04:02 66 20 99 Nasal Cannula 2.0 28 12/20/18 04:00 98.0 71 19 133/43 (73) 97 12/20/18 00:00 98.8 62 20 146/53 (84) 97 12/19/18 21:15 98.9 66 20 155/71 (99) 97 12/19/18 21:10 159/58 12/19/18 21:08 65 159/58 12/19/18 21:00 Nasal Cannula 2.0 12/19/18 20:48 Nasal Cannula 2.0 28 12/19/18 20:48 97 Nasal Cannula 2.0 28 12/19/18 20:00 98.0 65 20 159/58 (91) 97 12/19/18 16:00 97.9 64 18 157/56 (89) 100 12/19/18 15:58 67 18 99 Nasal Cannula 2.0 28 12/19/18 15:45 67 20 98 Nasal Cannula 2.0 28 12/19/18 14:50 158/58 Intake and Output 12/19/18 12/20/18 19:00 07:00 Intake Total 600 ml Balance 600 ml Intake Oral 600 ml # Voids 3 2 Laboratory Tests 12/20/18 05:56: White Blood Count 7.3, Red Blood Count 3.00L, Hemoglobin 9.1L, Hematocrit 27.8L , Mean Corpuscular Volume 93, Mean Corpuscular Hemoglobin 30.4, Mean Corpuscular Hemoglobin Concent 32.8, Red Cell Distribution Width 13.7, Platelet Count 220, Mean Platelet Volume 6.4L, Neutrophils (%) (Auto) 74.3, Lymphocytes ( %) (Auto) 10.1L, Monocytes (%) (Auto) 10.3H, Eosinophils (%) (Auto) 4.5H, Basophils (%) (Auto) 0.8, Sodium Level 135L, Potassium Level 3.7, Chloride Level 102, Carbon Dioxide Level 22, Anion Gap 12, Blood Urea Nitrogen 32H, Creatinine 2.2H, Estimat Glomerular Filtration Rate , Glucose Level 72L, Calcium Level 8.5 Height (Feet): 5 Height (Inches): 5.00 Weight (Pounds): 171 General Appearance: lethargic EENT: normal ENT inspection Neck: normal alignment Cardiovascular: normal peripheral pulses, normal rate, regular rhythm Respiratory/Chest: chest wall non-tender, lungs clear, normal breath sounds Abdomen: normal bowel sounds, non tender, soft Extremities: normal inspection Edema: no edema noted Arm (L), no edema noted Arm (R), no edema noted Leg (L), no edema noted Leg (R), no edema noted Pedal (L), no edema noted Pedal (R), no edema noted Generalized Neurologic: responsive, motor weakness Skin: normal pigmentation, warm/dry Andrei Campuzano DO Dec 20, 2018 13:52
[2018-12-20 13:54] VITALS: BP 155/58
--- NOTE | 2018-12-20 14:13 | Diagnostic Imaging Report ---
APPROVED REPORT CPT Code: 11351 Present Symptoms Comments: Swelling of left arm LEFT UPPER EXTREMITY: Venous imaging reveals patency of the internal jugular, subclavian, axillary and brachial veins. Doppler indicates normal spontaneous flow within these venous segments. The left cephalic vein is thrombosed. The basilic vein is within normal limits.
--- NOTE | 2018-12-20 14:18 | Pulmonology Progress Note ---
Assessment/Plan Problems: (1) Collapse of left lung (2) Symptomatic anemia (3) ATN (acute tubular necrosis) (4) Anemia (5) Hyponatremia (6) Diabetes mellitus (7) Hypothyroidism Assessment/Plan less cough EGD done showing gastritis, biopsy reviewed, no H pylori all reviewed all family members are at the bed site left lung opened up on lasix QD continue diuretics, on PO lasix anemia w/u in progress f/u electrolytes Subjective ROS Limited/Unobtainable: No Constitutional: Reports: no symptoms HEENT: Repors: no symptoms Respiratory: Reports: no symptoms Allergies: Coded Allergies: No Known Allergies (Unverified , 12/12/18) Objective Last 24 Hour Vital Signs Date Time Temp Pulse Resp B/P (MAP) Pulse Ox O2 Delivery O2 Flow Rate FiO2 12/20/18 13:54 155/58 12/20/18 12:00 98.7 69 20 155/58 (90) 98 12/20/18 09:00 73 165/57 12/20/18 08:59 73 165/57 12/20/18 08:30 Nasal Cannula 2.0 12/20/18 08:00 98.9 73 18 165/57 (93) 98 12/20/18 06:17 157/57 12/20/18 04:10 65 20 100 Nasal Cannula 2.0 28 12/20/18 04:02 66 20 99 Nasal Cannula 2.0 28 12/20/18 04:00 98.0 71 19 133/43 (73) 97 12/20/18 00:00 98.8 62 20 146/53 (84) 97 12/19/18 21:15 98.9 66 20 155/71 (99) 97 12/19/18 21:10 159/58 12/19/18 21:08 65 159/58 12/19/18 21:00 Nasal Cannula 2.0 12/19/18 20:48 Nasal Cannula 2.0 28 12/19/18 20:48 97 Nasal Cannula 2.0 28 12/19/18 20:00 98.0 65 20 159/58 (91) 97 12/19/18 16:00 97.9 64 18 157/56 (89) 100 12/19/18 15:58 67 18 99 Nasal Cannula 2.0 28 12/19/18 15:45 67 20 98 Nasal Cannula 2.0 28 12/19/18 14:50 158/58 Intake and Output 12/19/18 12/20/18 19:00 07:00 Intake Total 600 ml Balance 600 ml Intake Oral 600 ml # Voids 3 2 Objective General Appearance: WD/WN HEENT: normocephalic, atraumatic Respiratory/Chest: chest wall non-tender, lungs clear Breasts: no masses Cardiovascular: normal rate Abdomen: normal bowel sounds, soft, non tender Neurologic/Psychiatric: president sales and marketing II-XII grossly normal Laboratory Tests 12/20/18 05:56: White Blood Count 7.3, Red Blood Count 3.00L, Hemoglobin 9.1L, Hematocrit 27.8L , Mean Corpuscular Volume 93, Mean Corpuscular Hemoglobin 30.4, Mean Corpuscular Hemoglobin Concent 32.8, Red Cell Distribution Width 13.7, Platelet Count 220, Mean Platelet Volume 6.4L, Neutrophils (%) (Auto) 74.3, Lymphocytes ( %) (Auto) 10.1L, Monocytes (%) (Auto) 10.3H, Eosinophils (%) (Auto) 4.5H, Basophils (%) (Auto) 0.8, Sodium Level 135L, Potassium Level 3.7, Chloride Level 102, Carbon Dioxide Level 22, Anion Gap 12, Blood Urea Nitrogen 32H, Creatinine 2.2H, Estimat Glomerular Filtration Rate , Glucose Level 72L, Calcium Level 8.5 Current Medications Medications (Trade) Dose Ordered Sig/Bipin Route PRN Reason Start Time Stop Time Status Last Admin Dose Admin Acetaminophen (Tylenol) 650 mg Q4H PRN ORAL Fever 12/15/18 17:30 01/11/19 17:29 12/20/18 03:34 Albuterol/ Ipratropium (Albuterol/ Ipratropium) 3 ml Q4H PRN HHN Shortness of Breath 12/15/18 17:30 12/20/18 17:29 12/20/18 04:03 Amlodipine Besylate (Norvasc) 10 mg DAILY ORAL 12/17/18 09:00 01/16/19 08:59 12/20/18 08:59 Atorvastatin Calcium (Lipitor) 20 mg BEDTIME ORAL 12/15/18 21:00 01/12/19 20:59 12/19/18 21:11 Bisacodyl (Dulcolax) 5 mg ONCE ORAL 12/20/18 13:00 12/20/18 18:00 12/20/18 13:53 Carvedilol (Coreg) 12.5 mg EVERY 12 HOURS ORAL 12/15/18 21:00 01/12/19 08:59 12/20/18 09:00 Clonidine HCl (Catapres Tab) 0.1 mg Q8H PRN ORAL For High Blood Pressure 12/17/18 15:45 01/16/19 15:44 12/18/18 05:49 Dextrose (Dextrose 50%) 25 ml Q30M PRN IV Hypoglycemia 12/17/18 06:45 01/16/19 06:44 Dextrose (Dextrose 50%) 50 ml Q30M PRN IV Hypoglycemia 12/17/18 06:45 01/16/19 06:44 Diphenhydramine HCl (Benadryl) 25 mg Q6H PRN IVP Itching 12/15/18 17:30 01/12/19 17:29 Furosemide (Lasix) 40 mg DAILY ORAL 12/16/18 09:00 01/15/19 08:59 12/20/18 08:59 Hydralazine HCl (Apresoline) 25 mg Q8HR ORAL 12/18/18 22:00 01/15/19 21:59 12/20/18 13:54 Insulin Aspart (NovoLOG) BEFORE MEALS AND HS SUBQ 12/15/18 21:00 01/12/19 06:29 12/20/18 11:50 Insulin Detemir (Levemir) 8 units BID SUBQ 12/18/18 09:00 01/16/19 20:59 12/19/18 17:57 Levothyroxine Sodium (Synthroid) 50 mcg ACBREAKFAST ORAL 12/16/18 06:30 01/14/19 06:29 12/20/18 06:17 Nateglinide (Starlix) 120 mg TIAC ORAL 12/18/18 11:30 01/15/19 11:29 12/20/18 11:48 Ondansetron HCl (Zofran) 4 mg Q6H PRN IVP Nausea & Vomiting 12/15/18 17:30 01/11/19 17:29 Pantoprazole (Protonix) 40 mg EVERY 12 HOURS ORAL 12/16/18 21:00 01/15/19 20:59 12/20/18 09:00 Polyethylene Glycol (Miralax) 17 gm DAILYPRN PRN ORAL Constipation 12/15/18 17:30 01/11/19 17:29 12/20/18 06:29 Promethazine HCl/ Codeine (Phenergan with Codeine) 5 ml Q4H PRN ORAL For Cough 12/15/18 17:30 01/12/19 17:29 Velma Cordova MD Dec 20, 2018 14:18
[2018-12-20] MEDS ORDERED: AMLODIPINE BESY10 MG ORAL (15:16)
[2018-12-20] MEDS ORDERED: CATAPRES0.1 MG ORAL (15:17)
[2018-12-20] MEDS ORDERED: ALBUTEROL2.5 MG/3 M INH (15:19)
[2018-12-20] MEDS ORDERED: HYDRALAZINE HCL25 M1 ORAL (15:20)
[2018-12-20] MEDS ORDERED: NOVOLOG100 UNITS1 (15:22)
[2018-12-20] MEDS ORDERED: LEVEMIR FL100 UNIT/1 SUBQ (15:24)
[2018-12-20] MEDS ORDERED: LEVOTHYROXINE75 MCG ORAL (15:25)
[2018-12-20] MEDS ORDERED: STARLIX60 MG ORAL (15:29)
[2018-12-20] MEDS ORDERED: PROTONIX40 MG ORAL (15:30)
[2018-12-20] MEDS ORDERED: MIRALAX17 G2 ORAL (15:32)
--- NOTE | 2018-12-20 15:41 | Infectious Diseases Prog Note ---
Assessment/Plan Assessment/Plan Assessment: Dyspnea- no obvious PNA on CXR -12/14 CXR: Interim apparently complete reexpansion of previously atelectatic left lung. Cardiomegaly.Suspect mild interstitial congestion and small bilateral pleural effusions -CXR: Complete opacification of the left hemithorax, presumably on the basis of complete left lung atelectasis Low grade fever, improving No leukocytosis -u.a no pyuria L lung collapse; SP -12/14 CXR: Interim apparently complete reexpansion of previously atelectatic left lung. Cardiomegaly. Suspect mild interstitial congestion and small bilateral pleural effusion Negatives : Flu Sc , C Diff Anemia -12/14 SP EGD: gastritis -s/p Colonoscopy: . Limited exam given the red color Jell-O material in the cecum and transverse colon. Melanosis coli.Five colonic polyps removed.. Internal hemorrhoids. Diverticulosis. Hyponatremia DM2 HTN CAD CHF Plan: -Continue to monitor off abx unless febrile, leukocytosis -Monitor CBC/CMP, temperatures -aspiration precautions -pulm f/u -GI f/u: Subjective Allergies: Coded Allergies: No Known Allergies (Unverified , 12/12/18) Subjective afebrile >36hrs no leukocytosis off abx Objective Vital Signs Last 24 Hour Vital Signs Date Time Temp Pulse Resp B/P (MAP) Pulse Ox O2 Delivery O2 Flow Rate FiO2 12/20/18 13:54 155/58 12/20/18 12:00 98.7 69 20 155/58 (90) 98 12/20/18 09:00 73 165/57 12/20/18 08:59 73 165/57 12/20/18 08:35 Nasal Cannula 2.0 28 12/20/18 08:34 96 Nasal Cannula 2.0 28 12/20/18 08:30 Nasal Cannula 2.0 12/20/18 08:00 98.9 73 18 165/57 (93) 98 12/20/18 06:17 157/57 12/20/18 04:10 65 20 100 Nasal Cannula 2.0 28 12/20/18 04:02 66 20 99 Nasal Cannula 2.0 28 12/20/18 04:00 98.0 71 19 133/43 (73) 97 12/20/18 00:00 98.8 62 20 146/53 (84) 97 12/19/18 21:15 98.9 66 20 155/71 (99) 97 12/19/18 21:10 159/58 12/19/18 21:08 65 159/58 12/19/18 21:00 Nasal Cannula 2.0 12/19/18 20:48 Nasal Cannula 2.0 28 12/19/18 20:48 97 Nasal Cannula 2.0 28 12/19/18 20:00 98.0 65 20 159/58 (91) 97 12/19/18 16:00 97.9 64 18 157/56 (89) 100 12/19/18 15:58 67 18 99 Nasal Cannula 2.0 28 12/19/18 15:45 67 20 98 Nasal Cannula 2.0 28 Height (Feet): 5 Height (Inches): 5.00 Weight (Pounds): 171 Objective General Appearance: WD/WN Lines, tubes and drains: peripheral HEENT: normocephalic, atraumatic Neck: non-tender, normal alignment Respiratory/Chest: chest wall non-tender, lungs clear, decreased breath sounds - at left Cardiovascular/Chest: normal peripheral pulses, normal rate Abdomen: non tender, no organomegaly Genitourinary/Rectal: normal genital exam Laboratory Tests Test 12/20/18 05:56 White Blood Count 7.3 K/UL (4.8-10.8) Red Blood Count 3.00 M/UL (4.20-5.40) L Hemoglobin 9.1 G/DL (12.0-16.0) L Hematocrit 27.8 % (37.0-47.0) L Mean Corpuscular Volume 93 FL (80-99) Mean Corpuscular Hemoglobin 30.4 PG (27.0-31.0) Mean Corpuscular Hemoglobin Concent 32.8 G/DL (32.0-36.0) Red Cell Distribution Width 13.7 % (11.6-14.8) Platelet Count 220 K/UL (150-450) Mean Platelet Volume 6.4 FL (6.5-10.1) L Neutrophils (%) (Auto) 74.3 % (45.0-75.0) Lymphocytes (%) (Auto) 10.1 % (20.0-45.0) L Monocytes (%) (Auto) 10.3 % (1.0-10.0) H Eosinophils (%) (Auto) 4.5 % (0.0-3.0) H Basophils (%) (Auto) 0.8 % (0.0-2.0) Sodium Level 135 MMOL/L (136-145) L Potassium Level 3.7 MMOL/L (3.5-5.1) Chloride Level 102 MMOL/L (98-107) Carbon Dioxide Level 22 MMOL/L (21-32) Anion Gap 12 mmol/L (5-15) Blood Urea Nitrogen 32 mg/dL (7-18) H Creatinine 2.2 MG/DL (0.55-1.30) H Estimat Glomerular Filtration Rate mL/min (>60) Glucose Level 72 MG/DL (74-106) L Calcium Level 8.5 MG/DL (8.5-10.1) Current Medications Medications (Trade) Dose Ordered Sig/Bipin Route PRN Reason Start Time Stop Time Status Last Admin Dose Admin Acetaminophen (Tylenol) 650 mg Q4H PRN ORAL Fever 12/15/18 17:30 01/11/19 17:29 12/20/18 03:34 Albuterol/ Ipratropium (Albuterol/ Ipratropium) 3 ml Q4H PRN HHN Shortness of Breath 12/15/18 17:30 12/20/18 17:29 12/20/18 04:03 Amlodipine Besylate (Norvasc) 10 mg DAILY ORAL 12/17/18 09:00 01/16/19 08:59 12/20/18 08:59 Atorvastatin Calcium (Lipitor) 20 mg BEDTIME ORAL 12/15/18 21:00 01/12/19 20:59 12/19/18 21:11 Bisacodyl (Dulcolax) 5 mg ONCE ORAL 12/20/18 13:00 12/20/18 18:00 12/20/18 13:53 Carvedilol (Coreg) 12.5 mg EVERY 12 HOURS ORAL 12/15/18 21:00 01/12/19 08:59 12/20/18 09:00 Clonidine HCl (Catapres Tab) 0.1 mg Q8H PRN ORAL For High Blood Pressure 12/17/18 15:45 01/16/19 15:44 12/18/18 05:49 Dextrose (Dextrose 50%) 25 ml Q30M PRN IV Hypoglycemia 12/17/18 06:45 01/16/19 06:44 Dextrose (Dextrose 50%) 50 ml Q30M PRN IV Hypoglycemia 12/17/18 06:45 01/16/19 06:44 Diphenhydramine HCl (Benadryl) 25 mg Q6H PRN IVP Itching 12/15/18 17:30 01/12/19 17:29 Furosemide (Lasix) 40 mg DAILY ORAL 12/16/18 09:00 01/15/19 08:59 12/20/18 08:59 Hydralazine HCl (Apresoline) 25 mg Q8HR ORAL 12/18/18 22:00 01/15/19 21:59 12/20/18 13:54 Insulin Aspart (NovoLOG) BEFORE MEALS AND HS SUBQ 12/15/18 21:00 01/12/19 06:29 12/20/18 11:50 Insulin Detemir (Levemir) 8 units BID SUBQ 12/18/18 09:00 01/16/19 20:59 12/19/18 17:57 Levothyroxine Sodium (Synthroid) 50 mcg ACBREAKFAST ORAL 12/16/18 06:30 01/14/19 06:29 12/20/18 06:17 Nateglinide (Starlix) 120 mg TIAC ORAL 12/18/18 11:30 01/15/19 11:29 12/20/18 11:48 Ondansetron HCl (Zofran) 4 mg Q6H PRN IVP Nausea & Vomiting 12/15/18 17:30 01/11/19 17:29 Pantoprazole (Protonix) 40 mg EVERY 12 HOURS ORAL 12/16/18 21:00 01/15/19 20:59 12/20/18 09:00 Polyethylene Glycol (Miralax) 17 gm DAILYPRN PRN ORAL Constipation 12/15/18 17:30 01/11/19 17:29 12/20/18 06:29 Promethazine HCl/ Codeine (Phenergan with Codeine) 5 ml Q4H PRN ORAL For Cough 12/15/18 17:30 01/12/19 17:29 Yadira Brunson M.D. Dec 20, 2018 15:41
--- NOTE | 2018-12-20 15:56 | Nephrology Progress Note ---
Assessment/Plan Problem List: (1) Acute on chronic renal failure (2) Collapse of left lung (3) Diabetes mellitus (4) HTN (hypertension) (5) Hypothyroidism (6) Anemia Assessment: worsening Assessment Acute on Chronic Renal Failure- Long h/o DM , HTN Collapse of left lung, resolved Symptomatic anemia Hyponatremia Hypothyroidism CHF, DIastolic dysfunction, bilateral pleural effusion CAD, s/p Stent Plan transfused up on hydralazine dose Adjust BP meds monitor renal parameters avoid Nephrotoxics per orders Subjective ROS Limited/Unobtainable: No Constitutional: Reports: malaise, weakness Objective Objective Last 24 Hour Vital Signs Date Time Temp Pulse Resp B/P (MAP) Pulse Ox O2 Delivery O2 Flow Rate FiO2 12/20/18 13:54 155/58 12/20/18 12:00 98.7 69 20 155/58 (90) 98 12/20/18 09:00 73 165/57 12/20/18 08:59 73 165/57 12/20/18 08:35 Nasal Cannula 2.0 28 12/20/18 08:34 96 Nasal Cannula 2.0 28 12/20/18 08:30 Nasal Cannula 2.0 12/20/18 08:00 98.9 73 18 165/57 (93) 98 12/20/18 06:17 157/57 12/20/18 04:10 65 20 100 Nasal Cannula 2.0 28 12/20/18 04:02 66 20 99 Nasal Cannula 2.0 28 12/20/18 04:00 98.0 71 19 133/43 (73) 97 12/20/18 00:00 98.8 62 20 146/53 (84) 97 12/19/18 21:15 98.9 66 20 155/71 (99) 97 12/19/18 21:10 159/58 12/19/18 21:08 65 159/58 12/19/18 21:00 Nasal Cannula 2.0 12/19/18 20:48 Nasal Cannula 2.0 28 12/19/18 20:48 97 Nasal Cannula 2.0 28 12/19/18 20:00 98.0 65 20 159/58 (91) 97 12/19/18 16:00 97.9 64 18 157/56 (89) 100 12/19/18 15:58 67 18 99 Nasal Cannula 2.0 28 Intake and Output 12/19/18 12/20/18 19:00 07:00 Intake Total 600 ml Balance 600 ml Intake Oral 600 ml # Voids 3 2 Laboratory Tests 12/20/18 05:56: White Blood Count 7.3, Red Blood Count 3.00L, Hemoglobin 9.1L, Hematocrit 27.8L , Mean Corpuscular Volume 93, Mean Corpuscular Hemoglobin 30.4, Mean Corpuscular Hemoglobin Concent 32.8, Red Cell Distribution Width 13.7, Platelet Count 220, Mean Platelet Volume 6.4L, Neutrophils (%) (Auto) 74.3, Lymphocytes ( %) (Auto) 10.1L, Monocytes (%) (Auto) 10.3H, Eosinophils (%) (Auto) 4.5H, Basophils (%) (Auto) 0.8, Sodium Level 135L, Potassium Level 3.7, Chloride Level 102, Carbon Dioxide Level 22, Anion Gap 12, Blood Urea Nitrogen 32H, Creatinine 2.2H, Estimat Glomerular Filtration Rate , Glucose Level 72L, Calcium Level 8.5 Height (Feet): 5 Height (Inches): 5.00 Weight (Pounds): 171 General Appearance: no apparent distress Cardiovascular: normal rate Respiratory/Chest: decreased breath sounds Abdomen: soft Elio Gillespie MD Dec 20, 2018 15:56
--- NOTE | 2018-12-20 17:00 | General Progress Note ---
Assessment/Plan Assessment/Plan Assessment/Plan # Anemia of iron deficiency due to potential gastritis as noted on egd and/or gi bleed --> Anemia workup has been ordered/reviewed and c/w aid --> No evidence of hemolysis is noted, peripheral smear has been reviewed --> Hgb goal >7. Transfuse prn. --> IRON x 5 days iv given --> Medications have been reviewed --> neg EGD for source of GIB, last colonoscopy per patient over 10 years --> neg colo, repeat in 3 years per gi # Dyspnea- no obvious PNA on CXR --> CXR: complete opacification of the left hemithorax; presumably on the basis of complete left lung atelectasis # Lung collapse --> per pulm # Hyponatremia # DM2 # HTN on meds sbp goal <140 # CAD # CHF as per Dr. Miguel rubio The timing of this note does not necessarily reflect the time of the patient was seen. Greatly appreciate consultation! Subjective Constitutional: Denies: no symptoms, chills, diaphoresis, fever, malaise, weakness, other HEENT: Denies: no symptoms, eye pain, blurred vision, tearing, double vision, ear pain, ear discharge, nose pain, nose congestion, throat pain, throat swelling, mouth pain, mouth swelling, other Respiratory: Denies: no symptoms, cough, orthopnea, shortness of breath, SOB with excertion, SOB at rest, sputum, stridor, wheezing, other Gastrointestinal/Abdominal: Denies: no symptoms, abdomen distended, abdominal pain, black stools, tarry stools, blood in stool, constipated, diarrhea, difficulty swallowing, nausea, poor appetite, poor fluid intake, rectal bleeding , vomiting, other Genitourinary: Denies: no symptoms, burning, discharge, frequency, flank pain, hematuria, incontinence, pain, urgency, other Neurologic/Psychiatric: Denies: no symptoms, anxiety, depressed, emotional problems, headache, numbness, paresthesia, pre-existing deficit, seizure, tingling, tremors, weakness, other Hematologic/Lymphatic: Denies: no symptoms, anemia, easy bleeding, easy bruising, other Allergies: Coded Allergies: No Known Allergies (Unverified , 12/12/18) Subjective 12/16/18: colo is pending, on iv iron, hgb stable 12/17: s/p colonoscopy, tolerated well, no events 12/18: EGD done showing gastritis, biopsy reviewed, family members are at the bed site, no events 12/19: no events, hgb slightly lower today, may consider blood transfusion 12/20: seen by bedside, comfortable, no acute events reported Objective Last 24 Hour Vital Signs Date Time Temp Pulse Resp B/P (MAP) Pulse Ox O2 Delivery O2 Flow Rate FiO2 12/20/18 13:54 155/58 12/20/18 12:00 98.7 69 20 155/58 (90) 98 12/20/18 09:00 73 165/57 12/20/18 08:59 73 165/57 12/20/18 08:35 Nasal Cannula 2.0 28 12/20/18 08:34 96 Nasal Cannula 2.0 28 12/20/18 08:30 Nasal Cannula 2.0 12/20/18 08:00 98.9 73 18 165/57 (93) 98 12/20/18 06:17 157/57 12/20/18 04:10 65 20 100 Nasal Cannula 2.0 28 12/20/18 04:02 66 20 99 Nasal Cannula 2.0 28 12/20/18 04:00 98.0 71 19 133/43 (73) 97 12/20/18 00:00 98.8 62 20 146/53 (84) 97 12/19/18 21:15 98.9 66 20 155/71 (99) 97 12/19/18 21:10 159/58 12/19/18 21:08 65 159/58 12/19/18 21:00 Nasal Cannula 2.0 12/19/18 20:48 Nasal Cannula 2.0 28 12/19/18 20:48 97 Nasal Cannula 2.0 28 12/19/18 20:00 98.0 65 20 159/58 (91) 97 Intake and Output 12/19/18 12/20/18 18:59 06:59 Intake Total 600 ml Balance 600 ml Intake Oral 600 ml # Voids 3 2 Laboratory Tests 12/20/18 05:56: White Blood Count 7.3, Red Blood Count 3.00L, Hemoglobin 9.1L, Hematocrit 27.8L , Mean Corpuscular Volume 93, Mean Corpuscular Hemoglobin 30.4, Mean Corpuscular Hemoglobin Concent 32.8, Red Cell Distribution Width 13.7, Platelet Count 220, Mean Platelet Volume 6.4L, Neutrophils (%) (Auto) 74.3, Lymphocytes ( %) (Auto) 10.1L, Monocytes (%) (Auto) 10.3H, Eosinophils (%) (Auto) 4.5H, Basophils (%) (Auto) 0.8, Sodium Level 135L, Potassium Level 3.7, Chloride Level 102, Carbon Dioxide Level 22, Anion Gap 12, Blood Urea Nitrogen 32H, Creatinine 2.2H, Estimat Glomerular Filtration Rate , Glucose Level 72L, Calcium Level 8.5 Height (Feet): 5 Height (Inches): 5.00 Weight (Pounds): 171 Objective General Appearance: WD/WN Lines, tubes and drains: peripheral HEENT: normocephalic, atraumatic Neck: non-tender, normal alignment Respiratory/Chest: chest wall non-tender, lungs clear, decreased breath sounds - at left Cardiovascular/Chest: normal peripheral pulses, rrr Abdomen: non tender, no organomegaly Genitourinary/Rectal: normal genital exam Clyde Christine MD Dec 20, 2018 17:00
--- NOTE | 2018-12-20 17:58 | NUR ---
NURSE NOTES: Patient discharged per doctor order, belongings checked, no issues noted, IV removed, no issues, discharge paperwork reviewed, patient transferred downstairs with nurse and picked up by personal vehicle, no distress noted.
--- NOTE | 2018-12-20 18:00 | Cardiac Electrophysiology PN ---
Assessment/Plan Assessment/Plan 1. Congestive heart failure with BNP is more than 2100. Likely due to combination of diastolic dysfunction with EF 55% to 60% as well as severe anemia. On Lasix 40 po daily 2. Coronary artery disease with history of prior stent placement.On Coreg 12.5 mg bid and Lipitor 20 mg at bedtime. 3. Hypertension. On Coreg 12.5 mb bid, Norvasc 10, Lasix 40 mg daily and Hydralazine 25 tid 4. Hypothyroidism, on Synthroid. 5. Severe anemia 6. S/P EGD by Dr. Hernandez. ESTEPHANIA RN and Subjective Subjective No CP or SOB. Objective Last 24 Hour Vital Signs Date Time Temp Pulse Resp B/P (MAP) Pulse Ox O2 Delivery O2 Flow Rate FiO2 12/20/18 13:54 155/58 12/20/18 12:00 98.7 69 20 155/58 (90) 98 12/20/18 09:00 73 165/57 12/20/18 08:59 73 165/57 12/20/18 08:35 Nasal Cannula 2.0 28 12/20/18 08:34 96 Nasal Cannula 2.0 28 12/20/18 08:30 Nasal Cannula 2.0 12/20/18 08:00 98.9 73 18 165/57 (93) 98 12/20/18 06:17 157/57 12/20/18 04:10 65 20 100 Nasal Cannula 2.0 28 12/20/18 04:02 66 20 99 Nasal Cannula 2.0 28 12/20/18 04:00 98.0 71 19 133/43 (73) 97 12/20/18 00:00 98.8 62 20 146/53 (84) 97 12/19/18 21:15 98.9 66 20 155/71 (99) 97 12/19/18 21:10 159/58 12/19/18 21:08 65 159/58 12/19/18 21:00 Nasal Cannula 2.0 12/19/18 20:48 Nasal Cannula 2.0 28 12/19/18 20:48 97 Nasal Cannula 2.0 28 12/19/18 20:00 98.0 65 20 159/58 (91) 97 Intake and Output 12/19/18 12/20/18 18:59 06:59 Intake Total 600 ml Balance 600 ml Intake Oral 600 ml # Voids 3 2 Laboratory Tests Test 12/20/18 05:56 White Blood Count 7.3 K/UL (4.8-10.8) Red Blood Count 3.00 M/UL (4.20-5.40) L Hemoglobin 9.1 G/DL (12.0-16.0) L Hematocrit 27.8 % (37.0-47.0) L Mean Corpuscular Volume 93 FL (80-99) Mean Corpuscular Hemoglobin 30.4 PG (27.0-31.0) Mean Corpuscular Hemoglobin Concent 32.8 G/DL (32.0-36.0) Red Cell Distribution Width 13.7 % (11.6-14.8) Platelet Count 220 K/UL (150-450) Mean Platelet Volume 6.4 FL (6.5-10.1) L Neutrophils (%) (Auto) 74.3 % (45.0-75.0) Lymphocytes (%) (Auto) 10.1 % (20.0-45.0) L Monocytes (%) (Auto) 10.3 % (1.0-10.0) H Eosinophils (%) (Auto) 4.5 % (0.0-3.0) H Basophils (%) (Auto) 0.8 % (0.0-2.0) Sodium Level 135 MMOL/L (136-145) L Potassium Level 3.7 MMOL/L (3.5-5.1) Chloride Level 102 MMOL/L (98-107) Carbon Dioxide Level 22 MMOL/L (21-32) Anion Gap 12 mmol/L (5-15) Blood Urea Nitrogen 32 mg/dL (7-18) H Creatinine 2.2 MG/DL (0.55-1.30) H Estimat Glomerular Filtration Rate mL/min (>60) Glucose Level 72 MG/DL (74-106) L Calcium Level 8.5 MG/DL (8.5-10.1) Objective HEAD AND NECK: No JVD. LUNGS: Clear. CARDIOVASCULAR: Regular S1 and S2 with no gallop. ABDOMEN: Soft. EXTREMITIES: 1+ pitting edema. Oscar Rivera MD Dec 20, 2018 18:00
--- NOTE | 2018-12-21 14:08 | Discharge Summary ---
Discharge Summary Discharge Summary _ DATE OF ADMISSION: 12/12/2018 DATE OF DISCHARGE: 12/20/2018 DISCHARGED BY: Dr. Andrei Campuzano CONSULTANTS: Dr. Oscar Garcia [facility] HOSPITAL COURSE: Patient is an 78-year-old female, who lives at home, presented to ED due to increased shortness of breath for 1 week. She was recently admitted to [facility] for congestive heart failure, hyponatremia and anemia. Denied fever or chills. Denied nausea or vomiting. Denied chest pain or abdominal pain. She has medical history significant for diabetes mellitus, hypertension, coronary artery disease and CHF. On evaluation at the ED, she was brought in by EMS on BiPAP. Her O2 saturation was 100%. She was taken off BiPAP and she maintained her O2 saturation in the high 90s on nasal cannula. Blood work showed hemoglobin of 7.5, hematocrit 22. Sodium was 126, chloride 94. BUN was 33, creatinine 1.7. Troponin was negative. ProBNP 2133. She had an EKG done that showed normal sinus rhythm. Chest x-ray showed cardiomegaly with diffuse patchy opacity and bilateral small pleural effusion as read by ER physician. She complained of profound itching all over the body. She was treated with permethrin cream as a precaution. She was then admitted for evaluation of CHF exacerbation, anemia, hyponatremia and dyspnea. GI was consulted. She was given proton pump inhibitors twice daily. Patient admitted to taking Plavix daily. Plavix was placed on hold. She was given 2 units packed RBC blood transfusion. There was complete opacification of the left hemothorax. She was given respiratory treatment and chest physiotherapy. Encouraged use of incentive spirometry. Left lung eventually opened up. Wheel Grinder was consulted. Echocardiogram showed ejection fraction 55-60%. Venous duplex of the lower extremity did not show any evidence of DVT. EKG showed normal sinus rhythm with poor R wave progression, but no acute ST to T wave abnormalities. Patient had elevated BNP. Patient has congestive heart failure likely due to combination of diastolic dysfunction as well as anemia. She was given Coreg, Lipitor and Lasix. On 12/14/2018, she underwent EGD. Patient had diffuse gastritis and multiple gastric polyps. Patient had negative EGD. Was a scheduled for colonoscopy. TSH was 5.5, free T4 1.1. Levothyroxine was increased to 50 mcg daily. Blood glucose was monitored and patient was placed on insulin sliding scale. Starlix tiac was added. She was eventually started on Levemir 8 units nightly. Creatinine was noted to be rising. Hired Hand was consulted. Lasix was tapered. She was given 3% saline for hyponatremia. Antihypertensives were titrated. She was given Norvasc and hydralazine. 12/17/2018, he underwent colonoscopy. There was evidence of diffuse melanosis coli. Patient had limited exam due to red food color left in the cecum and ascending colon. There were five colonic polyps removed. 12/19/2018, there was again a drop in hemoglobin to 7.8. She was given additional 1 unit packed RBC blood transfusion. Hemoglobin levels went up to 9.1 posttransfusion. She was then discharged home with home health. FINAL DIAGNOSES: Acute diastolic CHF Coronary artery disease with prior stent placement Hypertension Hypothyroidism Anemia status post blood transfusion Status post EGD and colonoscopy Anemia of iron deficiency Hyponatremia Type 2 diabetes mellitus Acute on chronic renal failure Collapse left lung, resolved Gastritis Melanosis coli Internal hemorrhoids Diverticulosis DISPOSITION: Home with home health DISCHARGE MEDICATIONS: Refer to Discharge Medication List. DISCHARGE INSTRUCTIONS: Follow-up in a week. I have been assigned to complete a discharge summary on this account, I was not involved with the patient's management. Amberly Dorman NP Dec 21, 2018 14:08
== END 2018-12-20 18:02 | disposition home health service (06) | DRG 291 ==
LOC: EDBD 18:49 → EMR 19:15 → 2E 20:40 → EDBEDREQ 20:58 → 3E 12-15 17:57
PROC: 30233N1 Transfusion of Nonautologous Red Blood Cells into Peripheral Vein, Percutaneous Approach (ICD-10-PCS; principal; 2018-12-13)
PROC: 0DB68ZX Excision of Stomach, Via Natural or Artificial Opening Endoscopic, Diagnostic (ICD-10-PCS; 2018-12-14)
PROC: 0DB78ZX Excision of Stomach, Pylorus, Via Natural or Artificial Opening Endoscopic, Diagnostic (ICD-10-PCS; 2018-12-14)
PROC: 0DBL8ZZ Excision of Transverse Colon, Via Natural or Artificial Opening Endoscopic (ICD-10-PCS; 2018-12-17)
PROC: 0DBK8ZZ Excision of Ascending Colon, Via Natural or Artificial Opening Endoscopic (ICD-10-PCS; 2018-12-17)
DX: I13.0 Hypertensive heart and chronic kidney disease with heart failure and stage 1 through stage 4 chronic kidney disease, or unspecified chronic kidney disease (principal); I50.43 Acute on chronic combined systolic (congestive) and diastolic (congestive) heart failure; N17.0 Acute kidney failure with tubular necrosis; E87.1 Hypo-osmolality and hyponatremia; J98.19 Other pulmonary collapse; N39.0 Urinary tract infection, site not specified; E11.22 Type 2 diabetes mellitus with diabetic chronic kidney disease; N18.9 Chronic kidney disease, unspecified; K29.70 Gastritis, unspecified, without bleeding; K31.7 Polyp of stomach and duodenum; E03.9 Hypothyroidism, unspecified; I25.10 Atherosclerotic heart disease of native coronary artery without angina pectoris; Z95.5 Presence of coronary angioplasty implant and graft; D50.9 Iron deficiency anemia, unspecified; K63.89 Other specified diseases of intestine; K64.8 Other hemorrhoids; K63.5 Polyp of colon; K27.9 Peptic ulcer, site unspecified, unspecified as acute or chronic, without hemorrhage or perforation; Z79.4 Long term (current) use of insulin; Z79.02 Long term (current) use of antithrombotics/antiplatelets; K57.30 Diverticulosis of large intestine without perforation or abscess without bleeding
CPT/HCPCS: 36415; 71045; 80048; 80053; 80061; 81001; 81003; 82270; 82378; 82533; 82550; 82553; 82607; 82728; 82746; 82962; 82977; 83036; 83540; 83550; 83615; 83735; 83880; 83930; 83935; 84100; 84133; 84300; 84439; 84443; 84481; 84484; 84550; 85007; 85025; 85044; 85060; 85610; 85651; 85730; 86140; 86710; 86850; 86900; 86901; 86920; 87324; 89050; 93005; 93306; 93970; 93971; 94003; 94150; 94640; 94664; 94760; 96374; 99285; J1815; J7620; S5561